=== PATIENT | male | born 1945 | race Caucasian/White ===

== ENCOUNTER 2017-07-03 10:19 | Emergency (ER) | payer BC ==
[2017-07-03 10:28] VITALS: BP 130/57; PULSE 50; TEMP 97.9; BMI 23.8
--- NOTE | 2017-07-03 11:50 | PDOC ---
History of Present Illness - General Chief Complaint: Pain Stated Complaint: LT ARM PAIN Time Seen by Provider: 07/03/17 11:22 History Source: Patient Exam Limitations: No Limitations - History of Present Illness Initial Comments: 07/03/17 13:34 MY CHIEF COMPLAINT: LEFT FOREARM BRUISING/TENDERNESS HISTORY OF PRESENT ILLNESS: PT. IS 71 Y/O MALE WITH H.O CAD, ANGINA, HTN, STENT CARDIAC PLACEMENT 2005, AND DEPRESSIN/ANXIETY HERE TODAY WITH BRUISING LEFT DORSAL FOREARM WITH SLIGHT TENDERNESS TO TOUCH X 3 WEEKS. 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 SPOKE TO HIS CHIEF OF HOSPITAL MEDICINE WHO RECOMMENDED THAT HE STOP ELIQUIS FOR 4 DAYS. PT. RESTARTED ELIQUIS TODAY. PT. DENIES ANY INJURY TO LEFT FOREARM, HAND OR UPPER ARM. PT. IS ANXIOUS ABOUT CAUSE OF BRUISING. Occurred: reports: other (3 weeks ago started ) Severity: reports: mild Upper Extremity Pain Location: left: forearm (dorsal forearm) Method of Injury: reports: unknown Modifying Factors: improves with: None Extremity Pain Location - Extremity Pain Location Extremity Pain Locations: left: forearm (dorsal tenderness/bruising ) Past History - Past Medical History Allergies/Adverse Reactions: Allergies Allergy/AdvReac Type Severity Reaction Status Date / Time No Known Drug Allergies Allergy Verified 07/03/17 10:23 Home Medications: Ambulatory Orders Alendronate Na [Fosamax (Weekly)] 70 mg PO WEEKLY 11/17/11 Alprazolam [Xanax] 0.5 mg PO QID 11/17/11 Aspirin [Aspir 81] 81 mg PO DAILY 11/17/11 Bupropion HCl [Wellbutrin Sr] 150 mg PO BID 11/17/11 Carvedilol 25 mg PO BID 11/17/11 Isosorbide Mononitrate [Imdur] 30 mg PO BID 11/17/11 Montelukast Na [Singulair -] 10 mg PO HS 11/17/11 Valacyclovir HCl [Valacyclovir] 500 mg PO DAILY 11/17/11 Atorvastatin Ca [Lipitor] 10 mg PO DAILY 12/02/13 Terazosin HCl [Hytrin] 10 mg PO HS 12/02/13 Amlodipine Besylate [Norvasc -] 5 mg PO DAILY 11/23/14 Potassium Chloride [Klor-Con 10] 20 meq PO BID 11/23/14 Quinapril HCl [Accupril -] 5 mg PO DAILY 07/07/15 Albuterol Sulfate [Proair Respiclick] 90 mcg IH PRN PRN 06/07/16 Eplerenone [Inspra] 25 mg PO DAILY 06/07/16 Ranolazine [Ranexa -] 500 mg PO DAILY 06/07/16 Anemia: Yes (STATES "SLIGHT") Asthma: Yes Cancer: No Cardiac Disorders: Yes (HX CAD-HX ANGINA-NO [place]) CVA: No COPD: No CHF: Yes Dementia: No Diabetes: No GI Disorders: No Disorders: No HTN: Yes Hypercholesterolemia: Yes Liver Disease: No Seizures: No Thyroid Disease: No - Surgical History Abdominal Surgery: No Appendectomy: No Cardiac Surgery: Yes (PACEMAKER/DEFIB 2008, STENT 2005) Cholecystectomy: No Lung Surgery: No Neurologic Surgery: No Orthopedic Surgery: Yes (SHOULDER ARTHROSCOPY) - Immunization History Immunization Up to Date: Yes - Suicide/Smoking/Psychosocial Hx Smoking Status: Yes Smoking History: Former smoker Have you smoked in the past 12 months: No Number of Cigarettes Smoked Daily: 0 If you are a former smoker, when did you quit?: 1973 Information on smoking cessation initiated: No 'Breaking Loose' booklet given: 11/23/14 Hx Alcohol Use: Yes (occasional) Drug/Substance Use Hx: No Substance Use Type: None Hx Substance Use Treatment: No Review of Systems - Review of Systems Able to Perform ROS?: Yes Constitutional: No: Symptoms Reported HEENTM: No: Symptoms Reported Respiratory: No: Symptoms reported Cardiac (ROS): No: Symptoms Reported ABD/GI: No: Symptoms Reported : No: Symptoms Reported Musculoskeletal: No: Symptoms Reported Integumentary: Yes: Bruising (left dorsal forearm ) Neurological: No: Symptoms reported *Physical Exam - Vital Signs Last Vital Signs Temp Pulse Resp BP Pulse Ox 97.9 F 50 L 18 130/57 100 07/03/17 10:25 07/03/17 10:25 07/03/17 10:25 07/03/17 10:25 07/03/17 10:25 - Physical Exam General Appearance: Yes: Appropriately Dressed Respiratory/Chest: positive: Lungs Clear, Normal Breath Sounds. negative: Chest Tender, Respiratory Distress Cardiovascular: positive: Regular Rhythm, Regular Rate, S1, S2 Comments:: 07/03/17 12:35 left radial pulse 4 + Extremity: positive: Normal Capillary Refill, Normal Range of Motion (left hand/ digits, elbow/shoulder ), Tender (left forearm tenderness mid to touch ) Integumentary: positive: Bruising (left mid dorsal forearm appt. 4 cm x 3 cm ) Neurologic: positive: Normal Response, Respond to painful stimul (left forearm ) , Responsive. negative: Numbness, Sensory Deficit (left forearm ) Medical Decision Making - Medical Decision Making 07/03/17 13:40 PT. IS 71 Y/O MALE WITH H.O CAD, ANGINA, HTN, STENT CARDIAC PLACEMENT 2005, AND DEPRESSIN/ANXIETY HERE TODAY WITH BRUISING LEFT DORSAL FOREARM WITH SLIGHT TENDERNESS TO TOUCH X 3 WEEKS. 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 SPOKE TO HIS CHIEF OF HOSPITAL MEDICINE WHO RECOMMENDED THAT HE STOP ELIQUIS FOR 4 DAYS. PT. RESTARTED ELIQUIS TODAY. PT. DENIES ANY INJURY TO LEFT FOREARM, HAND OR UPPER ARM. PT. IS ANXIOUS ABOUT CAUSE OF BRUISING. R/O DVT LEFT FOREARM PLAN: VENOUS DOPPLER LEFT ARM NEGATIVE FOR DVT SPOKE WITH DR. MOY HE WAS NOT CONCERNED HAD SEEN PT. LAST WEEK, HE RECOMMENDED THAT HE FOLLOW UP WITH DR. ELLIOTT AND CONTINUE ON ELIQUIS *DC/Admit/Observation/Transfer Diagnosis at time of Disposition: Ecchymosis of forearm - Discharge Dispostion Disposition: HOME Condition at time of disposition: Stable - Referrals Referrals: Carlitos Moy MD [Primary Care Provider] - Tony Morel MD [Staff Physician] - Jarod Rosales MD [Staff Physician] - - Patient Instructions Additional Instructions: FOLLOW UP WITH CHIEF OF HOSPITAL MEDICINE SOON POSSIBLE FOLLOW UP WITH ORTHOPEDIST AVOID ANY STRENUOUS ACTIVITIES USING LEFT HAND/ARM PATIENT VOICED UNDERSTANDING OF DISCHARGE INSTRUCTIONS AND ALL QUESTIONS WERE ANSWERED - Post Discharge Activity
== END 2017-07-03 13:36 | disposition home or self-care (01) ==
LOC: JERFT 10:19
DX: S50.12XA Contusion of left forearm, initial encounter (principal); I25.10 Atherosclerotic heart disease of native coronary artery without angina pectoris; I10 Essential (primary) hypertension; Z95.5 Presence of coronary angioplasty implant and graft; F41.8 Other specified anxiety disorders; Z95.0 Presence of cardiac pacemaker
CPT/HCPCS: 93971; 99281-25

== ENCOUNTER 2018-04-11 12:55 | Emergency (ER) | payer BC ==
[2018-04-11 13:09] VITALS: BP 104/69; PULSE 69; TEMP 98.1; BMI 23.0
--- NOTE | 2018-04-11 15:44 | PDOC ---
History of Present Illness - General Chief Complaint: Injury Stated Complaint: FALL, BACK PAIN Time Seen by Provider: 04/11/18 13:26 History Source: Patient Exam Limitations: Clinical Condition - History of Present Illness Initial Comments: 04/11/18 15:38 Patient with history of hypertension, hyperlipidemia and cardiomyopathy on Eliquis present with complain of severe right-sided rib pain status post tripping fall this afternoon. Patient reported increased pain with deep breathing. Patient denies hitting head or loss of consciousness doing fall. Patient denies dizziness, lightheadedness, nausea or vomiting. Denies any other symptoms Timing/Duration: 1-3 hours Past History - Past Medical History Allergies/Adverse Reactions: Allergies Allergy/AdvReac Type Severity Reaction Status Date / Time No Known Drug Allergies Allergy Verified 04/13/18 08:07 Home Medications: Ambulatory Orders Alendronate Na [Fosamax (Weekly)] 70 mg PO WEEKLY 11/17/11 Alprazolam [Xanax] 0.5 mg PO QID 11/17/11 Aspirin [Aspir 81] 81 mg PO DAILY 11/17/11 Bupropion HCl [Wellbutrin Sr] 150 mg PO BID 11/17/11 Carvedilol 12.5 mg PO BID 11/17/11 Isosorbide Mononitrate [Imdur] 30 mg PO BID 11/17/11 Montelukast Na [Singulair -] 10 mg PO HS 11/17/11 Valacyclovir HCl [Valacyclovir] 500 mg PO DAILY 11/17/11 Atorvastatin Ca [Lipitor] 10 mg PO DAILY 12/02/13 Terazosin HCl [Hytrin] 10 mg PO HS 12/02/13 Amlodipine Besylate [Norvasc -] 5 mg PO DAILY 11/23/14 Potassium Chloride [Klor-Con 10] 10 meq PO BID 11/23/14 Quinapril HCl [Accupril -] 5 mg PO DAILY 07/07/15 Albuterol Sulfate [Proair Respiclick] 90 mcg IH PRN PRN 06/07/16 Ranolazine [Ranexa -] 500 mg PO DAILY 06/07/16 Lidocaine 5% Patch [Lidoderm -] 1 patch TP DAILY #7 patch 04/11/18 Oxycodone HCl/Acetaminophen [Percocet 5-325 mg Tablet] 1 - 2 tab PO Q6H PRN #10 tab MDD 4 04/11/18 Anemia: (STATES "SLIGHT") Asthma: Yes Cancer: No Cardiac Disorders: Yes (HX CAD-HX ANGINA-NO [place]) CVA: No COPD: No CHF: Yes Dementia: No Diabetes: No GI Disorders: No Disorders: No HTN: Yes Hypercholesterolemia: Yes Liver Disease: No Seizures: No Thyroid Disease: No - Surgical History Abdominal Surgery: No Appendectomy: No Cardiac Surgery: Yes (PACEMAKER/DEFIB 2008, STENT 2005) Cholecystectomy: No Lung Surgery: No Neurologic Surgery: No Orthopedic Surgery: Yes (SHOULDER ARTHROSCOPY) - Immunization History Immunization Up to Date: Yes - Suicide/Smoking/Psychosocial Hx Smoking Status: Yes Smoking History: Never smoked Have you smoked in the past 12 months: No Number of Cigarettes Smoked Daily: 0 If you are a former smoker, when did you quit?: 1973 'Breaking Loose' booklet given: 11/23/14 Hx Alcohol Use: Yes (occasional) Drug/Substance Use Hx: No Substance Use Type: None Hx Substance Use Treatment: No Review of Systems - Review of Systems Able to Perform ROS?: Yes Is the patient limited Macedonian proficient: No Constitutional: Yes: Other (moderate distress) HEENTM: No: Symptoms Reported Respiratory: Yes: Shortness of Breath. No: Cough, Hemoptysis Cardiac (ROS): No: Chest Pain, Irregular Heart Rate, Lightheadedness, Palpitations, Chest Tightness ABD/GI: No: Nausea, Vomiting Musculoskeletal: Yes: Back Pain (right side mid-back), Muscle Pain (right side ribs ). No: Muscle Weakness All Other Systems: Reviewed and Negative *Physical Exam - Vital Signs Last Vital Signs Temp Pulse Resp BP Pulse Ox 98.1 F 69 18 104/69 98 04/11/18 13:07 04/11/18 13:07 04/11/18 13:07 04/11/18 13:07 04/11/18 13:07 - Physical Exam Comments: 04/11/18 15:40 GENERAL: Well developed, well nourished. Awake and alert. Moderate acute distress. HEENT: Normocephalic, atraumatic. PERRLA, EOMI. No conjunctival pallor. Sclera are non- icteric. Moist mucous membranes. Oropharynx is clear. NECK: Supple. Full ROM. CARDIOVASCULAR: Regular rate and rhythm. No murmurs, rubs, or gallops. Distal pulses are 2+ and symmetric. PULMONARY: No evidence of respiratory distress. Lungs clear to auscultation bilaterally. No wheezing, rales or rhonchi. ABDOMINAL: Soft. Non-tender. Non-distended. No rebound or guarding. No organomegaly. Normoactive bowel sounds. MUSCULOSKELETAL : Moderate tenderness to palpation over right posterior with areas of lateral T2-T8. Mild tenderness to right mid back.Normal range of motion at all joints. No bony deformities . No CVA tenderness. EXTREMITIES: No cyanosis. No clubbing. No edema. No calf tenderness. SKIN: Warm and dry. Normal capillary refill. No rashes. No jaundice. NEUROLOGICAL: Alert, awake, appropriate. Gait is normal without ataxia. PSYCHIATRIC: Cooperative. Good eye contact. Appropriate mood and affect. General Appearance: Yes: Nourished, Appropriately Dressed, Moderate Distress ED Treatment Course - Medications Given in the ED: ED Medications Discontinued Medications Generic Name Dose Route Start Last Admin Trade Name Freq PRN Reason Stop Dose Admin Oxycodone/Acetaminophen 1 combo 04/11/18 13:45 04/11/18 13:56 Percocet 5/325 - PO 04/11/18 13:46 1 combo ONCE ONE Administration Medical Decision Making - Medical Decision Making 04/11/18 15:42 Patient with multiple comorbidities presenting with severe right-sided ribs and mid back pain status post fall hitting the right side of chest with complain of shortness of breath with pain to right side of chest. Exam significant for severe tenderness over right ribs with mild tenderness to right mid back. X-ray ordered with no acute pneumothorax or fracture. Percocet by mouth given for pain. CAT scan of abdominal and chest ordered to rule out acute pathology. Treat based on imaging results 16:58 x-rays shows fracture of 5th and 6th rib fracture with no evidence of pneumothorax or acute lung pathology. patient pain controlled after Percocet and Toradol. incentive spiropmetry and topical lidocaine patch ordered for patient . discharge will be based on patient able to do incentive spirometry. Patient signed out to night team for follow-up care *DC/Admit/Observation/Transfer Diagnosis at time of Disposition: Rib fractures Qualifiers: Encounter type: initial encounter Rib fracture type: multiple ribs Fracture type: closed Laterality: right Qualified Code(s): S22.41XA - Multiple fractures of ribs, right side, initial encounter for closed fracture - Discharge Dispostion Disposition: HOME Condition at time of disposition: Improved - Prescriptions Prescriptions: Lidocaine 5% Patch [Lidoderm -] 1 patch TP DAILY #7 patch Oxycodone HCl/Acetaminophen [Percocet 5-325 mg Tablet] 1 - 2 tab PO Q6H PRN #10 tab MDD 4 PRN Reason: Moderate Pain - Referrals Referrals: Carlitos Moy MD [Primary Care Provider] - - Patient Instructions Printed Discharge Instructions: Rib Fracture Additional Instructions: use incentive spirometer up to 30 deep breaths (with 30 to 60 second rests between sets of 10) may be done hourly during waking hours. you may take percocet every 6 hours for pains needed. do not drive after taking this medication follow up with your doctor as soon as possible. return to the ER for worsening symptoms/ - Post Discharge Activity Forms/Work/School Notes: Back to Work
[2018-04-11] MEDS ORDERED: KETOROLAC TROMETHAMINE 60 MG/2 ML VIAL IM ONE (15:53)
[2018-04-11] MEDS ORDERED: KETOROLAC TROMETHAMINE 60 MG/2 ML VIAL ONE (15:53)
--- NOTE | 2018-04-11 17:37 | PDOC ---
*Physical Exam - Vital Signs Last Vital Signs Temp Pulse Resp BP Pulse Ox 98.1 F 69 18 104/69 98 04/11/18 13:07 04/11/18 13:07 04/11/18 13:07 04/11/18 13:07 04/11/18 13:07 - Physical Exam Comments: 04/11/18 19:03 NAD, well appearing, MMM, nl conjunctiva, anicteric; neck supple. lungs clear, + diastolic heart murmur, +right lateral chest wall tenderness, no crepitus. no respiratory distress. abdomen soft nontender. MORE x4, no focal neuro deficits. No peripheral edema. normal color for ethnicity, WWP. ED Treatment Course - Medications Given in the ED: ED Medications Discontinued Medications Generic Name Dose Route Start Last Admin Trade Name Freq PRN Reason Stop Dose Admin Ketorolac Tromethamine 60 mg 04/11/18 15:53 04/11/18 16:06 Toradol Injection - IM 04/11/18 15:54 60 mg ONCE ONE Administration Oxycodone/Acetaminophen 1 combo 04/11/18 13:45 04/11/18 13:56 Percocet 5/325 - PO 04/11/18 13:46 1 combo ONCE ONE Administration Medical Decision Making - Medical Decision Making 04/11/18 19:02 The patient was seen and evaluated in conjunction with midlevel provider under my direct supervision, ancillary studies were reviewed. I agree with the plan as outlined by CARLO Holley 72 YOM with h/o hypertension, hyperlipidemia and cardiomyopathy on Eliquis presenting with chest pain s/p slip and fall, worse with taking deep breath and movement. no cough or respiratory sx. no head injury or LOC. vitals wnl, SpO2 98% on RA. off O2. CXR normal, but CT chest obtained with chest pain so eval for PTX/occult rib fx confirmed right 5-6th rib fractures, some old fractures present as well and those areas not tender. no ptx or hemothorax. trace pericardial effusion, but not significant. pain control with topical lidoderm patch, toradol and oxycodone with relief. pt has improved symptoms, w/o desats or respiratory sx. incentive spirometer, instructions on use pain controlled, elects for discharge which is appropriate and pt is reliable with the plan. return precautions discussed, including increased respiratory sx , infection or syncope. dehydration. pain control with PO tyl as needed, oxycodone for more severe sx. sedation and side effects discussed. 04/11/18 20:02 *DC/Admit/Observation/Transfer Diagnosis at time of Disposition: Rib fractures Qualifiers: Encounter type: initial encounter Rib fracture type: multiple ribs Fracture type: closed Laterality: right Qualified Code(s): S22.41XA - Multiple fractures of ribs, right side, initial encounter for closed fracture - Discharge Dispostion Disposition: HOME Condition at time of disposition: Improved Decision to Admit order: No - Prescriptions Prescriptions: Lidocaine 5% Patch [Lidoderm -] 1 patch TP DAILY #7 patch Oxycodone HCl/Acetaminophen [Percocet 5-325 mg Tablet] 1 - 2 tab PO Q6H PRN #10 tab MDD 4 PRN Reason: Moderate Pain - Referrals Referrals: Carlitos Moy MD [Primary Care Provider] - - Patient Instructions Printed Discharge Instructions: Rib Fracture Additional Instructions: use incentive spirometer up to 30 deep breaths (with 30 to 60 second rests between sets of 10) may be done hourly during waking hours. you may take percocet every 6 hours for pains needed. do not drive after taking this medication follow up with your doctor as soon as possible. return to the ER for worsening symptoms/ - Post Discharge Activity
[2018-04-11] MEDS ORDERED: LIDOCAINE 5% TOPICAL PATCH TP ONE (18:40)
--- NOTE | 2018-04-11 19:59 | PDOC ---
*Physical Exam - Vital Signs Last Vital Signs Temp Pulse Resp BP Pulse Ox 98.1 F 69 18 104/69 98 04/11/18 13:07 04/11/18 13:07 04/11/18 13:07 04/11/18 13:07 04/11/18 13:07 - Physical Exam General Appearance: Yes: Appropriately Dressed Respiratory/Chest: positive: Lungs Clear, Normal Breath Sounds Gastrointestinal/Abdominal: positive: Normal Bowel Sounds, Soft ED Treatment Course - Medications Given in the ED: ED Medications Discontinued Medications Generic Name Dose Route Start Last Admin Trade Name Freq PRN Reason Stop Dose Admin Ketorolac Tromethamine 60 mg 04/11/18 15:53 04/11/18 16:06 Toradol Injection - IM 04/11/18 15:54 60 mg ONCE ONE Administration Lidocaine 1 patch 04/11/18 18:40 04/11/18 19:37 Lidoderm Patch - TP 04/11/18 18:41 1 patch ONCE ONE Administration Oxycodone/Acetaminophen 1 combo 04/11/18 13:45 04/11/18 13:56 Percocet 5/325 - PO 04/11/18 13:46 1 combo ONCE ONE Administration Medical Decision Making - Medical Decision Making 04/11/18 19:52 pending incentive spirometer. 04/11/18 20:00 patient alert speaking. reports that pain is under control at this time. plan to d/c home 04/11/18 20:53 able to use incentive spirameter with no difficulty. will give dose of percocet now. v/s stable will d/c home *DC/Admit/Observation/Transfer Diagnosis at time of Disposition: Rib fractures Qualifiers: Encounter type: initial encounter Rib fracture type: multiple ribs Fracture type: closed Laterality: right Qualified Code(s): S22.41XA - Multiple fractures of ribs, right side, initial encounter for closed fracture - Discharge Dispostion Disposition: HOME Condition at time of disposition: Improved - Prescriptions Prescriptions: Lidocaine 5% Patch [Lidoderm -] 1 patch TP DAILY #7 patch Oxycodone HCl/Acetaminophen [Percocet 5-325 mg Tablet] 1 - 2 tab PO Q6H PRN #10 tab MDD 4 PRN Reason: Moderate Pain - Referrals Referrals: Carlitos Moy MD [Primary Care Provider] - - Patient Instructions Printed Discharge Instructions: Rib Fracture Additional Instructions: use incentive spirometer up to 30 deep breaths (with 30 to 60 second rests between sets of 10) may be done hourly during waking hours. you may take percocet every 6 hours for pains needed. do not drive after taking this medication follow up with your doctor as soon as possible. return to the ER for worsening symptoms/ - Post Discharge Activity Forms/Work/School Notes: Back to Work
[2018-04-11] MEDS ORDERED: LIDOCAINE PATCH REMOVAL MC SCH (22:00)
== END 2018-04-11 21:20 | disposition home or self-care (01) ==
LOC: JERFT 12:55 → JER 12:55
PROC: 3E0233Z Introduction of Anti-inflammatory into Muscle, Percutaneous Approach (ICD-10-PCS; principal; 2018-04-11)
DX: S22.41XA Multiple fractures of ribs, right side, initial encounter for closed fracture (principal); W18.39XA Other fall on same level, initial encounter; Y93.89 Activity, other specified; Y92.89 Other specified places as the place of occurrence of the external cause; I10 Essential (primary) hypertension; E78.5 Hyperlipidemia, unspecified; I42.9 Cardiomyopathy, unspecified; Z79.01 Long term (current) use of anticoagulants
CPT/HCPCS: 71045-TC-FY; 71250-TC; 99282-25

== ENCOUNTER 2018-04-13 07:54 | Emergency (ER) | payer BC ==
[2018-04-13 08:13] VITALS: BMI 23.8
--- NOTE | 2018-04-13 08:22 | PDOC ---
Attending Attestation - Resident Resident Name: Donta Orosco - ED Attending Attestation I have performed the following: I have examined & evaluated the patient, The case was reviewed & discussed with the resident, I agree w/resident's findings & plan, Exceptions are as noted - HPI HPI: 04/13/18 09:54 72y M hx asthma, htn, cad, hl, ckd, s/p PM (hypertrophic cardiomyoapthy) s/p fall dx with 5th and 6th rib fx and dc wth spirametry. Pt notes that the pain was worse this morning/ when he woke up he felt significant pain in the R back where he had the rib fracture. pt denies any sob, bae, fever/cough, n/v, diaphorsis, abd pain, hematuria. GENERAL: The patient is awake, alert, and fully oriented, Nontoxic - in no acute distress. HEAD: Normocephalic, atraumatic. EYES: extraocular movements intact, sclera anicteric, conjunctiva clear. ENT: Normal voice, Moist mucous membranes. NECK: Normal range of motion, supple LUNGS: Breath sounds equal, clear to auscultation bilaterally. No wheezes, no rhonchi, no rales. HEART: Regular rate and rhythm, normal S1 and S2 without murmur, rub or gallop. ABDOMEN: Soft, nontender No guarding, no rebound. No CVA tenderness, small localized ecchymosis in R above the iliac crest EXTREMITIES: Normal range of motion of all extermities, No clubbing or cyanosis. No cords, erythema, or tenderness. Small amount of ecchymosis on L antecubitual fossa NEUROLOGICAL: No facial assymetry, Normal speech, PSYCH: Normal mood, normal affect. SKIN: Warm, Dry, normal turgor, lungs clear - no signs of clinical or objective findings of pna, cxr clear ecchymsis - localized in R flank and L ac fossa, no signs of eccmyhosis elsewhere, do not think retroperitoneal hemorrhage, hgb stable lbas noted for ckd (at [facility]) will give further meds for pain control
--- NOTE | 2018-04-13 08:23 | PDOC ---
History of Present Illness - General Chief Complaint: Shortness of Breath Stated Complaint: FX RIBS,SOB Time Seen by Provider: 04/13/18 08:06 - History of Present Illness Initial Comments: 04/13/18 08:34 72 yo M w a hx of recent rib fracture, asthma, HTN, hyperlipidemia, CAD, pacemaker, cardiomyopathy on Eliquis is here with SOB and difficulty breathing. He was discharged from the hospital [address] confirmed right 5-6th rib fractures. He was sent home with instructions on how to use the spirometer. The patient reports good spirometer readings greater than 1750 up until last night. When he awoke this morning he was in a significant amount of pain despite taking a percocet and his spirometer reading was significantly lower than usual. He said he couldn't even reach 1250. He has been taking percocet for pain control 3-325 but it has not been helping much. He reports that he has been good about checking his temperature and states he has not had any fevers in the past few days. He denies recent fevers, chills, or infections. Denies chest pain. Denies abdominal pain. Denies dysuria, frequency or urgency. Re endorses constipation over the past few days since he began taking percocet for pain control. 04/13/18 08:36 04/13/18 08:37 04/13/18 08:45 04/13/18 08:47 Past History - Past Medical History Allergies/Adverse Reactions: Allergies Allergy/AdvReac Type Severity Reaction Status Date / Time No Known Drug Allergies Allergy Verified 04/13/18 08:07 Home Medications: Ambulatory Orders Alendronate Na [Fosamax (Weekly)] 70 mg PO WEEKLY 11/17/11 Alprazolam [Xanax] 0.5 mg PO QID 11/17/11 Aspirin [Aspir 81] 81 mg PO DAILY 11/17/11 Bupropion HCl [Wellbutrin Sr] 150 mg PO BID 11/17/11 Carvedilol 12.5 mg PO BID 11/17/11 Isosorbide Mononitrate [Imdur] 30 mg PO BID 11/17/11 Montelukast Na [Singulair -] 10 mg PO HS 11/17/11 Valacyclovir HCl [Valacyclovir] 500 mg PO DAILY 11/17/11 Atorvastatin Ca [Lipitor] 10 mg PO DAILY 12/02/13 Terazosin HCl [Hytrin] 10 mg PO HS 12/02/13 Amlodipine Besylate [Norvasc -] 5 mg PO DAILY 11/23/14 Potassium Chloride [Klor-Con 10] 10 meq PO BID 11/23/14 Quinapril HCl [Accupril -] 5 mg PO DAILY 07/07/15 Albuterol Sulfate [Proair Respiclick] 90 mcg IH PRN PRN 06/07/16 Ranolazine [Ranexa -] 500 mg PO DAILY 06/07/16 Lidocaine 5% Patch [Lidoderm -] 1 patch TP DAILY #7 patch 04/11/18 Oxycodone HCl/Acetaminophen [Percocet 5-325 mg Tablet] 1 - 2 tab PO Q6H PRN #10 tab MDD 4 04/11/18 Anemia: (STATES "SLIGHT") Asthma: Yes Cancer: No Cardiac Disorders: Yes (HX CAD-HX ANGINA-NO [place]) CVA: No COPD: No CHF: Yes Dementia: No Diabetes: No GI Disorders: No Disorders: No HTN: Yes Hypercholesterolemia: Yes Liver Disease: No Seizures: No Thyroid Disease: No - Surgical History Abdominal Surgery: No Appendectomy: No Cardiac Surgery: Yes (PACEMAKER/DEFIB 2008, STENT 2005) Cholecystectomy: No Lung Surgery: No Neurologic Surgery: No Orthopedic Surgery: Yes (SHOULDER ARTHROSCOPY) - Immunization History Immunization Up to Date: Yes - Suicide/Smoking/Psychosocial Hx Smoking Status: Yes Smoking History: Never smoked Have you smoked in the past 12 months: No Number of Cigarettes Smoked Daily: 0 If you are a former smoker, when did you quit?: 1974 'Breaking Loose' booklet given: 11/23/14 Hx Alcohol Use: Yes (occasional) Drug/Substance Use Hx: No Substance Use Type: None Hx Substance Use Treatment: No Review of Systems - Review of Systems Comments:: 04/13/18 08:49 CONSTITUTIONAL: Absent: fever, chills, diaphoresis, generalized weakness, malaise, loss of appetite HEENT: Absent: rhinorrhea, nasal congestion, throat pain, throat swelling, difficulty swallowing, mouth swelling, ear pain, eye pain, visual Changes CARDIOVASCULAR: Absent: chest pain, syncope, palpitations, irregular heart rate, lightheadedness , peripheral edema RESPIRATORY: Positive: Shortness of breath. Absent: cough, dyspnea with exertion, orthopnea, wheezing, stridor, hemoptysis GASTROINTESTINAL: Positive: Constipation Absent: abdominal pain, abdominal distension, nausea, vomiting, diarrhea, melena , hematochezia GENITOURINARY: Absent: dysuria, frequency, urgency, hesitancy, hematuria, flank pain, genital pain MUSCULOSKELETAL: Postive: Rib Pain Absent: myalgia, arthralgia, joint swelling SKIN: Positive: Rash Absent: itching, pallor HEMATOLOGIC/IMMUNOLOGIC: Positive: Easy bleeding, easy bruising Absent: lymphadenopathy, frequent infections ENDOCRINE: Absent: unexplained weight gain, unexplained weight loss, heat intolerance, cold intolerance NEUROLOGIC: Absent: headache, focal weakness or paresthesias, dizziness, unsteady gait, seizure, mental status changes, bladder or bowel incontinence PSYCHIATRIC: Absent: anxiety, depression, suicidal or homicidal ideation, hallucinations. 04/13/18 09:00 *Physical Exam - Vital Signs Last Vital Signs Temp Pulse Resp BP Pulse Ox 98.8 F 80 24 138/62 96 04/13/18 07:55 04/13/18 07:55 04/13/18 07:55 04/13/18 07:55 04/13/18 07:55 - Physical Exam Comments: 04/13/18 09:01 Ribs: Patient has exquisite pain upon palpation of the right 5th and 6th ribs posteriorly. GENERAL: Well developed, well nourished. Awake and alert. No acute distress. HEENT: Normocephalic, atraumatic. PERRLA, EOMI. No conjunctival pallor. Sclera are non- icteric. Moist mucous membranes. Oropharynx is clear. NECK: Supple. Full ROM. No JVD. No thyromegaly. No lymphadenopathy. CARDIOVASCULAR: Regular rate and rhythm. There is a diastolic murmur. No rubs or gallops. Distal pulses are 2+ and symmetric. PULMONARY: There is evidence of respiratory distress. The patient has a hard time taking deep breaths due to pain on R side. Lungs clear to auscultation bilaterally. No wheezing, rales or rhonchi. ABDOMINAL: Soft. Non-tender. Non-distended. No rebound or guarding. No organomegaly. Normoactive bowel sounds. MUSCULOSKELETAL There is significant tenderness along the Right 5th and 6th ribs posteriorly. Normal range of motion at all joints. No bony deformities. No CVA tenderness. EXTREMITIES: No cyanosis. No clubbing. No edema. No calf tenderness. SKIN: There is an echymosis in the RLQ of the abdomen as well as in the L antecubital fossa. Warm and dry. Normal capillary refill. No jaundice. NEUROLOGICAL: Alert, awake, appropriate. Cranial nerves 2-12 grossly intact. Normal speech. PSYCHIATRIC: Cooperative. Good eye contact. Appropriate mood and affect. ED Treatment Course - LABORATORY CBC & Chemistry Diagram: 04/13/18 08:19 04/13/18 08:19 Medical Decision Making - Medical Decision Making 04/13/18 09:05 72 yo M w a hx of recent R sided 5th and 6th rib fractures, asthma, HTN, hyperlipidemia, CAD, pacemaker, cardiomyopathy on Eliquis is here with SOB, difficulty breathing, decreased spirometer readings, and significant pleuritic pain associated with inhalation. Differential includes but not limited to: PNA, inappropriately managed pain, Pneumothorax, atelectasis, pleural effusion. Plan: Chest X ray, Cbc, Cmp, Vbg, Trop, Ekg, IVF - NS, toradol, lidoderm patch, re-assess. Percocet does not seem to be adequate for the patients rib pain. Will attempt to relive pain with toradol and lidoderm patch. After lidoderm patch, 650 mg of acetaminophen, and 15 toradol IV - it still hurts the patient significantly to move around. He is satting at 99% on RA lying still in the bed. He reports no discomfort while lying still but movement is painful. Will attempt to give 5 of oxycodone to relieve pain and see if patient can ambulate. Patient was able to get out of bed and walk after oxycodone. He would like to leave the hospital. He knows to come back to the ER if he can't breathe or if he has intractable pain. He understands the importance of spirometry to prevent a pneumonia. Strict return precautions were discussed with patient. 04/13/18 11:46 04/13/18 13:27 *DC/Admit/Observation/Transfer Diagnosis at time of Disposition: Rib fractures, Pain - Discharge Dispostion Disposition: HOME Condition at time of disposition: Stable Decision to Admit order: No - Referrals Referrals: Carlitos Moy MD [Primary Care Provider] - - Patient Instructions Printed Discharge Instructions: Rib Fracture, Presenting 'Lung Age' Spirometry Results Increases Smoking Cessation at 12 Additional Instructions: You came to the emergency room because of extreme rib pain and difficulty breathing. Your pain responded well to oxycodone. We will send a script for oxycodone to your pharmacy, please make sure to go pick it up and take as needed for pain control. Please make sure to be good about measuring your spirometry. Please schedule a follow up appointment with your primary care doc to make sure your pain is under control and you are getting better. Come back to the emergency room if your pain becomes too severe, if you can't breathe, if you develop a fever, have severe chest pain, start vomiting, or have any other new or worsening symptoms. Print Language: KAZAKH - Post Discharge Activity
[2018-04-13] MEDS ORDERED: KETOROLAC TROMETHAMINE 15 MG/ML VIAL IVPUSH ONE (08:24)
[2018-04-13] MEDS ORDERED: LIDOCAINE 5% TOPICAL PATCH TP ONE (08:25)
[2018-04-13] MEDS ORDERED: KETOROLAC TROMETHAMINE 15 MG/ML VIAL ONE (08:36)
[2018-04-13] MEDS ORDERED: LIDOCAINE 5% TOPICAL PATCH ONE (08:36)
[2018-04-13 08:49] LABS: VENOUS PC02 42.4 mmHg (38-52); VENOUS PH 7.39 (7.32-7.42); VENOUS PO2 23.3 mmHg (28-48)
[2018-04-13 09:05] LABS: BASO % 0.2 % (0-2.0); EOS % 0.9 % (0-4.5); HEMATOCRIT 34.4 % (35.4-49); HEMOGLOBIN 11.7 GM/dL (11.7-16.9); LYMPH % 7.9 % (8-40); MCH 32.5 pg (25.7-33.7); MEAN CELL VOLUME 95.6 fl (80-96); MEAN PLT VOLUME 9.8 fl (7.5-11.1); MONO % 10.2 % (3.8-10.2); NEUT % 80.8 % (42.8-82.8); PLATELET COUNT 129 K/MM3 (134-434); RDW 23.1 % (11.9-15.9); WHITE BLOOD COUNT 7.4 K/mm3 (4.0-10.0)
[2018-04-13 09:22] LABS: ALBUMIN 3.8 g/dl (3.4-5.0); ALK PHOS 52 U/L (45-117); ANION GAP 10 MMOL/L (8-16); BILIRUBIN,TOTAL 1.6 mg/dL (0.2-1); BLOOD UREA NITROGEN 62 mg/dL (7-18); CHLORIDE 110 mmol/L (98-107); CO2 23 mmol/L (21-32); CREATININE 2.7 mg/dL (0.55-1.3); GLUCOSE,RANDOM 102 mg/dL (74-106); POTASSIUM 4.6 mmol/L (3.5-5.1); SGOT/AST 14 U/L (15-37); SGPT/ALT 19 U/L (13-61); SODIUM 143 mmol/L (136-145); TOT PROT 6.6 g/dl (6.4-8.2)
[2018-04-13] MEDS ORDERED: SODIUM CHLORIDE 0.9% 500 ML INFUS.BAG IV ONE (09:23)
[2018-04-13] MEDS ORDERED: ACETAMINOPHEN 325 MG TABLET (FP) PO ONE (10:08)
[2018-04-13] MEDS ORDERED: ACETAMINOPHEN 325 MG TABLET (FP) ONE (10:18)
[2018-04-13] MEDS ORDERED: buPROPion HCL 100 MG TABLET PO ONE (11:24)
[2018-04-13] MEDS ORDERED: CARVEDILOL 25 MG TABLET (FP) PO ONE (11:27)
[2018-04-13] MEDS ORDERED: EPLERENONE 25 MG TABLET PO ONE (11:28)
[2018-04-13] MEDS ORDERED: FUROSEMIDE 40 MG TABLET (FP) PO ONE (11:29)
[2018-04-13] MEDS ORDERED: ISOSORBIDE MONONITRATE 30 MG TAB.SR.24H (FP) PO SCH (11:30)
[2018-04-13] MEDS ORDERED: APIXABAN 2.5 MG TABLET PO SCH (11:30)
[2018-04-13] MEDS ORDERED: RANOLAZINE E.R. 500 MG TABLET (FP) PO SCH (11:30)
[2018-04-13] MEDS ORDERED: buPROPion HCL 100 MG TABLET ONE (11:35)
[2018-04-13] MEDS ORDERED: CARVEDILOL 12.5 MG TABLET (FP) ONE (11:35)
[2018-04-13] MEDS ORDERED: ISOSORBIDE MONONITRATE 60 MG TAB.SR.24H (FP) PO ONE (11:35)
[2018-04-13] MEDS ORDERED: oxyCODONE HCL 5 MG TABLET PO ONE (11:40)
[2018-04-13] MEDS ORDERED: oxyCODONE HCL 5 MG TABLET ONE (11:44)
[2018-04-13 12:14] VITALS: BP 131/53
[2018-04-13 12:33] LABS: INR 1.5 (0.83-1.09)
[2018-04-13 12:36] LABS: ACTIVATED PTT 32.1 SECONDS (25.2-36.5)
[2018-04-13] MEDS ORDERED: BISMUTH SUBSALICYLATE 524 MG/30 ML UD PO ONE (13:42)
[2018-04-13 14:04] VITALS: PULSE 78; TEMP 98.1
[2018-04-13] MEDS ORDERED: MAG HYDROX/AL HYDROX/SIMETH -MYLANTA- ORAL SUSPENSION PO ONE (14:06)
[2018-04-13] MEDS ORDERED: MAG HYDROX/AL HYDROX/SIMETH 30 ML UNIT-DOSE CUP ONE (14:07)
[2018-04-13] MEDS ORDERED: LIDOCAINE PATCH REMOVAL MC SCH (22:00)
== END 2018-04-13 14:12 | disposition home or self-care (01) ==
LOC: JER 07:54
PROC: 3E0333Z Introduction of Anti-inflammatory into Peripheral Vein, Percutaneous Approach (ICD-10-PCS; principal; 2018-04-13)
PROC: 3E0337Z Introduction of Electrolytic and Water Balance Substance into Peripheral Vein, Percutaneous Approach (ICD-10-PCS; 2018-04-13)
DX: S22.39XA Fracture of one rib, unspecified side, initial encounter for closed fracture (principal); S27.9XXA Injury of unspecified intrathoracic organ, initial encounter; X58.XXXA Exposure to other specified factors, initial encounter; Y93.89 Activity, other specified; Y92.89 Other specified places as the place of occurrence of the external cause; I10 Essential (primary) hypertension; E78.5 Hyperlipidemia, unspecified; Z95.5 Presence of coronary angioplasty implant and graft; Z79.01 Long term (current) use of anticoagulants; I25.10 Atherosclerotic heart disease of native coronary artery without angina pectoris
CPT/HCPCS: 36415; 71045-TC-FY; 80053; 82550; 82803; 84484; 85025; 85610; 85730; 99285-25

== ENCOUNTER 2019-02-17 20:49 | Emergency (ER) | payer BC | END 2019-02-17 23:02 | disposition home or self-care (01) | LOC: JERFT 20:49 ==

== ENCOUNTER 2019-08-08 04:27 | Inpatient (IN) | payer BC, OTHER ==
[2019-08-08] MEDS ORDERED: THROMBIN (BOVINE) 5,000 UNIT VIAL TP ONE ×4 (07:16→10:27)
[2019-08-08] MEDS ORDERED: BACITRACIN 15 GM TUBE TOPICAL OINTMENT ONE (07:19)
[2019-08-08] MEDS ORDERED: ROCURONIUM BROMIDE 50 MG/5 ML SYRINGE ONE (07:55)
[2019-08-08] MEDS ORDERED: fentaNYL CITRATE 250 MCG/5 ML VIAL ONE (07:55)
[2019-08-08] MEDS ORDERED: MIDAZOLAM HCL 2 MG/2 ML SINGLE DOSE VIAL ONE ×2 (07:55)
[2019-08-08] MEDS ORDERED: PROPOFOL 20 ML ONE ×7 (08:08→10:59)
[2019-08-08] MEDS ORDERED: ceFAZolin SODIUM 1 GM VIAL IVPB ONE (08:30)
[2019-08-08] MEDS ORDERED: BACITRACIN 50,000 UNITS VIAL TP ONE (09:42)
[2019-08-08] MEDS ORDERED: BACITRACIN 15 GM TUBE TOPICAL OINTMENT TP ONE ×2 (09:43→11:30)
[2019-08-08] MEDS ORDERED: NEOSTIGMINE METHYLSULFATE 0.5 MG/1 ML - 10 ML MDV ONE (09:58)
[2019-08-08] MEDS ORDERED: BUPIVACAINE HCL/PF 0.5% (5 MG/ML) 30 ML VIAL IJ ONE (11:15)
[2019-08-08] MEDS ORDERED: ACETAMINOPHEN 325 MG TABLET (FP) PO PRN (11:50)
[2019-08-08] MEDS ORDERED: BISACODYL 10 MG SUPP.RECT RC PRN (11:50)
[2019-08-08] MEDS ORDERED: ONDANSETRON 4 MG/2 ML VIAL IVPUSH PRN ×3 (11:50→12:43)
--- NOTE | 2019-08-08 11:50 | OP ---
Operative Note - Note: Operative Date: 08/08/19 Pre-Operative Diagnosis: L4-5 and L3-4 epidural lesion with thecal sac and L sided root compression Operation: Lumbar laminectomies for epidural mass resection, microsurgical dissection, posterolateral fusion L3-4 and L4-5; posterior lumbar segmental pedicle screw system placement L3-4-5; fluoroscopy for localization and screw placement; harvest of autologous bone graft/bone dust Findings: fibrotic epidural lesion with internal hemorrhage and dense adhesion; thecal sac and L L4 and L5 root compression; instability L4-5 > L3-4 Implants: [employer] titanium system (6.5 x 45 mm screws x6 and 60 mm rods x2) Surgeon: Akil Rosenthal Heavy Mobile Equipment Repairer: Berenice Fine Anesthesiologist/BEATER ENGINEER HELPER: Raya Darden MD Anesthesia: General Specimens Removed: L4-5 epidural lesion; ligamentum flavum Estimated Blood Loss (mls): 250
[2019-08-08] MEDS ORDERED: D5-1/2NS+20 MEQ KCL - 20 MEQ/1,000 ML INFUS.BAG IV SCH (12:00)
[2019-08-08] MEDS ORDERED: PATIENT'S OWN MEDICATION (NON-FORMULARY) (Albuterol Sulfate [Proair Respiclick] 90 MCG) IH PRN ×2 (12:06→20:52)
[2019-08-08] MEDS ORDERED: NITROGLYCERIN SUBLINGUAL 1/150 0.4 MG TAB SL PRN (12:11)
[2019-08-08] MEDS ORDERED: PATIENT'S OWN MEDICATION (NON-FORMULARY) (Alendronate Na [Fosamax (Weekly)] 70 MG) PO SCH (12:15)
[2019-08-08] MEDS ORDERED: PATIENT'S OWN MEDICATION (NON-FORMULARY) (Furosemide [Lasix] 80 MG) PO SCH (12:15)
[2019-08-08] MEDS ORDERED: DEXAMETHASONE SOD PHOSPHATE 4 MG/1 ML VIAL IVPUSH PRN (12:43)
[2019-08-08] MEDS ORDERED: LACTATED RINGERS SOLUTION 1,000 ML IV SCH (12:45)
[2019-08-08] MEDS ORDERED: HYDROmorphone *PCA* 10MG/50ML DISP.SYRIN PCA SCH (12:45)
--- NOTE | 2019-08-08 12:45 | SURG ---
Surgery Field Broomer Note Field Broomer: Berenice Fine PA-C Date of Service: 08/08/19 Diagnosis: L4-5 and L3-4 epidural lesion with thecal sac and L sided root compression Procedure: Lumbar laminectomies for epidural mass resection, microsurgical dissection, posterolateral fusion L3-4 and L4-5; posterior lumbar segmental pedicle screw system placement L3-4-5; fluoroscopy for localization and screw placement; harvest of autologous bone graft/bone dust I was present for the entirety of the operative procedure. For further detail, please refer to operative report. Visit type - Case Type Case Type: Scheduled - Emergency Emergency Visit: No - New patient This patient is new to me today: Yes Date on this admission: 08/08/19
--- NOTE | 2019-08-08 12:56 | PN ---
Progress Note (short form) - Note Progress Note: NEUROSURGERY In PACU Incisional pain, no sciatica L LE PE: AF, VSS, O2 sat 99% CV- RR; Lungs- CTA; Abd- benign; Ext- no sign of DVT CN- intact; MOtor- 4+/5 throughout including L DF; Sensation- intact LT Drain working Dressing intact Stable/improved neurologically Labs (CMET and CBC) pending ICU for cardiac monitoring Consulted and texted Dr. Morel; called office and Dr. 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
[2019-08-08 13:09] LABS: HEMATOCRIT 27.3 % (35.4-49); HEMOGLOBIN 9.3 GM/dL (11.7-16.9); MCH 33.2 pg (25.7-33.7); MCHC 33.9 g/dl (32.0-35.9); MEAN CELL VOLUME 97.8 fl (80-96); PLATELET COUNT 110 K/MM3 (134-434); RBC 2.79 M/mm3 (4.00-5.60); RDW 23.2 % (11.9-15.9); WHITE BLOOD COUNT 6.4 K/mm3 (4.0-10.0)
[2019-08-08 13:33] LABS: BLOOD UREA NITROGEN 48.1 mg/dL (7-18); CALCIUM 7.6 mg/dL (8.5-10.1); CREATININE 2.5 mg/dL (0.55-1.3); POTASSIUM 4.5 mmol/L (3.5-5.1)
--- NOTE | 2019-08-08 13:52 | CONSULT ---
Consultation: REQUESTING PROVIDER: Dr. Rosenthal CONSULT REQUEST: We have been asked to medically evaluate this patient for ICU management HISTORY OF PRESENT ILLNESS: 73 M PMH of Afib s/p defrillator with biventricular pacer, asthma, anxiety, HTN , CAD, basal cell carcinoma of the left shoulder, torn right rotator cuff and torn right quadriceps, intracanalicular lesion with thecal sac compression who presents today POD #0 for lumbar laminectomies for epidural mass resection, microsurgical dissection, posterolateral fusion L3-4 and L4-5. He had a a worsening 6 month history of left lower extremity radiculopathy. The pain radiated down his left buttock, latera and posterior thigh, krause, calf, and down to his left ankle. There was associated weakness of the left thigh as per chart review. He endorses feeling pain the morning of his surgery. His operation showed fibrotic epidural lesion with internal hemorrhage and dense adhesion; thecal sac and L L4 and L5 root compression; instability L4-5 > L3-4. Dr. Rosenthal placed a [employer] titanium system (6.5 x 45 mm screws x6 and 60 mm rods x2). He had EBL of 250, and tolerated anesthesia well and was AAOx3 when in the PACU. He complains of pain in his lower back but does not endorse pain in other regions. REVIEW OF SYSTEMS: CONSTITUTIONAL: Absent: fever, chills, diaphoresis, generalized weakness, malaise, loss of appetite, weight change HEENT: Absent: rhinorrhea, nasal congestion, throat pain, throat swelling, difficulty swallowing, mouth swelling, ear pain, eye pain, visual changes CARDIOVASCULAR: Absent: chest pain, syncope, palpitations, irregular heart rate, lightheadedness , peripheral edema RESPIRATORY: Absent: cough, shortness of breath, dyspnea with exertion, orthopnea, wheezing, stridor, hemoptysis GASTROINTESTINAL: Absent: abdominal pain, abdominal distension, nausea, vomiting, diarrhea, constipation, melena, hematochezia GENITOURINARY: Absent: dysuria, frequency, urgency, hesitancy, hematuria, flank pain, genital pain MUSCULOSKELETAL: Present: low back pain Absent: myalgia, arthralgia, joint swelling, neck pain SKIN: Absent: rash, itching, pallor HEMATOLOGIC/IMMUNOLOGIC: Absent: easy bleeding, easy bruising, lymphadenopathy, frequent infections ENDOCRINE: Absent: unexplained weight gain, unexplained weight loss, heat intolerance, cold intolerance NEUROLOGIC: Present: dizziness Absent: headache, focal weakness or paresthesias, unsteady gait, seizure, mental status changes, bladder or bowel incontinence PSYCHIATRIC: Absent: anxiety, depression, suicidal or homicidal ideation, hallucinations. PHYSICAL EXAMINATION Vital Signs - 24 hr 08/08/19 08/08/19 07:08 07:09 Temperature 97.6 F Pulse Rate 70 Respiratory 16 Rate Blood Pressure 117/58 L O2 Sat by Pulse 98 Oximetry (%) GENERAL: Awake, alert, and fully oriented, in no acute distress. HEAD: Normal with no signs of trauma. EYES: EOMI EARS, NOSE, THROAT: Ears normal, nares patent, oropharynx clear without exudates. Moist mucous membranes. LUNGS: Breath sounds equal, clear to auscultation bilaterally. No wheezes, and no crackles. No accessory muscle use. HEART: Regular rate and rhythm, 3/6 diastolic murmur. ABDOMEN: Distended. Soft, nontender, absent bowel sounds, no guarding, no rebound, no masses. No hepatomegaly or splenomegaly. MUSCULOSKELETAL: Normal range of motion of upper extremities. UPPER EXTREMITIES: 2+ pulses, warm, well-perfused. No cyanosis. No clubbing. Cap refill <2 seconds. No peripheral edema. LOWER EXTREMITIES: 2+ pulses, warm, well-perfused. No calf tenderness. No peripheral edema. NEUROLOGICAL: Cranial nerves II-XII intact. Sensation in tact grossly. PSYCHIATRIC: Cooperative. Good eye contact. Appropriate mood and affect. SKIN: Warm, dry, normal turgor, no rashes or lesions noted. Laboratory Results - last 24 hr 08/08/19 08/08/19 08/08/19 06:20 12:50 12:50 WBC 6.4 RBC 2.79 L Hgb 9.3 L Hct 27.3 L D MCV 97.8 H MCH 33.2 MCHC 33.9 RDW 23.2 H Plt Count 110 L MPV 9.0 Sodium 142 Potassium 4.5 Chloride 113 H Carbon Dioxide 25 Anion Gap 4 L BUN 48.1 H Creatinine 2.5 H Est GFR (CKD-EPI)AfAm 28.86 Est GFR (CKD-EPI)NonAf 24.90 Random Glucose 111 H Calcium 7.6 L Blood Type O POSITIVE Antibody Screen Negative Crossmatch See Detail Active Medications Generic Name Dose Route Start Last Admin Trade Name Freq PRN Reason Stop Dose Admin Acetaminophen 650 mg 08/08/19 11:50 Tylenol - PO Q6H PRN FEVER Amlodipine Besylate 5 mg 08/09/19 10:00 Norvasc - PO DAILY [facility] Atorvastatin Calcium 10 mg 08/08/19 12:15 Lipitor - PO ASDIR [facility] Bisacodyl 10 mg 08/08/19 11:50 Dulcolax Suppository - RC DAILY PRN CONSTIPATION Bupropion HCl 150 mg 08/08/19 22:00 Wellbutrin Xl - PO BID [facility] Carvedilol 12.5 mg 08/08/19 22:00 Coreg - PO BID [facility] Dexamethasone Sodium Phosphate 4 mg 08/08/19 12:43 Decadron Injection - IVPUSH ONCE PRN NAUSEA AND/OR VOMITING Diazepam 5 mg 08/08/19 12:00 Valium - PO Q8H [facility] Docusate Sodium 100 mg 08/08/19 14:00 Colace - PO TID [facility] Eplerenone 25 mg 08/09/19 10:00 Eplerenone PO DAILY [facility] Fentanyl 50 mcg 08/08/19 12:43 Sublimaze Injection - IVPUSH [id number] PRN PAIN-PACU ORDER X 4 DOSES ONLY Furosemide 40 mg 08/08/19 12:15 Lasix - PO ASDIR [facility] Hydromorphone HCl 10 mg 08/08/19 12:45 Hydromorphone 10 Mg/50 Ml-Ns INSERTER 08/09/19 12:44 INSERTER [facility] Protocol Cefazolin Sodium 1 gm/ 50 mls @ 100 mls/hr 08/08/19 18:00 Dextrose IVPB 08/09/19 10:29 Q8H-IV JAMES Potassium Chloride/Dextrose/Sod Cl 20 meq in 1,000 mls @ 100 mls/hr 08/08/19 12:00 D5-1/2ns+20 Meq Kcl - IV ASDIR JAMES Potassium Chloride/Dextrose/Sod Cl 20 meq in 1,000 mls @ 42 mls/hr 08/08/19 12 :00 D5-1/2ns+20 Meq Kcl - IV ASDIR [facility] Lactated Ringer's 1,000 mls @ 42 mls/hr 08/08/19 12:45 Lactated Ringers Solution IV ASDIR [facility] Isosorbide Mononitrate 30 mg 08/08/19 22:00 Imdur - PO BID [facility] Montelukast Sodium 10 mg 08/08/19 22:00 Singulair - PO HS [facility] Nitroglycerin 0.4 mg 08/08/19 12:11 Nitrostat - SL PRN PRN PAIN Non-Formulary Medication 90 mcg 08/08/19 12:06 Albuterol Sulfate [Proair Respiclick] IH PRN PRN ASTHMA Non-Formulary Medication 80 mg 08/08/19 12:15 Furosemide [Lasix] PO ASDIR JAMES Non-Formulary Medication 10 mg 08/08/19 22:00 Terazosin Hcl [Hytrin] PO HS [facility] Ondansetron HCl 4 mg 08/08/19 11:50 Zofran Injection IVPUSH Q6H PRN NAUSEA AND/OR VOMITING Ondansetron HCl 4 mg 08/08/19 12:43 Zofran Injection IVPUSH Q6H PRN NAUSEA AND/OR VOMITING Ondansetron HCl 4 mg 08/08/19 12:43 Zofran Injection IVPUSH Q4H PRN NAUSEA AND/OR VOMITING Potassium Chloride 20 meq 08/08/19 22:00 K-Dur - PO BID [facility] Quinapril HCl 5 mg 08/09/19 10:00 Accupril - PO DAILY [facility] Ranolazine 500 mg 08/09/19 10:00 Ranexa - PO DAILY [facility] Valacyclovir HCl 500 mg 08/08/19 22:00 Valtrex - PO HS [facility] ASSESSMENT/PLAN: 73 M PMH of Afib s/p defrillator with biventricular pacer, asthma, anxiety, HTN , HLD, CAD, basal cell carcinoma of the left shoulder, torn right rotator cuff and torn right quadriceps, intracanalicular lesion with thecal sac compression who presents today POD #0 for lumbar laminectomies for epidural mass resection , microsurgical dissection, posterolateral fusion L3-4 and L4-5. Neuro/Psych -Hx of intracanalicular lesion with thecal sac compression, POD #0 for lumbar laminectomies for epidural mass resection, posterolateral fusion L3-L4, L4-L5. -AAOx3 -Pain management as per Anesthesia/Neurosurgical team -Hx of anxiety, patient on valium now. -Continue buproprion BID -F/U lumbar spine x-ray in AM 08/09. -Neurosurgery on board. Cardiovascular -Hx of CHF, CAD, Afib, defibrillator with biventricular pacer, asthma, HTN, HLD -Continue amlodipine 5 mg Daily PO -Continue atorvastatin 10 mg PO HS -Continue carvedilol 12.5 mg PO BID -Continue eplerone 25 daily -Continue Lasix 40 PO Daily -Continue Imdur 30 BID -Continue quinapril 5 mg PO daily -Continue terazosin 10 mg PO HS -Continue nitroglycerin 0.4 mg SL PRN -Continue ranolazine 500 mg PO Daily Pulmonary -Hx of asthma -Continue albuterol as needed -Continue singulair 10 mg PO HS GI -Stable, continue to monitor Renal -Jack in place. D/C overnight -Monitor electrolytes -Continue K-Dur 20 mg PO BID MSK - Hx of lower back pain, with pain radiating down left lower extremity -Continue monitoring s/p surgery -Valium 5mg Q8H ID -Ancep given post surgery -F/U Cultures F: D5 1/2 NS + 20 mEq KCl @ 100 until PO. switch to 42 when PO E: Monitor Potassium N: NPO for 6 hours post-op then clears. DVT: SCDs Lines: Peripheral IV Dispo: We will continue to follow the patient. Thank you for this consultative opportunity. Visit type - Emergency Visit Emergency Visit: No - New Patient This patient is new to me today: Yes Date on this admission: 08/08/19 - Critical Care Critical Care patient: Yes Total Critical Care Time (in minutes): 45 Critical Care Statement: The care of this patient involved high complexity decision making to prevent further life threatening deterioration of the patient 's condition and/or to evaluate & treat vital organ system(s) failure or risk of failure. ATTENDING PHYSICIAN STATEMENT I saw and evaluated the patient. I reviewed the resident's note and discussed the case with the resident. I agree with the resident's findings and plan as documented. SUBJECTIVE: OBJECTIVE: ASSESSMENT AND PLAN:
[2019-08-08] MEDS ORDERED: ALBUTEROL SO4 0.083% IH SOL 2.5 MG/3 ML VIAL.NEB. NEB ONE (15:50)
--- NOTE | 2019-08-08 16:40 | CON.CARD ---
Consult Consult Specialty:: Cardiology Referred by:: ICU Reason for Consultation:: post op monitoring - History of Present Illness Chief Complaint: post op History of Present Illness: 73M h/o afib, chronic systolic HF s/p ICD/BiV ppm, HTN, CAD now POD 0 from lumbar laminectomies for epidural mass resection, microsurgical dissection, posterolateral fusion L3-4 and L4-5 admitted for post op monitoring. Sees Dr Morel for cardio, currently no chest pain, palps, dizziness, dyspnea. no surgical complications. - Past Medical History Cardio/Vascular: Yes: Aortic Insufficiency, HTN, Murmur Pulmonary: Yes: Asthma Gastrointestinal: Yes: GI Bleed Renal/: Yes: Renal Inusuff Infectious Disease: Yes: Other (HSV) Psych: Yes: Anxiety, Depression Musculoskeletal: Yes: Chronic low back pain ENT: Yes: Allergic Rhinitis Endocrine: Yes: Osteopenia - Past Surgical History Past Surgical History: Yes: AICD - Alcohol/Substance Use Hx Alcohol Use: No - Smoking History Smoking history: Former smoker Have you smoked in the past 12 months: No Aproximately how many cigarettes per day: 0 If you are a former smoker, when did you quit?: 1973 - Social History History of Recent Travel: No Home Medications - Allergies Allergies/Adverse Reactions: Allergies Allergy/AdvReac Type Severity Reaction Status Date / Time No Known Drug Allergies Allergy Verified 08/05/19 10:02 - Home Medications Home Medications: Ambulatory Orders Alendronate Na [Fosamax (Weekly)] 70 mg PO WEEKLY 11/17/11 Alprazolam [Xanax] 0.5 mg PO PRN PRN 11/17/11 Aspirin [Aspir 81] 81 mg PO DAILY 11/17/11 Bupropion HCl [Wellbutrin Sr] 150 mg PO BID 11/17/11 Carvedilol 12.5 mg PO BID 11/17/11 Isosorbide Mononitrate [Imdur] 30 mg PO BID 11/17/11 Montelukast Na [Singulair -] 10 mg PO HS 11/17/11 Valacyclovir HCl [Valacyclovir] 500 mg PO HS 11/17/11 Atorvastatin Ca [Lipitor] 10 mg PO ASDIR 12/02/13 Terazosin HCl [Hytrin] 10 mg PO HS 12/02/13 Amlodipine Besylate [Norvasc -] 5 mg PO DAILY 11/23/14 Potassium Chloride [Klor-Con 10] 20 meq PO BID 11/23/14 Quinapril HCl [Accupril -] 5 mg PO DAILY 07/07/15 Albuterol Sulfate [Proair Respiclick] 90 mcg IH PRN PRN 06/07/16 Ranolazine [Ranexa -] 500 mg PO DAILY 06/07/16 Apixaban [Eliquis] 2.5 mg PO BID 02/17/19 Eplerenone [Inspra] 25 mg PO DAILY 08/05/19 Furosemide [Lasix] 40 mg PO ASDIR 08/05/19 Furosemide [Lasix] 80 mg PO ASDIR 08/05/19 Nitroglycerin [Nitrostat] 0.4 mg SL PRN PRN 08/05/19 Family Medical History Family History: Unremarkable Review of Systems - Review of Systems Constitutional: reports: No Symptoms Eyes: reports: No Symptoms HENT: reports: No Symptoms Neck: reports: No Symptoms Cardiovascular: reports: No Symptoms Respiratory: reports: No Symptoms Gastrointestinal: reports: No Symptoms Genitourinary: reports: No Symptoms Musculoskeletal: reports: No Symptoms Integumentary: reports: No Symptoms Neurological: reports: No Symptoms Endocrine: reports: No Symptoms Hematology/Lymphatic: reports: No Symptoms Psychiatric: reports: No Symptoms Vital Signs: Vital Signs Temperature 98.2 F 08/08/19 12:26 Pulse Rate 70 08/08/19 15:30 Respiratory Rate 11 08/08/19 15:30 Blood Pressure 104/64 08/08/19 15:30 O2 Sat by Pulse Oximetry (%) 100 08/08/19 15:30 Constitutional: Yes: Well Nourished, No Distress, Calm Eyes: Yes: Conjunctiva Clear, EOM Intact HENT: Yes: Atraumatic, Normocephalic Neck: Yes: Supple, Trachea Midline Respiratory: Yes: Regular, CTA Bilaterally Gastrointestinal: Yes: Normal Bowel Sounds, Soft Cardiovascular: Yes: Regular Rate and Rhythm Heart Sounds: Yes: S1, S2 Extremities: No: Cold Edema: No Integumentary: No: Jaundice Neurological: Yes: Alert, Oriented Psychiatric: No: Agitated - Other Data Labs, Other Data: CBC, BMP 08/08/19 12:50 08/08/19 12:50 Assessment/Plan MPI 12/06 (gamaliel): v-paced; medium IW defect worse on stress (? artifact); small apical defect fixed; mild, global HK (49%). severe LV dilation, NO TID Stress Echo 03/06: 6:06min-->modified to 8:57; +CP at peak (81% MPHR); v-paced; sap consultant and apicolat HK at rest, without clear augmentation post-exercise. EF 50 % to 55% post-exercise; mod MR post (no RVSP) MIBI 04/05 (gamaliel): paced; no isch seen; dilated LV (no TID); mild/global hk (EF 51%) Echo 04/2019: 1. Suboptimal image quality - poor subcostal views. 2. The left ventricle is moderately dilated. 3. Overall left ventricular systolic function is globally mildly impaired, with an estimated EF between 45 - 50 %. Casas's (apical 4 chamber) = 53%. 4. LA pressure is uncertain. 5. The right ventricle is normal in size and function. 6. Left atrium is severely dilated by volume. 7. Electronic pacemaker lead seen in the RA and RV. 8. There is very eccentric AI jet, which appears moderate however severity may be underestimated. No holodiastolic flow reversal is suspected in descending thoracic aorta doppler signal. 9. The mitral valve leaflets are mildly thickened, tethered in motion. 10. Rzig-ek-zbmsjhzy mitral regurgitation is present. 11. Aomn-lb-cblebjfd tricuspid regurgitation present. 12. Unable to estimate RVSP due to inadequate TR jet spectral doppler profile. 13. The aortic root is severely dilated (5.1 cm at sinuses of Valsalva, unchanged vs prior study of 10/2018). 14. There is a small pericardial effusion located near the right ventricle. No echocardiographic signs of tamponade physiology present. tele: sinus s/p lumbar laminectomies for epidural mass resection, posterolateral fusion L3- L4, L4-L5. - manage per surgery - post op monitoring in ICU, on tele afib - resume eliquis when able per surgery - cont carvedilol CAD s/p LOWELL to LAD and OM - resume aspirin when able per surgery - cont statin, ACEI, coreg, amlodipine, imdur, ranexa Chronic combined systolic and diastolic congestive heart failure - appears euvolemic - cont home lasix, ACEI, BB s/p ICD/BiV ppm - outpatient follow up HLD - cont statin
[2019-08-08] MEDS ORDERED: FUROSEMIDE 40 MG/4 ML INJECTABLE VIAL IVPUSH ONE (17:15)
[2019-08-08] MEDS ORDERED: ceFAZolin SODIUM 1 GM VIAL ONE (17:51)
[2019-08-08] MEDS ORDERED: DEXTROSE 5%-WATER - 50 ML IVPB ONE (17:51)
[2019-08-08] MEDS: CEFAZOLIN 1 GM in DEXTROSE 5%-WATER - 50 ML IVPB SCH (17:52)
[2019-08-08] MEDS: diazePAM 5 MG TABLET PO SCH ×2 (20:56→20:57)
[2019-08-08] MEDS: DOCUSATE SODIUM 100 MG CAPSULE (FP) PO SCH ×2 (20:58→22:13)
[2019-08-08] MEDS ORDERED: ALBUTEROL SO4 HFA INHALER IH PRN (21:48)
[2019-08-08] MEDS: FUROSEMIDE 40 MG TABLET (FP) PO SCH (22:00)
[2019-08-08] MEDS: CARVEDILOL 25 MG TABLET (FP) PO SCH (22:13)
[2019-08-08] MEDS: TERAZOSIN HCL 5 MG CAPSULE PO SCH (22:14)
[2019-08-08] MEDS: ISOSORBIDE MONONITRATE 30 MG TAB.SR.24H (FP) PO SCH (22:15)
[2019-08-08] MEDS: POTASSIUM CHLORIDE TABS 20 MEQ TABLET.ER (FP) PO SCH (22:15)
[2019-08-08] MEDS: MONTELUKAST NA 10 MG TABLET PO SCH (22:15)
[2019-08-08] MEDS: valACYclovir HCL 500 MG TABLET (FP) PO SCH (22:15)
[2019-08-09] MEDS: CEFAZOLIN 1 GM in DEXTROSE 5%-WATER - 50 ML IVPB SCH ×2 (02:00→09:29)
[2019-08-09] MEDS: diazePAM 5 MG TABLET PO SCH ×3 (04:00→19:58)
[2019-08-09] MEDS: DOCUSATE SODIUM 100 MG CAPSULE (FP) PO SCH ×3 (06:42→21:19)
[2019-08-09 06:57] LABS: BASO % 0.2 % (0-2.0); EOS % 1.2 % (0-4.5); HEMATOCRIT 29.7 % (35.4-49); HEMOGLOBIN 10.1 GM/dL (11.7-16.9); LYMPH % 7.2 % (8-40); MCH 33.3 pg (25.7-33.7); MCHC 34.1 g/dl (32.0-35.9); MEAN CELL VOLUME 97.7 fl (80-96); MEAN PLT VOLUME 9.3 fl (7.5-11.1); MONO % 12.7 % (3.8-10.2); NEUT % 78.7 % (42.8-82.8); PLATELET COUNT 101 K/MM3 (134-434); RBC 3.04 M/mm3 (4.00-5.60); RDW 23.6 % (11.9-15.9); WHITE BLOOD COUNT 8.6 K/mm3 (4.0-10.0)
[2019-08-09 07:31] LABS: ALBUMIN 3.3 g/dl (3.4-5.0); BILIRUBIN,TOTAL 0.9 mg/dL (0.2-1); BLOOD UREA NITROGEN 47.1 mg/dL (7-18); CALCIUM 7.8 mg/dL (8.5-10.1); CREATININE 2.6 mg/dL (0.55-1.3); MAGNESIUM 2.3 mg/dL (1.8-2.4); PHOSPHOROUS 3.7 mg/dL (2.5-4.9); POTASSIUM 5.1 mmol/L (3.5-5.1); TOT PROT 5.5 g/dl (6.4-8.2)
--- NOTE | 2019-08-09 07:48 | PN ---
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
[2019-08-09] MEDS ORDERED: ALBUTEROL SO4 0.083% IH SOL 2.5 MG/3 ML VIAL.NEB. NEB PRN (07:59)
[2019-08-09] MEDS ORDERED: ALBUTEROL SO4 2.5/IPRATROPIUM 0.5 INH SOL 3 ML VIAL.NEB. NEB SCH (08:00)
--- NOTE | 2019-08-09 08:06 | PN ---
Progress Note (short form) - Note Progress Note: Anesthesia/pain Pt seen and examined S:Alert and awake, comfortable O; CBC, BMP 08/09/19 06:04 08/09/19 06:04 Vital Signs Temperature 98.2 F 08/09/19 06:00 Pulse Rate 72 08/09/19 06:00 Respiratory Rate 14 08/09/19 06:00 Blood Pressure 110/48 L 08/09/19 06:00 O2 Sat by Pulse Oximetry (%) 100 08/08/19 22:00 A/P s/p PLIF L3-L5 Doing well post op Continue CHILD CARE Continue current care Christopher Shah MD
--- NOTE | 2019-08-09 08:33 | OP ---
DATE OF OPERATION: 08/08/2019 PREOPERATIVE DIAGNOSES: 1. Left sided central L4-L5 greater than L3-L4 epidural mass lesion with thecal sac and lumbar nerve root impingement. 2. Coronary artery disease/cardiac arrhythmia. 3. Asthma. POSTOPERATIVE DIAGNOSES: 1. Left sided central L4-L5 greater than L3-L4 epidural mass lesion with thecal sac and lumbar nerve root impingement. 2. Coronary artery disease/cardiac arrhythmia. 3. Asthma. ATTENDING SURGEON: Akil Rosenthal MD LATHE HAND: CARLO Frank ANESTHESIA: General endotracheal. ANESTHESIOLOGIST: Raya Darden MD ESTIMATED BLOOD LOSS: 250 mL. PROCEDURES: 1. Bilateral L3, L4, and partial bilateral L5 laminectomy for excision of epidural mass lesion (14082). 2. Lysis of epidural adhesions. 3. Microsurgical dissection with operative microscope and microsurgical technique (82979). 4. [place] autologous spinous process lamina and facet bone for posterolateral fusion (47183). 5. Posterior lumbar fusion, L3-L4 and L4-L5 (82555, 61006). 6. Posterior lumbar pedicle screw fixation system placement from L3 to L5 ( 71092). 7. M Squared Laserstronic Solera titanium system with 6.5 x 45 mm screws at L3, L4, and L5 connected with 16-mm rods. 8. Intraoperative fluoroscopy for localization and pedicle screw placement (82215-06). FINDINGS: 1. Epidural fibrosis. 2. Large epidural hemorrhagic cystic lesion with thecal sac and left-sided nerve root impingement. 3. Involvement of left L4-L5 facet. 4. Segmental instability, L4-L5 greater than L3-L4. INDICATION: The patient is a 73-year-old male with history of intractable lower back pain and left lower extremity radiculopathy. CT scan demonstrated epidural hyperdense lesion. MRI was somewhat delayed because of a special protocol required because the patient has implantable AICD. MRI eventually demonstrated epidural enhancing lesion with thecal sac compression, taking up almost half the spinal canal. There is also nerve root impingement causing intractable nature of his symptoms as well as for decompression of thecal sac as the pathology analysis. The patient consented for lumbar laminectomy for mass excision, fusion and instrumentation. Risks of procedure include but are not limited to bleeding, infection, dural tear with CSF leak, neurologic injury, increased thromboembolic risk and other risks of general anesthesia. The patient understands the indication for procedure, procedure in detail, risks and benefits, and alternatives for the treatment of his lumbar condition and wished to proceed. No guarantee was given for a favorable outcome. Intraoperative SSEP and EMG signals were monitored. PROCEDURE IN DETAIL: The patient was taken to the operating room. He was placed in supine position. After general anesthesia was induced and appropriate lines were placed, Jack catheter was inserted. Patient was then turned over into a prone position on a Wally frame. All pressure points were checked and padded. Lumbar region was cleaned with alcohol and prepped with Betadine. Localizing x-ray was obtained with spinal needle in place. After position was verified, approximately 4-inch incision was opened from L2 to L5. Subperiosteal dissection was carried out with periosteal elevator and monopolar electrocautery. The facet joints were all preserved bilaterally. At this point, another localizing image was obtained, and then caudal extension of the incision was made with an additional 1-inch incision. This exposed the lamina at L5 bilaterally. After position was verified, supraspinal, intraspinal ligament at L2-L3, L3-L4, and L4-L5 were resected with a Leksell rongeur, and the spinous process at L3, L4, and partially L5 were resected for bone graft purposes. The bone was rather soft. Laminectomy was carried out with Leksell rongeur, high-speed pneumatic drill as well as the angled curet and Kerrison rongeur. Medial facetectomy at L3-L4 and L4-L5 was also carried out for decompression purposes as well as to adequately perform the fusion. Hemostasis was obtained as well with Surgifoam as well as bipolar and monopolar electrocautery. The wound was then irrigated with antibiotic-containing irrigation. At this point, a purplish color epidural hemorrhagic lesion was encountered. There was advanced epidural fibrosis and careful lysis of adhesions was carried out. The lateral recess was thoroughly decompressed with a combination of high-speed pneumatic drill, angled curet, and Kerrison rongeur. It appears that the lesion may be emanating from the left L4-L5 facet joint as there was similar material inside the facet synovium. The fluid was sent for Gram stain and culture, both aerobic and anaerobic. It was a dark brownish color. At this point, the cystic mass was dissected free with the angled curet with the use of the operative microscope for both illumination and magnification. Microsurgical technique was utilized. The mass was removed and sent for frozen section. Definitive diagnosis could not be made. However, there was no obvious malignancy. There is some material in the cyst capsule that was adherent to the dura, and care was taken to dissect it off, but decision was made not to overly aggressively dissect this benign lesion which could cause a dural tear and CSF leak. After this was done, the wound was once again irrigated, fluoroscope was brought to the AP position and lateral position. High-speed pneumatic drill was used to eliana out the entry point of the pedicle screw. The patient does have scoliosis with apex on the right. The L4-L5 disk space was rather collapsed on the left side. The planned screw holes were first awled and then tapped. They were then palpated. This was done with real-time lateral fluoroscopic guidance. EMG was also monitored. There was no pedicle breech at any level. Screws 6.5 x 45 mm were used bilaterally at L3, L4, and L5 with a medial angle of approximately 8 to 10 degrees. EMG thresholds were tested, and they were greater than 20 mA bilaterally L3, bilaterally L4, and left L5, and it was 15 mA on the right L5. The right L5 pedicle screw was carefully inspected, and there was no breech to the pedicle noted. At this point, 16-mm rods were loaded on top of the screws and locked down with the locking screws. The screws were compressed prior to final tightening. The torque wrench and counter-torque wrench were used for final tightening. This was done with the hermila grimaldo holding the rods. At this point, epidural hemostasis was obtained with bipolar electrocautery and Surgifoam. The wound was once again irrigated, thec 10 cc 0.25% Marcaine were injected inthe paraspinal muscles. The posterolateral surface of the spine had previously been decorticated with the high-speed pneumatic drill, and it was now packed with autologous morcellized bone graft and bone dust. These were harvested earlier and then were morcellized by the bone mill. At this point, a number 10 VIRAJ drain was laid in the epidural space after a thin layer of DuraSeal was laid in the epidural space for bony hemostasis as well as an adhesion barrier. A Valsalva maneuver was performed, and there was no CSF leak. Dorsal lumbar musculature hemostasis was obtained using bipolar electrocautery. The muscle was reapproximated with 0 Vicryl suture and then the dorsal lumbar fascia was closed with 0 Vicryl sutures. Subcutaneous fascia was closed with 3-0 Vicryl suture, and skin was closed with 4-0 Vicryl running subcuticular suture. Steri-Strips and sterile occlusive dressing was applied. The patient tolerated procedure well, was turned back into the supine position and extubated. He was moving his bilateral upper and lower extremities while in the recovery room. His left lower extremity strength improved immediately postoperatively. The patient received 1 dose of 1 g Ancef prior to incision. All needle and lap counts were correct. OR timeout procedures were followed. Beata [id number] MTDD
[2019-08-09] MEDS ORDERED: PT OWN MED DRAWER 7, Y5N ONE ×2 (09:26→21:14)
[2019-08-09] MEDS ORDERED: ceFAZolin SODIUM 1 GM VIAL ONE (09:27)
[2019-08-09] MEDS ORDERED: DEXTROSE 5%-WATER - 50 ML IVPB ONE (09:27)
[2019-08-09] MEDS: POTASSIUM CHLORIDE TABS 20 MEQ TABLET.ER (FP) PO SCH ×2 (09:34→21:19)
[2019-08-09] MEDS: RANOLAZINE E.R. 500 MG TABLET (FP) PO SCH (09:35)
[2019-08-09] MEDS: CARVEDILOL 25 MG TABLET (FP) PO SCH ×2 (09:36→13:40)
[2019-08-09 09:40] LABS: ANISOCYTOSIS 2+; MACROCYTOSIS 0; OVALOCYTE 1+; PLATELET ESTIMATE DECREASED; TEAR DROP CELLS 1+
[2019-08-09] MEDS: EPLERENONE 25 MG TABLET PO SCH (09:43)
[2019-08-09] MEDS: QUINAPRIL HCL 5 MG TABLET (FP) PO SCH (09:45)
[2019-08-09] MEDS: ISOSORBIDE MONONITRATE 30 MG TAB.SR.24H (FP) PO SCH ×2 (09:55→21:19)
--- NOTE | 2019-08-09 10:42 | PN ---
Teaching Attending Note Name of Resident: Anne Sebastian ATTENDING PHYSICIAN STATEMENT I saw and evaluated the patient. I reviewed the resident's note and discussed the case with the resident. I agree with the resident's findings and plan as documented. SUBJECTIVE: Patient seen and examined in the ICU. Awake and alert. Pain 8/10. On RECORD PRESS TENDER. No CP or SOB. Intake & Output 08/06/19 08/07/19 08/08/19 08/09/19 23:59 23:59 23:59 23:59 Intake Total 2450 1250 Output Total 1065 1160 Balance 1385 90 Weight 129 lb Last Vital Signs Temp Pulse Resp BP Pulse Ox 98.6 F 78 25 H 127/56 L 100 08/09/19 10:00 08/09/19 10:00 08/09/19 10:00 08/09/19 10:00 08/09/19 10:03 Active Medications Acetaminophen (Tylenol -) 650 mg PO Q6H PRN PRN Reason: FEVER Albuterol Sulfate (Ventolin Hfa Inhaler -) 2 puff IH Q6H PRN PRN Reason: SHORTNESS OF BREATH Albuterol Sulfate (Ventolin 0.083% Nebulizer Soln -) 1 amp NEB Q4H PRN PRN Reason: SHORT OF BREATH/WHEEZING Albuterol/Ipratropium (Duoneb -) 1 amp NEB RTID [facility] Amlodipine Besylate (Norvasc -) 5 mg PO DAILY [facility] Atorvastatin Calcium (Lipitor -) 10 mg PO Q2D@2200 [facility] Bisacodyl (Dulcolax Suppository -) 10 mg RC DAILY PRN PRN Reason: CONSTIPATION Bupropion HCl (Wellbutrin Xl -) 150 mg PO BID [facility] Last Admin: 08/09/19 09:34 Dose: 150 mg Carvedilol (Coreg -) 12.5 mg PO BID [facility] Last Admin: 08/09/19 09:36 Dose: 12.5 mg Dexamethasone Sodium Phosphate (Decadron Injection -) 4 mg IVPUSH ONCE PRN PRN Reason: NAUSEA AND/OR VOMITING Diazepam (Valium -) 5 mg PO Q8H [facility] Last Admin: 08/09/19 04:00 Dose: 5 mg Docusate Sodium (Colace -) 100 mg PO TID [facility] Last Admin: 08/09/19 06:42 Dose: 100 mg Eplerenone (Eplerenone) 25 mg PO DAILY [facility] Last Admin: 08/09/19 09:43 Dose: 25 mg Furosemide (Lasix -) 40 mg PO Q2D@1000 [facility] Last Admin: 08/08/19 22:00 Dose: 40 mg Furosemide (Lasix -) 80 mg PO Q2D@1000 [facility] Hydromorphone HCl (Hydromorphone 10 Mg/50 Ml-Ns) 10 mg RECORD PRESS TENDER RECORD PRESS TENDER [facility]; Protocol Stop: 08/09/19 12:44 Last Admin: 08/08/19 14:00 Dose: 10 mg Potassium Chloride/Dextrose/Sod Cl (D5-1/2ns+20 Meq Kcl -) 20 meq in 1,000 mls @ 42 mls/hr IV ASDIR [facility] Isosorbide Mononitrate (Imdur -) 30 mg PO BID [facility] Last Admin: 08/09/19 09:55 Dose: 30 mg Montelukast Sodium (Singulair -) 10 mg PO [facility] Last Admin: 08/08/19 22:15 Dose: 10 mg Nitroglycerin (Nitrostat -) 0.4 mg SL PRN PRN PRN Reason: PAIN Ondansetron HCl (Zofran Injection) 4 mg IVPUSH Q6H PRN PRN Reason: NAUSEA AND/OR VOMITING Ondansetron HCl (Zofran Injection) 4 mg IVPUSH Q4H PRN PRN Reason: NAUSEA AND/OR VOMITING Potassium Chloride (K-Dur -) 20 meq PO BID [facility] Last Admin: 08/09/19 09:34 Dose: 20 meq Quinapril HCl (Accupril -) 5 mg PO DAILY [facility] Last Admin: 08/09/19 09:45 Dose: 5 mg Ranolazine (Ranexa -) 500 mg PO DAILY [facility] Last Admin: 08/09/19 09:35 Dose: 500 mg Terazosin HCl (Hytrin -) 10 mg PO [facility] Last Admin: 08/08/19 22:14 Dose: 10 mg Valacyclovir HCl (Valtrex -) 500 mg PO [facility] Last Admin: 08/08/19 22:15 Dose: 500 mg GENERAL: Awake, alert, and fully oriented, in no acute distress. HEAD: Normal with no signs of trauma. EYES: EOMI EARS, NOSE, THROAT: Ears normal, nares patent, oropharynx clear without exudates. Moist mucous membranes. LUNGS: Breath sounds equal, clear to auscultation bilaterally. No wheezes, and no crackles. No accessory muscle use. HEART: Regular rate and rhythm, 3/6 diastolic murmur. ABDOMEN: Distended. Soft, nontender, absent bowel sounds, no guarding, no rebound, no masses. No hepatomegaly or splenomegaly. MUSCULOSKELETAL: Normal range of motion of upper extremities. UPPER EXTREMITIES: 2+ pulses, warm, well-perfused. No cyanosis. No clubbing. Cap refill <2 seconds. No peripheral edema. LOWER EXTREMITIES: 2+ pulses, warm, well-perfused. No calf tenderness. No peripheral edema. NEUROLOGICAL: Motor 4/5, sensory intact PSYCHIATRIC: Cooperative. Good eye contact. Appropriate mood and affect. SKIN: Warm, dry, normal turgor, no rashes or lesions noted. Laboratory Results - last 24 hr 08/08/19 08/08/19 08/08/19 06:20 12:50 12:50 WBC 6.4 RBC 2.79 L Hgb 9.3 L Hct 27.3 L D MCV 97.8 H MCH 33.2 MCHC 33.9 RDW 23.2 H Plt Count 110 L MPV 9.0 Absolute Neuts (auto) Neutrophils % Lymphocytes % Monocytes % Eosinophils % Basophils % Nucleated RBC % Hypochromia Platelet Estimate Platelet Comment Polychromasia Poikilocytosis Basophilic Stippling Anisocytosis Microcytosis Macrocytosis Tear Drop Cells Ovalocytes [place] Cells Acanthocytes (Spur) Sodium 142 Potassium 4.5 Chloride 113 H Carbon Dioxide 25 Anion Gap 4 L BUN 48.1 H Creatinine 2.5 H Est GFR (CKD-EPI)AfAm 28.86 Est GFR (CKD-EPI)NonAf 24.90 Random Glucose 111 H Calcium 7.6 L Phosphorus Magnesium Total Bilirubin AST ALT Alkaline Phosphatase Total Protein Albumin Blood Type O POSITIVE Antibody Screen Negative Crossmatch See Detail 08/09/19 08/09/19 06:04 06:04 WBC 8.6 RBC 3.04 L Hgb 10.1 L Hct 29.7 L MCV 97.7 H MCH 33.3 MCHC 34.1 RDW 23.6 H Plt Count 101 L MPV 9.3 Absolute Neuts (auto) 6.8 Neutrophils % 78.7 Lymphocytes % 7.2 L D Monocytes % 12.7 H Eosinophils % 1.2 Basophils % 0.2 Nucleated RBC % 0 Hypochromia 0 Platelet Estimate Decreased Platelet Comment Present Polychromasia 1+ Poikilocytosis 1+ Basophilic Stippling 1+ Anisocytosis 2+ Microcytosis 2+ Macrocytosis 0 Tear Drop Cells 1+ Ovalocytes 1+ [place] Cells 1+ Acanthocytes (Spur) 1+ Sodium 141 Potassium 5.1 Chloride 110 H Carbon Dioxide 26 Anion Gap 5 L BUN 47.1 H Creatinine 2.6 H Est GFR (CKD-EPI)AfAm 27.52 Est GFR (CKD-EPI)NonAf 23.75 Random Glucose 129 H Calcium 7.8 L Phosphorus 3.7 Magnesium 2.3 Total Bilirubin 0.9 AST 11 L ALT 18 Alkaline Phosphatase 41 L Total Protein 5.5 L Albumin 3.3 L Blood Type Antibody Screen Crossmatch ASSESSMENT/PLAN: POD #1:Lumbar laminectomies for epidural mass resection, microsurgical dissection, posterolateral fusion L3-4 and L4-5; posterior lumbar segmental pedicle screw system placement L3-4-5; fluoroscopy for localization and screw placement; harvest of autologous bone graft/bone dust AFib S/P defrillator with biventricular pacer Asthma Anxiety HTN HLD CAD Basal cell carcinoma of the left shoulder Intracanalicular lesion with thecal sac compression Pain control O2 as needed Incentive Spirometry VTE prophylaxis Drain output Home meds BD TX Dafne Mccormick
--- NOTE | 2019-08-09 10:45 | PN ---
Progress Note, Physician Chief Complaint: denies cp, sob TELE: paced, rare VPCs - Current Medication List Current Medications: Active Medications Acetaminophen (Tylenol -) 650 mg PO Q6H PRN PRN Reason: FEVER Albuterol Sulfate (Ventolin Hfa Inhaler -) 2 puff IH Q6H PRN PRN Reason: SHORTNESS OF BREATH Albuterol Sulfate (Ventolin 0.083% Nebulizer Soln -) 1 amp NEB Q4H PRN PRN Reason: SHORT OF BREATH/WHEEZING Albuterol/Ipratropium (Duoneb -) 1 amp NEB RTID [facility] Amlodipine Besylate (Norvasc -) 5 mg PO DAILY [facility] Atorvastatin Calcium (Lipitor -) 10 mg PO Q2D@2200 [facility] Bisacodyl (Dulcolax Suppository -) 10 mg RC DAILY PRN PRN Reason: CONSTIPATION Bupropion HCl (Wellbutrin Xl -) 150 mg PO BID [facility] Last Admin: 08/09/19 09:34 Dose: 150 mg Carvedilol (Coreg -) 12.5 mg PO BID [facility] Last Admin: 08/09/19 09:36 Dose: 12.5 mg Dexamethasone Sodium Phosphate (Decadron Injection -) 4 mg IVPUSH ONCE PRN PRN Reason: NAUSEA AND/OR VOMITING Diazepam (Valium -) 5 mg PO Q8H [facility] Last Admin: 08/09/19 04:00 Dose: 5 mg Docusate Sodium (Colace -) 100 mg PO TID [facility] Last Admin: 08/09/19 06:42 Dose: 100 mg Eplerenone (Eplerenone) 25 mg PO DAILY [facility] Last Admin: 08/09/19 09:43 Dose: 25 mg Furosemide (Lasix -) 40 mg PO Q2D@1000 [facility] Last Admin: 08/08/19 22:00 Dose: 40 mg Furosemide (Lasix -) 80 mg PO Q2D@1000 [facility] Hydromorphone HCl (Hydromorphone 10 Mg/50 Ml-Ns) 10 mg 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 Last Admin: 08/08/19 22:15 Dose: 10 mg Nitroglycerin (Nitrostat -) 0.4 mg SL PRN PRN PRN Reason: PAIN Ondansetron HCl (Zofran Injection) 4 mg IVPUSH Q6H PRN PRN Reason: NAUSEA AND/OR VOMITING Ondansetron HCl (Zofran Injection) 4 mg IVPUSH Q4H PRN PRN Reason: NAUSEA AND/OR VOMITING Potassium Chloride (K-Dur -) 20 meq PO BID [facility] Last Admin: 08/09/19 09:34 Dose: 20 meq Quinapril HCl (Accupril -) 5 mg PO DAILY [facility] Last Admin: 08/09/19 09:45 Dose: 5 mg Ranolazine (Ranexa -) 500 mg PO DAILY [facility] Last Admin: 08/09/19 09:35 Dose: 500 mg Terazosin HCl (Hytrin -) 10 mg PO [facility] Last Admin: 08/08/19 22:14 Dose: 10 mg Valacyclovir HCl (Valtrex -) 500 mg PO [facility] Last Admin: 08/08/19 22:15 Dose: 500 mg - Objective Vital Signs: Vital Signs Temperature 98.6 F 08/09/19 10:00 Pulse Rate 78 08/09/19 10:00 Respiratory Rate 25 H 08/09/19 10:00 Blood Pressure 127/56 L 08/09/19 10:00 O2 Sat by Pulse Oximetry (%) 100 08/09/19 10:03 Constitutional: Yes: Calm Cardiovascular: Yes: Regular Rate and Rhythm Respiratory: Yes: CTA Bilaterally Gastrointestinal: Yes: Soft Edema: No Neurological: Yes: Alert, Oriented Labs: CBC, BMP 08/09/19 06:04 08/09/19 06:04 - ....Imaging EKG: Image Reviewed Assessment/Plan Assessment/Plan MPI 12/06 (gamaliel): v-paced; medium IW defect worse on stress (? artifact); small apical defect fixed; mild, global HK (49%). 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 EF 50 % to 55% post-exercise; mod MR post (no RVSP) MIBI 04/05 (gamaliel): paced; no isch seen; dilated LV (no TID); mild/global hk (EF 51%) Echo 04/2019: 1. Suboptimal image quality - poor subcostal views. 2. The left ventricle is moderately dilated. 3. Overall left ventricular systolic function is globally mildly impaired, with an estimated EF between 45 - 50 %. Casas's (apical 4 chamber) = 53%. 4. LA pressure is uncertain. 5. The right ventricle is normal in size and function. 6. Left atrium is severely dilated by volume. 7. Electronic pacemaker lead seen in the RA and RV. 8. There is very eccentric AI jet, which appears moderate however severity may be underestimated. No holodiastolic flow reversal is suspected in descending thoracic aorta doppler signal. 9. The mitral valve leaflets are mildly thickened, tethered in motion. 10. Ypox-kh-kbmvcpof mitral regurgitation is present. 11. Xekz-hz-ucqekaps tricuspid regurgitation present. 12. Unable to estimate RVSP due to inadequate TR jet spectral doppler profile. 13. The aortic root is severely dilated (5.1 cm at sinuses of Valsalva, unchanged vs prior study of 10/2018). 14. There is a small pericardial effusion located near the right ventricle. No echocardiographic signs of tamponade physiology present. tele: sinus s/p lumbar laminectomies for epidural mass resection, posterolateral fusion L3- L4, L4-L5: - manage per surgery - post op monitoring in ICU, on tele afib: - resume eliquis when able per surgery - cont carvedilol CAD s/p LOWELL to LAD and OM: - resume aspirin when able per surgery - cont statin, ACEI, coreg, amlodipine, imdur, ranexa Chronic combined systolic and diastolic congestive heart failure : - appears euvolemic - cont home lasix, ACEI, BB s/p ICD/BiV ppm: - outpatient follow up HLD: - cont statin
--- NOTE | 2019-08-09 10:56 | PN ---
Physical Exam: SUBJECTIVE: Patient seen and examined in the morning. POD #1. No events overnight, no events on cardiac monitoring. Patient complains of lower back pain , with no pain in the lower extremities. No complaints of chest pain, shortness of breath, abdominal pain, nausea, vomiting, diarrhea, subjective fevers. OBJECTIVE: Vital Signs Period Temp Pulse Resp BP Sys/Craft Pulse Ox Last 24 Hr 97.4 F-98.6 F 70-78 8-25 100-130/47-98 95-100 GENERAL: Awake, alert, and fully oriented, in no acute distress. HEAD: Normal with no signs of trauma. EYES: EOMI EARS, NOSE, THROAT: Ears normal, nares patent, oropharynx clear without exudates. Moist mucous membranes. LUNGS: Breath sounds equal, clear to auscultation bilaterally. No wheezes, and no crackles. No accessory muscle use. HEART: Regular rate and rhythm, 3/6 diastolic murmur. ABDOMEN: Distended. Soft, nontender, absent bowel sounds, no guarding, no rebound, no masses. BACK: Drain in place. Serosanginous fluid draining. MUSCULOSKELETAL: Normal range of motion of upper extremities. left lower extremity 4/5 strength. 5/5 strength in the right lower extremity. UPPER EXTREMITIES: 2+ pulses, warm, well-perfused. No cyanosis. No clubbing. Cap refill <2 seconds. No peripheral edema. LOWER EXTREMITIES: 2+ pulses, warm, well-perfused. No calf tenderness. No peripheral edema. NEUROLOGICAL: Cranial nerves II-XII intact. Sensation in tact grossly. PSYCHIATRIC: Cooperative. Good eye contact. Appropriate mood and affect. SKIN: Warm, dry, normal turgor, no rashes or lesions noted. Laboratory Results - last 24 hr 08/08/19 08/08/19 08/08/19 06:20 12:50 12:50 WBC 6.4 RBC 2.79 L Hgb 9.3 L Hct 27.3 L D MCV 97.8 H MCH 33.2 MCHC 33.9 RDW 23.2 H Plt Count 110 L MPV 9.0 Absolute Neuts (auto) Neutrophils % Lymphocytes % Monocytes % Eosinophils % Basophils % Nucleated RBC % Hypochromia Platelet Estimate Platelet Comment Polychromasia Poikilocytosis Basophilic Stippling Anisocytosis Microcytosis Macrocytosis Tear Drop Cells Ovalocytes Ripley Cells Acanthocytes (Spur) Sodium 142 Potassium 4.5 Chloride 113 H Carbon Dioxide 25 Anion Gap 4 L BUN 48.1 H Creatinine 2.5 H Est GFR (CKD-EPI)AfAm 28.86 Est GFR (CKD-EPI)NonAf 24.90 Random Glucose 111 H Calcium 7.6 L Phosphorus Magnesium Total Bilirubin AST ALT Alkaline Phosphatase Total Protein Albumin Blood Type O POSITIVE Antibody Screen Negative Crossmatch See Detail 08/09/19 08/09/19 06:04 06:04 WBC 8.6 RBC 3.04 L Hgb 10.1 L Hct 29.7 L MCV 97.7 H MCH 33.3 MCHC 34.1 RDW 23.6 H Plt Count 101 L MPV 9.3 Absolute Neuts (auto) 6.8 Neutrophils % 78.7 Lymphocytes % 7.2 L D Monocytes % 12.7 H Eosinophils % 1.2 Basophils % 0.2 Nucleated RBC % 0 Hypochromia 0 Platelet Estimate Decreased Platelet Comment Present Polychromasia 1+ Poikilocytosis 1+ Basophilic Stippling 1+ Anisocytosis 2+ Microcytosis 2+ Macrocytosis 0 Tear Drop Cells 1+ Ovalocytes 1+ Janell Cells 1+ Acanthocytes (Spur) 1+ Sodium 141 Potassium 5.1 Chloride 110 H Carbon Dioxide 26 Anion Gap 5 L BUN 47.1 H Creatinine 2.6 H Est GFR (CKD-EPI)AfAm 27.52 Est GFR (CKD-EPI)NonAf 23.75 Random Glucose 129 H Calcium 7.8 L Phosphorus 3.7 Magnesium 2.3 Total Bilirubin 0.9 AST 11 L ALT 18 Alkaline Phosphatase 41 L Total Protein 5.5 L Albumin 3.3 L Blood Type Antibody Screen Crossmatch Active Medications Generic Name Dose Route Start Last Admin Trade Name Freq PRN Reason Stop Dose Admin Acetaminophen 650 mg 08/08/19 11:50 Tylenol - PO Q6H PRN FEVER Albuterol Sulfate 2 puff 08/08/19 21:48 Ventolin Hfa Inhaler - IH Q6H PRN SHORTNESS OF BREATH Albuterol Sulfate 1 amp 08/09/19 07:59 Ventolin 0.083% Nebulizer Soln - NEB Q4H PRN SHORT OF BREATH/WHEEZING Albuterol/Ipratropium 1 amp 08/09/19 14:00 Duoneb - NEB RTID [facility] Amlodipine Besylate 5 mg 08/09/19 10:00 Norvasc - PO DAILY [facility] Atorvastatin Calcium 10 mg 08/09/19 22:00 Lipitor - PO Q2D@2200 [facility] Bisacodyl 10 mg 08/08/19 11:50 Dulcolax Suppository - RC DAILY PRN CONSTIPATION Bupropion HCl 150 mg 08/08/19 22:00 08/09/19 09:34 Wellbutrin Xl - PO 150 mg BID [facility] Administration Carvedilol 12.5 mg 08/08/19 22:00 08/09/19 09:36 Coreg - PO 12.5 mg BID [facility] Administration Dexamethasone Sodium Phosphate 4 mg 08/08/19 12:43 Decadron Injection - IVPUSH ONCE PRN NAUSEA AND/OR VOMITING Diazepam 5 mg 08/08/19 12:00 08/09/19 04:00 Valium - PO 5 mg Q8H [facility] Administration Docusate Sodium 100 mg 08/08/19 14:00 08/09/19 06:42 Colace - PO 100 mg TID [facility] Administration Eplerenone 25 mg 08/09/19 10:00 08/09/19 09:43 Eplerenone PO 25 mg DAILY [facility] Administration Furosemide 40 mg 08/10/19 10:00 08/08/19 22:00 Lasix - PO 40 mg Q2D@1000 [facility] Administration Furosemide 80 mg 08/09/19 10:00 Lasix - PO Q2D@1000 [facility] Hydromorphone HCl 10 mg 08/08/19 12:45 08/08/19 14:00 Hydromorphone 10 Mg/50 Ml-Ns [employer]GE [employer]AT ENGINEER 08/09/19 12:44 10 mg [employer]EDGE [employer]AT ENGINEER [facility] Administration Protocol Potassium Chloride/Dextrose/Sod Cl 20 meq in 1,000 mls @ 42 mls/hr 08/09/19 09 :45 D5-1/2ns+20 Meq Kcl - IV ASDIR [facility] Isosorbide Mononitrate 30 mg 08/08/19 22:00 08/09/19 09:55 Imdur - PO 30 mg BID [facility] Administration Montelukast Sodium 10 mg 08/08/19 22:00 08/08/19 22:15 Singulair - PO 10 mg HS [facility] Administration Nitroglycerin 0.4 mg 08/08/19 12:11 Nitrostat - SL PRN PRN PAIN Ondansetron HCl 4 mg 08/08/19 11:50 Zofran Injection IVPUSH Q6H PRN NAUSEA AND/OR VOMITING Ondansetron HCl 4 mg 08/08/19 12:43 Zofran Injection IVPUSH Q4H PRN NAUSEA AND/OR VOMITING Potassium Chloride 20 meq 08/08/19 22:00 08/09/19 09:34 K-Dur - PO 20 meq BID [facility] Administration Quinapril HCl 5 mg 08/09/19 10:00 08/09/19 09:45 Accupril - PO 5 mg DAILY [facility] Administration Ranolazine 500 mg 08/09/19 10:00 08/09/19 09:35 Ranexa - PO 500 mg DAILY [facility] Administration Terazosin HCl 10 mg 08/08/19 22:00 08/08/19 22:14 Hytrin - PO 10 mg HS [facility] Administration Valacyclovir HCl 500 mg 08/08/19 22:00 08/08/19 22:15 Valtrex - PO 500 mg HS [facility] Administration ASSESSMENT/PLAN: 73 M PMH of Afib s/p defrillator with biventricular pacer, asthma, anxiety, HTN , HLD, CAD, basal cell carcinoma of the left shoulder, torn right rotator cuff and torn right quadriceps, intracanalicular lesion with thecal sac compression who presents today POD #1 for lumbar laminectomies for epidural mass resection , microsurgical dissection, posterolateral fusion L3-4 and L4-5. Neuro/Psych -Hx of intracanalicular lesion with thecal sac compression, POD #0 for lumbar laminectomies for epidural mass resection, posterolateral fusion L3-L4, L4-L5. -AAOx3 -Pain management as per Anesthesia/Neurosurgical team -Hx of anxiety, patient on valium now. -Continue buproprion BID -F/U lumbar spine x-ray -Neurosurgery on board. Cardiovascular -Hx of CHF, CAD, Afib, defibrillator with biventricular pacer, asthma, HTN, HLD -Continue amlodipine 5 mg Daily PO -Continue atorvastatin 10 mg PO HS -Continue carvedilol 12.5 mg PO BID -Continue eplerone 25 daily -Continue Lasix 40 PO Daily -Continue Imdur 30 BID -Continue quinapril 5 mg PO daily -Continue terazosin 10 mg PO HS -Continue nitroglycerin 0.4 mg SL PRN -Continue ranolazine 500 mg PO Daily Echo 04/2019: 1. Suboptimal image quality - poor subcostal views. 2. The left ventricle is moderately dilated. 3. Overall left ventricular systolic function is globally mildly impaired, with an estimated EF between 45 - 50 %. Casas's (apical 4 chamber) = 53%. 4. LA pressure is uncertain. 5. The right ventricle is normal in size and function. 6. Left atrium is severely dilated by volume. 7. Electronic pacemaker lead seen in the RA and RV. 8. There is very eccentric AI jet, which appears moderate however severity may be underestimated. No holodiastolic flow reversal is suspected in descending thoracic aorta doppler signal. 9. The mitral valve leaflets are mildly thickened, tethered in motion. 10. Apgw-nb-evydrkth mitral regurgitation is present. 11. Nvfw-mq-bdzsuefy tricuspid regurgitation present. 12. Unable to estimate RVSP due to inadequate TR jet spectral doppler profile. 13. The aortic root is severely dilated (5.1 cm at sinuses of Valsalva, unchanged vs prior study of 10/2018). 14. There is a small pericardial effusion located near the right ventricle. No echocardiographic signs of tamponade physiology present. Pulmonary -Hx of asthma -Continue albuterol as needed -Continue singulair 10 mg PO HS GI -Stable, continue to monitor Renal -Jack in place. D/C today. -Monitor electrolytes -Continue K-Dur 20 mg PO BID [facility] - Hx of lower back pain, with pain radiating down left lower extremity -Continue monitoring s/p surgery -Valium 5mg Q8H ID -Ancef given post surgery -F/U Cultures F: D5 1/2 NS + 20 mEq KCl @ 100 until PO. switch to 42 when PO E: Monitor Potassium N: NPO for 6 hours post-op then clears. DVT: SCDs Lines: Peripheral IV Dispo: We will continue to follow the patient. Thank you for this consultative opportunity. Visit type - Emergency Visit Emergency Visit: No - New Patient This patient is new to me today: No - Critical Care Critical Care patient: Yes Total Critical Care Time (in minutes): 45 Critical Care Statement: The care of this patient involved high complexity decision making to prevent further life threatening deterioration of the patient 's condition and/or to evaluate & treat vital organ system(s) failure or risk of failure. ATTENDING PHYSICIAN STATEMENT I saw and evaluated the patient. I reviewed the resident's note and discussed the case with the resident. I agree with the resident's findings and plan as documented. SUBJECTIVE: OBJECTIVE: ASSESSMENT AND PLAN:
[2019-08-09] MEDS ORDERED: BENZOCAINE/MENTH/CETYLPYRD CL 1 EACH LOZENGE MM PRN (11:18)
[2019-08-09] MEDS: FUROSEMIDE 40 MG TABLET (FP) PO SCH (11:47)
[2019-08-09] MEDS: D5-1/2NS+20 MEQ KCL - 20 MEQ/1,000 ML INFUS.BAG IV SCH (11:48)
[2019-08-09] MEDS: amLODIPine BESYLATE 5 MG TABLET (FP) PO SCH (12:15)
[2019-08-09] MEDS: ALPRAZolam 0.25 MG TABLET PO PRN ×2 (12:58→21:20)
--- NOTE | 2019-08-09 13:14 | EKG ---
Test Reason : Blood Pressure : / mmHG Vent. Rate : 110 BPM Atrial Rate : 110 BPM P-R Int : 000 ms QRS Dur : 166 ms QT Int : 328 ms P-R-T Axes : 000 -54 104 degrees QTc Int : 443 ms ATRIAL FIBRILLATION WITH RAPID VENTRICULAR RESPONSE WITH PREMATURE VENTRICULAR OR ABERRANTLY CONDUCTED COMPLEXES LEFT AXIS DEVIATION LEFT BUNDLE BRANCH BLOCK ABNORMAL ECG WHEN COMPARED WITH ECG OF 07-JUN-2016 22:56, ATRIAL FIBRILLATION HAS REPLACED ELECTRONIC VENTRICULAR PACEMAKER VENT. RATE HAS INCREASED BY 50 BPM Confirmed by SABINA LEE MD ([id number]) on 08/09/2019 1:13:40 PM Referred By: JAQUELINE RAMIREZ Confirmed By:SABINA LEE MD
--- NOTE | 2019-08-09 13:28 | PATH ---
Surgical Pathology Report Patient Name: BRAN PALMA [facility]. Rec. #: [id number] /Age/Gender: 1945 (Age: 73) / M Account: [id number] Location: [facility] SILK SCREEN PRINTER Taken: 08/08/2019 Received: 08/08/2019 Reported: 08/09/2019 Physicians: Akil Rosenthal M.D. Specimen(s) Received A: EPIDURAL LESION LEFT L4-L5 B: LIGAMENT Clinical History L3-L5, ? hemorrhagic synovial cyst Neoplasm of bone/spinal stenosis/lumbar radiculopathy Intraoperative Consult Diagnosis Left L4-L5 epidural lesion, frozen section: Fibrous tissue, bone and hemorrhage. No definitive malignancy identified. Renato Dolan M.D., 08/08/2019 Final Diagnosis A. EPIDURAL LESION, L4-L5, LEFT, EXCISION (FS): HEMORRHAGIC LESION COMPATIBLE WITH HEMORRHAGIC SYNOVIAL CYST. PORTION OF BENIGN BONE. NO MALIGNANCY IDENTIFIED. SEE COMMENT. B. LIGAMENTUM FLAVUM, EXCISION: BENIGN DENSE FIBROUS CONNECTIVE TISSUE. Comment: Part A, the specimen is comprised of abundant old and new hemorrhage and surrounding dense fibrous tissue with mild histiocytic infiltrate; compatible with hemorrhagic synovial cyst. Suggest clinical and radiologic correlation. Electronically Signed Amanda Dominguez M.D. Gross Description A. Received fresh labeled "left L4-L5 epidural lesion," is a 2.5 x 2.3 x 0.6 cm philippe red, hemorrhagic portion of bone and soft tissue. The specimen is bisected and half of the specimen submitted for frozen section. The touch prep performed. The specimen is entirely submitted in 2 cassettes (following decalcification) as follows: 1-frozen section residue; 2-remaining half of specimen. B. Received in formalin labeled "ligamentum flavum," are 2 philippe red portions of fibrous tissue and bone measuring 1.9 x 0.9 x 0.2 cm and 2.0 x 0.8 x 0.3 cm. The specimens are submitted in toto in one cassette, following decalcification. 08/08/2019 [facility]08/08/2019
[2019-08-09] MEDS ORDERED: CARVEDILOL 12.5 MG TABLET (FP) PO ONE (13:32)
[2019-08-09] MEDS: ALBUTEROL SO4 2.5/IPRATROPIUM 0.5 INH SOL 3 ML VIAL.NEB. NEB SCH ×2 (14:15→20:30)
[2019-08-09] MEDS: MONTELUKAST NA 10 MG TABLET PO SCH (21:19)
[2019-08-09] MEDS: ATORVASTATIN CA 10 MG TABLET (FP) PO SCH (21:19)
[2019-08-09] MEDS: TERAZOSIN HCL 5 MG CAPSULE PO SCH (21:20)
[2019-08-09] MEDS: CARVEDILOL 12.5 MG TABLET (FP) PO SCH (21:20)
[2019-08-09] MEDS: valACYclovir HCL 500 MG TABLET (FP) PO SCH (21:20)
[2019-08-10] MEDS: D5-1/2NS+20 MEQ KCL - 20 MEQ/1,000 ML INFUS.BAG IV SCH (03:01)
[2019-08-10] MEDS: diazePAM 5 MG TABLET PO SCH ×3 (03:27→20:50)
[2019-08-10] MEDS: DOCUSATE SODIUM 100 MG CAPSULE (FP) PO SCH ×3 (06:56→21:37)
[2019-08-10 07:19] LABS: BASO % 0.2 % (0-2.0); EOS % 0.5 % (0-4.5); HEMATOCRIT 28.9 % (35.4-49); HEMOGLOBIN 9.8 GM/dL (11.7-16.9); LYMPH % 7.8 % (8-40); MCH 32.9 pg (25.7-33.7); MEAN CELL VOLUME 96.9 fl (80-96); MEAN PLT VOLUME 9.8 fl (7.5-11.1); MONO % 15.2 % (3.8-10.2); NEUT % 76.3 % (42.8-82.8); PLATELET COUNT 107 K/MM3 (134-434); RBC 2.98 M/mm3 (4.00-5.60); RDW 22.6 % (11.9-15.9); WHITE BLOOD COUNT 8.2 K/mm3 (4.0-10.0)
--- NOTE | 2019-08-10 07:40 | PN ---
Physical Exam: SUBJECTIVE: Patient seen and examined this am. VIRAJ Drain remains intact. Episode of Tachycardia yesterday afternoon; Case discussed with Dr. Morel and this is a usual occurence for the patient. No acute events overnight. Patient denies any fevers, chills, chest pain, SOB, nausea, vomiting, diarrhea, constipation. OBJECTIVE: Vital Signs Period Temp Pulse Resp BP Sys/Craft Pulse Ox Last 24 Hr 97.9 F-98.6 F 74-110 14-25 96-159/44-75 100-100 GENERAL: A&Ox3, NAD HEAD: NCAT EYES: PERRL, EOMI ENT: MMM LUNGS: CTAB, No wheezes, no crackles HEART: RRR, 3/6 diastolic murmur ABDOMEN: Distended. Soft, nontender, + bowel sounds, no guarding, no rebound BACK: VIRAJ Drain in place with serosanginous fluid draining EXTREMITIES: No peripheral edema NEUROLOGICAL: Cranial nerves II-XII intact. Sensation in tact grossly. LLE 4/5 strength, RLE, 5/5 strength SKIN: Warm, dry Laboratory Last Values WBC 8.2 K/mm3 (4.0-10.0) 08/10/19 05:45 RBC 2.98 M/mm3 (4.00-5.60) L 08/10/19 05:45 Hgb 9.8 GM/dL (11.7-16.9) L 08/10/19 05:45 Hct 28.9 % (35.4-49) L 08/10/19 05:45 MCV 96.9 fl (80-96) H 08/10/19 05:45 MCH 32.9 pg (25.7-33.7) 08/10/19 05:45 MCHC 34.0 g/dl (32.0-35.9) 08/10/19 05:45 RDW 22.6 % (11.9-15.9) H 08/10/19 05:45 Plt Count 107 K/MM3 (134-434) L 08/10/19 05:45 MPV 9.8 fl (7.5-11.1) 08/10/19 05:45 Absolute Neuts (auto) 6.2 K/mm3 (1.5-8.0) 08/10/19 05:45 Neutrophils % 76.3 % (42.8-82.8) 08/10/19 05:45 Lymphocytes % 7.8 % (8-40) L 08/10/19 05:45 Monocytes % 15.2 % (3.8-10.2) H 08/10/19 05:45 Eosinophils % 0.5 % (0-4.5) 08/10/19 05:45 Basophils % 0.2 % (0-2.0) 08/10/19 05:45 Nucleated RBC % 0 % (0-0) 08/10/19 05:45 Hypochromia 0 08/09/19 06:04 Platelet Estimate Decreased 08/09/19 06:04 Platelet Comment Present 08/09/19 06:04 Polychromasia 1+ 08/09/19 06:04 Poikilocytosis 1+ 08/09/19 06:04 Basophilic Stippling 1+ 08/09/19 06:04 Anisocytosis 2+ 08/09/19 06:04 Microcytosis 2+ 08/09/19 06:04 Macrocytosis 0 08/09/19 06:04 Tear Drop Cells 1+ 08/09/19 06:04 Ovalocytes 1+ 08/09/19 06:04 [place] Cells 1+ 08/09/19 06:04 Acanthocytes (Spur) 1+ 08/09/19 06:04 Sodium 142 mmol/L (136-145) 08/10/19 05:45 Potassium 4.6 mmol/L (3.5-5.1) 08/10/19 05:45 Chloride 110 mmol/L (98-107) H 08/10/19 05:45 Carbon Dioxide 26 mmol/L (21-32) 08/10/19 05:45 Anion Gap 6 MMOL/L (8-16) L 08/10/19 05:45 BUN 40.4 mg/dL (7-18) H 08/10/19 05:45 Creatinine 2.3 mg/dL (0.55-1.3) H 08/10/19 05:45 Est GFR (CKD-EPI)AfAm 31.92 08/10/19 05:45 Est GFR (CKD-EPI)NonAf 27.54 08/10/19 05:45 Random Glucose 118 mg/dL (74-106) H 08/10/19 05:45 Calcium 7.6 mg/dL (8.5-10.1) L 08/10/19 05:45 Phosphorus 3.2 mg/dL (2.5-4.9) 08/10/19 05:45 Magnesium 2.1 mg/dL (1.8-2.4) 08/10/19 05:45 Total Bilirubin 1.3 mg/dL (0.2-1) H 08/10/19 05:45 AST 11 U/L (15-37) L 08/10/19 05:45 ALT 10 U/L (13-61) L 08/10/19 05:45 Alkaline Phosphatase 39 U/L (45-117) L 08/10/19 05:45 Total Protein 5.0 g/dl (6.4-8.2) L 08/10/19 05:45 Albumin 2.9 g/dl (3.4-5.0) L 08/10/19 05:45 Blood Type O POSITIVE 08/08/19 06:20 Antibody Screen Negative 08/08/19 06:20 Crossmatch See Detail 08/08/19 06:20 Microbiology 08/08/19 09:51 Body Fluid - Other Gram Stain - Final 08/08/19 09:51 Body Fluid - Other Body Fluid Culture - Preliminary NO AEROBIC GROWTH, 24 HRS 08/08/19 09:51 Body Fluid - Other Gram Stain - Final 08/08/19 09:51 Body Fluid - Other Body Fluid Culture - Preliminary NO AEROBIC GROWTH, 24 HRS Active Medications Acetaminophen (Tylenol -) 650 mg PO Q6H PRN PRN Reason: FEVER Albuterol Sulfate (Ventolin Hfa Inhaler -) 2 puff IH Q6H PRN PRN Reason: SHORTNESS OF BREATH Albuterol Sulfate (Ventolin 0.083% Nebulizer Soln -) 1 amp NEB Q4H PRN PRN Reason: SHORT OF BREATH/WHEEZING Albuterol/Ipratropium (Duoneb -) 1 amp NEB RTID [facility] [place] Last Admin: 08/09/19 20:30 Dose: 1 amp Alprazolam (Xanax -) 0.5 mg PO Q12H PRN PRN Reason: ANXIETY Last Admin: 08/09/19 21:20 Dose: 0.5 mg Amlodipine Besylate (Norvasc -) 5 mg PO DAILY [facility] Last Admin: 08/09/19 12:15 Dose: 5 mg Atorvastatin Calcium (Lipitor -) 10 mg PO Q2D@2200 [facility] [place] Last Admin: 08/09/19 21:19 Dose: 10 mg Benzocaine/Menthol (Cepacol Lozenge -) 1 each MM PRN PRN PRN Reason: SORE THROAT Bisacodyl (Dulcolax Suppository -) 10 mg RC DAILY PRN PRN Reason: CONSTIPATION Bupropion HCl (Wellbutrin Xl -) 150 mg PO BID [facility] [place] Last Admin: 08/09/19 21:19 Dose: 150 mg Carvedilol (Coreg -) 12.5 mg PO BID [facility] [place] Last Admin: 08/09/19 21:20 Dose: 12.5 mg Dexamethasone Sodium Phosphate (Decadron Injection -) 4 mg IVPUSH ONCE PRN PRN Reason: NAUSEA AND/OR VOMITING Diazepam (Valium -) 5 mg PO Q8H [facility] Last Admin: 08/10/19 03:27 Dose: 5 mg Docusate Sodium (Colace -) 100 mg PO TID [facility] [place] Last Admin: 08/10/19 06:56 Dose: Not Given Eplerenone (Eplerenone) 25 mg PO DAILY [facility] [place] Last Admin: 08/09/19 09:43 Dose: 25 mg Furosemide (Lasix -) 40 mg PO Q2D@1000 [facility] [place] Last Admin: 08/08/19 22:00 Dose: 40 mg Furosemide (Lasix -) 80 mg PO Q2D@1000 [facility] Last Admin: 08/09/19 11:47 Dose: 80 mg Potassium Chloride/Dextrose/Sod Cl (D5-1/2ns+20 Meq Kcl -) 20 meq in 1,000 mls @ 42 mls/hr IV ASDIR [facility] [place] Last Admin: 08/10/19 03:01 Dose: 42 mls/hr Isosorbide Mononitrate (Imdur -) 30 mg PO BID [facility] [place] Last Admin: 08/09/19 21:19 Dose: 30 mg Montelukast Sodium (Singulair -) 10 mg PO HS [facility] [place] Last Admin: 08/09/19 21:19 Dose: 10 mg Nitroglycerin (Nitrostat -) 0.4 mg SL PRN PRN PRN Reason: PAIN Ondansetron HCl (Zofran Injection) 4 mg IVPUSH Q6H PRN PRN Reason: NAUSEA AND/OR VOMITING Ondansetron HCl (Zofran Injection) 4 mg IVPUSH Q4H PRN PRN Reason: NAUSEA AND/OR VOMITING Potassium Chloride (K-Dur -) 20 meq PO BID [facility] [place] Last Admin: 08/09/19 21:19 Dose: 20 meq Quinapril HCl (Accupril -) 5 mg PO DAILY [facility] [place] Last Admin: 08/09/19 09:45 Dose: 5 mg Ranolazine (Ranexa -) 500 mg PO DAILY [facility] [place] Last Admin: 08/09/19 09:35 Dose: 500 mg Terazosin HCl (Hytrin -) 10 mg PO HS [facility] [place] Last Admin: 08/09/19 21:20 Dose: 10 mg Valacyclovir HCl (Valtrex -) 500 mg PO [facility] Last Admin: 08/09/19 21:20 Dose: 500 mg ASSESSMENT/PLAN: 73 y/o M PMHx Afib s/p defrillator with biventricular pacer, asthma, anxiety, HTN, HLD, CAD, basal cell carcinoma (left shoulder), intracanalicular lesion with thecal sac compression who presents to ICU s/p lumbar laminectomies for epidural mass resection, microsurgical dissection, posterolateral fusion L3-4 and L4-5, POD#2. #Neuro/Psych S/P Lumbar laminectomies for epidural mass resection, posterolateral fusion L3- L4, L4-L5 (08/08) Hx of intracanalicular lesion with thecal sac compression HX of Anxiety -AAOx3 with Muscle strength and gross sensation intact. -Pain management as per Anesthesia -Continue home dose valium, buproprion, Alprazolam -F/U lumbar spine x-ray -Neurosurgery Consulted, Appreciate Rec's -VIRAJ Drain removed this AM #Cardio Hx of CHF, CAD, Afib, defibrillator with biventricular pacer, HTN, HLD -Continue home dose antihypertensives--amlodipine, eplerone, Lasix, Imdur, quinapril, ranolazine -Continue nitroglycerin PRN -Rate control via carvedilol -Continue atorvastatin -Resume ASA today; Hold home dose NOAC #Pulm Hx of asthma -Continue Bronchodilation via singulair HS, Duoneb, PRN albuterol -Continue incentive spirometry #GI Constipation -Continue Colace, PRN Dulcolax Suppository -Ondansetron PRN For vomiting #Renal Hypokalemia -Continue K-Dur 20 mEq PO BID, Replete PRN #ID Hx of Genital Herpes -Continue home dose Valacyclovir #FEN -D5-1/2ns+20 Meq Kcl @ 42 -Replete lytes PRN -Clear liquid diet, Advance as per surgery #PPX -DVT: SCDs Dispo: We will continue to follow the patient. Thank you for this consultative opportunity. Visit type - Emergency Visit Emergency Visit: Yes ED Registration Date: 08/08/19 Care time: The patient presented to the Emergency Department on the above date and was hospitalized for further evaluation of their emergent condition. - New Patient This patient is new to me today: No - Critical Care Critical Care patient: Yes Total Critical Care Time (in minutes): 36 Critical Care Statement: The care of this patient involved high complexity decision making to prevent further life threatening deterioration of the patient's condition and/or to evaluate & treat vital organ system(s) failure or risk of failure. ATTENDING PHYSICIAN STATEMENT I saw and evaluated the patient. I reviewed the resident's note and discussed the case with the resident. I agree with the resident's findings and plan as documented. SUBJECTIVE: OBJECTIVE: ASSESSMENT AND PLAN:
[2019-08-10 08:49] LABS: BLOOD UREA NITROGEN 40.4 mg/dL (7-18); CALCIUM 7.6 mg/dL (8.5-10.1); CREATININE 2.3 mg/dL (0.55-1.3); PHOSPHOROUS 3.2 mg/dL (2.5-4.9); POTASSIUM 4.6 mmol/L (3.5-5.1)
[2019-08-10 08:50] LABS: ALBUMIN 2.9 g/dl (3.4-5.0); BILIRUBIN,TOTAL 1.3 mg/dL (0.2-1); MAGNESIUM 2.1 mg/dL (1.8-2.4)
[2019-08-10] MEDS: ALBUTEROL SO4 2.5/IPRATROPIUM 0.5 INH SOL 3 ML VIAL.NEB. NEB SCH ×3 (09:00→20:00)
--- NOTE | 2019-08-10 09:19 | PN ---
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
[2019-08-10] MEDS ORDERED: PT OWN MED DRAWER 7, Y5N ONE ×2 (09:29→21:12)
[2019-08-10] MEDS: amLODIPine BESYLATE 5 MG TABLET (FP) PO SCH (09:37)
[2019-08-10] MEDS: CARVEDILOL 12.5 MG TABLET (FP) PO SCH ×2 (09:37→21:36)
[2019-08-10] MEDS: QUINAPRIL HCL 5 MG TABLET (FP) PO SCH (09:37)
[2019-08-10] MEDS: EPLERENONE 25 MG TABLET PO SCH (09:38)
[2019-08-10] MEDS: POTASSIUM CHLORIDE TABS 20 MEQ TABLET.ER (FP) PO SCH ×2 (09:39→21:36)
[2019-08-10] MEDS: FUROSEMIDE 40 MG TABLET (FP) PO SCH (09:40)
[2019-08-10] MEDS: ISOSORBIDE MONONITRATE 30 MG TAB.SR.24H (FP) PO SCH ×2 (09:40→21:36)
[2019-08-10] MEDS: RANOLAZINE E.R. 500 MG TABLET (FP) PO SCH (09:40)
--- NOTE | 2019-08-10 10:03 | PN ---
Progress Note (short form) - Note Progress Note: Pot op day#2.P94,BP 118/63 and Spo2 98 RA.Patient stable and c/o pain score of 4 /10 on Dilauaid CATTLE DEHORNER.Patient requesting to continue CATTLE DEHORNER today so will f/u tomorrow.
--- NOTE | 2019-08-10 10:33 | PN ---
Teaching Attending Note Name of Resident: Heather Duron ATTENDING PHYSICIAN STATEMENT I saw and evaluated the patient. I reviewed the resident's note and discussed the case with the resident. I agree with the resident's findings and plan as documented. SUBJECTIVE: Pt seen and examined in the ICU. Drain removed this AM. Still some pain. Denies nausea/vomiting, tolerating PO. No fevers or chills. OBJECTIVE: Vital Signs Period Temp Pulse Resp BP Sys/Craft Pulse Ox Last 24 Hr 97.9 F-98.6 F 77-110 14-31 96-159/44-75 Intake & Output 08/07/19 08/08/19 08/09/19 08/10/19 23:59 23:59 23:59 23:59 Intake Total 2450 2128 Output Total 1065 3680 Balance 1385 -1552 Weight 58.513 kg 60.282 kg Gen: NAD at rest Heart: irregular Lung: decreased breath sounds at the bases Abd: soft, nontender Ext: no edema CBC, BMP 08/10/19 05:45 08/10/19 05:45 Active Medications Acetaminophen (Tylenol -) 650 mg PO Q6H PRN PRN Reason: FEVER Albuterol Sulfate (Ventolin Hfa Inhaler -) 2 puff IH Q6H PRN PRN Reason: SHORTNESS OF BREATH Albuterol Sulfate (Ventolin 0.083% Nebulizer Soln -) 1 amp NEB Q4H PRN PRN Reason: SHORT OF BREATH/WHEEZING Albuterol/Ipratropium (Duoneb -) 1 amp NEB RTID [facility] Last Admin: 08/09/19 20:30 Dose: 1 amp Alprazolam (Xanax -) 0.5 mg PO Q12H PRN PRN Reason: ANXIETY Last Admin: 08/09/19 21:20 Dose: 0.5 mg Amlodipine Besylate (Norvasc -) 5 mg PO DAILY [facility] Last Admin: 08/10/19 09:37 Dose: 5 mg Atorvastatin Calcium (Lipitor -) 10 mg PO Q2D@2200 [facility] Last Admin: 08/09/19 21:19 Dose: 10 mg Benzocaine/Menthol (Cepacol Lozenge -) 1 each MM PRN PRN PRN Reason: SORE THROAT Bisacodyl (Dulcolax Suppository -) 10 mg RC DAILY PRN PRN Reason: CONSTIPATION Bupropion HCl (Wellbutrin Xl -) 150 mg PO BID [facility] Last Admin: 08/10/19 09:40 Dose: 150 mg Carvedilol (Coreg -) 12.5 mg PO BID [facility] Last Admin: 08/10/19 09:37 Dose: 12.5 mg Dexamethasone Sodium Phosphate (Decadron Injection -) 4 mg IVPUSH ONCE PRN PRN Reason: NAUSEA AND/OR VOMITING Diazepam (Valium -) 5 mg PO Q8H [facility] Last Admin: 08/10/19 03:27 Dose: 5 mg Docusate Sodium (Colace -) 100 mg PO TID [facility] Last Admin: 08/10/19 06:56 Dose: Not Given Eplerenone (Eplerenone) 25 mg PO DAILY [facility] Last Admin: 08/10/19 09:38 Dose: 25 mg Furosemide (Lasix -) 40 mg PO Q2D@1000 [facility] Last Admin: 08/10/19 09:40 Dose: 40 mg Furosemide (Lasix -) 80 mg PO Q2D@1000 [facility] Last Admin: 08/09/19 11:47 Dose: 80 mg Potassium Chloride/Dextrose/Sod Cl (D5-1/2ns+20 Meq Kcl -) 20 meq in 1,000 mls @ 42 mls/hr IV ASDIR [facility] Last Admin: 08/10/19 03:01 Dose: 42 mls/hr Isosorbide Mononitrate (Imdur -) 30 mg PO BID [facility] Last Admin: 08/10/19 09:40 Dose: 30 mg Montelukast Sodium (Singulair -) 10 mg PO HS [facility] Last Admin: 08/09/19 21:19 Dose: 10 mg Nitroglycerin (Nitrostat -) 0.4 mg SL PRN PRN PRN Reason: PAIN Ondansetron HCl (Zofran Injection) 4 mg IVPUSH Q6H PRN PRN Reason: NAUSEA AND/OR VOMITING Ondansetron HCl (Zofran Injection) 4 mg IVPUSH Q4H PRN PRN Reason: NAUSEA AND/OR VOMITING Potassium Chloride (K-Dur -) 20 meq PO BID [facility] Last Admin: 08/10/19 09:39 Dose: 20 meq Quinapril HCl (Accupril -) 5 mg PO DAILY [facility] Last Admin: 08/10/19 09:37 Dose: 5 mg Ranolazine (Ranexa -) 500 mg PO DAILY [facility] Last Admin: 08/10/19 09:40 Dose: 500 mg Terazosin HCl (Hytrin -) 10 mg PO HS [facility] Last Admin: 08/09/19 21:20 Dose: 10 mg Valacyclovir HCl (Valtrex -) 500 mg PO HS [facility] Last Admin: 08/09/19 21:20 Dose: 500 mg ASSESSMENT AND PLAN: Epidural Mass s/p Lumbar Laminectomies/Epidural Mass resection/fusion L3-L4, L4-L5 Atrial Fibrillation CAD LV Systolic/Diastolic Dysfunction Hyperlipidemia CKD - pain control - incentive spirometry - rate control - resume anticoagulation when ok with surgery - continue lasix - PO as tolerated - DVT prophylaxis - disposition per surgery
[2019-08-10] MEDS: ASPIRIN COATED 81 MG TABLET.EC PO SCH (11:20)
--- NOTE | 2019-08-10 12:14 | PN ---
Progress Note (short form) - Note Progress Note: s: no cp sob palps dizzy TELE: afib, rate overall controlled, vpaced, occ brief rvr Current Medications Generic Name Dose Route Start Last Admin Trade Name Freq PRN Reason Stop Dose Admin Acetaminophen 650 mg 08/08/19 11:50 Tylenol - PO Q6H PRN FEVER Albuterol Sulfate 2 puff 08/08/19 21:48 Ventolin Hfa Inhaler - IH Q6H PRN SHORTNESS OF BREATH Albuterol Sulfate 1 amp 08/09/19 07:59 Ventolin 0.083% Nebulizer Soln - NEB Q4H PRN SHORT OF BREATH/WHEEZING Albuterol/Ipratropium 1 amp 08/09/19 14:00 08/09/19 20:30 Duoneb - NEB 1 amp RTID JAMES Administration Alprazolam 0.5 mg 08/09/19 12:41 08/09/19 21:20 Xanax - PO 0.5 mg Q12H PRN Administration ANXIETY Amlodipine Besylate 5 mg 08/09/19 10:00 08/10/19 09:37 Norvasc - PO 5 mg DAILY JAMES Administration Aspirin 81 mg 08/10/19 11:00 08/10/19 11:20 Ecotrin - PO 81 mg DAILY JAMES Administration Atorvastatin Calcium 10 mg 08/09/19 22:00 08/09/19 21:19 Lipitor - PO 10 mg Q2D@2200 JAMES Administration Benzocaine/Menthol 1 each 08/09/19 11:18 Cepacol Lozenge - MM PRN PRN SORE THROAT Bisacodyl 10 mg 08/08/19 11:50 Dulcolax Suppository - RC DAILY PRN CONSTIPATION Bupropion HCl 150 mg 08/08/19 22:00 08/10/19 09:40 Wellbutrin Xl - PO 150 mg BID JAMES Administration Carvedilol 12.5 mg 08/09/19 13:37 08/10/19 09:37 Coreg - PO 12.5 mg BID JAMES Administration Dexamethasone Sodium Phosphate 4 mg 08/08/19 12:43 Decadron Injection - IVPUSH ONCE PRN NAUSEA AND/OR VOMITING Diazepam 5 mg 08/08/19 12:00 08/10/19 11:19 Valium - PO 5 mg Q8H [facility]AMES Administration Docusate Sodium 100 mg 08/08/19 14:00 08/10/19 06:56 Colace - PO Not Given TID JAMES Eplerenone 25 mg 08/09/19 10:00 08/10/19 09:38 Eplerenone PO 25 mg DAILY [facility] Administration Furosemide 40 mg 08/10/19 10:00 08/10/19 09:40 Lasix - PO 40 mg Q2D@1000 [facility] Administration Furosemide 80 mg 08/09/19 10:00 08/09/19 11:47 Lasix - PO 80 mg Q2D@1000 [facility] Administration Potassium Chloride/Dextrose/Sod Cl 20 meq in 1,000 mls @ 42 mls/hr 08/09/19 09 :45 08/10/19 03:01 D5-1/2ns+20 Meq Kcl - IV 42 mls/hr ASDIR JAMES Administration Isosorbide Mononitrate 30 mg 08/08/19 22:00 08/10/19 09:40 Imdur - PO 30 mg BID [facility] Administration Montelukast Sodium 10 mg 08/08/19 22:00 08/09/19 21:19 Singulair - PO 10 mg HS [facility]AMES Administration Nitroglycerin 0.4 mg 08/08/19 12:11 Nitrostat - SL PRN PRN PAIN Ondansetron HCl 4 mg 08/08/19 11:50 Zofran Injection IVPUSH Q6H PRN NAUSEA AND/OR VOMITING Ondansetron HCl 4 mg 08/08/19 12:43 Zofran Injection IVPUSH Q4H PRN NAUSEA AND/OR VOMITING Potassium Chloride 20 meq 08/08/19 22:00 08/10/19 09:39 K-Dur - PO 20 meq BID [facility] Administration Quinapril HCl 5 mg 08/09/19 10:00 08/10/19 09:37 Accupril - PO 5 mg DAILY [facility] Administration Ranolazine 500 mg 08/09/19 10:00 08/10/19 09:40 Ranexa - PO 500 mg DAILY [facility] Administration Terazosin HCl 10 mg 08/08/19 22:00 08/09/19 21:20 Hytrin - PO 10 mg HS [facility]AMES Administration Valacyclovir HCl 500 mg 08/08/19 22:00 08/09/19 21:20 Valtrex - PO 500 mg HS [facility] Administration Vital Signs Period Temp Pulse Resp BP Sys/Craft Pulse Ox Last 24 Hr 97.9 F-98.6 F 77-105 14-31 96-129/44-75 Constitutional: Yes: Calm Cardiovascular: Yes: Regular Rate and Rhythm Respiratory: Yes: CTA Bilaterally Gastrointestinal: Yes: Soft Edema: No Neurological: Yes: Alert, Oriented no jaundice diaphoresis Labs: CBC, BMP 08/10/19 05:45 08/10/19 05:45 Assessment/Plan MPI 12/06 (gamaliel): v-paced; medium IW defect worse on stress (? artifact); small apical defect fixed; mild, global HK (49%). 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 EF 50 % to 55% post-exercise; mod MR post (no RVSP) MIBI 04/05 (gamaliel): paced; no isch seen; dilated LV (no TID); mild/global hk (EF 51%) Echo 04/2019: 1. Suboptimal image quality - poor subcostal views. 2. The left ventricle is moderately dilated. 3. Overall left ventricular systolic function is globally mildly impaired, with an estimated EF between 45 - 50 %. Casas's (apical 4 chamber) = 53%. 4. LA pressure is uncertain. 5. The right ventricle is normal in size and function. 6. Left atrium is severely dilated by volume. 7. Electronic pacemaker lead seen in the RA and RV. 8. There is very eccentric AI jet, which appears moderate however severity may be underestimated. No holodiastolic flow reversal is suspected in descending thoracic aorta doppler signal. 9. The mitral valve leaflets are mildly thickened, tethered in motion. 10. [id number]-[id number] mitral regurgitation is present. 11. Nnfp-ek-yagpxoxi tricuspid regurgitation present. 12. Unable to estimate RVSP due to inadequate TR jet spectral doppler profile. 13. The aortic root is severely dilated (5.1 cm at sinuses of Valsalva, unchanged vs prior study of 10/2018). 14. There is a small pericardial effusion located near the right ventricle. No echocardiographic signs of tamponade physiology present. s/p lumbar laminectomies for epidural mass resection, posterolateral fusion L3- L4, L4-L5: - manage per surgery - post op monitoring in ICU, on tele afib: - resume eliquis when able per surgery - cont carvedilol, rate has been acceptable post op CAD s/p LOWELL to LAD and OM: - resume aspirin when able per surgery - cont statin, ACEI, coreg, amlodipine, imdur, ranexa Chronic combined systolic and diastolic congestive heart failure : - appears euvolemic - cont home lasix, ACEI, BB s/p ICD/BiV ppm: - outpatient follow up HLD: - cont statin
[2019-08-10] MEDS: MONTELUKAST NA 10 MG TABLET PO SCH (21:36)
[2019-08-10] MEDS: ALPRAZolam 0.25 MG TABLET PO PRN (21:36)
[2019-08-10] MEDS: valACYclovir HCL 500 MG TABLET (FP) PO SCH (21:37)
[2019-08-10] MEDS: TERAZOSIN HCL 5 MG CAPSULE PO SCH (21:37)
[2019-08-11] MEDS: D5-1/2NS+20 MEQ KCL - 20 MEQ/1,000 ML INFUS.BAG IV SCH (04:17)
[2019-08-11] MEDS: diazePAM 5 MG TABLET PO SCH ×3 (04:17→21:55)
[2019-08-11] MEDS: DOCUSATE SODIUM 100 MG CAPSULE (FP) PO SCH ×3 (06:40→22:00)
[2019-08-11 07:38] LABS: BASO % 0.2 % (0-2.0); EOS % 0.8 % (0-4.5); HEMATOCRIT 27.8 % (35.4-49); HEMOGLOBIN 9.5 GM/dL (11.7-16.9); LYMPH % 6.8 % (8-40); MCH 33.1 pg (25.7-33.7); MEAN CELL VOLUME 97.4 fl (80-96); MEAN PLT VOLUME 9.3 fl (7.5-11.1); MONO % 13.5 % (3.8-10.2); NEUT % 78.7 % (42.8-82.8); PLATELET COUNT 111 K/MM3 (134-434); RBC 2.86 M/mm3 (4.00-5.60); WHITE BLOOD COUNT 9.1 K/mm3 (4.0-10.0)
[2019-08-11] MEDS ORDERED: oxyCODONE HCL 5 MG TABLET PO PRN ×2 (07:58)
[2019-08-11 08:02] LABS: ALBUMIN 2.8 g/dl (3.4-5.0); BILIRUBIN,TOTAL 1.1 mg/dL (0.2-1); BLOOD UREA NITROGEN 37.3 mg/dL (7-18); CALCIUM 7.8 mg/dL (8.5-10.1); CREATININE 2.3 mg/dL (0.55-1.3); MAGNESIUM 2.2 mg/dL (1.8-2.4); PHOSPHOROUS 2.9 mg/dL (2.5-4.9); POTASSIUM 4.8 mmol/L (3.5-5.1); TOT PROT 5.4 g/dl (6.4-8.2)
[2019-08-11] MEDS: ALBUTEROL SO4 2.5/IPRATROPIUM 0.5 INH SOL 3 ML VIAL.NEB. NEB SCH ×3 (08:05→21:30)
[2019-08-11] MEDS ORDERED: PT OWN MED DRAWER 7, Y5N ONE (09:18)
[2019-08-11] MEDS: RANOLAZINE E.R. 500 MG TABLET (FP) PO SCH (09:22)
[2019-08-11] MEDS: QUINAPRIL HCL 5 MG TABLET (FP) PO SCH (09:26)
[2019-08-11] MEDS: CARVEDILOL 12.5 MG TABLET (FP) PO SCH ×2 (09:27→21:59)
[2019-08-11] MEDS: ASPIRIN COATED 81 MG TABLET.EC PO SCH (09:28)
[2019-08-11] MEDS: EPLERENONE 25 MG TABLET PO SCH (09:28)
[2019-08-11] MEDS: POTASSIUM CHLORIDE TABS 20 MEQ TABLET.ER (FP) PO SCH ×2 (09:29→21:55)
[2019-08-11] MEDS: ISOSORBIDE MONONITRATE 30 MG TAB.SR.24H (FP) PO SCH ×2 (09:29→21:58)
[2019-08-11] MEDS: FUROSEMIDE 40 MG TABLET (FP) PO SCH (09:30)
[2019-08-11] MEDS: amLODIPine BESYLATE 5 MG TABLET (FP) PO SCH (09:30)
--- NOTE | 2019-08-11 10:28 | PN ---
Progress Note (short form) - Note Progress Note: NEUROSURGERY POD #3 Incisional pain, no sciatica L LE (improved) PE: Tmax 99.2, AF, VSS CV- RR; Lungs- CTA; Abd- benign; Ext- no sign of DVT CN- intact; Motor- 4+/5 throughout, L DF 4/5; Sensation- intact LT WCB 9.1, Hgb 9,5, Cr 2.3 Dressing with small spot of old drainage on L drain site- changed Stable/improved neurologically cyst fluid- gram stain negative, culture negative to date ICU for cardiac monitoring Incentive spirometry oxycodone for pain Valium for muscle relaxation On baby ASA and hold Eliquis for now to ascertain that there is no wound drainage this afternoon before restarting Eliquis Completed iv abx course D/w ICU team and RN
--- NOTE | 2019-08-11 10:37 | PN ---
Teaching Attending Note Name of Resident: Mary Faulkner ATTENDING PHYSICIAN STATEMENT I saw and evaluated the patient. I reviewed the resident's note and discussed the case with the resident. I agree with the resident's findings and plan as documented. SUBJECTIVE: Pt seen and examined in the ICU. Still some pain. No shortness of breath or chest pain. No fevers or chills. Tolerating PO. OBJECTIVE: Vital Signs Period Temp Pulse Resp BP Sys/Craft Pulse Ox Last 24 Hr 97.9 F-99.2 F 80-96 14-23 93-130/44-59 98 Intake & Output 08/08/19 08/09/19 08/10/19 08/11/19 23:59 23:59 23:59 23:59 Intake Total 2450 2128 1802 Output Total 1065 3680 1800 Balance 1385 -1552 2 Weight 58.513 kg 59.874 kg 60.419 kg Gen: NAD at rest Heart: irregular Lung: decreased breath sounds at the bases Abd: soft, nontender Ext: no edema CBC, BMP 08/11/19 06:30 08/11/19 06:30 Active Medications Acetaminophen (Tylenol -) 650 mg PO Q6H PRN PRN Reason: FEVER Albuterol Sulfate (Ventolin Hfa Inhaler -) 2 puff IH Q6H PRN PRN Reason: SHORTNESS OF BREATH Albuterol Sulfate (Ventolin 0.083% Nebulizer Soln -) 1 amp NEB Q4H PRN PRN Reason: SHORT OF BREATH/WHEEZING Albuterol/Ipratropium (Duoneb -) 1 amp NEB RTID [facility] Last Admin: 08/11/19 08:05 Dose: 1 amp Alprazolam (Xanax -) 0.5 mg PO Q12H PRN PRN Reason: ANXIETY Last Admin: 08/10/19 21:36 Dose: 0.5 mg Amlodipine Besylate (Norvasc -) 5 mg PO DAILY [facility] Last Admin: 08/11/19 09:30 Dose: 5 mg Aspirin (Ecotrin -) 81 mg PO DAILY [facility] Last Admin: 08/11/19 09:28 Dose: 81 mg Atorvastatin Calcium (Lipitor -) 10 mg PO Q2D@2200 [facility] Last Admin: 08/09/19 21:19 Dose: 10 mg Benzocaine/Menthol (Cepacol Lozenge -) 1 each MM PRN PRN PRN Reason: SORE THROAT Bisacodyl (Dulcolax Suppository -) 10 mg RC DAILY PRN PRN Reason: CONSTIPATION Bupropion HCl (Wellbutrin Xl -) 150 mg PO BID [facility] Last Admin: 08/11/19 09:29 Dose: 150 mg Carvedilol (Coreg -) 12.5 mg PO BID [facility] Last Admin: 08/11/19 09:27 Dose: 12.5 mg Dexamethasone Sodium Phosphate (Decadron Injection -) 4 mg IVPUSH ONCE PRN PRN Reason: NAUSEA AND/OR VOMITING Diazepam (Valium -) 5 mg PO Q8H [facility] Last Admin: 08/11/19 04:17 Dose: 5 mg Docusate Sodium (Colace -) 100 mg PO TID [facility] Last Admin: 08/11/19 06:40 Dose: 100 mg Eplerenone (Eplerenone) 25 mg PO DAILY [facility] Last Admin: 08/11/19 09:28 Dose: 25 mg Furosemide (Lasix -) 40 mg PO Q2D@1000 [facility] Last Admin: 08/10/19 09:40 Dose: 40 mg Furosemide (Lasix -) 80 mg PO Q2D@1000 [facility] Last Admin: 08/11/19 09:30 Dose: 80 mg Isosorbide Mononitrate (Imdur -) 30 mg PO BID [facility] Last Admin: 08/11/19 09:29 Dose: 30 mg Montelukast Sodium (Singulair -) 10 mg PO HS [facility] Last Admin: 08/10/19 21:36 Dose: 10 mg Nitroglycerin (Nitrostat -) 0.4 mg SL PRN PRN PRN Reason: PAIN Ondansetron HCl (Zofran Injection) 4 mg IVPUSH Q6H PRN PRN Reason: NAUSEA AND/OR VOMITING Ondansetron HCl (Zofran Injection) 4 mg IVPUSH Q4H PRN PRN Reason: NAUSEA AND/OR VOMITING Oxycodone HCl (Roxicodone -) 5 mg PO Q4H PRN PRN Reason: PAIN LEVEL 1-5 Last Admin: 08/11/19 09:36 Dose: 5 mg Oxycodone HCl (Roxicodone -) 10 mg PO Q6H PRN PRN Reason: PAIN LEVEL 6-10 Potassium Chloride (K-Dur -) 20 meq PO BID [facility] Last Admin: 08/11/19 09:29 Dose: 20 meq Quinapril HCl (Accupril -) 5 mg PO DAILY [facility] Last Admin: 08/11/19 09:26 Dose: 5 mg Ranolazine (Ranexa -) 500 mg PO DAILY [facility] Last Admin: 08/11/19 09:22 Dose: 500 mg Terazosin HCl (Hytrin -) 10 mg PO [facility] Last Admin: 08/10/19 21:37 Dose: 10 mg Valacyclovir HCl (Valtrex -) 500 mg PO [facility] Last Admin: 08/10/19 21:37 Dose: 500 mg ASSESSMENT AND PLAN: Epidural Mass s/p Lumbar Laminectomies/Epidural Mass resection/fusion L3-L4, L4-L5 Atrial Fibrillation CAD LV Systolic/Diastolic Dysfunction Hyperlipidemia CKD - pain control - incentive spirometry - rate control - resume anticoagulation when ok with surgery - continue lasix - PO as tolerated - DVT prophylaxis - disposition per surgery
--- NOTE | 2019-08-11 10:43 | PN ---
Progress Note (short form) - Note Progress Note: s: no cp sob palps dizzy TELE: afib, rate overall controlled, vpaced at times Current Medications Generic Name Dose Route Start Last Admin Trade Name Freq PRN Reason Stop Dose Admin Acetaminophen 650 mg 08/08/19 11:50 Tylenol - PO Q6H PRN FEVER Albuterol Sulfate 2 puff 08/08/19 21:48 Ventolin Hfa Inhaler - IH Q6H PRN SHORTNESS OF BREATH Albuterol Sulfate 1 amp 08/09/19 07:59 Ventolin 0.083% Nebulizer Soln - NEB Q4H PRN SHORT OF BREATH/WHEEZING Albuterol/Ipratropium 1 amp 08/09/19 14:00 08/11/19 08:05 Duoneb - NEB 1 amp RTID JAMES Administration Alprazolam 0.5 mg 08/09/19 12:41 08/10/19 21:36 Xanax - PO 0.5 mg Q12H PRN Administration ANXIETY Amlodipine Besylate 5 mg 08/09/19 10:00 08/11/19 09:30 Norvasc - PO 5 mg DAILY JAMES Administration Aspirin 81 mg 08/10/19 11:00 08/11/19 09:28 Ecotrin - PO 81 mg DAILY JAMES Administration Atorvastatin Calcium 10 mg 08/09/19 22:00 08/09/19 21:19 Lipitor - PO 10 mg Q2D@2200 JAMES Administration Benzocaine/Menthol 1 each 08/09/19 11:18 Cepacol Lozenge - MM PRN PRN SORE THROAT Bisacodyl 10 mg 08/08/19 11:50 Dulcolax Suppository - RC DAILY PRN CONSTIPATION Bupropion HCl 150 mg 08/08/19 22:00 08/11/19 09:29 Wellbutrin Xl - PO 150 mg BID J[facility] Administration Carvedilol 12.5 mg 08/09/19 13:37 08/11/19 09:27 Coreg - PO 12.5 mg BID JAMES Administration Dexamethasone Sodium Phosphate 4 mg 08/08/19 12:43 Decadron Injection - IVPUSH ONCE PRN NAUSEA AND/OR VOMITING Diazepam 5 mg 08/08/19 12:00 08/11/19 04:17 Valium - PO 5 mg Q8H JAMES Administration Docusate Sodium 100 mg 08/08/19 14:00 08/11/19 06:40 Colace - PO 100 mg TID JAMES Administration Eplerenone 25 mg 08/09/19 10:00 08/11/19 09:28 Eplerenone PO 25 mg DAILY [facility] Administration Furosemide 40 mg 08/10/19 10:00 08/10/19 09:40 Lasix - PO 40 mg Q2D@1000 JAMES Administration Furosemide 80 mg 08/09/19 10:00 08/11/19 09:30 Lasix - PO 80 mg Q2D@1000 JAMES Administration Isosorbide Mononitrate 30 mg 08/08/19 22:00 08/11/19 09:29 Imdur - PO 30 mg BID JAMES Administration Montelukast Sodium 10 mg 08/08/19 22:00 08/10/19 21:36 Singulair - PO 10 mg HS JAMES Administration Nitroglycerin 0.4 mg 08/08/19 12:11 Nitrostat - SL PRN PRN PAIN Ondansetron HCl 4 mg 08/08/19 11:50 Zofran Injection IVPUSH Q6H PRN NAUSEA AND/OR VOMITING Ondansetron HCl 4 mg 08/08/19 12:43 Zofran Injection IVPUSH Q4H PRN NAUSEA AND/OR VOMITING Oxycodone HCl 5 mg 08/11/19 07:58 08/11/19 09:36 Roxicodone - PO 5 mg Q4H PRN Administration PAIN LEVEL 1-5 Oxycodone HCl 10 mg 08/11/19 07:58 Roxicodone - PO Q6H PRN PAIN LEVEL 6-10 Potassium Chloride 20 meq 08/08/19 22:00 08/11/19 09:29 K-Dur - PO 20 meq BID JAMES Administration Quinapril HCl 5 mg 08/09/19 10:00 08/11/19 09:26 Accupril - PO 5 mg DAILY JAMES Administration Ranolazine 500 mg 08/09/19 10:00 08/11/19 09:22 Ranexa - PO 500 mg DAILY J[facility] Administration Terazosin HCl 10 mg 08/08/19 22:00 08/10/19 21:37 Hytrin - PO 10 mg HS JAMES Administration Valacyclovir HCl 500 mg 08/08/19 22:00 08/10/19 21:37 Valtrex - PO 500 mg HS JAMES Administration Vital Signs Period Temp Pulse Resp BP Sys/Craft Pulse Ox Last 24 Hr 97.9 F-99.2 F 80-96 14-23 93-130/44-59 98 Constitutional: Yes: Calm Cardiovascular: Yes: Regular Rate and Rhythm Respiratory: Yes: CTA Bilaterally Gastrointestinal: Yes: Soft Edema: No Neurological: Yes: Alert, Oriented no jaundice diaphoresis Labs: CBC, BMP 08/11/19 06:30 08/11/19 06:30 Assessment/Plan MPI 12/06 (gamaliel): v-paced; medium IW defect worse on stress (? artifact); small apical defect fixed; mild, global HK (49%). 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 EF 50 % to 55% post-exercise; mod MR post (no RVSP) MIBI 04/05 (gamaliel): paced; no isch seen; dilated LV (no TID); mild/global hk (EF 51%) Echo 04/2019: 1. Suboptimal image quality - poor subcostal views. 2. The left ventricle is moderately dilated. 3. Overall left ventricular systolic function is globally mildly impaired, with an estimated EF between 45 - 50 %. Casas's (apical 4 chamber) = 53%. 4. LA pressure is uncertain. 5. The right ventricle is normal in size and function. 6. Left atrium is severely dilated by volume. 7. Electronic pacemaker lead seen in the RA and RV. 8. There is very eccentric AI jet, which appears moderate however severity may be underestimated. No holodiastolic flow reversal is suspected in descending thoracic aorta doppler signal. 9. The mitral valve leaflets are mildly thickened, tethered in motion. 10. Dfno-mo-xlfezcvn mitral regurgitation is present. 11. Bhmx-[id number] tricuspid regurgitation present. 12. Unable to estimate RVSP due to inadequate TR jet spectral doppler profile. 13. The aortic root is severely dilated (5.1 cm at sinuses of Valsalva, unchanged vs prior study of 10/2018). 14. There is a small pericardial effusion located near the right ventricle. No echocardiographic signs of tamponade physiology present. s/p lumbar laminectomies for epidural mass resection, posterolateral fusion L3- L4, L4-L5: - manage per surgery - post op monitoring in ICU, on tele afib: - resume eliquis when able post op per surgery - cont carvedilol, rate has been acceptable post op CAD s/p LOWELL to LAD and OM: - resume aspirin when able per surgery - cont statin, ACEI, coreg, amlodipine, imdur, ranexa Chronic combined systolic and diastolic congestive heart failure : - appears euvolemic - cont home lasix, ACEI, BB s/p ICD/BiV ppm: - outpatient follow up HLD: - cont statin
--- NOTE | 2019-08-11 11:08 | PN ---
Physical Exam: SUBJECTIVE: Patient seen and examined. No acute event overnight. no fever, tachycardia, continues to have pain intermittently. OBJECTIVE: Vital Signs Period Temp Pulse Resp BP Sys/Craft Pulse Ox Last 24 Hr 97.9 F-99.2 F 80-96 14-23 93-130/44-59 98 GENERAL: A&Ox3, NAD HEAD: NCAT EYES: PERRL, EOMI ENT: MMM LUNGS: CTAB but decreased at the bases, No wheezes, no crackles HEART: irregulat but RR, 3/6 diastolic murmur ABDOMEN: Distended. Soft, nontender, + bowel sounds, no guarding, no rebound BACK: VIRAJ Drain in place with serosanginous fluid draining EXTREMITIES: No peripheral edema NEUROLOGICAL: Cranial nerves II-XII intact. Sensation in tact grossly. LLE 4/5 strength, RLE, 5/5 strength SKIN: Warm, dry Laboratory Results - last 24 hr 08/11/19 08/11/19 06:30 06:30 WBC 9.1 RBC 2.86 L Hgb 9.5 L Hct 27.8 L MCV 97.4 H MCH 33.1 MCHC 34.0 RDW 23.0 H Plt Count 111 L MPV 9.3 Absolute Neuts (auto) 7.2 Neutrophils % 78.7 Lymphocytes % 6.8 L Monocytes % 13.5 H Eosinophils % 0.8 Basophils % 0.2 Nucleated RBC % 0 Sodium 141 Potassium 4.8 Chloride 111 H Carbon Dioxide 24 Anion Gap 6 L BUN 37.3 H Creatinine 2.3 H Est GFR (CKD-EPI)AfAm 31.92 Est GFR (CKD-EPI)NonAf 27.54 Random Glucose 119 H Calcium 7.8 L Phosphorus 2.9 Magnesium 2.2 Total Bilirubin 1.1 H AST 9 L ALT 10 L Alkaline Phosphatase 43 L Total Protein 5.4 L Albumin 2.8 L Active Medications Generic Name Dose Route Start Last Admin Trade Name Freq PRN Reason Stop Dose Admin Acetaminophen 650 mg 08/08/19 11:50 Tylenol - PO Q6H PRN FEVER Albuterol Sulfate 2 puff 08/08/19 21:48 Ventolin Hfa Inhaler - IH Q6H PRN SHORTNESS OF BREATH Albuterol Sulfate 1 amp 08/09/19 07:59 Ventolin 0.083% Nebulizer Soln - NEB Q4H PRN SHORT OF BREATH/WHEEZING Albuterol/Ipratropium 1 amp 08/09/19 14:00 08/11/19 08:05 Duoneb - NEB 1 amp RTID JAMES Administration Alprazolam 0.5 mg 08/09/19 12:41 08/10/19 21:36 Xanax - PO 0.5 mg Q12H PRN Administration ANXIETY Amlodipine Besylate 5 mg 08/09/19 10:00 08/11/19 09:30 Norvasc - PO 5 mg DAILY JAMES Administration Aspirin 81 mg 08/10/19 11:00 08/11/19 09:28 Ecotrin - PO 81 mg DAILY JAMES Administration Atorvastatin Calcium 10 mg 08/09/19 22:00 08/09/19 21:19 Lipitor - PO 10 mg Q2D@2200 JAMES Administration Benzocaine/Menthol 1 each 08/09/19 11:18 Cepacol Lozenge - MM PRN PRN SORE THROAT Bisacodyl 10 mg 08/08/19 11:50 Dulcolax Suppository - RC DAILY PRN CONSTIPATION Bupropion HCl 150 mg 08/08/19 22:00 08/11/19 09:29 Wellbutrin Xl - PO 150 mg BID JAMES Administration Carvedilol 12.5 mg 08/09/19 13:37 08/11/19 09:27 Coreg - PO 12.5 mg BID JAMES Administration Dexamethasone Sodium Phosphate 4 mg 08/08/19 12:43 Decadron Injection - IVPUSH ONCE PRN NAUSEA AND/OR VOMITING Diazepam 5 mg 08/08/19 12:00 08/11/19 04:17 Valium - PO 5 mg Q8H JAMES Administration Docusate Sodium 100 mg 08/08/19 14:00 08/11/19 06:40 Colace - PO 100 mg TID JAMES Administration Eplerenone 25 mg 08/09/19 10:00 08/11/19 09:28 Eplerenone PO 25 mg DAILY JAMES Administration Furosemide 40 mg 08/10/19 10:00 08/10/19 09:40 Lasix - PO 40 mg Q2D@1000 JAMES Administration Furosemide 80 mg 08/09/19 10:00 08/11/19 09:30 Lasix - PO 80 mg Q2D@1000 JAMES Administration Isosorbide Mononitrate 30 mg 08/08/19 22:00 08/11/19 09:29 Imdur - PO 30 mg BID JAMES Administration Montelukast Sodium 10 mg 08/08/19 22:00 08/10/19 21:36 Singulair - PO 10 mg HS JAMES Administration Nitroglycerin 0.4 mg 08/08/19 12:11 Nitrostat - SL PRN PRN PAIN Ondansetron HCl 4 mg 08/08/19 11:50 Zofran Injection IVPUSH Q6H PRN NAUSEA AND/OR VOMITING Ondansetron HCl 4 mg 08/08/19 12:43 Zofran Injection IVPUSH Q4H PRN NAUSEA AND/OR VOMITING Oxycodone HCl 5 mg 08/11/19 07:58 08/11/19 09:36 Roxicodone - PO 5 mg Q4H PRN Administration PAIN LEVEL 1-5 Oxycodone HCl 10 mg 08/11/19 07:58 Roxicodone - PO Q6H PRN PAIN LEVEL 6-10 Potassium Chloride 20 meq 08/08/19 22:00 08/11/19 09:29 K-Dur - PO 20 meq BID JAMES Administration Quinapril HCl 5 mg 08/09/19 10:00 08/11/19 09:26 Accupril - PO 5 mg DAILY JAMES Administration Ranolazine 500 mg 08/09/19 10:00 08/11/19 09:22 Ranexa - PO 500 mg DAILY JAMES Administration Terazosin HCl 10 mg 08/08/19 22:00 08/10/19 21:37 Hytrin - PO 10 mg HS JAMES Administration Valacyclovir HCl 500 mg 08/08/19 22:00 08/10/19 21:37 Valtrex - PO 500 mg HS JAMES Administration ASSESSMENT/PLAN: 73 y/o M PMHx Afib s/p defrillator with biventricular pacer, asthma, anxiety, HTN, HLD, CAD, basal cell carcinoma (left shoulder), intracanalicular lesion with thecal sac compression who presents to ICU s/p lumbar laminectomies for epidural mass resection, microsurgical dissection, posterolateral fusion L3-4 and L4-5, POD#3. #Neuro/Psych S/P Lumbar laminectomies for epidural mass resection, posterolateral fusion L3- L4, L4-L5 (08/08) Hx of intracanalicular lesion with thecal sac compression HX of Anxiety -AAOx3 with Muscle strength 4/5 and gross sensation intact. -Pain management with oxycodone 5mg for 1-5 and 10mg 6-10 -Continue home dose valium, buproprion, Alprazolam - lumbar spine x-ray w/o acute finding -Neurosurgery Dr Rosenthal : OOB and PT. resume eliquis once zero drainage on dressing change -VIRAJ Drain removed yesterday #Cardio Hx of CHF, CAD, Afib, defibrillator with biventricular pacer, HTN, HLD -Continue home dose antihypertensives--amlodipine, eplerone, Lasix, Imdur, quinapril, ranolazine -Continue nitroglycerin PRN -Rate control via carvedilol -Continue atorvastatin -Resume ASA today; Hold home dose NOAC until zero drainage; will check dressing this afternoon -eliquis resumed as dressing was clean #Pulm Hx of asthma -Continue Bronchodilation via singulair HS, Duoneb, PRN albuterol -Continue incentive spirometry #GI Constipation -Continue Colace, PRN Dulcolax Suppository -Ondansetron PRN For vomiting #Renal -potassium stable at 4.8 -Continue K-Dur 20 mEq PO BID, Replete PRN #ID Hx of Genital Herpes -Continue home dose Valacyclovir #FEN -no standing fluids. diet has been advanced -Replete lytes PRN -low sodium diet #PPX -DVT:on eliquis Dispo: pending tele transfer Visit type - Emergency Visit Emergency Visit: Yes ED Registration Date: 08/08/19 Care time: The patient presented to the Emergency Department on the above date and was hospitalized for further evaluation of their emergent condition. - New Patient This patient is new to me today: No - Critical Care Critical Care patient: Yes Total Critical Care Time (in minutes): 35 Critical Care Statement: The care of this patient involved high complexity decision making to prevent further life threatening deterioration of the patient's condition and/or to evaluate & treat vital organ system(s) failure or risk of failure. ATTENDING PHYSICIAN STATEMENT I saw and evaluated the patient. I reviewed the resident's note and discussed the case with the resident. I agree with the resident's findings and plan as documented. SUBJECTIVE: OBJECTIVE: ASSESSMENT AND PLAN:
[2019-08-11] MEDS: MONTELUKAST NA 10 MG TABLET PO SCH (21:55)
[2019-08-11] MEDS: ATORVASTATIN CA 10 MG TABLET (FP) PO SCH (21:55)
[2019-08-11] MEDS: APIXABAN 2.5 MG TABLET PO SCH (21:55)
[2019-08-11] MEDS: TERAZOSIN HCL 5 MG CAPSULE PO SCH (21:59)
[2019-08-11] MEDS: valACYclovir HCL 500 MG TABLET (FP) PO SCH (22:00)
[2019-08-12] MEDS: diazePAM 5 MG TABLET PO SCH ×3 (04:00→20:09)
[2019-08-12] MEDS: DOCUSATE SODIUM 100 MG CAPSULE (FP) PO SCH ×3 (05:22→22:43)
[2019-08-12 06:53] LABS: BASO % 0.2 % (0-2.0); EOS % 0.8 % (0-4.5); HEMATOCRIT 25.8 % (35.4-49); HEMOGLOBIN 8.8 GM/dL (11.7-16.9); LYMPH % 8.1 % (8-40); MCH 33.1 pg (25.7-33.7); MEAN CELL VOLUME 97.4 fl (80-96); MEAN PLT VOLUME 10.3 fl (7.5-11.1); MONO % 13.7 % (3.8-10.2); NEUT % 77.2 % (42.8-82.8); PLATELET COUNT 139 K/MM3 (134-434); RBC 2.65 M/mm3 (4.00-5.60); RDW 22.7 % (11.9-15.9); WHITE BLOOD COUNT 8.6 K/mm3 (4.0-10.0)
[2019-08-12 07:25] LABS: ALBUMIN 2.7 g/dl (3.4-5.0); CALCIUM 7.9 mg/dL (8.5-10.1); CREATININE 2.7 mg/dL (0.55-1.3); MAGNESIUM 2.5 mg/dL (1.8-2.4); PHOSPHOROUS 3.8 mg/dL (2.5-4.9); POTASSIUM 4.9 mmol/L (3.5-5.1); TOT PROT 5.4 g/dl (6.4-8.2)
[2019-08-12] MEDS: ALBUTEROL SO4 2.5/IPRATROPIUM 0.5 INH SOL 3 ML VIAL.NEB. NEB SCH ×3 (07:40→20:08)
--- NOTE | 2019-08-12 08:37 | PN ---
Physical Exam: SUBJECTIVE: Patient seen and examined at bedside. No acute events overnight. Pt still complaining of back pain at surgical site. Denies chest pain, sob, n/v, f/c. Admits to passing gas but has not yet passed BM. OBJECTIVE: Vital Signs Period Temp Pulse Resp BP Sys/Craft Pulse Ox Last 24 Hr 98.1 F-98.7 F 80-102 16-84 86-122/44-95 97-98 GENERAL: A&Ox3, NAD HEAD: NCAT EYES: PERRL, EOMI ENT: MMM LUNGS: CTAB but decreased at the bases, No wheezes, no crackles HEART: irregularly irregular, 3/6 diastolic murmur ABDOMEN: Soft, nontender, + bowel sounds, no guarding, no rebound BACK: Dressing c/d/i EXTREMITIES: No peripheral edema NEUROLOGICAL: Cranial nerves II-XII intact. Sensation in tact grossly. LLE 4/5 strength, RLE, 5/5 strength SKIN: Warm, dry Laboratory Results - last 24 hr 08/08/19 08/12/19 08/12/19 06:20 05:05 05:05 WBC 8.6 RBC 2.65 L Hgb 8.8 L Hct 25.8 L MCV 97.4 H MCH 33.1 MCHC 34.0 RDW 22.7 H Plt Count 139 D MPV 10.3 D Absolute Neuts (auto) 6.6 Neutrophils % 77.2 Lymphocytes % 8.1 Monocytes % 13.7 H Eosinophils % 0.8 Basophils % 0.2 Nucleated RBC % 0 Sodium 142 Potassium 4.9 Chloride 111 H Carbon Dioxide 23 Anion Gap 7 L BUN 49.0 H Creatinine 2.7 H Est GFR (CKD-EPI)AfAm 26.29 Est GFR (CKD-EPI)NonAf 22.69 Random Glucose 106 Calcium 7.9 L Phosphorus 3.8 Magnesium 2.5 H Total Bilirubin 1.0 AST 9 L ALT 9 L Alkaline Phosphatase 47 Total Protein 5.4 L Albumin 2.7 L Blood Type O POSITIVE Antibody Screen Negative Crossmatch See Detail Active Medications Acetaminophen (Tylenol -) 650 mg PO Q6H PRN PRN Reason: FEVER Albuterol Sulfate (Ventolin Hfa Inhaler -) 2 puff IH Q6H PRN PRN Reason: SHORTNESS OF BREATH Albuterol Sulfate (Ventolin 0.083% Nebulizer Soln -) 1 amp NEB Q4H PRN PRN Reason: SHORT OF BREATH/WHEEZING Albuterol/Ipratropium (Duoneb -) 1 amp NEB RTID [facility] Last Admin: 08/12/19 07:40 Dose: 1 amp Alprazolam (Xanax -) 0.5 mg PO Q12H PRN PRN Reason: ANXIETY Last Admin: 08/10/19 21:36 Dose: 0.5 mg Amlodipine Besylate (Norvasc -) 5 mg PO DAILY [facility] Last Admin: 08/12/19 09:37 Dose: 5 mg Apixaban (Eliquis -) 2.5 mg PO BID [facility] Last Admin: 08/12/19 09:35 Dose: 2.5 mg Aspirin (Ecotrin -) 81 mg PO DAILY [facility] Last Admin: 08/12/19 09:35 Dose: 81 mg Atorvastatin Calcium (Lipitor -) 10 mg PO Q2D@2200 [facility] Last Admin: 08/11/19 21:55 Dose: 10 mg Benzocaine/Menthol (Cepacol Lozenge -) 1 each MM PRN PRN PRN Reason: SORE THROAT Bisacodyl (Dulcolax Suppository -) 10 mg RC DAILY PRN PRN Reason: CONSTIPATION Budesonide/Formoterol Fumarate (Symbicort 160/4.5mcg -) 2 puff IH BID [facility] Bupropion HCl (Wellbutrin Xl -) 150 mg PO BID [facility] Last Admin: 08/12/19 09:37 Dose: 150 mg Carvedilol (Coreg -) 12.5 mg PO BID [facility] Last Admin: 08/12/19 09:35 Dose: 12.5 mg Dexamethasone Sodium Phosphate (Decadron Injection -) 4 mg IVPUSH ONCE PRN PRN Reason: NAUSEA AND/OR VOMITING Diazepam (Valium -) 5 mg PO Q8H [facility] Last Admin: 08/12/19 04:00 Dose: 5 mg Docusate Sodium (Colace -) 100 mg PO TID [facility] Last Admin: 08/12/19 05:22 Dose: 100 mg Eplerenone (Eplerenone) 25 mg PO DAILY [facility] Last Admin: 08/12/19 09:36 Dose: 25 mg Furosemide (Lasix -) 40 mg PO Q2D@1000 [facility] Last Admin: 08/12/19 09:37 Dose: 40 mg Furosemide (Lasix -) 80 mg PO Q2D@1000 [facility] Last Admin: 08/11/19 09:30 Dose: 80 mg Isosorbide Mononitrate (Imdur -) 30 mg PO BID [facility] Last Admin: 08/12/19 09:36 Dose: 30 mg Montelukast Sodium (Singulair -) 10 mg PO [facility] Last Admin: 08/11/19 21:55 Dose: 10 mg Nitroglycerin (Nitrostat -) 0.4 mg SL PRN PRN PRN Reason: PAIN Ondansetron HCl (Zofran Injection) 4 mg IVPUSH Q6H PRN PRN Reason: NAUSEA AND/OR VOMITING Oxycodone HCl (Roxicodone -) 5 mg PO Q4H PRN PRN Reason: PAIN LEVEL 1-5 Last Admin: 08/11/19 09:36 Dose: 5 mg Oxycodone HCl (Roxicodone -) 10 mg PO Q6H PRN PRN Reason: PAIN LEVEL 6-10 Potassium Chloride (K-Dur -) 20 meq PO BID [facility] Last Admin: 08/12/19 09:37 Dose: 20 meq Quinapril HCl (Accupril -) 5 mg PO DAILY [facility] Last Admin: 08/11/19 09:26 Dose: 5 mg Ranolazine (Ranexa -) 500 mg PO DAILY [facility] Last Admin: 08/12/19 09:37 Dose: 500 mg Terazosin HCl (Hytrin -) 10 mg PO [facility] Last Admin: 08/11/19 21:59 Dose: 10 mg Valacyclovir HCl (Valtrex -) 500 mg PO [facility] Last Admin: 08/11/19 22:00 Dose: 500 mg ASSESSMENT/PLAN: 73 y/o M PMHx Afib s/p defrillator with biventricular pacer, asthma, anxiety, HTN, HLD, CAD, basal cell carcinoma (left shoulder), intracanalicular lesion with thecal sac compression who presents to ICU s/p lumbar laminectomies for epidural mass resection, microsurgical dissection, posterolateral fusion L3-4 and L4-5, POD#3. Neuro/Psych S/P Lumbar laminectomies for epidural mass resection, posterolateral fusion L3- L4, L4-L5 (08/08) Hx of intracanalicular lesion with thecal sac compression HX of Anxiety -AAOx3 with Muscle strength 4/5 and gross sensation intact. -Pain management with oxycodone 5mg for 1-5 and 10mg 6-10 -Continue home meds: Valium 5 Q8H, Buproprion 150 BID, Alprazolam 0.5 Q12H PRN -lumbar spine x-ray neg -Neurosurgery Dr Rosenthal : OOB and PT. Eliquis resumed. Dressing changed today. -Strongly advised PT Cardio Hx of CHF, CAD, Afib, defibrillator with biventricular pacer, HTN, HLD -Rate-controlled. Per cardio can cont w/ Coreg 12.5 BID -Continue home meds: Amlodipine 5, Eplerenone 25, Lasix 40/80 IVP, Imdur 30 BID, Quinapril 5, Ranolazine 500, Nitro 0.4 SL PRN, Atorvastatin 10 Q2D -ASA and Eliquis 2.5 BID resumed -Will need outpatient follow up with for PPM Pulm Hx of Asthma -Continue bronchodilation via Singulair HS, Duoneb, PRN albuterol -IS -Will add Symbicort GI Constipation -Continue Colace, PRN Dulcolax Suppository -Zofran PRN Renal -K stable today; 4.9 -Continue K-Dur 20 mEq PO BID, Replete PRN ID Hx of Genital Herpes -Continue home dose Valacyclovir FEN -PO hydration -Replete lytes PRN -Sodium-controlled diet Prophylaxis DVT: Eliquis 2.5 BID Dispo: downgrade to m/s transfer given patient is currently rate-controlled Visit type - Emergency Visit Emergency Visit: Yes ED Registration Date: 08/08/19 Care time: The patient presented to the Emergency Department on the above date and was hospitalized for further evaluation of their emergent condition. - New Patient This patient is new to me today: No - Critical Care Critical Care patient: Yes Total Critical Care Time (in minutes): 36 Critical Care Statement: The care of this patient involved high complexity decision making to prevent further life threatening deterioration of the patient's condition and/or to evaluate & treat vital organ system(s) failure or risk of failure. ATTENDING PHYSICIAN STATEMENT I saw and evaluated the patient. I reviewed the resident's note and discussed the case with the resident. I agree with the resident's findings and plan as documented. SUBJECTIVE: OBJECTIVE: ASSESSMENT AND PLAN:
[2019-08-12] MEDS ORDERED: PT OWN MED DRAWER 7, Y5N ONE ×6 (09:30→21:20)
[2019-08-12] MEDS: ASPIRIN COATED 81 MG TABLET.EC PO SCH (09:35)
[2019-08-12] MEDS: APIXABAN 2.5 MG TABLET PO SCH ×2 (09:35→21:26)
[2019-08-12] MEDS: CARVEDILOL 12.5 MG TABLET (FP) PO SCH ×2 (09:35→21:26)
[2019-08-12] MEDS: ISOSORBIDE MONONITRATE 30 MG TAB.SR.24H (FP) PO SCH ×2 (09:36→21:26)
[2019-08-12] MEDS: EPLERENONE 25 MG TABLET PO SCH (09:36)
[2019-08-12] MEDS: POTASSIUM CHLORIDE TABS 20 MEQ TABLET.ER (FP) PO SCH ×2 (09:37→21:26)
[2019-08-12] MEDS: FUROSEMIDE 40 MG TABLET (FP) PO SCH (09:37)
[2019-08-12] MEDS: RANOLAZINE E.R. 500 MG TABLET (FP) PO SCH (09:37)
[2019-08-12] MEDS: amLODIPine BESYLATE 5 MG TABLET (FP) PO SCH (09:37)
--- NOTE | 2019-08-12 10:52 | PN ---
Progress Note (short form) - Note Progress Note: NEUROSURGERY POD #4 Incisional pain, no sciatica L LE (improved) at bedside PE: Tmax 98.7, AF, VSS CV- RR; Lungs- CTA; Abd- benign; Ext- no sign of DVT CN- intact; Motor- 4+/5 throughout, L DF 4/5; Sensation- intact LT WBC 8.6, Hgb 8.8 Skin raw below incision; no wound drainage Bacitracin ointment applied; dressing changed Stable/improved neurologically cyst fluid- gram stain negative, culture negative Cardiac monitoring Incentive spirometry oxycodone for pain OOB with LSO brace Valium for muscle relaxation OK to resume baby ASA and Vanessa D/w ICU attending (hold for transfusion for now) and RN Pt desires to go home with VNS
--- NOTE | 2019-08-12 11:04 | PN ---
Progress Note (short form) - Note Progress Note: s: no cp sob palps dizzy TELE: afib, rate overall controlled, vpaced at times Current Medications Generic Name Dose Route Start Last Admin Trade Name Freq PRN Reason Stop Dose Admin Acetaminophen 650 mg 08/08/19 11:50 Tylenol - PO Q6H PRN FEVER Albuterol Sulfate 2 puff 08/08/19 21:48 Ventolin Hfa Inhaler - IH Q6H PRN SHORTNESS OF BREATH Albuterol Sulfate 1 amp 08/09/19 07:59 Ventolin 0.083% Nebulizer Soln - NEB Q4H PRN SHORT OF BREATH/WHEEZING Albuterol/Ipratropium 1 amp 08/09/19 14:00 08/12/19 07:40 Duoneb - NEB 1 amp RTID JAMES Administration Alprazolam 0.5 mg 08/09/19 12:41 08/10/19 21:36 Xanax - PO 0.5 mg Q12H PRN Administration ANXIETY Amlodipine Besylate 5 mg 08/09/19 10:00 08/12/19 09:37 Norvasc - PO 5 mg DAILY JAMES Administration Apixaban 2.5 mg 08/11/19 22:00 08/12/19 09:35 Eliquis - PO 2.5 mg BID JAMES Administration Aspirin 81 mg 08/10/19 11:00 08/12/19 09:35 Ecotrin - PO 81 mg DAILY JAMES Administration Atorvastatin Calcium 10 mg 08/09/19 22:00 08/11/19 21:55 Lipitor - PO 10 mg Q2D@2200 JAMES Administration Benzocaine/Menthol 1 each 08/09/19 11:18 Cepacol Lozenge - MM PRN PRN SORE THROAT Bisacodyl 10 mg 08/08/19 11:50 Dulcolax Suppository - RC DAILY PRN CONSTIPATION Bupropion HCl 150 mg 08/08/19 22:00 08/12/19 09:37 Wellbutrin Xl - PO 150 mg BID JAMES Administration Carvedilol 12.5 mg 08/09/19 13:37 08/12/19 09:35 Coreg - PO 12.5 mg BID JAMES Administration Dexamethasone Sodium Phosphate 4 mg 08/08/19 12:43 Decadron Injection - IVPUSH ONCE PRN NAUSEA AND/OR VOMITING Diazepam 5 mg 08/08/19 12:00 08/12/19 04:00 Valium - PO 5 mg Q8H JAMES Administration Docusate Sodium 100 mg 08/08/19 14:00 08/12/19 05:22 Colace - PO 100 mg TID JAMES Administration Eplerenone 25 mg 08/09/19 10:00 08/12/19 09:36 Eplerenone PO 25 mg DAILY [facility] Administration Furosemide 40 mg 08/10/19 10:00 08/12/19 09:37 Lasix - PO 40 mg Q2D@1000 JAMES Administration Furosemide 80 mg 08/09/19 10:00 08/11/19 09:30 Lasix - PO 80 mg Q2D@1000 JAMES Administration Isosorbide Mononitrate 30 mg 08/08/19 22:00 08/12/19 09:36 Imdur - PO 30 mg BID JAMES Administration Montelukast Sodium 10 mg 08/08/19 22:00 08/11/19 21:55 Singulair - PO 10 mg HS JAMES Administration Nitroglycerin 0.4 mg 08/08/19 12:11 Nitrostat - SL PRN PRN PAIN Ondansetron HCl 4 mg 08/08/19 11:50 Zofran Injection IVPUSH Q6H PRN NAUSEA AND/OR VOMITING Oxycodone HCl 5 mg 08/11/19 07:58 08/11/19 09:36 Roxicodone - PO 5 mg Q4H PRN Administration PAIN LEVEL 1-5 Oxycodone HCl 10 mg 08/11/19 07:58 Roxicodone - PO Q6H PRN PAIN LEVEL 6-10 Potassium Chloride 20 meq 08/08/19 22:00 08/12/19 09:37 K-Dur - PO 20 meq BID JAMES Administration Quinapril HCl 5 mg 08/09/19 10:00 08/11/19 09:26 Accupril - PO 5 mg DAILY JAMES Administration Ranolazine 500 mg 08/09/19 10:00 08/12/19 09:37 Ranexa - PO 500 mg DAILY [facility] Administration Terazosin HCl 10 mg 08/08/19 22:00 08/11/19 21:59 Hytrin - PO 10 mg HS JAMES Administration Valacyclovir HCl 500 mg 08/08/19 22:00 08/11/19 22:00 Valtrex - PO 500 mg HS JAMES Administration Vital Signs Period Temp Pulse Resp BP Sys/Craft Pulse Ox Last 24 Hr 98.2 F-98.7 F 80-102 16-84 86-122/44-95 97-98 Constitutional: Yes: Calm Cardiovascular: Yes: Regular Rate and Rhythm Respiratory: Yes: CTA Bilaterally Gastrointestinal: Yes: Soft Edema: No Neurological: Yes: Alert, Oriented no jaundice diaphoresis Labs: CBC, BMP 08/12/19 05:05 08/12/19 05:05 Assessment/Plan MPI 12/06 (gamaliel): v-paced; medium IW defect worse on stress (? artifact); small apical defect fixed; mild, global HK (49%). 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 EF 50 % to 55% post-exercise; mod MR post (no RVSP) MIBI 04/05 (gamaliel): paced; no isch seen; dilated LV (no TID); mild/global hk (EF 51%) Echo 04/2019: 1. Suboptimal image quality - poor subcostal views. 2. The left ventricle is moderately dilated. 3. Overall left ventricular systolic function is globally mildly impaired, with an estimated EF between 45 - 50 %. Casas's (apical 4 chamber) = 53%. 4. LA pressure is uncertain. 5. The right ventricle is normal in size and function. 6. Left atrium is severely dilated by volume. 7. Electronic pacemaker lead seen in the RA and RV. 8. There is very eccentric AI jet, which appears moderate however severity may be underestimated. No holodiastolic flow reversal is suspected in descending thoracic aorta doppler signal. 9. The mitral valve leaflets are mildly thickened, tethered in motion. 10. Salo-zq-spyxyyas mitral regurgitation is present. 11. Cthi-si-ntowfipr tricuspid regurgitation present. 12. Unable to estimate RVSP due to inadequate TR jet spectral doppler profile. 13. The aortic root is severely dilated (5.1 cm at sinuses of Valsalva, unchanged vs prior study of 10/2018). 14. There is a small pericardial effusion located near the right ventricle. No echocardiographic signs of tamponade physiology present. s/p lumbar laminectomies for epidural mass resection, posterolateral fusion L3- L4, L4-L5: - manage per surgery - post op monitoring in ICU, on tele afib: - on eliquis - cont carvedilol, rate has been acceptable post op CAD s/p LOWELL to LAD and OM: - on aspirin - cont statin, ACEI, coreg, amlodipine, imdur, ranexa Chronic combined systolic and diastolic congestive heart failure : - appears euvolemic - cont home lasix, ACEI, BB s/p ICD/BiV ppm: - outpatient follow up HLD: - cont statin
--- NOTE | 2019-08-12 11:30 | PN ---
Teaching Attending Note Name of Resident: Gregoria Peters ATTENDING PHYSICIAN STATEMENT I saw and evaluated the patient. I reviewed the resident's note and discussed the case with the resident. I agree with the resident's findings and plan as documented. SUBJECTIVE: Pt seen and examined in the ICU. Reports some chest congestion. No chest pain. No fevers or chills. OBJECTIVE: Vital Signs Period Temp Pulse Resp BP Sys/Craft Pulse Ox Last 24 Hr 98.2 F-98.7 F 80-102 16-84 86-122/44-95 97-98 Gen: NAD at rest Heart: irregular Lung: decreased breath sounds at the bases Abd: soft, nontender Ext: no edema CBC, BMP 08/12/19 05:05 08/12/19 05:05 Active Medications Acetaminophen (Tylenol -) 650 mg PO Q6H PRN PRN Reason: FEVER Albuterol Sulfate (Ventolin Hfa Inhaler -) 2 puff IH Q6H PRN PRN Reason: SHORTNESS OF BREATH Albuterol Sulfate (Ventolin 0.083% Nebulizer Soln -) 1 amp NEB Q4H PRN PRN Reason: SHORT OF BREATH/WHEEZING Albuterol/Ipratropium (Duoneb -) 1 amp NEB RTID [facility] Last Admin: 08/12/19 07:40 Dose: 1 amp Alprazolam (Xanax -) 0.5 mg PO Q12H PRN PRN Reason: ANXIETY Last Admin: 08/10/19 21:36 Dose: 0.5 mg Amlodipine Besylate (Norvasc -) 5 mg PO DAILY [facility] Last Admin: 08/12/19 09:37 Dose: 5 mg Apixaban (Eliquis -) 2.5 mg PO BID [facility] Last Admin: 08/12/19 09:35 Dose: 2.5 mg Aspirin (Ecotrin -) 81 mg PO DAILY [facility] Last Admin: 08/12/19 09:35 Dose: 81 mg Atorvastatin Calcium (Lipitor -) 10 mg PO Q2D@2200 [facility] Last Admin: 08/11/19 21:55 Dose: 10 mg Benzocaine/Menthol (Cepacol Lozenge -) 1 each MM PRN PRN PRN Reason: SORE THROAT Bisacodyl (Dulcolax Suppository -) 10 mg RC DAILY PRN PRN Reason: CONSTIPATION Budesonide/Formoterol Fumarate (Symbicort 160/4.5mcg -) 2 puff IH BID [facility] Bupropion HCl (Wellbutrin Xl -) 150 mg PO BID [facility] Last Admin: 08/12/19 09:37 Dose: 150 mg Carvedilol (Coreg -) 12.5 mg PO BID [facility] Last Admin: 08/12/19 09:35 Dose: 12.5 mg Dexamethasone Sodium Phosphate (Decadron Injection -) 4 mg IVPUSH ONCE PRN PRN Reason: NAUSEA AND/OR VOMITING Diazepam (Valium -) 5 mg PO Q8H [facility] Last Admin: 08/12/19 04:00 Dose: 5 mg Docusate Sodium (Colace -) 100 mg PO TID [facility] Last Admin: 08/12/19 05:22 Dose: 100 mg Eplerenone (Eplerenone) 25 mg PO DAILY [facility] Last Admin: 08/12/19 09:36 Dose: 25 mg Furosemide (Lasix -) 40 mg PO Q2D@1000 [facility] Last Admin: 08/12/19 09:37 Dose: 40 mg Furosemide (Lasix -) 80 mg PO Q2D@1000 [facility] Last Admin: 08/11/19 09:30 Dose: 80 mg Isosorbide Mononitrate (Imdur -) 30 mg PO BID [facility] Last Admin: 08/12/19 09:36 Dose: 30 mg Montelukast Sodium (Singulair -) 10 mg PO HS [facility] Last Admin: 08/11/19 21:55 Dose: 10 mg Nitroglycerin (Nitrostat -) 0.4 mg SL PRN PRN PRN Reason: PAIN Ondansetron HCl (Zofran Injection) 4 mg IVPUSH Q6H PRN PRN Reason: NAUSEA AND/OR VOMITING Oxycodone HCl (Roxicodone -) 5 mg PO Q4H PRN PRN Reason: PAIN LEVEL 1-5 Last Admin: 08/11/19 09:36 Dose: 5 mg Oxycodone HCl (Roxicodone -) 10 mg PO Q6H PRN PRN Reason: PAIN LEVEL 6-10 Potassium Chloride (K-Dur -) 20 meq PO BID [facility] Last Admin: 08/12/19 09:37 Dose: 20 meq Quinapril HCl (Accupril -) 5 mg PO DAILY [facility] Last Admin: 08/11/19 09:26 Dose: 5 mg Ranolazine (Ranexa -) 500 mg PO DAILY [facility] Last Admin: 08/12/19 09:37 Dose: 500 mg Terazosin HCl (Hytrin -) 10 mg PO HS [facility] Last Admin: 08/11/19 21:59 Dose: 10 mg Valacyclovir HCl (Valtrex -) 500 mg PO HS [facility] Last Admin: 08/11/19 22:00 Dose: 500 mg ASSESSMENT AND PLAN: Epidural Mass s/p Lumbar Laminectomies/Epidural Mass resection/fusion L3-L4, L4-L5 Atrial Fibrillation CAD LV Systolic/Diastolic Dysfunction Hyperlipidemia CKD - pain control - incentive spirometry - rate control - continue anticoagulation - continue lasix - inhaled bronchodilators - PO as tolerated - DVT prophylaxis - can monitor on floor
[2019-08-12] MEDS: BUDESONIDE/FORMETEROL FUMARATE 160/4.5 mcg INHALER IH SCH ×2 (12:35→22:43)
[2019-08-12] MEDS: QUINAPRIL HCL 5 MG TABLET (FP) PO SCH (16:42)
[2019-08-12] MEDS: MONTELUKAST NA 10 MG TABLET PO SCH (21:27)
[2019-08-12] MEDS: ALPRAZolam 0.25 MG TABLET PO PRN (21:27)
[2019-08-12] MEDS: valACYclovir HCL 500 MG TABLET (FP) PO SCH (21:27)
[2019-08-12] MEDS: TERAZOSIN HCL 5 MG CAPSULE PO SCH (22:42)
[2019-08-13] MEDS: diazePAM 5 MG TABLET PO SCH ×3 (04:34→20:52)
--- NOTE | 2019-08-13 06:08 | PN ---
Progress Note (short form) - Note Progress Note: NEUROSURGERY POD #5 Incisional pain, no sciatica L LE (improved) No BM, but refused colace PE: AF, VSS CV- RR; Lungs- CTA; Abd- benign; Ext- no sign of DVT CN- intact; Motor- 4+/5 throughout, L DF 4/5; Sensation- intact LT WBC 8.6, Hgb 8.8, trending lower, new labs pending No wound drainage Stable/improved neurologically cyst fluid- gram stain negative, culture negative Incentive spirometry oxycodone for pain OOB with LSO brace Valium for muscle relaxation Resumed baby ASA and Eliquis Mag citrate for bowel regimen D/w ICU attending Wound care
[2019-08-13 06:12] LABS: BASO % 0.3 % (0-2.0); EOS % 1.6 % (0-4.5); HEMATOCRIT 25.1 % (35.4-49); HEMOGLOBIN 8.6 GM/dL (11.7-16.9); LYMPH % 9.4 % (8-40); MCH 33.4 pg (25.7-33.7); MCHC 34.2 g/dl (32.0-35.9); MEAN CELL VOLUME 97.6 fl (80-96); MEAN PLT VOLUME 8.6 fl (7.5-11.1); MONO % 15.7 % (3.8-10.2); PLATELET COUNT 140 K/MM3 (134-434); RBC 2.57 M/mm3 (4.00-5.60); RDW 22.2 % (11.9-15.9); WHITE BLOOD COUNT 7.8 K/mm3 (4.0-10.0)
[2019-08-13] MEDS: DOCUSATE SODIUM 100 MG CAPSULE (FP) PO SCH ×3 (06:46→22:36)
[2019-08-13 06:59] LABS: ALBUMIN 2.5 g/dl (3.4-5.0); BILIRUBIN,TOTAL 0.9 mg/dL (0.2-1); BLOOD UREA NITROGEN 49.8 mg/dL (7-18); CALCIUM 7.8 mg/dL (8.5-10.1); CREATININE 2.7 mg/dL (0.55-1.3); MAGNESIUM 2.8 mg/dL (1.8-2.4); PHOSPHOROUS 3.7 mg/dL (2.5-4.9); POTASSIUM 4.7 mmol/L (3.5-5.1); TOT PROT 5.2 g/dl (6.4-8.2)
[2019-08-13] MEDS ORDERED: PT OWN MED DRAWER 7, Y5N ONE ×2 (08:56→20:44)
[2019-08-13] MEDS: QUINAPRIL HCL 5 MG TABLET (FP) PO SCH (09:03)
[2019-08-13] MEDS: CARVEDILOL 12.5 MG TABLET (FP) PO SCH ×2 (09:03→22:36)
[2019-08-13] MEDS: ASPIRIN COATED 81 MG TABLET.EC PO SCH (09:03)
[2019-08-13] MEDS: ISOSORBIDE MONONITRATE 30 MG TAB.SR.24H (FP) PO SCH ×2 (09:04→21:31)
[2019-08-13] MEDS: EPLERENONE 25 MG TABLET PO SCH (09:04)
[2019-08-13] MEDS: APIXABAN 2.5 MG TABLET PO SCH ×2 (09:04→21:31)
[2019-08-13] MEDS: FUROSEMIDE 40 MG TABLET (FP) PO SCH (09:05)
[2019-08-13] MEDS: amLODIPine BESYLATE 5 MG TABLET (FP) PO SCH (09:05)
[2019-08-13] MEDS: RANOLAZINE E.R. 500 MG TABLET (FP) PO SCH (09:05)
[2019-08-13] MEDS: BUDESONIDE/FORMETEROL FUMARATE 160/4.5 mcg INHALER IH SCH ×2 (09:06→21:35)
[2019-08-13] MEDS: POTASSIUM CHLORIDE TABS 20 MEQ TABLET.ER (FP) PO SCH ×2 (09:08→21:31)
[2019-08-13] MEDS: MAGNESIUM CITRATE 300 ML BOTTLE PO PRN ×2 (09:12→13:16)
[2019-08-13] MEDS ORDERED: POLYETHYLENE GLYCOL 3350 119 GM BTL PO ONE (09:24)
[2019-08-13] MEDS: ALBUTEROL SO4 2.5/IPRATROPIUM 0.5 INH SOL 3 ML VIAL.NEB. NEB SCH ×3 (09:25→20:45)
[2019-08-13 09:51] LABS: ANISOCYTOSIS 1+; MACROCYTOSIS 1+; OVALOCYTE 1+; PLATELET ESTIMATE DECREASED
--- NOTE | 2019-08-13 11:13 | PN ---
Teaching Attending Note Name of Resident: Mary Faulkner ATTENDING PHYSICIAN STATEMENT I saw and evaluated the patient. I reviewed the resident's note and discussed the case with the resident. I agree with the resident's findings and plan as documented. SUBJECTIVE: Pt seen and examined in the ICU. Pain controlled. No BM yet. No fevers or chills. OBJECTIVE: Vital Signs Period Temp Pulse Resp BP Sys/Craft Pulse Ox Last 24 Hr 97.2 F-98.7 F 73-97 16-25 94-108/42-73 96-96 Intake & Output 08/10/19 08/11/19 08/12/19 08/13/19 23:59 23:59 23:59 23:59 Intake Total 1802 100 890 200 Output Total 1849 250 9572 600 Balance 2 -60 -385 -400 Weight 59.874 kg 60.419 kg 60.691 kg 59.058 kg Gen: NAD at rest Heart: irregular Lung: decreased breath sounds at the bases Abd: soft, nontender Ext: no edema CBC, BMP 08/13/19 05:48 08/13/19 05:48 Active Medications Acetaminophen (Tylenol -) 650 mg PO Q6H PRN PRN Reason: FEVER Albuterol Sulfate (Ventolin Hfa Inhaler -) 2 puff IH Q6H PRN PRN Reason: SHORTNESS OF BREATH Albuterol Sulfate (Ventolin 0.083% Nebulizer Soln -) 1 amp NEB Q4H PRN PRN Reason: SHORT OF BREATH/WHEEZING Albuterol/Ipratropium (Duoneb -) 1 amp NEB RTID [facility] Last Admin: 08/12/19 20:08 Dose: 1 amp Alprazolam (Xanax -) 0.5 mg PO Q12H PRN PRN Reason: ANXIETY Last Admin: 08/12/19 21:27 Dose: 0.5 mg Amlodipine Besylate (Norvasc -) 5 mg PO DAILY [facility] Last Admin: 08/13/19 09:05 Dose: 5 mg Apixaban (Eliquis -) 2.5 mg PO BID [facility] Last Admin: 08/13/19 09:04 Dose: 2.5 mg Aspirin (Ecotrin -) 81 mg PO DAILY [facility] Last Admin: 08/13/19 09:03 Dose: 81 mg Atorvastatin Calcium (Lipitor -) 10 mg PO Q2D@2200 [facility] Last Admin: 08/11/19 21:55 Dose: 10 mg Benzocaine/Menthol (Cepacol Lozenge -) 1 each MM PRN PRN PRN Reason: SORE THROAT Bisacodyl (Dulcolax Suppository -) 10 mg RC DAILY PRN PRN Reason: CONSTIPATION Budesonide/Formoterol Fumarate (Symbicort 160/4.5mcg -) 2 puff IH BID [facility] Last Admin: 08/13/19 09:06 Dose: 2 puff Bupropion HCl (Wellbutrin Xl -) 150 mg PO BID [facility] Last Admin: 08/13/19 09:06 Dose: 150 mg Carvedilol (Coreg -) 12.5 mg PO BID [facility] Last Admin: 08/13/19 09:03 Dose: 12.5 mg Dexamethasone Sodium Phosphate (Decadron Injection -) 4 mg IVPUSH ONCE PRN PRN Reason: NAUSEA AND/OR VOMITING Diazepam (Valium -) 5 mg PO Q8H [facility] Last Admin: 08/13/19 04:34 Dose: 5 mg Docusate Sodium (Colace -) 200 mg PO TID [facility] Eplerenone (Eplerenone) 25 mg PO DAILY [facility] Last Admin: 08/13/19 09:04 Dose: 25 mg Furosemide (Lasix -) 40 mg PO Q2D@1000 [facility] Last Admin: 08/12/19 09:37 Dose: 40 mg Furosemide (Lasix -) 80 mg PO Q2D@1000 [facility] Last Admin: 08/13/19 09:05 Dose: 80 mg Isosorbide Mononitrate (Imdur -) 30 mg PO BID [facility] Last Admin: 08/13/19 09:04 Dose: 30 mg Magnesium Citrate (Citroma -) 150 ml PO Q4H PRN PRN Reason: CONSTIPATION Last Admin: 08/13/19 09:12 Dose: 150 ml Montelukast Sodium (Singulair -) 10 mg [address] [facility] Last Admin: 08/12/19 21:27 Dose: 10 mg Nitroglycerin (Nitrostat -) 0.4 mg SL PRN PRN PRN Reason: PAIN Ondansetron HCl (Zofran Injection) 4 mg IVPUSH Q6H PRN PRN Reason: NAUSEA AND/OR VOMITING Oxycodone HCl (Roxicodone -) 5 mg PO Q4H PRN PRN Reason: PAIN LEVEL 1-5 Last Admin: 08/11/19 09:36 Dose: 5 mg Oxycodone HCl (Roxicodone -) 10 mg PO Q6H PRN PRN Reason: PAIN LEVEL 6-10 Potassium Chloride (K-Dur -) 20 meq PO BID [facility] Last Admin: 08/13/19 09:08 Dose: 20 meq Quinapril HCl (Accupril -) 5 mg PO DAILY [facility] Last Admin: 08/13/19 09:03 Dose: 5 mg Ranolazine (Ranexa -) 500 mg PO DAILY [facility] Last Admin: 08/13/19 09:05 Dose: 500 mg Terazosin HCl (Hytrin -) 10 mg PO [facility] Last Admin: 08/12/19 22:42 Dose: 10 mg Valacyclovir HCl (Valtrex -) 500 mg PO HS [facility] Last Admin: 08/12/19 21:27 Dose: 500 mg ASSESSMENT AND PLAN: Epidural Mass s/p Lumbar Laminectomies/Epidural Mass resection/fusion L3-L4, L4-L5 Atrial Fibrillation CAD LV Systolic/Diastolic Dysfunction Hyperlipidemia CKD - pain control - incentive spirometry - rate control - continue anticoagulation - continue lasix - inhaled bronchodilators - PO as tolerated - rehab/PT - DVT prophylaxis - can monitor on floor
--- NOTE | 2019-08-13 11:38 | PN ---
Progress Note (short form) - Note Progress Note: s: no cp sob palps dizzy TELE: afib, rate overall controlled, vpaced at times Current Medications Acetaminophen (Tylenol -) 650 mg PO Q6H PRN PRN Reason: FEVER Albuterol Sulfate (Ventolin Hfa Inhaler -) 2 puff IH Q6H PRN PRN Reason: SHORTNESS OF BREATH Albuterol Sulfate (Ventolin 0.083% Nebulizer Soln -) 1 amp NEB Q4H PRN PRN Reason: SHORT OF BREATH/WHEEZING Albuterol/Ipratropium (Duoneb -) 1 amp NEB RTID [facility] Last Admin: 08/12/19 20:08 Dose: 1 amp Alprazolam (Xanax -) 0.5 mg PO Q12H PRN PRN Reason: ANXIETY Last Admin: 08/12/19 21:27 Dose: 0.5 mg Amlodipine Besylate (Norvasc -) 5 mg PO DAILY [facility] Last Admin: 08/13/19 09:05 Dose: 5 mg Apixaban (Eliquis -) 2.5 mg PO BID [facility] Last Admin: 08/13/19 09:04 Dose: 2.5 mg Aspirin (Ecotrin -) 81 mg PO DAILY [facility] Last Admin: 08/13/19 09:03 Dose: 81 mg Atorvastatin Calcium (Lipitor -) 10 mg PO Q2D@2200 [facility] Last Admin: 08/11/19 21:55 Dose: 10 mg Benzocaine/Menthol (Cepacol Lozenge -) 1 each MM PRN PRN PRN Reason: SORE THROAT Bisacodyl (Dulcolax Suppository -) 10 mg RC DAILY PRN PRN Reason: CONSTIPATION Budesonide/Formoterol Fumarate (Symbicort 160/4.5mcg -) 2 puff IH BID [facility] Last Admin: 08/13/19 09:06 Dose: 2 puff Bupropion HCl (Wellbutrin Xl -) 150 mg PO BID [facility] Last Admin: 08/13/19 09:06 Dose: 150 mg Carvedilol (Coreg -) 12.5 mg PO BID [facility] Last Admin: 08/13/19 09:03 Dose: 12.5 mg Dexamethasone Sodium Phosphate (Decadron Injection -) 4 mg IVPUSH ONCE PRN PRN Reason: NAUSEA AND/OR VOMITING Diazepam (Valium -) 5 mg PO Q8H [facility] Last Admin: 08/13/19 04:34 Dose: 5 mg Docusate Sodium (Colace -) 200 mg PO TID [facility] Eplerenone (Eplerenone) 25 mg PO DAILY [facility] Last Admin: 08/13/19 09:04 Dose: 25 mg Furosemide (Lasix -) 40 mg PO Q2D@1000 [facility] Last Admin: 08/12/19 09:37 Dose: 40 mg Furosemide (Lasix -) 80 mg PO Q2D@1000 [facility] Last Admin: 08/13/19 09:05 Dose: 80 mg Isosorbide Mononitrate (Imdur -) 30 mg PO BID [facility] Last Admin: 08/13/19 09:04 Dose: 30 mg Magnesium Citrate (Citroma -) 150 ml PO Q4H PRN PRN Reason: CONSTIPATION Last Admin: 08/13/19 09:12 Dose: 150 ml Montelukast Sodium (Singulair -) 10 mg PO [facility] Last Admin: 08/12/19 21:27 Dose: 10 mg Nitroglycerin (Nitrostat -) 0.4 mg SL PRN PRN PRN Reason: PAIN Ondansetron HCl (Zofran Injection) 4 mg IVPUSH Q6H PRN PRN Reason: NAUSEA AND/OR VOMITING Oxycodone HCl (Roxicodone -) 5 mg PO Q4H PRN PRN Reason: PAIN LEVEL 1-5 Last Admin: 08/11/19 09:36 Dose: 5 mg Oxycodone HCl (Roxicodone -) 10 mg PO Q6H PRN PRN Reason: PAIN LEVEL 6-10 Potassium Chloride (K-Dur -) 20 meq PO BID [facility] Last Admin: 08/13/19 09:08 Dose: 20 meq Quinapril HCl (Accupril -) 5 mg PO DAILY [facility] Last Admin: 08/13/19 09:03 Dose: 5 mg Ranolazine (Ranexa -) 500 mg PO DAILY [facility] Last Admin: 08/13/19 09:05 Dose: 500 mg Terazosin HCl (Hytrin -) 10 mg PO [facility] Last Admin: 08/12/19 22:42 Dose: 10 mg Valacyclovir HCl (Valtrex -) 500 mg PO [facility] Last Admin: 08/12/19 21:27 Dose: 500 mg Vital Signs Period Temp Pulse Resp BP Sys/Craft Pulse Ox Last 24 Hr 97.2 F-98.7 F 73-97 16-25 94-108/42-73 96-96 Constitutional: Yes: Calm Cardiovascular: Yes: Regular Rate and Rhythm Respiratory: Yes: CTA Bilaterally Gastrointestinal: Yes: Soft Edema: No Neurological: Yes: Alert, Oriented no jaundice diaphoresis Assessment/Plan MPI 12/06 (gamaliel): v-paced; medium IW defect worse on stress (? artifact); small apical defect fixed; mild, global HK (49%). 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 EF 50 % to 55% post-exercise; mod MR post (no RVSP) MIBI 04/05 (gamaliel): paced; no isch seen; dilated LV (no TID); mild/global hk (EF 51%) Echo 04/2019: 1. Suboptimal image quality - poor subcostal views. 2. The left ventricle is moderately dilated. 3. Overall left ventricular systolic function is globally mildly impaired, with an estimated EF between 45 - 50 %. Casas's (apical 4 chamber) = 53%. 4. LA pressure is uncertain. 5. The right ventricle is normal in size and function. 6. Left atrium is severely dilated by volume. 7. Electronic pacemaker lead seen in the RA and RV. 8. There is very eccentric AI jet, which appears moderate however severity may be underestimated. No holodiastolic flow reversal is suspected in descending thoracic aorta doppler signal. 9. The mitral valve leaflets are mildly thickened, tethered in motion. 10. Fohh-oz-uqdluxwg mitral regurgitation is present. 11. Lryo-km-vihrbisw tricuspid regurgitation present. 12. Unable to estimate RVSP due to inadequate TR jet spectral doppler profile. 13. The aortic root is severely dilated (5.1 cm at sinuses of Valsalva, unchanged vs prior study of 10/2018). 14. There is a small pericardial effusion located near the right ventricle. No echocardiographic signs of tamponade physiology present. s/p lumbar laminectomies for epidural mass resection, posterolateral fusion L3- L4, L4-L5: - manage per surgery - post op monitoring in ICU, on tele afib: - on eliquis - cont carvedilol, rate has been acceptable post op CAD s/p LOWELL to LAD and OM: - on aspirin - cont statin, ACEI, coreg, amlodipine, imdur, ranexa Chronic combined systolic and diastolic congestive heart failure : - appears euvolemic - cont home lasix, ACEI, BB s/p ICD/BiV ppm: - outpatient follow up HLD: - cont statin
--- NOTE | 2019-08-13 12:41 | PN ---
Physical Exam: SUBJECTIVE: Patient seen and examined. pt offered no complaints of pain overnight. Remained afebrile. However, no BM since surgery which was 5 days ago but passing gas. OBJECTIVE: Vital Signs Period Temp Pulse Resp BP Sys/Craft Pulse Ox Last 24 Hr 97.0 F-98.7 F 73-97 16-25 97-108/42-73 96-96 GENERAL: A&Ox3, NAD HEAD: NCAT EYES: PERRL, EOMI ENT: MMM LUNGS: CTAB but decreased at the bases, No wheezes, no crackles HEART: irregulat but RR, 3/6 diastolic murmur ABDOMEN: Distended. Soft, nontender, + bowel sounds, no guarding, no rebound BACK: VIRAJ Drain in place with serosanginous fluid draining EXTREMITIES: No peripheral edema NEUROLOGICAL: Cranial nerves II-XII intact. Sensation in tact grossly. LLE 4/5 strength, RLE, 5/5 strength SKIN: Warm, dry Laboratory Results - last 24 hr 08/13/19 08/13/19 05:48 05:48 WBC 7.8 RBC 2.57 L Hgb 8.6 L Hct 25.1 L MCV 97.6 H MCH 33.4 MCHC 34.2 RDW 22.2 H Plt Count 140 MPV 8.6 D Absolute Neuts (auto) 5.7 Neutrophils % 73.0 Lymphocytes % 9.4 Monocytes % 15.7 H Eosinophils % 1.6 D Basophils % 0.3 Nucleated RBC % 0 Hypochromia 0 Platelet Estimate Decreased Polychromasia 1+ Poikilocytosis 1+ Basophilic Stippling 1+ Anisocytosis 1+ Macrocytosis 1+ Ovalocytes 1+ Sodium 140 Potassium 4.7 Chloride 110 H Carbon Dioxide 24 Anion Gap 6 L BUN 49.8 H Creatinine 2.7 H Est GFR (CKD-EPI)AfAm 26.29 Est GFR (CKD-EPI)NonAf 22.69 Random Glucose 112 H Calcium 7.8 L Phosphorus 3.7 Magnesium 2.8 H Total Bilirubin 0.9 AST 11 L ALT 10 L Alkaline Phosphatase 47 Total Protein 5.2 L Albumin 2.5 L Active Medications Generic Name Dose Route Start Last Admin Trade Name Freq PRN Reason Stop Dose Admin Acetaminophen 650 mg 08/08/19 11:50 Tylenol - PO Q6H PRN FEVER Albuterol Sulfate 2 puff 08/08/19 21:48 Ventolin Hfa Inhaler - IH Q6H PRN SHORTNESS OF BREATH Albuterol Sulfate 1 amp 08/09/19 07:59 Ventolin 0.083% Nebulizer Soln - NEB Q4H PRN SHORT OF BREATH/WHEEZING Albuterol/Ipratropium 1 amp 08/09/19 14:00 08/13/19 09:25 Duoneb - NEB 1 amp RTID [facility] Administration Alprazolam 0.5 mg 08/09/19 12:41 08/12/19 21:27 Xanax - PO 0.5 mg Q12H PRN Administration ANXIETY Amlodipine Besylate 5 mg 08/09/19 10:00 08/13/19 09:05 Norvasc - PO 5 mg DAILY [facility] Administration Apixaban 2.5 mg 08/11/19 22:00 08/13/19 09:04 Eliquis - PO 2.5 mg BID [facility] Administration Aspirin 81 mg 08/10/19 11:00 08/13/19 09:03 Ecotrin - PO 81 mg DAILY [facility] Administration Atorvastatin Calcium 10 mg 08/09/19 22:00 08/11/19 21:55 Lipitor - PO 10 mg Q2D@2200 [facility] Administration Benzocaine/Menthol 1 each 08/09/19 11:18 Cepacol Lozenge - MM PRN PRN SORE THROAT Bisacodyl 10 mg 08/08/19 11:50 Dulcolax Suppository - RC DAILY PRN CONSTIPATION Budesonide/Formoterol Fumarate 2 puff 08/12/19 11:15 08/13/19 09:06 Symbicort 160/4.5mcg - IH 2 puff BID [facility] Administration Bupropion HCl 150 mg 08/08/19 22:00 08/13/19 09:06 Wellbutrin Xl - PO 150 mg BID [facility] Administration Carvedilol 12.5 mg 08/09/19 13:37 08/13/19 09:03 Coreg - PO 12.5 mg BID [facility] Administration Dexamethasone Sodium Phosphate 4 mg 08/08/19 12:43 Decadron Injection - IVPUSH ONCE PRN NAUSEA AND/OR VOMITING Diazepam 5 mg 08/08/19 12:00 08/13/19 12:13 Valium - PO 5 mg Q8H [facility] Administration Docusate Sodium 200 mg 08/13/19 09:24 Colace - PO TID [facility] Eplerenone 25 mg 08/09/19 10:00 08/13/19 09:04 Eplerenone PO 25 mg DAILY [facility] Administration Furosemide 40 mg 08/10/19 10:00 08/12/19 09:37 Lasix - PO 40 mg Q2D@1000 [facility] Administration Furosemide 80 mg 08/09/19 10:00 08/13/19 09:05 Lasix - PO 80 mg Q2D@1000 [facility] Administration Isosorbide Mononitrate 30 mg 08/08/19 22:00 08/13/19 09:04 Imdur - PO 30 mg BID [facility] Administration Magnesium Citrate 150 ml 08/13/19 08:39 08/13/19 09:12 Citroma - PO 150 ml Q4H PRN Administration CONSTIPATION Montelukast Sodium 10 mg 08/08/19 22:00 08/12/19 21:27 Singulair - PO 10 mg HS [facility] Administration Nitroglycerin 0.4 mg 08/08/19 12:11 Nitrostat - SL PRN PRN PAIN Ondansetron HCl 4 mg 08/08/19 11:50 Zofran Injection IVPUSH Q6H PRN NAUSEA AND/OR VOMITING Oxycodone HCl 5 mg 08/11/19 07:58 08/11/19 09:36 Roxicodone - PO 5 mg Q4H PRN Administration PAIN LEVEL 1-5 Oxycodone HCl 10 mg 08/11/19 07:58 Roxicodone - PO Q6H PRN PAIN LEVEL 6-10 Potassium Chloride 20 meq 08/08/19 22:00 08/13/19 09:08 K-Dur - PO 20 meq BID [facility] Administration Quinapril HCl 5 mg 08/09/19 10:00 08/13/19 09:03 Accupril - PO 5 mg DAILY [facility] Administration Ranolazine 500 mg 08/09/19 10:00 08/13/19 09:05 Ranexa - PO 500 mg DAILY [facility] Administration Terazosin HCl 10 mg 08/08/19 22:00 08/12/19 22:42 Hytrin - PO 10 mg HS [facility] Administration Valacyclovir HCl 500 mg 08/08/19 22:00 08/12/19 21:27 Valtrex - PO 500 mg HS [facility] Administration ASSESSMENT/PLAN: 73 y/o M PMHx Afib s/p defrillator with biventricular pacer, asthma, anxiety, HTN, HLD, CAD, basal cell carcinoma (left shoulder), intracanalicular lesion with thecal sac compression who presents to ICU s/p lumbar laminectomies for epidural mass resection, microsurgical dissection, posterolateral fusion L3-4 and L4-5, POD#5. #Neuro/Psych S/P Lumbar laminectomies for epidural mass resection, posterolateral fusion L3- L4, L4-L5 (08/08) POD5 Hx of intracanalicular lesion with thecal sac compression HX of Anxiety -AAOx3 with Muscle strength 4/5 and gross sensation intact. -Pain management with oxycodone 5mg for 1-5 and 10mg 6-10 -Continue home dose valium, buproprion, Alprazolam - lumbar spine x-ray w/o acute finding -continue OOB with LSO brace and PT per Neurosurgery. resumed eliquis 08/11/19 #Cardio Hx of CHF, CAD, Afib, defibrillator with biventricular pacer, HTN, HLD -Continue home dose antihypertensives--amlodipine, eplerone, Lasix, Imdur, quinapril, ranolazine -Continue nitroglycerin PRN -Rate control via carvedilol -Continue atorvastatin -cont ASA and eliquis -Will need outpatient follow up with for PPM #Pulm Hx of asthma -Continue Bronchodilation via singulair HS, Duoneb, PRN albuterol -symbicort added -Continue incentive spirometry #GI Constipation -Continue Colace but at 200mg BID, PRN Dulcolax Suppository, miralax added -Ondansetron PRN For vomiting #Renal -potassium stable at 4.9 -Continue K-Dur 20 mEq PO BID, Replete PRN #ID Hx of Genital Herpes -Continue home dose Valacyclovir #FEN -no standing fluids. diet has been advanced -Replete lytes PRN -low sodium diet #PPX -DVT:on eliquis Dispo: transfer [facility] Visit type - Emergency Visit Emergency Visit: Yes ED Registration Date: 08/08/19 Care time: The patient presented to the Emergency Department on the above date and was hospitalized for further evaluation of their emergent condition. - New Patient This patient is new to me today: No - Critical Care Critical Care patient: Yes Total Critical Care Time (in minutes): 35 Critical Care Statement: The care of this patient involved high complexity decision making to prevent further life threatening deterioration of the patient's condition and/or to evaluate & treat vital organ system(s) failure or risk of failure. ATTENDING PHYSICIAN STATEMENT I saw and evaluated the patient. I reviewed the resident's note and discussed the case with the resident. I agree with the resident's findings and plan as documented. SUBJECTIVE: OBJECTIVE: ASSESSMENT AND PLAN:
[2019-08-13] MEDS: MONTELUKAST NA 10 MG TABLET PO SCH (21:30)
[2019-08-13] MEDS: ATORVASTATIN CA 10 MG TABLET (FP) PO SCH (21:31)
[2019-08-13] MEDS: valACYclovir HCL 500 MG TABLET (FP) PO SCH (21:32)
[2019-08-13] MEDS: TERAZOSIN HCL 5 MG CAPSULE PO SCH (22:37)
[2019-08-13] MEDS: ALPRAZolam 0.25 MG TABLET PO PRN (23:04)
[2019-08-14] MEDS: DOCUSATE SODIUM 100 MG CAPSULE (FP) PO SCH ×3 (05:21→22:35)
[2019-08-14] MEDS: diazePAM 5 MG TABLET PO SCH ×3 (06:03→22:38)
[2019-08-14 06:37] LABS: BASO % 0.3 % (0-2.0); EOS % 2.4 % (0-4.5); HEMATOCRIT 26.4 % (35.4-49); HEMOGLOBIN 8.8 GM/dL (11.7-16.9); LYMPH % 9.7 % (8-40); MCH 32.5 pg (25.7-33.7); MCHC 33.3 g/dl (32.0-35.9); MEAN CELL VOLUME 97.6 fl (80-96); MEAN PLT VOLUME 9.4 fl (7.5-11.1); NEUT % 73.6 % (42.8-82.8); PLATELET COUNT 173 K/MM3 (134-434); RDW 22.5 % (11.9-15.9); WHITE BLOOD COUNT 7.1 K/mm3 (4.0-10.0)
[2019-08-14 07:04] LABS: ALBUMIN 2.6 g/dl (3.4-5.0); BILIRUBIN,TOTAL 0.9 mg/dL (0.2-1); BLOOD UREA NITROGEN 54.6 mg/dL (7-18); CREATININE 2.7 mg/dL (0.55-1.3); MAGNESIUM 3.4 mg/dL (1.8-2.4); PHOSPHOROUS 3.7 mg/dL (2.5-4.9); POTASSIUM 4.9 mmol/L (3.5-5.1); TOT PROT 5.5 g/dl (6.4-8.2)
[2019-08-14] MEDS: ALBUTEROL SO4 2.5/IPRATROPIUM 0.5 INH SOL 3 ML VIAL.NEB. NEB SCH ×3 (08:00→20:09)
[2019-08-14] MEDS ORDERED: PT OWN MED DRAWER 7, Y5N ONE ×3 (09:24→21:35)
[2019-08-14] MEDS: CARVEDILOL 12.5 MG TABLET (FP) PO SCH ×2 (09:26→22:39)
[2019-08-14] MEDS: POTASSIUM CHLORIDE TABS 20 MEQ TABLET.ER (FP) PO SCH ×2 (09:27→22:37)
[2019-08-14] MEDS: APIXABAN 2.5 MG TABLET PO SCH ×2 (09:27→22:38)
[2019-08-14] MEDS: ISOSORBIDE MONONITRATE 30 MG TAB.SR.24H (FP) PO SCH ×2 (09:27→22:38)
[2019-08-14] MEDS: ASPIRIN COATED 81 MG TABLET.EC PO SCH (09:27)
[2019-08-14] MEDS: RANOLAZINE E.R. 500 MG TABLET (FP) PO SCH (09:27)
[2019-08-14] MEDS: FUROSEMIDE 40 MG TABLET (FP) PO SCH (09:27)
[2019-08-14] MEDS: EPLERENONE 25 MG TABLET PO SCH (09:28)
[2019-08-14] MEDS: BUDESONIDE/FORMETEROL FUMARATE 160/4.5 mcg INHALER IH SCH ×2 (09:28→22:40)
[2019-08-14] MEDS: amLODIPine BESYLATE 5 MG TABLET (FP) PO SCH (10:03)
[2019-08-14] MEDS: QUINAPRIL HCL 5 MG TABLET (FP) PO SCH (10:03)
[2019-08-14] MEDS ORDERED: amLODIPine BESYLATE 5 MG TABLET (FP) PO SCH (11:23)
--- NOTE | 2019-08-14 11:25 | PN ---
Progress Note (short form) - Note Progress Note: s: no cp sob palps dizzy TELE: afib, rate overall controlled, vpaced at times Current Medications Acetaminophen (Tylenol -) 650 mg PO Q6H PRN PRN Reason: FEVER Last Admin: 08/13/19 18:00 Dose: 650 mg Albuterol Sulfate (Ventolin Hfa Inhaler -) 2 puff IH Q6H PRN PRN Reason: SHORTNESS OF BREATH Albuterol Sulfate (Ventolin 0.083% Nebulizer Soln -) 1 amp NEB Q4H PRN PRN Reason: SHORT OF BREATH/WHEEZING Albuterol/Ipratropium (Duoneb -) 1 amp NEB RTID [facility] Last Admin: 08/14/19 08:00 Dose: 1 amp Alprazolam (Xanax -) 0.5 mg PO Q12H PRN PRN Reason: ANXIETY Last Admin: 08/13/19 23:04 Dose: 0.5 mg Amlodipine Besylate (Norvasc -) 5 mg PO DAILY [facility] Last Admin: 08/14/19 10:03 Dose: Not Given Apixaban (Eliquis -) 2.5 mg PO BID [facility] Last Admin: 08/14/19 09:27 Dose: 2.5 mg Aspirin (Ecotrin -) 81 mg PO DAILY [facility] Last Admin: 08/14/19 09:27 Dose: 81 mg Atorvastatin Calcium (Lipitor -) 10 mg PO Q2D@2200 [facility] Last Admin: 08/13/19 21:31 Dose: 10 mg Benzocaine/Menthol (Cepacol Lozenge -) 1 each MM PRN PRN PRN Reason: SORE THROAT Bisacodyl (Dulcolax Suppository -) 10 mg RC DAILY PRN PRN Reason: CONSTIPATION Budesonide/Formoterol Fumarate (Symbicort 160/4.5mcg -) 2 puff IH BID [facility] Last Admin: 08/14/19 09:28 Dose: 2 puff Bupropion HCl (Wellbutrin Xl -) 150 mg PO BID [facility] Last Admin: 08/14/19 09:27 Dose: 150 mg Carvedilol (Coreg -) 12.5 mg PO BID [facility] Last Admin: 08/14/19 09:26 Dose: 12.5 mg Dexamethasone Sodium Phosphate (Decadron Injection -) 4 mg IVPUSH ONCE PRN PRN Reason: NAUSEA AND/OR VOMITING Diazepam (Valium -) 5 mg PO Q8H [facility] Last Admin: 08/14/19 06:03 Dose: 5 mg Docusate Sodium (Colace -) 200 mg PO TID [facility] Last Admin: 08/14/19 05:21 Dose: Not Given Eplerenone (Eplerenone) 25 mg PO DAILY [facility] Last Admin: 08/14/19 09:28 Dose: 25 mg Furosemide (Lasix -) 40 mg PO Q2D@1000 [facility] Last Admin: 08/14/19 09:27 Dose: 40 mg Furosemide (Lasix -) 80 mg PO Q2D@1000 [facility] Last Admin: 08/13/19 09:05 Dose: 80 mg Isosorbide Mononitrate (Imdur -) 30 mg PO BID [facility] Last Admin: 08/14/19 09:27 Dose: 30 mg Montelukast Sodium (Singulair -) 10 mg PO [facility] Last Admin: 08/13/19 21:30 Dose: 10 mg Nitroglycerin (Nitrostat -) 0.4 mg SL PRN PRN PRN Reason: PAIN Ondansetron HCl (Zofran Injection) 4 mg IVPUSH Q6H PRN PRN Reason: NAUSEA AND/OR VOMITING Oxycodone HCl (Roxicodone -) 5 mg PO Q4H PRN PRN Reason: PAIN LEVEL 1-5 Last Admin: 08/11/19 09:36 Dose: 5 mg Oxycodone HCl (Roxicodone -) 10 mg PO Q6H PRN PRN Reason: PAIN LEVEL 6-10 Potassium Chloride (K-Dur -) 20 meq PO BID [facility] Last Admin: 08/14/19 09:27 Dose: 20 meq Quinapril HCl (Accupril -) 5 mg PO DAILY [facility] Last Admin: 08/14/19 10:03 Dose: Not Given Ranolazine (Ranexa -) 500 mg PO DAILY [facility] Last Admin: 08/14/19 09:27 Dose: 500 mg Terazosin HCl (Hytrin -) 10 mg PO [facility] Last Admin: 08/13/19 22:37 Dose: Not Given Valacyclovir HCl (Valtrex -) 500 mg PO [facility] Last Admin: 08/13/19 21:32 Dose: 500 mg Vital Signs Period Temp Pulse Resp BP Sys/Craft Pulse Ox Last 24 Hr 97.0 F-98.1 F 75-85 13-26 96-123/40-62 96-97 Constitutional: Yes: Calm Cardiovascular: Yes: Regular Rate and Rhythm Respiratory: Yes: CTA Bilaterally Gastrointestinal: Yes: Soft Edema: No Neurological: Yes: Alert, Oriented no jaundice diaphoresis Assessment/Plan MPI 12/06 (gamaliel): v-paced; medium IW defect worse on stress (? artifact); small apical defect fixed; mild, global HK (49%). 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 EF 50 % to 55% post-exercise; mod MR post (no RVSP) MIBI 04/05 (gamaliel): paced; no isch seen; dilated LV (no TID); mild/global hk (EF 51%) Echo 04/2019: 1. Suboptimal image quality - poor subcostal views. 2. The left ventricle is moderately dilated. 3. Overall left ventricular systolic function is globally mildly impaired, with an estimated EF between 45 - 50 %. Casas's (apical 4 chamber) = 53%. 4. LA pressure is uncertain. 5. The right ventricle is normal in size and function. 6. Left atrium is severely dilated by volume. 7. Electronic pacemaker lead seen in the RA and RV. 8. There is very eccentric AI jet, which appears moderate however severity may be underestimated. No holodiastolic flow reversal is suspected in descending thoracic aorta doppler signal. 9. The mitral valve leaflets are mildly thickened, tethered in motion. 10. Akdt-tl-jbfogefn mitral regurgitation is present. 11. Hano-px-bvtipeis tricuspid regurgitation present. 12. Unable to estimate RVSP due to inadequate TR jet spectral doppler profile. 13. The aortic root is severely dilated (5.1 cm at sinuses of Valsalva, unchanged vs prior study of 10/2018). 14. There is a small pericardial effusion located near the right ventricle. No echocardiographic signs of tamponade physiology present. s/p lumbar laminectomies for epidural mass resection, posterolateral fusion L3- L4, L4-L5: - manage per surgery afib: - on eliquis - cont carvedilol, rate has been acceptable post op CAD s/p LOWELL to LAD and OM: - on aspirin - cont statin, ACEI, coreg, amlodipine, imdur, ranexa hypotension - has had low BPs with meds held - reduce amlodipine to 2.5 mg daily, may need to reduce dose of other meds, monitor BP Chronic combined systolic and diastolic congestive heart failure : - appears euvolemic - cont home lasix, ACEI, BB s/p ICD/BiV ppm: - outpatient follow up HLD: - cont statin
--- NOTE | 2019-08-14 12:13 | PN ---
Teaching Attending Note Name of Resident: Mary Faulkner ATTENDING PHYSICIAN STATEMENT I saw and evaluated the patient. I reviewed the resident's note and discussed the case with the resident. I agree with the resident's findings and plan as documented. SUBJECTIVE: Pt seen and examined in the ICU. Ambulated with PT. No fevers or chills. Some shortness of breath improved with nebs. OBJECTIVE: Vital Signs Period Temp Pulse Resp BP Sys/Craft Pulse Ox Last 24 Hr 97.0 F-98.1 F 75-85 13-26 96-123/40-62 96-97 Intake & Output 08/11/19 08/12/19 08/13/19 08/14/19 23:59 23:59 23:59 23:59 Intake Total 100 890 550 Output Total 160 1275 1000 400 Balance -60 -385 -450 -400 Weight 60.419 kg 60.691 kg 59.058 kg 60.328 kg Gen: NAD at rest Heart: irregular Lung: decreased breath sounds at the bases Abd: soft, nontender Ext: no edema CBC, BMP 08/14/19 06:20 08/14/19 06:20 Active Medications Acetaminophen (Tylenol -) 650 mg PO Q6H PRN PRN Reason: FEVER Last Admin: 08/13/19 18:00 Dose: 650 mg Albuterol Sulfate (Ventolin Hfa Inhaler -) 2 puff IH Q6H PRN PRN Reason: SHORTNESS OF BREATH Albuterol Sulfate (Ventolin 0.083% Nebulizer Soln -) 1 amp NEB Q4H PRN PRN Reason: SHORT OF BREATH/WHEEZING Albuterol/Ipratropium (Duoneb -) 1 amp NEB RTID [facility] Last Admin: 08/14/19 08:00 Dose: 1 amp Alprazolam (Xanax -) 0.5 mg PO Q12H PRN PRN Reason: ANXIETY Last Admin: 08/13/19 23:04 Dose: 0.5 mg Amlodipine Besylate (Norvasc -) 2.5 mg PO DAILY [facility] Apixaban (Eliquis -) 2.5 mg PO BID [facility] Last Admin: 08/14/19 09:27 Dose: 2.5 mg Aspirin (Ecotrin -) 81 mg PO DAILY [facility] Last Admin: 08/14/19 09:27 Dose: 81 mg Atorvastatin Calcium (Lipitor -) 10 mg PO Q2D@2200 [facility] Last Admin: 08/13/19 21:31 Dose: 10 mg Benzocaine/Menthol (Cepacol Lozenge -) 1 each MM PRN PRN PRN Reason: SORE THROAT Bisacodyl (Dulcolax Suppository -) 10 mg RC DAILY PRN PRN Reason: CONSTIPATION Budesonide/Formoterol Fumarate (Symbicort 160/4.5mcg -) 2 puff IH BID [facility] Last Admin: 08/14/19 09:28 Dose: 2 puff Bupropion HCl (Wellbutrin Xl -) 150 mg PO BID [facility] Last Admin: 08/14/19 09:27 Dose: 150 mg Carvedilol (Coreg -) 12.5 mg PO BID [facility] Last Admin: 08/14/19 09:26 Dose: 12.5 mg Dexamethasone Sodium Phosphate (Decadron Injection -) 4 mg IVPUSH ONCE PRN PRN Reason: NAUSEA AND/OR VOMITING Diazepam (Valium -) 5 mg PO Q8H [facility] Last Admin: 08/14/19 06:03 Dose: 5 mg Docusate Sodium (Colace -) 200 mg PO TID [facility] Last Admin: 08/14/19 05:21 Dose: Not Given Eplerenone (Eplerenone) 25 mg PO DAILY [facility] Last Admin: 08/14/19 09:28 Dose: 25 mg Furosemide (Lasix -) 40 mg PO Q2D@1000 [facility] Last Admin: 08/14/19 09:27 Dose: 40 mg Furosemide (Lasix -) 80 mg PO Q2D@1000 [facility] Last Admin: 08/13/19 09:05 Dose: 80 mg Isosorbide Mononitrate (Imdur -) 30 mg PO BID [facility] Last Admin: 08/14/19 09:27 Dose: 30 mg Montelukast Sodium (Singulair -) 10 mg PO HS [facility] Last Admin: 08/13/19 21:30 Dose: 10 mg Nitroglycerin (Nitrostat -) 0.4 mg SL PRN PRN PRN Reason: PAIN Ondansetron HCl (Zofran Injection) 4 mg IVPUSH Q6H PRN PRN Reason: NAUSEA AND/OR VOMITING Oxycodone HCl (Roxicodone -) 5 mg PO Q4H PRN PRN Reason: PAIN LEVEL 1-5 Last Admin: 08/11/19 09:36 Dose: 5 mg Oxycodone HCl (Roxicodone -) 10 mg PO Q6H PRN PRN Reason: PAIN LEVEL 6-10 Potassium Chloride (K-Dur -) 20 meq PO BID [facility] Last Admin: 08/14/19 09:27 Dose: 20 meq Quinapril HCl (Accupril -) 5 mg PO DAILY [facility] Last Admin: 08/14/19 10:03 Dose: Not Given Ranolazine (Ranexa -) 500 mg PO DAILY [facility] Last Admin: 08/14/19 09:27 Dose: 500 mg Terazosin HCl (Hytrin -) 10 mg PO HS [facility] Last Admin: 08/13/19 22:37 Dose: Not Given Valacyclovir HCl (Valtrex -) 500 mg PO [facility] Last Admin: 08/13/19 21:32 Dose: 500 mg ASSESSMENT AND PLAN: Epidural Mass s/p Lumbar Laminectomies/Epidural Mass resection/fusion L3-L4, L4-L5 Atrial Fibrillation CAD LV Systolic/Diastolic Dysfunction Hyperlipidemia CKD - pain control - incentive spirometry - rate control - continue anticoagulation - continue lasix - inhaled bronchodilators - PO as tolerated - rehab/PT - DVT prophylaxis - can monitor on floor
[2019-08-14 12:19] VITALS: BMI 24.3
[2019-08-14] MEDS: ALPRAZolam 0.25 MG TABLET PO PRN (12:56)
--- NOTE | 2019-08-14 13:35 | PN ---
Physical Exam: SUBJECTIVE: Patient seen and examined. Pt offered no complaints overnight. Remained afebrile. Denies any pain. OBJECTIVE: Vital Signs Period Temp Pulse Resp BP Sys/Craft Pulse Ox Last 24 Hr 97.0 F-98.1 F 75-85 13-26 96-123/40-62 96-97 GENERAL: A&Ox3, NAD HEAD: NCAT EYES: PERRL, EOMI ENT: MMM LUNGS: CTAB but decreased at the bases, No wheezes, no crackles HEART: irregulat but RR, 3/6 diastolic murmur ABDOMEN: Distended. Soft, nontender, + bowel sounds, no guarding, no rebound BACK: VIRAJ Drain in place with serosanginous fluid draining EXTREMITIES: No peripheral edema NEUROLOGICAL: Cranial nerves II-XII intact. Sensation in tact grossly. LLE 4/5 strength, RLE, 5/5 strength SKIN: Warm, dry Laboratory Results - last 24 hr 08/14/19 08/14/19 06:20 06:20 WBC 7.1 RBC 2.70 L Hgb 8.8 L Hct 26.4 L MCV 97.6 H MCH 32.5 MCHC 33.3 RDW 22.5 H Plt Count 173 D MPV 9.4 Absolute Neuts (auto) 5.3 Neutrophils % 73.6 Lymphocytes % 9.7 Monocytes % 14.0 H Eosinophils % 2.4 Basophils % 0.3 Nucleated RBC % 0 Sodium 138 Potassium 4.9 Chloride 108 H Carbon Dioxide 26 Anion Gap 5 L BUN 54.6 H Creatinine 2.7 H Est GFR (CKD-EPI)AfAm 26.29 Est GFR (CKD-EPI)NonAf 22.69 Random Glucose 111 H Calcium 8.0 L Phosphorus 3.7 Magnesium 3.4 H Total Bilirubin 0.9 AST 14 L ALT 17 Alkaline Phosphatase 59 Total Protein 5.5 L Albumin 2.6 L Active Medications Generic Name Dose Route Start Last Admin Trade Name Freq PRN Reason Stop Dose Admin Acetaminophen 650 mg 08/08/19 11:50 08/13/19 18:00 Tylenol - PO 650 mg Q6H PRN Administration FEVER Albuterol Sulfate 2 puff 08/08/19 21:48 Ventolin Hfa Inhaler - IH Q6H PRN SHORTNESS OF BREATH Albuterol Sulfate 1 amp 08/09/19 07:59 Ventolin 0.083% Nebulizer Soln - NEB Q4H PRN SHORT OF BREATH/WHEEZING Albuterol/Ipratropium 1 amp 08/09/19 14:00 08/14/19 08:00 Duoneb - NEB 1 amp RTID JAMES Administration Alprazolam 0.5 mg 08/09/19 12:41 08/14/19 12:56 Xanax - PO 0.5 mg Q12H PRN Administration ANXIETY Amlodipine Besylate 2.5 mg 08/14/19 11:23 Norvasc - PO DAILY JAMES Apixaban 2.5 mg 08/11/19 22:00 08/14/19 09:27 Eliquis - PO 2.5 mg BID JAMES Administration Aspirin 81 mg 08/10/19 11:00 08/14/19 09:27 Ecotrin - PO 81 mg DAILY JAMES Administration Atorvastatin Calcium 10 mg 08/09/19 22:00 08/13/19 21:31 Lipitor - PO 10 mg Q2D@2200 JAMES Administration Benzocaine/Menthol 1 each 08/09/19 11:18 Cepacol Lozenge - MM PRN PRN SORE THROAT Bisacodyl 10 mg 08/08/19 11:50 Dulcolax Suppository - RC DAILY PRN CONSTIPATION Budesonide/Formoterol Fumarate 2 puff 08/12/19 11:15 08/14/19 09:28 Symbicort 160/4.5mcg - IH 2 puff BID JAMES Administration Bupropion HCl 150 mg 08/08/19 22:00 08/14/19 09:27 Wellbutrin Xl - PO 150 mg BID JAMES Administration Carvedilol 12.5 mg 08/09/19 13:37 08/14/19 09:26 Coreg - PO 12.5 mg BID JAMES Administration Dexamethasone Sodium Phosphate 4 mg 08/08/19 12:43 Decadron Injection - IVPUSH ONCE PRN NAUSEA AND/OR VOMITING Diazepam 5 mg 08/08/19 12:00 08/14/19 12:56 Valium - PO 5 mg Q8H JAMES Administration Docusate Sodium 200 mg 08/13/19 09:24 08/14/19 05:21 Colace - PO Not Given TID JAMES Eplerenone 25 mg 08/09/19 10:00 08/14/19 09:28 Eplerenone PO 25 mg DAILY JAMES Administration Furosemide 40 mg 08/10/19 10:00 08/14/19 09:27 Lasix - PO 40 mg Q2D@1000 JAMES Administration Furosemide 80 mg 08/09/19 10:00 08/13/19 09:05 Lasix - PO 80 mg Q2D@1000 JAMES Administration Isosorbide Mononitrate 30 mg 08/08/19 22:00 08/14/19 09:27 Imdur - PO 30 mg BID JAMES Administration Montelukast Sodium 10 mg 08/08/19 22:00 08/13/19 21:30 Singulair - PO 10 mg HS JAMES Administration Nitroglycerin 0.4 mg 08/08/19 12:11 Nitrostat - SL PRN PRN PAIN Ondansetron HCl 4 mg 08/08/19 11:50 Zofran Injection IVPUSH Q6H PRN NAUSEA AND/OR VOMITING Oxycodone HCl 5 mg 08/11/19 07:58 08/11/19 09:36 Roxicodone - PO 5 mg Q4H PRN Administration PAIN LEVEL 1-5 Oxycodone HCl 10 mg 08/11/19 07:58 Roxicodone - PO Q6H PRN PAIN LEVEL 6-10 Potassium Chloride 20 meq 08/08/19 22:00 08/14/19 09:27 K-Dur - PO 20 meq BID JAMES Administration Quinapril HCl 5 mg 08/09/19 10:00 08/14/19 10:03 Accupril - PO Not Given DAILY JAMES Ranolazine 500 mg 08/09/19 10:00 08/14/19 09:27 Ranexa - PO 500 mg DAILY JAMES Administration Terazosin HCl 10 mg 08/08/19 22:00 08/13/19 22:37 Hytrin - PO Not Given HS JAMES Valacyclovir HCl 500 mg 08/08/19 22:00 08/13/19 21:32 Valtrex - PO 500 mg HS JAMES Administration ASSESSMENT/PLAN: 73 y/o M PMHx Afib s/p defrillator with biventricular pacer, asthma, anxiety, HTN, HLD, CAD, basal cell carcinoma (left shoulder), intracanalicular lesion with thecal sac compression who presents to ICU s/p lumbar laminectomies for epidural mass resection, microsurgical dissection, posterolateral fusion L3-4 and L4-5, POD#6. #Neuro/Psych S/P Lumbar laminectomies for epidural mass resection, posterolateral fusion L3- L4, L4-L5 (08/08) POD6 Hx of intracanalicular lesion with thecal sac compression HX of Anxiety -AAOx3 with Muscle strength 4/5 and gross sensation intact. -Pain controlled. pt denies any pain. -Continue home dose valium, buproprion, Alprazolam - lumbar spine x-ray w/o acute finding -continue OOB with LSO brace and PT per Neurosurgery. resumed eliquis 08/11/19 #Cardio Hx of CHF, CAD, Afib, defibrillator with biventricular pacer, HTN, HLD - home dose antihypertensives--amlodipine, eplerone, Lasix, Imdur, quinapril, ranolazine - per cardio, we reduced amlodipine to 2.5 may need to reduce dose of other meds, monitor BP -Continue nitroglycerin PRN -Rate control via carvedilol -Continue atorvastatin -cont ASA and eliquis -Will need outpatient follow up with for PPM #Pulm Hx of asthma -Continue Bronchodilation via singulair HS, Duoneb, PRN albuterol -symbicort added -Continue incentive spirometry #GI Constipation -Continue Colace but at 200mg BID, PRN Dulcolax Suppository, miralax added -Ondansetron PRN For vomiting #Renal -potassium stable at 4.9 -Cr 2.7 but stable -Continue K-Dur 20 mEq PO BID, Replete PRN #ID Hx of Genital Herpes -Continue home dose Valacyclovir #FEN -no standing fluids. diet has been advanced -Replete lytes PRN -low sodium diet #PPX -DVT:on eliquis Dispo: transfer to [facility]-surge Visit type - Emergency Visit Emergency Visit: Yes ED Registration Date: 08/08/19 Care time: The patient presented to the Emergency Department on the above date and was hospitalized for further evaluation of their emergent condition. - New Patient This patient is new to me today: No - Critical Care Critical Care patient: Yes Total Critical Care Time (in minutes): 35 Critical Care Statement: The care of this patient involved high complexity decision making to prevent further life threatening deterioration of the patient's condition and/or to evaluate & treat vital organ system(s) failure or risk of failure. ATTENDING PHYSICIAN STATEMENT I saw and evaluated the patient. I reviewed the resident's note and discussed the case with the resident. I agree with the resident's findings and plan as documented. SUBJECTIVE: OBJECTIVE: ASSESSMENT AND PLAN:
[2019-08-14] MEDS ORDERED: ONDANSETRON 4 MG/2 ML VIAL IVPUSH PRN (15:54)
[2019-08-14] MEDS ORDERED: FUROSEMIDE 40 MG/4 ML INJECTABLE VIAL IVPUSH ONE (15:54)
[2019-08-14] MEDS ORDERED: BENZOCAINE/MENTH/CETYLPYRD CL 1 EACH LOZENGE MM PRN (15:54)
[2019-08-14] MEDS ORDERED: ACETAMINOPHEN 325 MG TABLET (FP) PO PRN (15:54)
[2019-08-14] MEDS ORDERED: DEXAMETHASONE SOD PHOSPHATE 4 MG/1 ML VIAL IVPUSH PRN (15:54)
[2019-08-14] MEDS ORDERED: BISACODYL 10 MG SUPP.RECT RC PRN (15:54)
[2019-08-14] MEDS ORDERED: oxyCODONE HCL 5 MG TABLET PO PRN ×2 (15:54)
[2019-08-14] MEDS ORDERED: NITROGLYCERIN SUBLINGUAL 1/150 0.4 MG TAB SL PRN (15:54)
[2019-08-14] MEDS ORDERED: ALBUTEROL SO4 HFA INHALER IH PRN (15:54)
[2019-08-14] MEDS ORDERED: ALBUTEROL SO4 0.083% IH SOL 2.5 MG/3 ML VIAL.NEB. NEB PRN (15:54)
[2019-08-14] MEDS ORDERED: ALPRAZolam 0.25 MG TABLET PO PRN (15:54)
[2019-08-14] MEDS: ATORVASTATIN CA 10 MG TABLET (FP) PO SCH ×2 (19:16→22:38)
[2019-08-14] MEDS ORDERED: valACYclovir HCL 500 MG TABLET (FP) PO SCH (22:00)
[2019-08-14] MEDS ORDERED: TERAZOSIN HCL 5 MG CAPSULE PO SCH (22:00)
[2019-08-14] MEDS ORDERED: MONTELUKAST NA 10 MG TABLET PO SCH (22:00)
--- NOTE | 2019-08-14 22:20 | PN ---
Progress Note (short form) - Note Progress Note: NEUROSURGERY POD #6 On 8W Incisional pain, no sciatica L LE + BM C/o back incision itchiness PE: Tmax 98.8, AF, VSS CV- RR; Lungs- CTA; Abd- benign; Ext- no sign of DVT CN- intact; Motor- 4+/5 throughout, L DF 4/5; Sensation- intact LT Hgb 8.8, stabilizing No wound drainage, less redness and skin irritation Stable/improved neurologically Incentive spirometry oxycodone for pain OOB with LSO brace Benadryl 25 mg x1 Resumed baby ASA and Eliquis Wound care D/C home planning
[2019-08-14] MEDS ORDERED: diphenhydrAMINE HCL 25 MG CAPSULE (FP) PO ONE (22:29)
[2019-08-15] MEDS: diazePAM 5 MG TABLET PO SCH ×2 (03:31→14:06)
[2019-08-15] MEDS: DOCUSATE SODIUM 100 MG CAPSULE (FP) PO SCH ×2 (06:31→14:07)
[2019-08-15] MEDS: POTASSIUM CHLORIDE TABS 20 MEQ TABLET.ER (FP) PO SCH (09:29)
[2019-08-15] MEDS: APIXABAN 2.5 MG TABLET PO SCH (09:29)
[2019-08-15] MEDS: CARVEDILOL 12.5 MG TABLET (FP) PO SCH (09:30)
[2019-08-15] MEDS: ISOSORBIDE MONONITRATE 30 MG TAB.SR.24H (FP) PO SCH (09:31)
[2019-08-15] MEDS: ALBUTEROL SO4 2.5/IPRATROPIUM 0.5 INH SOL 3 ML VIAL.NEB. NEB SCH ×2 (09:50→14:57)
[2019-08-15] MEDS: BUDESONIDE/FORMETEROL FUMARATE 160/4.5 mcg INHALER IH SCH (09:55)
[2019-08-15 09:56] LABS: BASO % 0.7 % (0-2.0); EOS % 1.8 % (0-4.5); HEMATOCRIT 27.6 % (35.4-49); HEMOGLOBIN 9.2 GM/dL (11.7-16.9); LYMPH % 13.1 % (8-40); MCH 32.7 pg (25.7-33.7); MCHC 33.4 g/dl (32.0-35.9); MEAN CELL VOLUME 97.8 fl (80-96); MEAN PLT VOLUME 9.5 fl (7.5-11.1); MONO % 15.7 % (3.8-10.2); NEUT % 68.7 % (42.8-82.8); PLATELET COUNT 202 K/MM3 (134-434); RBC 2.82 M/mm3 (4.00-5.60); RDW 22.7 % (11.9-15.9); WHITE BLOOD COUNT 7.1 K/mm3 (4.0-10.0)
[2019-08-15] MEDS ORDERED: ASPIRIN COATED 81 MG TABLET.EC PO SCH (10:00)
[2019-08-15] MEDS ORDERED: EPLERENONE 25 MG TABLET PO SCH (10:00)
[2019-08-15] MEDS ORDERED: FUROSEMIDE 40 MG TABLET (FP) PO SCH (10:00)
[2019-08-15] MEDS ORDERED: RANOLAZINE E.R. 500 MG TABLET (FP) PO SCH (10:00)
[2019-08-15] MEDS ORDERED: QUINAPRIL HCL 5 MG TABLET (FP) PO SCH (10:00)
--- NOTE | 2019-08-15 10:21 | PN ---
Progress Note (short form) - Note Progress Note: NEUROSURGERY POD #6 On 8W + BM Some back incision itchiness PE: Tmax 98.4, AF, VSS CV- RR; Lungs- CTA; Abd- benign; Ext- no sign of DVT CN- intact; Motor- 4+/5 throughout, L DF 4/5; Sensation- intact LT Hgb 9.2 No wound drainage, less redness and skin irritation Stable/improved neurologically Incentive spirometry oxycodone for pain OOB with LSO brace Benadryl 25 mg prn Resumed baby ASA and Eliquis D/C planning
[2019-08-15 10:23] LABS: ALBUMIN 2.7 g/dl (3.4-5.0); BILIRUBIN,TOTAL 0.9 mg/dL (0.2-1); BLOOD UREA NITROGEN 54.9 mg/dL (7-18); CALCIUM 8.4 mg/dL (8.5-10.1); CREATININE 2.7 mg/dL (0.55-1.3); MAGNESIUM 3.5 mg/dL (1.8-2.4); PHOSPHOROUS 4.4 mg/dL (2.5-4.9); POTASSIUM 4.8 mmol/L (3.5-5.1); TOT PROT 5.7 g/dl (6.4-8.2)
[2019-08-15] MEDS ORDERED: diphenhydrAMINE HCL 25 MG CAPSULE (FP) PO PRN (10:26)
[2019-08-15 14:37] VITALS: BP 116/50; PULSE 80; TEMP 99
[2019-08-16] MEDS ORDERED: FUROSEMIDE 40 MG TABLET (FP) PO SCH (10:00)
--- NOTE | 2019-08-22 16:22 | SURG ---
Surgery Solid State Tester Note Solid State Tester: Berenice Fine PA-C Date of Service: 08/08/19 Diagnosis: left sided central L4-L5 greater than L3-L4 epidural mass lesion with thecal sac and lumbar nerve root impingement. Procedure: 1) Bilateral L3, L4 and Partial bilateral L5 laminectomy or excision of epidural mass lesion 2) Lysis of epidural adhesions 3) microsurgical dissection with operative microscope and mircosurgical technique 4)[place] of autologous spinous process lamina and facet bone for posterolateral fusion 5) Posterior lumbar fusion L30L4 and L4-L5 6) Posterior lumbar pedicle screw fixation system placement from L3-L5 7) [employer] sol[employer] titanium system with 6.4x45mm screws at L3,L4 and L5 connected with 16m rods 8) Intraoperative fluroscopy for localization and pedicle screw placement I was present for the entirety of the operative procedure. For further detail, please refer to operative report. Visit type - Case Type Case Type: Scheduled - Emergency Emergency Visit: No - New patient This patient is new to me today: Yes Date on this admission: 08/08/19
== END 2019-08-15 15:12 | disposition home health service (06) | DRG 29 ==
LOC: JSAMEDAYSX 04:27 → JICU 16:28 → J8W 08-14 16:30
PROVIDERS: ADMIT Neurological Surgery; ATTEND Neurological Surgery
PROC: 0SG1071 Fusion of 2 or more Lumbar Vertebral Joints with Autologous Tissue Substitute, Posterior Approach, Posterior Column, Open Approach (ICD-10-PCS; 2019-08-08)
PROC: 0SB00ZZ Excision of Lumbar Vertebral Joint, Open Approach (ICD-10-PCS; 2019-08-08)
PROC: 00NY0ZZ Release Lumbar Spinal Cord, Open Approach (ICD-10-PCS; 2019-08-08)
PROC: B01BZZZ Fluoroscopy of Spinal Cord (ICD-10-PCS; 2019-08-08)
PROC: 4A11X4G Monitoring of Peripheral Nervous Electrical Activity, Intraoperative, External Approach (ICD-10-PCS; 2019-08-08)
PROC: 0SG10AJ Fusion of 2 or more Lumbar Vertebral Joints with Interbody Fusion Device, Posterior Approach, Anterior Column, Open Approach (ICD-10-PCS; principal; 2019-08-08 08:00)
DX: G95.9 Disease of spinal cord, unspecified (principal); I31.3 Pericardial effusion (noninflammatory); I50.42 Chronic combined systolic (congestive) and diastolic (congestive) heart failure; I48.92 Unspecified atrial flutter; G96.19 Other disorders of meninges, not elsewhere classified; I25.10 Atherosclerotic heart disease of native coronary artery without angina pectoris; J45.909 Unspecified asthma, uncomplicated; M54.5 Low back pain; I48.91 Unspecified atrial fibrillation; E78.5 Hyperlipidemia, unspecified; F41.8 Other specified anxiety disorders; M85.80 Other specified disorders of bone density and structure, unspecified site; J30.9 Allergic rhinitis, unspecified; F41.9 Anxiety disorder, unspecified; K59.09 Other constipation; I35.1 Nonrheumatic aortic (valve) insufficiency; I11.0 Hypertensive heart disease with heart failure; Z85.828 Personal history of other malignant neoplasm of skin; M41.86 Other forms of scoliosis, lumbar region
CPT/HCPCS: 36415; 36430; 36511; 72100-TC-FY; 76000-TC-FY; 80048; 80053; 83735; 84100; 85025; 85027; 86850; 86900; 86901; 86922; 87070; 87075; 87205; 88304-TC; 88305-TC; 88311-TC; 88331-TC; 93005; 93010; 94010; 94640; 94760; 97116-GP; 97162-GP; P9038; P9058

== ENCOUNTER 2020-06-26 19:10 | Inpatient (IN) | payer BC, OTHER ==
[2020-06-26] MEDS ORDERED: LIDOCAINE 5% TOPICAL PATCH TP ONE (19:55)
[2020-06-26] MEDS ORDERED: LIDOCAINE 5% TOPICAL PATCH ONE (20:10)
[2020-06-26] MEDS ORDERED: morphine CARPU-JECT 4 MG/1 ML DISP.SYRIN IVPUSH ONE (22:21)
[2020-06-26] MEDS ORDERED: morphine SULFATE 4 MG/ML VIAL ONE (22:28)
[2020-06-26 22:50] LABS: HEMATOCRIT 38.2 % (35.4-49); HEMOGLOBIN 12.5 GM/dL (11.7-16.9); MCH 32.9 pg (25.7-33.7); MCHC 32.8 g/dl (32.0-35.9); MEAN CELL VOLUME 100.3 fl (80-96); MEAN PLT VOLUME 8.7 fl (7.5-11.1); PLATELET COUNT 145 K/MM3 (134-434); RBC 3.81 M/mm3 (4.00-5.60); RDW 22.8 % (11.9-15.9); WHITE BLOOD COUNT 8.5 K/mm3 (4.0-10.0)
[2020-06-26] MEDS ORDERED: QUINAPRIL HCL 5 MG TABLET PO ONE (22:50)
[2020-06-26 22:51] LABS: INR 1.96 (0.83-1.09); PROTHROMBIN TIME (PATIENT) 23.3 SEC (9.7-13.0)
[2020-06-26] MEDS ORDERED: CARVEDILOL 12.5 MG TABLET (FP) PO ONE (22:51)
[2020-06-26] MEDS ORDERED: amLODIPine BESYLATE 5 MG TABLET (FP) PO ONE (22:51)
[2020-06-26] MEDS ORDERED: MONTELUKAST NA 10 MG TABLET PO ONE (22:51)
[2020-06-26] MEDS ORDERED: ASPIRIN 81 MG CHEWABLE TABLETS PO ONE (22:52)
[2020-06-26 22:53] LABS: ACTIVATED PTT 34.3 SECONDS (25.2-36.5)
[2020-06-26] MEDS ORDERED: ALPRAZolam 0.25 MG TABLET PO ONE (23:00)
[2020-06-26] MEDS ORDERED: buPROPion HCL 75 MG TABLET PO ONE (23:00)
[2020-06-26 23:07] LABS: CALCIUM 8.8 mg/dL (8.5-10.1)
[2020-06-26 23:08] LABS: ALBUMIN 3.9 g/dl (3.4-5.0); BLOOD UREA NITROGEN 45.7 mg/dL (7-18)
[2020-06-26 23:11] LABS: CREATININE 2.4 mg/dL (0.55-1.3)
[2020-06-26 23:13] LABS: BILIRUBIN,TOTAL 0.8 mg/dL (0.2-1); TOT PROT 6.6 g/dl (6.4-8.2)
[2020-06-26] MEDS ORDERED: ALPRAZolam 0.25 MG TABLET ONE (23:13)
[2020-06-26] MEDS ORDERED: ASPIRIN 81 MG CHEWABLE TABLETS ONE (23:14)
[2020-06-26] MEDS ORDERED: MONTELUKAST NA 10 MG TABLET ONE (23:14)
[2020-06-26] MEDS ORDERED: amLODIPine BESYLATE 5 MG TABLET (FP) ONE (23:14)
[2020-06-26] MEDS ORDERED: CARVEDILOL 12.5 MG TABLET (FP) ONE (23:14)
[2020-06-26] MEDS ORDERED: buPROPion HCL 100 MG TABLET ONE (23:15)
[2020-06-27] MEDS ORDERED: MORPHINE SULFATE 2 MG/ML VIAL IVPUSH PRN (01:47)
[2020-06-27] MEDS ORDERED: chlordiazePOXIDE HCL 25 MG CAPSULE PO PRN (01:53)
[2020-06-27] MEDS ORDERED: NITROGLYCERIN SUBLINGUAL 1/150 0.4 MG TAB SL PRN (02:09)
[2020-06-27] MEDS ORDERED: PATIENT'S OWN MEDICATION (NON-FORMULARY) (Albuterol Sulfate [Proair Respiclick] 90 MCG Aer IH PRN (02:09)
[2020-06-27] MEDS ORDERED: FUROSEMIDE 40 MG TABLET (FP) PO SCH (02:15)
[2020-06-27] MEDS ORDERED: ALBUTEROL SO4 HFA INHALER IH PRN (02:18)
[2020-06-27] MEDS ORDERED: FOLIC ACID INJECTION - 1 MG, THIAMINE HCL 100 MG, MULTIVIT INJECTION ADULT 10 ML in SOD... IVPB ONE (02:45)
[2020-06-27] MEDS ORDERED: ALBUTEROL SO4 HFA INHALER IH ONE (03:42)
[2020-06-27 03:59] LABS: URINE APPEARANCE CLEAR; URINE BILIRUBIN NEGATIVE (NEGATIVE); URINE COLOR YELLOW; URINE GLUCOSE (UA) NEGATIVE (NEGATIVE); URINE KETONE NEGATIVE (NEGATIVE); URINE LEUK ESTERASE NEGATIVE (NEGATIVE); URINE NITRITE NEGATIVE (NEGATIVE); URINE PROTEIN NEGATIVE (NEGATIVE); URINE UROBILINOGEN 0.2 mg/dL (0.2-1.0)
[2020-06-27 04:05] LABS: METHADONE, UR NEGATIVE ng/ml (CUTOFF=300)
[2020-06-27 04:06] LABS: COCAINE, UR NEGATIVE ng/ml (CUTOFF=300); PHENCYCLIDINE,URINE NEGATIVE ng/ml (CUTOFF=25); URINE AMPHETAMINES NEGATIVE ng/ml (CUTOFF=500); URINE BARBITURATES NEGATIVE ng/ml (CUTOFF=200)
[2020-06-27 05:14] LABS: URINE BENZODIAZEPINES POSITIVE ng/ml (CUTOFF=200)
[2020-06-27 05:16] LABS: OPIATES, URI POSITIVE ng/ml (CUTOFF=300)
[2020-06-27] MEDS: INSULIN SLIDING SCALE (NOVOLOG) 1 VIAL SQ SCH ×4 (07:48→23:21)
[2020-06-27] MEDS ORDERED: LIDOCAINE PATCH REMOVAL MC SCH (08:00)
[2020-06-27] MEDS: EPLERENONE 25 MG TABLET PO SCH (09:06)
[2020-06-27] MEDS: RANOLAZINE E.R. 500 MG TABLET (FP) PO SCH (09:06)
[2020-06-27] MEDS ORDERED: QUINAPRIL HCL 5 MG TABLET PO SCH (10:00)
[2020-06-27] MEDS ORDERED: POTASSIUM CHLORIDE 10 MEQ PO SCH (10:00)
[2020-06-27] MEDS ORDERED: APIXABAN 2.5 MG TABLET PO SCH (10:00)
[2020-06-27] MEDS ORDERED: buPROPion HCL 75 MG TABLET PO SCH (10:00)
[2020-06-27] MEDS ORDERED: BUPROPION HCL 150 MG PO SCH (10:00)
[2020-06-27] MEDS ORDERED: CARVEDILOL 12.5 MG TABLET (FP) PO SCH (10:00)
[2020-06-27] MEDS ORDERED: ISOSORBIDE DINITRATE 20 MG TABLET PO SCH (10:00)
[2020-06-27] MEDS ORDERED: CARVEDILOL 12.5 MG TABLET (FP) ONE ×2 (10:06→21:47)
[2020-06-27] MEDS ORDERED: ASPIRIN COATED 81 MG TABLET.EC ONE (10:06)
[2020-06-27] MEDS ORDERED: FUROSEMIDE 40 MG TABLET (FP) ONE (10:06)
[2020-06-27] MEDS ORDERED: POTASSIUM CHLORIDE TABS 10 MEQ TABLET.ER (FP) ONE (10:07)
[2020-06-27] MEDS: POTASSIUM CHLORIDE TABS 10 MEQ TABLET.ER (FP) PO SCH (10:26)
[2020-06-27] MEDS: FUROSEMIDE 40 MG TABLET (FP) PO SCH (10:26)
[2020-06-27] MEDS: ASPIRIN COATED 81 MG TABLET.EC PO SCH (10:26)
[2020-06-27] MEDS ORDERED: MORPHINE SULFATE 2 MG/ML VIAL ONE (10:37)
[2020-06-27] MEDS ORDERED: TAPENTADOL HYDROCHLORIDE 50 MG TABLET PO PRN (12:49)
[2020-06-27] MEDS ORDERED: TIZANIDINE HCL 4 MG TABLET PO PRN (12:50)
[2020-06-27] MEDS ORDERED: TAPENTADOL HYDROCHLORIDE 50 MG TABLET PO SCH (14:00)
[2020-06-27] MEDS ORDERED: ALPRAZolam 1 MG TABLET PO PRN (15:36)
[2020-06-27] MEDS ORDERED: ALPRAZolam 0.25 MG TABLET ONE (15:41)
[2020-06-27] MEDS ORDERED: ACETAMINOPHEN 325 MG TABLET (FP) ONE (15:41)
[2020-06-27] MEDS: ACETAMINOPHEN 325 MG TABLET (FP) PO PRN ×2 (15:53→23:41)
[2020-06-27] MEDS ORDERED: ISOSORBIDE MONONITRATE 60 MG TAB.SR.24H (FP) PO ONE (21:47)
[2020-06-27] MEDS ORDERED: ATORVASTATIN CA 10 MG TABLET (FP) ONE (21:47)
[2020-06-27] MEDS ORDERED: buPROPion HCL 100 MG TABLET ONE (21:48)
[2020-06-27] MEDS ORDERED: MONTELUKAST NA 10 MG TABLET ONE (21:48)
[2020-06-27] MEDS ORDERED: TERAZOSIN HCL 10 MG PO SCH (22:00)
[2020-06-27] MEDS: ATORVASTATIN CA 20 MG TABLET (FP) PO SCH (23:42)
[2020-06-27] MEDS: CARVEDILOL 12.5 MG TABLET (FP) PO SCH (23:42)
[2020-06-27] MEDS: ALPRAZolam 0.25 MG TABLET PO PRN (23:42)
[2020-06-27] MEDS: MONTELUKAST NA 10 MG TABLET PO SCH (23:43)
[2020-06-27] MEDS: TERAZOSIN HCL 5 MG CAPSULE PO SCH (23:48)
[2020-06-27] MEDS: buPROPion HCL 75 MG TABLET PO SCH (23:48)
[2020-06-27] MEDS: QUINAPRIL HCL 5 MG TABLET PO SCH (23:51)
[2020-06-28 01:55] VITALS: BMI 24.3
[2020-06-28] MEDS: INSULIN SLIDING SCALE (NOVOLOG) 1 VIAL SQ SCH ×2 (07:55→13:23)
[2020-06-28] MEDS ORDERED: PT OWN MED DRAWER 7, Y5N ONE ×2 (08:47→16:43)
[2020-06-28 08:54] LABS: HEMATOCRIT 35.5 % (35.4-49); HEMOGLOBIN 11.7 GM/dL (11.7-16.9); MCH 32.9 pg (25.7-33.7); MCHC 32.9 g/dl (32.0-35.9); MEAN CELL VOLUME 100.1 fl (80-96); MEAN PLT VOLUME 9.4 fl (7.5-11.1); PLATELET COUNT 116 K/MM3 (134-434); RBC 3.55 M/mm3 (4.00-5.60); RDW 23.8 % (11.9-15.9); WHITE BLOOD COUNT 7.4 K/mm3 (4.0-10.0)
[2020-06-28 09:01] LABS: INR 1.75 (0.83-1.09); PROTHROMBIN TIME (PATIENT) 20.8 SEC (9.7-13.0)
[2020-06-28 09:15] LABS: POTASSIUM 4.3 mmol/L (3.5-5.1)
[2020-06-28 09:20] LABS: BLOOD UREA NITROGEN 39.6 mg/dL (7-18)
[2020-06-28 09:22] LABS: ALBUMIN 3.1 g/dl (3.4-5.0); MAGNESIUM 2.3 mg/dL (1.8-2.4)
[2020-06-28 09:24] LABS: CREATININE 2.3 mg/dL (0.55-1.3); PHOSPHOROUS 3.2 mg/dL (2.5-4.9)
[2020-06-28 09:25] LABS: BILIRUBIN,TOTAL 1.9 mg/dL (0.2-1); TOT PROT 5.5 g/dl (6.4-8.2)
[2020-06-28] MEDS: CARVEDILOL 12.5 MG TABLET (FP) PO SCH ×2 (09:41→22:06)
[2020-06-28] MEDS: buPROPion HCL 75 MG TABLET PO SCH ×2 (09:42→22:05)
[2020-06-28] MEDS: POTASSIUM CHLORIDE TABS 10 MEQ TABLET.ER (FP) PO SCH (09:43)
[2020-06-28] MEDS: ASPIRIN COATED 81 MG TABLET.EC PO SCH ×2 (09:43→22:06)
[2020-06-28] MEDS: ISOSORBIDE DINITRATE 20 MG TABLET PO SCH ×2 (09:43→17:38)
[2020-06-28] MEDS: EPLERENONE 25 MG TABLET PO SCH (09:43)
[2020-06-28] MEDS: RANOLAZINE E.R. 500 MG TABLET (FP) PO SCH (09:44)
[2020-06-28] MEDS: FUROSEMIDE 40 MG TABLET (FP) PO SCH (09:44)
[2020-06-28] MEDS: ALPRAZolam 0.25 MG TABLET PO PRN (09:47)
[2020-06-28] MEDS: GABAPENTIN 100 MG CAPSULE PO SCH ×2 (14:13→22:06)
[2020-06-28] MEDS: traMADol HCL 50 MG TABLET PO PRN (18:32)
[2020-06-28] MEDS: ATORVASTATIN CA 20 MG TABLET (FP) PO SCH (22:06)
[2020-06-28] MEDS: MONTELUKAST NA 10 MG TABLET PO SCH (22:06)
[2020-06-28] MEDS: TERAZOSIN HCL 5 MG CAPSULE PO SCH (22:06)
[2020-06-28] MEDS: QUINAPRIL HCL 5 MG TABLET PO SCH (22:08)
[2020-06-29] MEDS: GABAPENTIN 100 MG CAPSULE PO SCH ×3 (05:58→21:53)
[2020-06-29 08:35] LABS: BASO % 0.4 % (0-2.0); EOS % 0.9 % (0-4.5); HEMATOCRIT 37.1 % (35.4-49); HEMOGLOBIN 12.5 GM/dL (11.7-16.9); LYMPH % 11.3 % (8-40); MCH 33.9 pg (25.7-33.7); MCHC 33.6 g/dl (32.0-35.9); MEAN CELL VOLUME 100.9 fl (80-96); MEAN PLT VOLUME 9.6 fl (7.5-11.1); MONO % 17.8 % (3.8-10.2); NEUT % 69.6 % (42.8-82.8); PLATELET COUNT 107 K/MM3 (134-434); RBC 3.68 M/mm3 (4.00-5.60); RDW 23.5 % (11.9-15.9); WHITE BLOOD COUNT 7.4 K/mm3 (4.0-10.0)
[2020-06-29 08:50] LABS: POTASSIUM 4.3 mmol/L (3.5-5.1)
[2020-06-29 08:52] LABS: CALCIUM 8.3 mg/dL (8.5-10.1)
[2020-06-29 08:53] LABS: ALBUMIN 3.2 g/dl (3.4-5.0); BLOOD UREA NITROGEN 43.2 mg/dL (7-18)
[2020-06-29 08:57] LABS: BILIRUBIN,TOTAL 1.6 mg/dL (0.2-1); MAGNESIUM 2.6 mg/dL (1.8-2.4)
[2020-06-29 08:59] LABS: TOT PROT 5.8 g/dl (6.4-8.2)
[2020-06-29 09:00] LABS: CREATININE 2.3 mg/dL (0.55-1.3)
[2020-06-29] MEDS ORDERED: ALBUTEROL SO4 2.5/IPRATROPIUM 0.5 INH SOL 3 ML VIAL.NEB. NEB PRN (09:04)
[2020-06-29] MEDS ORDERED: PT OWN MED DRAWER 7, Y5N ONE ×4 (09:08→21:30)
[2020-06-29] MEDS: FUROSEMIDE 40 MG TABLET (FP) PO SCH (09:14)
[2020-06-29] MEDS: RANOLAZINE E.R. 500 MG TABLET (FP) PO SCH (09:14)
[2020-06-29] MEDS: POTASSIUM CHLORIDE TABS 10 MEQ TABLET.ER (FP) PO SCH (09:14)
[2020-06-29] MEDS: CARVEDILOL 12.5 MG TABLET (FP) PO SCH ×2 (09:14→21:53)
[2020-06-29] MEDS: buPROPion HCL 75 MG TABLET PO SCH ×2 (09:15→22:00)
[2020-06-29] MEDS: ISOSORBIDE DINITRATE 20 MG TABLET PO SCH ×2 (09:15→17:28)
[2020-06-29] MEDS: EPLERENONE 25 MG TABLET PO SCH (09:19)
[2020-06-29 09:27] LABS: ANISOCYTOSIS 1+; MACROCYTOSIS 1+; PLATELET ESTIMATE DECREASED
[2020-06-29] MEDS: ALPRAZolam 0.25 MG TABLET PO PRN ×2 (09:44→22:02)
[2020-06-29] MEDS ORDERED: TIZANIDINE HCL 4 MG TABLET PO PRN (11:02)
[2020-06-29] MEDS: LIDOCAINE 5% TOPICAL PATCH TP SCH (12:30)
[2020-06-29] MEDS: ACETAMINOPHEN 325 MG TABLET (FP) PO PRN (19:40)
[2020-06-29] MEDS: ATORVASTATIN CA 20 MG TABLET (FP) PO SCH (21:52)
[2020-06-29] MEDS: MONTELUKAST NA 10 MG TABLET PO SCH (21:53)
[2020-06-29] MEDS: ASPIRIN COATED 81 MG TABLET.EC PO SCH (21:54)
[2020-06-29] MEDS: QUINAPRIL HCL 5 MG TABLET PO SCH (21:57)
[2020-06-29] MEDS: TERAZOSIN HCL 5 MG CAPSULE PO SCH (21:58)
[2020-06-29] MEDS ORDERED: LIDOCAINE PATCH REMOVAL MC SCH (22:00)
[2020-06-30] MEDS: GABAPENTIN 100 MG CAPSULE PO SCH ×2 (06:12→13:21)
[2020-06-30 08:04] LABS: BASO % 0.4 % (0-2.0); EOS % 1.6 % (0-4.5); HEMATOCRIT 36.5 % (35.4-49); LYMPH % 12.5 % (8-40); MCH 33.3 pg (25.7-33.7); MCHC 32.9 g/dl (32.0-35.9); MEAN PLT VOLUME 9.7 fl (7.5-11.1); MONO % 18.2 % (3.8-10.2); NEUT % 67.3 % (42.8-82.8); PLATELET COUNT 112 K/MM3 (134-434); RBC 3.62 M/mm3 (4.00-5.60); RDW 22.9 % (11.9-15.9); WHITE BLOOD COUNT 6.7 K/mm3 (4.0-10.0)
[2020-06-30 08:08] LABS: CALCIUM 8.4 mg/dL (8.5-10.1); POTASSIUM 4.3 mmol/L (3.5-5.1)
[2020-06-30 08:10] LABS: ALBUMIN 3.2 g/dl (3.4-5.0); BLOOD UREA NITROGEN 51.9 mg/dL (7-18)
[2020-06-30 08:12] LABS: CREATININE 2.7 mg/dL (0.55-1.3); MAGNESIUM 2.5 mg/dL (1.8-2.4)
[2020-06-30 08:14] LABS: BILIRUBIN,TOTAL 1.1 mg/dL (0.2-1); TOT PROT 5.8 g/dl (6.4-8.2)
[2020-06-30] MEDS ORDERED: PT OWN MED DRAWER 7, Y5N ONE ×2 (09:00→17:49)
[2020-06-30] MEDS: LIDOCAINE 5% TOPICAL PATCH TP SCH (09:03)
[2020-06-30] MEDS: CARVEDILOL 12.5 MG TABLET (FP) PO SCH (09:04)
[2020-06-30] MEDS: POTASSIUM CHLORIDE TABS 10 MEQ TABLET.ER (FP) PO SCH (09:04)
[2020-06-30] MEDS: traMADol HCL 50 MG TABLET PO PRN (09:04)
[2020-06-30] MEDS: FUROSEMIDE 40 MG TABLET (FP) PO SCH (09:05)
[2020-06-30] MEDS: buPROPion HCL 75 MG TABLET PO SCH (09:05)
[2020-06-30] MEDS: ISOSORBIDE DINITRATE 20 MG TABLET PO SCH ×2 (09:07→17:50)
[2020-06-30] MEDS: EPLERENONE 25 MG TABLET PO SCH (09:07)
[2020-06-30] MEDS: RANOLAZINE E.R. 500 MG TABLET (FP) PO SCH (09:07)
[2020-06-30] MEDS: ALPRAZolam 0.25 MG TABLET PO PRN (09:08)
[2020-06-30] MEDS ORDERED: BISACODYL 10 MG SUPP.RECT PR ONE (13:58)
[2020-06-30] MEDS ORDERED: DOCUSATE SODIUM 100 MG CAPSULE (FP) PO SCH (14:00)
[2020-06-30 14:29] VITALS: BP 106/51; PULSE 70; TEMP 98.2
== END 2020-06-30 18:28 | disposition home health service (06) | DRG 552 ==
LOC: JER 19:10 → JERBED 22:12 → J6S 06-27 22:29
PROVIDERS: ADMIT Internal Medicine; ATTEND Nurse Practitioner Family
DX: S32.019A Unspecified fracture of first lumbar vertebra, initial encounter for closed fracture (principal); N17.9 Acute kidney failure, unspecified; I50.42 Chronic combined systolic (congestive) and diastolic (congestive) heart failure; I13.0 Hypertensive heart and chronic kidney disease with heart failure and stage 1 through stage 4 chronic kidney disease, or unspecified chronic kidney disease; E78.5 Hyperlipidemia, unspecified; I48.91 Unspecified atrial fibrillation; Z79.01 Long term (current) use of anticoagulants; I25.10 Atherosclerotic heart disease of native coronary artery without angina pectoris; I35.1 Nonrheumatic aortic (valve) insufficiency; I34.0 Nonrheumatic mitral (valve) insufficiency; D64.9 Anemia, unspecified; N18.1 Chronic kidney disease, stage 1; J45.909 Unspecified asthma, uncomplicated; F10.120 Alcohol abuse with intoxication, uncomplicated; W01.0XXA Fall on same level from slipping, tripping and stumbling without subsequent striking against object, initial encounter; Y93.89 Activity, other specified; Y92.89 Other specified places as the place of occurrence of the external cause; Y99.8 Other external cause status; F41.9 Anxiety disorder, unspecified; Z95.810 Presence of automatic (implantable) cardiac defibrillator; Z20.828 Contact with and (suspected) exposure to other viral communicable diseases
CPT/HCPCS: 36415; 70450-TC; 71045-TC-FY; 72125-TC; 72128-TC; 72131-TC; 76775-TC; 80053; 80307; 81003; 82550; 82962; 83735; 84100; 84484; 85025; 85027; 85610; 85730; 93005; 93010; 97116-GP; 97162-GP; 99285-25; C9803; U0003

== ENCOUNTER 2020-09-01 08:48 | Emergency (ER) | payer OTHER, BC ==
[2020-09-01 09:17] VITALS: BP 114/50; PULSE 83; TEMP 97.7; BMI 21.4
[2020-09-01] MEDS ORDERED: DEXAMETHASONE SOD PHOSPHATE 10 MG/1 ML VIAL ONE (09:50)
[2020-09-01] MEDS ORDERED: DEXAMETHASONE LIQUID 0.5 MG/5 ML PO ONE (09:50)
== END 2020-09-01 11:27 | disposition home or self-care (01) ==
LOC: JER 08:48
DX: U07.1 COVID-19 (principal)
CPT/HCPCS: 71046-TC-FY; 99284-25; C9803; U0003

== ENCOUNTER 2020-09-01 15:04 | Emergency (ER) | payer BC, OTHER ==
[2020-09-01 15:15] VITALS: TEMP 97.3; BMI 21.4
[2020-09-01] MEDS ORDERED: BAMLANIVIMAB 700 MG in SODIUM CHLORIDE 250 ML IVPB ONE (15:16)
[2020-09-01 16:00] LABS: HEMATOCRIT 34.5 % (35.4-49); HEMOGLOBIN 11.6 GM/dL (11.7-16.9); MCH 34.4 pg (25.7-33.7); MCHC 33.6 g/dl (32.0-35.9); MEAN CELL VOLUME 102.4 fl (80-96); MEAN PLT VOLUME 10.1 fl (7.5-11.1); PLATELET COUNT 105 K/MM3 (134-434); RBC 3.37 M/mm3 (4.00-5.60); RDW 23.5 % (11.9-15.9); WHITE BLOOD COUNT 3.4 K/mm3 (4.0-10.0)
[2020-09-01 16:27] LABS: POTASSIUM 4.9 mmol/L (3.5-5.1)
[2020-09-01 16:29] LABS: CALCIUM 8.3 mg/dL (8.5-10.1)
[2020-09-01 16:30] LABS: ALBUMIN 3.7 g/dl (3.4-5.0); BLOOD UREA NITROGEN 47.3 mg/dL (7-18)
[2020-09-01 16:33] LABS: CREATININE 3.1 mg/dL (0.55-1.3)
[2020-09-01 16:34] LABS: BILIRUBIN,TOTAL 0.9 mg/dL (0.2-1)
[2020-09-01 16:35] LABS: TOT PROT 6.3 g/dl (6.4-8.2)
[2020-09-01 19:46] VITALS: BP 124/65; PULSE 83
== END 2020-09-01 19:46 | disposition home or self-care (01) ==
LOC: JCOVINFU 15:04
DX: U07.1 COVID-19 (principal)
CPT/HCPCS: 36415; 71046-TC-FY; 80053; 85027; 85379; 99284-25; C9803; M0239; Q0239; U0003

== ENCOUNTER 2020-09-15 13:51 | Inpatient (IN) | payer BC, OTHER ==
[2020-09-15] MEDS ORDERED: DEXAMETHASONE SOD PHOSPHATE 10 MG/1 ML VIAL IVPUSH ONE (14:44)
[2020-09-15] MEDS ORDERED: SODIUM CHLORIDE 500 ML IV STA (14:49)
[2020-09-15] MEDS ORDERED: DEXAMETHASONE SOD PHOSPHATE 10 MG/1 ML VIAL ONE (16:42)
[2020-09-15 17:04] LABS: VENOUS BASE EXCESS -6.3 mmol/L (-2-2); VENOUS O2 SATURATION 56.7 % (70-80); VENOUS PCO2 33.5 mmHg (38-52); VENOUS PH 7.356 (7.310-7.410)
[2020-09-15 17:09] LABS: BASO % 0.2 % (0-2.0); HEMATOCRIT 32.8 % (35.4-49); HEMOGLOBIN 11.2 GM/dL (11.7-16.9); LYMPH % 9.9 % (8-40); MCH 33.7 pg (25.7-33.7); MCHC 34.2 g/dl (32.0-35.9); MEAN CELL VOLUME 98.4 fl (80-96); MEAN PLT VOLUME 9.8 fl (7.5-11.1); MONO % 9.2 % (3.8-10.2); NEUT % 80.7 % (42.8-82.8); PLATELET COUNT 129 K/MM3 (134-434); RBC 3.33 M/mm3 (4.00-5.60); RDW 22.6 % (11.9-15.9); WHITE BLOOD COUNT 2.3 K/mm3 (4.0-10.0)
[2020-09-15 17:16] LABS: INR 2.12 (0.83-1.09); PROTHROMBIN TIME (PATIENT) 25.1 SEC (9.7-13.0)
[2020-09-15 17:19] LABS: ACTIVATED PTT 33.2 SECONDS (25.2-36.5)
[2020-09-15 17:28] LABS: CHLORIDE 107 mmol/L (98-107); POTASSIUM 5.5 mmol/L (3.5-5.1); SODIUM 135 mmol/L (136-145)
[2020-09-15 17:31] LABS: ANION GAP 8 MMOL/L (8-16); CALCIUM 8.3 mg/dL (8.5-10.1); CO2 20 mmol/L (21-32); GLUCOSE,RANDOM 175 mg/dL (74-106)
[2020-09-15 17:33] LABS: BILIRUBIN,DIRECT 0.6 mg/dL (0.0-0.2)
[2020-09-15 17:34] LABS: CREATININE 3.6 mg/dL (0.55-1.3); SGOT/AST 13 U/L (15-37); SGPT/ALT 15 U/L (13-61)
[2020-09-15 17:35] LABS: BILIRUBIN,TOTAL 0.9 mg/dL (0.2-1)
[2020-09-15 17:36] LABS: ALK PHOS 65 U/L (45-117)
[2020-09-15 17:37] LABS: LDH 254 U/L (87-246)
[2020-09-15 17:42] LABS: BLOOD UREA NITROGEN 81.1 mg/dL (7-18)
[2020-09-15 18:33] LABS: OVALOCYTE 1+
[2020-09-15] MEDS ORDERED: ENOXAPARIN NA (PORCINE) 40 MG/0.4 ML DISP.SYRIN SQ SCH (19:45)
[2020-09-15] MEDS ORDERED: traMADol HCL 50 MG TABLET PO PRN (20:03)
[2020-09-15] MEDS ORDERED: guaiFENesin 600 MG TABLET.ER (FP) PO PRN (20:03)
[2020-09-15] MEDS ORDERED: PATIENT'S OWN MEDICATION (NON-FORMULARY) (Ipratropium Bromide [Atrovent Hfa] 12.9 GM Hfa.A IH PRN (20:03)
[2020-09-15] MEDS ORDERED: ENOXAPARIN NA (PORCINE) 40 MG/0.4 ML DISP.SYRIN SQ ONE (20:08)
[2020-09-15] MEDS ORDERED: oxyCODONE HCL 5 MG TABLET PO PRN (20:15)
[2020-09-15] MEDS ORDERED: ALBUTEROL SO4 HFA INHALER IH ONE (20:39)
[2020-09-15] MEDS: ALBUTEROL SO4 HFA INHALER IH PRN (20:50)
[2020-09-15] MEDS ORDERED: TERAZOSIN HCL 5 MG CAPSULE PO SCH (22:00)
[2020-09-15] MEDS ORDERED: ATORVASTATIN CA 10 MG TABLET (FP) PO SCH (22:00)
[2020-09-15] MEDS ORDERED: ZINC SULFATE 220 MG CAPSULE (FP) ONE (22:28)
[2020-09-15] MEDS ORDERED: APIXABAN 2.5 MG TABLET ONE (22:28)
[2020-09-15] MEDS ORDERED: CARVEDILOL 12.5 MG TABLET (FP) ONE (22:28)
[2020-09-15] MEDS ORDERED: ATORVASTATIN CA 10 MG TABLET (FP) ONE (22:28)
[2020-09-15] MEDS ORDERED: MONTELUKAST NA 10 MG TABLET ONE (22:29)
[2020-09-15] MEDS: APIXABAN 2.5 MG TABLET PO SCH (23:00)
[2020-09-15] MEDS: ZINC SULFATE 220 MG CAPSULE (FP) PO SCH (23:00)
[2020-09-15] MEDS: MONTELUKAST NA 10 MG TABLET PO SCH (23:00)
[2020-09-15] MEDS: CARVEDILOL 12.5 MG TABLET (FP) PO SCH (23:00)
[2020-09-15] MEDS: SODIUM CHLORIDE 1,000 ML IV SCH (23:42)
[2020-09-16] MEDS ORDERED: ALPRAZolam 0.25 MG TABLET ONE (00:06)
[2020-09-16] MEDS: ALPRAZolam 0.25 MG TABLET PO PRN ×2 (00:18→22:24)
[2020-09-16 02:22] VITALS: BMI 21.4
[2020-09-16 03:39] LABS: POTASSIUM 5.5 mmol/L (3.5-5.1)
[2020-09-16 03:40] LABS: CALCIUM 8.1 mg/dL (8.5-10.1)
[2020-09-16 03:41] LABS: BLOOD UREA NITROGEN 80.7 mg/dL (7-18)
[2020-09-16 03:44] LABS: CREATININE 3.4 mg/dL (0.55-1.3)
[2020-09-16] MEDS ORDERED: SODIUM POLYSTYRENE SULFONATE 15 GM/60 ML BOTTLE PO STA (03:51)
[2020-09-16] MEDS: ALBUTEROL SO4 HFA INHALER IH PRN (06:00)
[2020-09-16 07:53] LABS: HEMATOCRIT 32.8 % (35.4-49); HEMOGLOBIN 11.4 GM/dL (11.7-16.9); MCH 34.2 pg (25.7-33.7); MCHC 34.8 g/dl (32.0-35.9); MEAN CELL VOLUME 98.1 fl (80-96); MEAN PLT VOLUME 9.7 fl (7.5-11.1); PLATELET COUNT 136 K/MM3 (134-434); RBC 3.34 M/mm3 (4.00-5.60); RDW 22.2 % (11.9-15.9); WHITE BLOOD COUNT 3.3 K/mm3 (4.0-10.0)
[2020-09-16 08:11] LABS: POTASSIUM 5.1 mmol/L (3.5-5.1)
[2020-09-16 08:15] LABS: BLOOD UREA NITROGEN 73.2 mg/dL (7-18); MAGNESIUM 2.6 mg/dL (1.8-2.4)
[2020-09-16 08:19] LABS: CREATININE 3.2 mg/dL (0.55-1.3)
[2020-09-16 08:21] LABS: CALCIUM 8.1 mg/dL (8.5-10.1)
[2020-09-16] MEDS: ASPIRIN COATED 81 MG TABLET.EC PO SCH (09:14)
[2020-09-16] MEDS: RANOLAZINE E.R. 500 MG TABLET (FP) PO SCH (09:14)
[2020-09-16] MEDS: DEXAMETHASONE SOD PHOSPHATE 4 MG/1 ML VIAL IVPB SCH (09:14)
[2020-09-16] MEDS: APIXABAN 2.5 MG TABLET PO SCH ×2 (09:14→21:01)
[2020-09-16] MEDS: CARVEDILOL 12.5 MG TABLET (FP) PO SCH ×2 (09:15→21:01)
[2020-09-16] MEDS: ZINC SULFATE 220 MG CAPSULE (FP) PO SCH ×2 (09:15→21:01)
[2020-09-16] MEDS: ASCORBIC ACID 500 MG TABLET (FP) PO SCH (09:15)
[2020-09-16] MEDS: EPLERENONE 25 MG TABLET PO SCH (09:16)
[2020-09-16] MEDS: ISOSORBIDE MONONITRATE 20 MG TABLET PO SCH ×2 (09:42→17:12)
[2020-09-16] MEDS: SODIUM CHLORIDE 1,000 ML IV SCH (09:43)
[2020-09-16] MEDS ORDERED: LACTATED RINGERS SOLUTION 1,000 ML/1,000 ML INFUS.BAG IV SCH (11:00)
[2020-09-16 11:15] LABS: PHOSPHOROUS 4.8 mg/dL (2.5-4.9)
[2020-09-16] MEDS: INSULIN SLIDING SCALE (NOVOLOG) 1 VIAL SQ SCH ×3 (11:42→21:01)
[2020-09-16] MEDS: LACTATED RINGERS SOLUTION 1,000 ML/1,000 ML INFUS.BAG IV SCH (13:17)
[2020-09-16] MEDS: BUDESONIDE/FORMETEROL FUMARATE 160/4.5 mcg INHALER IH SCH ×2 (13:17→22:22)
[2020-09-16] MEDS: ALBUTEROL SO4 HFA INHALER IH SCH ×2 (14:37→22:21)
[2020-09-16] MEDS ORDERED: BENZOCAINE/MENTH/CETYLPYRD CL 1 EACH LOZENGE MM PRN (18:47)
[2020-09-16 19:12] LABS: URINE APPEARANCE CLEAR; URINE BILIRUBIN NEGATIVE (NEGATIVE); URINE COLOR YELLOW; URINE GLUCOSE (UA) NEGATIVE (NEGATIVE); URINE KETONE NEGATIVE (NEGATIVE); URINE LEUK ESTERASE NEGATIVE (NEGATIVE); URINE NITRITE NEGATIVE (NEGATIVE); URINE PROTEIN NEGATIVE (NEGATIVE)
[2020-09-16] MEDS ORDERED: INSULIN (NOVOLOG) ASPART 100 UNITS/ML 10ML VIAL ONE (20:45)
[2020-09-16] MEDS: MONTELUKAST NA 10 MG TABLET PO SCH (21:01)
[2020-09-17] MEDS: INSULIN SLIDING SCALE (NOVOLOG) 1 VIAL SQ SCH ×2 (06:10→11:34)
[2020-09-17] MEDS ORDERED: PT OWN MED DRAWER 7, Y5N ONE (07:10)
[2020-09-17 07:53] LABS: BASO % 0.1 % (0-2.0); LYMPH % 4.4 % (8-40); MCH 33.4 pg (25.7-33.7); MCHC 33.4 g/dl (32.0-35.9); MEAN CELL VOLUME 99.9 fl (80-96); MEAN PLT VOLUME 9.2 fl (7.5-11.1); MONO % 8.2 % (3.8-10.2); NEUT % 87.3 % (42.8-82.8); PLATELET COUNT 138 K/MM3 (134-434); RBC 3.31 M/mm3 (4.00-5.60); RDW 21.7 % (11.9-15.9); WHITE BLOOD COUNT 5.2 K/mm3 (4.0-10.0)
[2020-09-17 08:22] LABS: POTASSIUM 4.6 mmol/L (3.5-5.1)
[2020-09-17 08:24] LABS: BLOOD UREA NITROGEN 75.9 mg/dL (7-18); CALCIUM 7.9 mg/dL (8.5-10.1)
[2020-09-17 08:27] LABS: CREATININE 2.7 mg/dL (0.55-1.3)
[2020-09-17] MEDS: ALBUTEROL SO4 HFA INHALER IH SCH ×2 (09:00→13:32)
[2020-09-17] MEDS: DEXAMETHASONE SOD PHOSPHATE 4 MG/1 ML VIAL IVPB SCH (09:29)
[2020-09-17] MEDS: RANOLAZINE E.R. 500 MG TABLET (FP) PO SCH (09:30)
[2020-09-17] MEDS: ASPIRIN COATED 81 MG TABLET.EC PO SCH (09:31)
[2020-09-17] MEDS: ASCORBIC ACID 500 MG TABLET (FP) PO SCH (09:31)
[2020-09-17] MEDS: EPLERENONE 25 MG TABLET PO SCH (09:31)
[2020-09-17] MEDS: APIXABAN 2.5 MG TABLET PO SCH (09:31)
[2020-09-17] MEDS: ZINC SULFATE 220 MG CAPSULE (FP) PO SCH (09:31)
[2020-09-17] MEDS: CARVEDILOL 12.5 MG TABLET (FP) PO SCH (09:32)
[2020-09-17] MEDS: ISOSORBIDE MONONITRATE 20 MG TABLET PO SCH (09:32)
[2020-09-17] MEDS: BUDESONIDE/FORMETEROL FUMARATE 160/4.5 mcg INHALER IH SCH (09:34)
[2020-09-17] MEDS: LACTATED RINGERS SOLUTION 1,000 ML/1,000 ML INFUS.BAG IV SCH (13:33)
[2020-09-17 14:55] VITALS: BP 119/57; PULSE 70; TEMP 97.5
[2020-09-17] MEDS ORDERED: ACETAMINOPHEN 325 MG TABLET (FP) PO PRN (15:16)
== END 2020-09-17 18:22 | disposition home or self-care (01) | DRG 177 ==
LOC: JER 13:51 → JERBED 19:24 → J7W 09-16 00:41
PROVIDERS: ADMIT Hospitalist; ATTEND Internal Medicine
DX: U07.1 COVID-19 (principal); J12.82 Pneumonia due to coronavirus disease 2019; J96.01 Acute respiratory failure with hypoxia; N17.9 Acute kidney failure, unspecified; I25.10 Atherosclerotic heart disease of native coronary artery without angina pectoris; I48.91 Unspecified atrial fibrillation; I08.0 Rheumatic disorders of both mitral and aortic valves; E78.5 Hyperlipidemia, unspecified; E87.5 Hyperkalemia; I12.9 Hypertensive chronic kidney disease with stage 1 through stage 4 chronic kidney disease, or unspecified chronic kidney disease; N18.9 Chronic kidney disease, unspecified; M54.5 Low back pain; M85.80 Other specified disorders of bone density and structure, unspecified site; J30.9 Allergic rhinitis, unspecified; F41.8 Other specified anxiety disorders; Z95.5 Presence of coronary angioplasty implant and graft; Z95.810 Presence of automatic (implantable) cardiac defibrillator
CPT/HCPCS: 36415; 71045-TC-FY; 80048; 80053; 81003; 82248; 82550; 82728; 82803; 82962; 83036; 83605; 83615; 83735; 84100; 84484; 85025; 85027; 85379; 85610; 85730; 86140; 86769; 87040; 87086; 93005; 93010; 94761; 99285-25; C9803; J1100; U0003

== ENCOUNTER 2020-10-21 13:30 | Emergency (ER) | payer BC, OTHER ==
[2020-10-21 13:39] VITALS: BP 142/62; PULSE 76; TEMP 98.1; BMI 21.4
[2020-10-21] MEDS ORDERED: LIDOCAINE 5% TOPICAL PATCH TP ONE (15:02)
[2020-10-21] MEDS ORDERED: ACETAMINOPHEN 1000 MG/100 ML VIAL (NON FORMULARY) IVPB ONE (15:02)
[2020-10-21] MEDS ORDERED: ACETAMINOPHEN INJECTION 100 ML IVPB ONE (15:26)
[2020-10-21] MEDS ORDERED: LIDOCAINE 5% TOPICAL PATCH ONE (15:27)
[2020-10-21 15:43] LABS: BASO % 0.6 % (0-2.0); EOS % 0.3 % (0-4.5); HEMATOCRIT 33.9 % (35.4-49); HEMOGLOBIN 11.3 GM/dL (11.7-16.9); LYMPH % 8.7 % (8-40); MCH 34.3 pg (25.7-33.7); MCHC 33.4 g/dl (32.0-35.9); MEAN CELL VOLUME 102.8 fl (80-96); MEAN PLT VOLUME 7.7 fl (7.5-11.1); MONO % 10.1 % (3.8-10.2); NEUT % 80.3 % (42.8-82.8); PLATELET COUNT 146 K/MM3 (134-434); RDW 24.1 % (11.9-15.9); WHITE BLOOD COUNT 5.9 K/mm3 (4.0-10.0)
[2020-10-21 15:54] LABS: INR 1.5 (0.83-1.09); PROTHROMBIN TIME (PATIENT) 18.2 SEC (9.7-13.0)
[2020-10-21 15:57] LABS: ACTIVATED PTT 34.3 SECONDS (25.2-36.5)
[2020-10-21 16:01] LABS: ANISOCYTOSIS 1+; MACROCYTOSIS 1+
[2020-10-21 16:07] LABS: POTASSIUM 4.3 mmol/L (3.5-5.1)
[2020-10-21 16:09] LABS: CALCIUM 8.7 mg/dL (8.5-10.1)
[2020-10-21 16:10] LABS: ALBUMIN 3.3 g/dl (3.4-5.0)
[2020-10-21 16:13] LABS: CREATININE 2.3 mg/dL (0.55-1.3)
[2020-10-21 16:14] LABS: BILIRUBIN,TOTAL 0.8 mg/dL (0.2-1)
[2020-10-21] MEDS ORDERED: LACTATED RINGERS SOLUTION 1000 ML INFUS.BAG IV ONE (16:14)
[2020-10-21 17:04] LABS: EPI CELLS 4 /uL (0-25.1); HYALINE CASTS 1 /uL (0-3.1); URINE APPEARANCE CLEAR; URINE BACTERIA 72 /uL (0-1359); URINE BILIRUBIN NEGATIVE (NEGATIVE); URINE COLOR YELLOW; URINE GLUCOSE (UA) NEGATIVE (NEGATIVE); URINE KETONE NEGATIVE (NEGATIVE); URINE LEUK ESTERASE TRACE (NEGATIVE); URINE NITRITE NEGATIVE (NEGATIVE); URINE PROTEIN NEGATIVE (NEGATIVE); URINE RBC 4 /uL (0-23.9); URINE WBC 10 /uL (0-25.8)
[2020-10-21] MEDS ORDERED: CEFTRIAXONE 1 GM in DEXTROSE 5%-WATER - 100 ML IVPB ONE (17:08)
[2020-10-21] MEDS ORDERED: CEPHALEXIN MONOHYDRATE 500 MG CAPSULE (UD) PO ONE (17:21)
[2020-10-21] MEDS ORDERED: CEFTRIAXONE 1 GM/50 ML BAG ONE (17:28)
[2020-10-21] MEDS ORDERED: CEPHALEXIN MONOHYDRATE 500 MG CAPSULE (UD) ONE (17:28)
[2020-10-21] MEDS ORDERED: LIDOCAINE PATCH REMOVAL MC SCH (22:00)
== END 2020-10-21 18:50 | disposition home or self-care (01) ==
LOC: JER 13:30
PROC: 3E0333Z Introduction of Anti-inflammatory into Peripheral Vein, Percutaneous Approach (ICD-10-PCS; principal; 2020-10-21)
PROC: 3E03329 Introduction of Other Anti-infective into Peripheral Vein, Percutaneous Approach (ICD-10-PCS; 2020-10-21)
DX: N30.00 Acute cystitis without hematuria (principal); M54.9 Dorsalgia, unspecified; S32.019A Unspecified fracture of first lumbar vertebra, initial encounter for closed fracture
CPT/HCPCS: 36415; 71046-TC-FY; 74176-TC; 80053; 81003; 85025; 85610; 85730; 86850; 86900; 86901; 87086; 99285-25; J0131

== ENCOUNTER 2020-11-02 04:39 | Day surgery (SDC) | payer BC ==
[2020-10-29 11:24] VITALS: BMI 21.4
[~2020-11-02 04:39] MED LIST: BUPIVACAINE HCL/PF 0.25% (2.5MG/ML) 10 ML VIAL IJ ONE; LIDOCAINE HCL 1% PRESERVATIVE FREE - 30ML VIAL IJ ONE; methylPREDNISolone ACET (DEPO) 80 MG/1 ML VIAL IJ ONE
[2020-11-02 07:07] LABS: INR 1.24 (0.83-1.09); PROTHROMBIN TIME (PATIENT) 14.9 SEC (9.7-13.0)
[2020-11-02 07:09] LABS: ACTIVATED PTT 25.6 SECONDS (25.2-36.5)
[2020-11-02] MEDS ORDERED: PROPOFOL 20 ML ONE (07:23)
[2020-11-02] MEDS ORDERED: LIDOCAINE HCL/PF 2% SDV 5ML VIAL ONE (07:23)
[2020-11-02] MEDS ORDERED: LIDOCAINE HCL 1% PRESERVATIVE FREE - 30ML VIAL IJ ONE (08:01)
[2020-11-02] MEDS ORDERED: methylPREDNISolone ACET (DEPO) 80 MG/1 ML VIAL IJ ONE (08:02)
[2020-11-02] MEDS ORDERED: BUPIVACAINE HCL/PF 0.25% (2.5MG/ML) 10 ML VIAL IJ ONE (08:02)
[2020-11-02 09:39] VITALS: PULSE 70
[2020-11-02 11:01] VITALS: BP 130/60; TEMP 97.5
== END 2020-11-02 09:50 | disposition home or self-care (01) ==
LOC: JASU-SURG 04:39
PROVIDERS: ATTEND Neurological Surgery
PROC: 3E0R33Z Introduction of Anti-inflammatory into Spinal Canal, Percutaneous Approach (ICD-10-PCS; 2020-11-02)
PROC: 3E0R3BZ Introduction of Anesthetic Agent into Spinal Canal, Percutaneous Approach (ICD-10-PCS; principal; 2020-11-02 07:30)
DX: M48.56XA Collapsed vertebra, not elsewhere classified, lumbar region, initial encounter for fracture (principal); M96.1 Postlaminectomy syndrome, not elsewhere classified
CPT/HCPCS: 36415; 76000-TC-FY; 85610; 85730

== ENCOUNTER 2020-12-05 15:17 | Inpatient (IN) | payer BC, OTHER ==
[2020-12-05] MEDS ORDERED: SODIUM CHLORIDE 1,000 ML IV STA (16:04)
[2020-12-05] MEDS ORDERED: SODIUM CHLORIDE 250 ML IV STA ×3 (16:04→18:43)
[2020-12-05] MEDS ORDERED: ACETAMINOPHEN 1000 MG/100 ML VIAL (NON FORMULARY) IVPB ONE (16:21)
[2020-12-05 16:22] LABS: BASO % 0.3 % (0-2.0); EOS % 0.2 % (0-4.5); HEMATOCRIT 33.1 % (35.4-49); HEMOGLOBIN 10.9 GM/dL (11.7-16.9); LYMPH % 3.6 % (8-40); MEAN CELL VOLUME 103.1 fl (80-96); MEAN PLT VOLUME 8.6 fl (7.5-11.1); MONO % 8.7 % (3.8-10.2); NEUT % 87.2 % (42.8-82.8); PLATELET COUNT 149 K/MM3 (134-434); RBC 3.21 M/mm3 (4.00-5.60); RDW 22.7 % (11.9-15.9); WHITE BLOOD COUNT 6.7 K/mm3 (4.0-10.0)
[2020-12-05 16:24] LABS: VENOUS BASE EXCESS -6.2 mmol/L (-2-2); VENOUS PH 7.371 (7.310-7.410)
[2020-12-05 16:25] LABS: URINE APPEARANCE CLEAR; URINE BILIRUBIN NEGATIVE (NEGATIVE); URINE COLOR YELLOW; URINE GLUCOSE (UA) NEGATIVE (NEGATIVE); URINE KETONE NEGATIVE (NEGATIVE); URINE LEUK ESTERASE NEGATIVE (NEGATIVE); URINE NITRITE NEGATIVE (NEGATIVE); URINE PROTEIN NEGATIVE (NEGATIVE)
[2020-12-05] MEDS ORDERED: ACETAMINOPHEN INJECTION 100 ML IVPB ONE (16:28)
[2020-12-05 16:31] LABS: INR 2.02 (0.83-1.09); PROTHROMBIN TIME (PATIENT) 23.9 SEC (9.7-13.0)
[2020-12-05 16:33] LABS: ACTIVATED PTT 33.7 SECONDS (25.2-36.5)
[2020-12-05] MEDS ORDERED: CEFTRIAXONE 1 GM in DEXTROSE 5%-WATER - 100 ML IVPB ONE (16:49)
[2020-12-05] MEDS ORDERED: AZITHROMYCIN IVPB 500 MG in DEXTROSE 5%-WATER - 250 ML IVPB ONE (16:49)
[2020-12-05] MEDS ORDERED: SODIUM ZIRCONIUM CYCLOSILICATE (LOKELMA) 5 GM PACKET PO STA (16:51)
[2020-12-05 16:52] LABS: CALCIUM 8.4 mg/dL (8.5-10.1)
[2020-12-05 16:53] LABS: ALBUMIN 2.8 g/dl (3.4-5.0)
[2020-12-05 16:56] LABS: CREATININE 3.9 mg/dL (0.55-1.3)
[2020-12-05 16:57] LABS: BILIRUBIN,TOTAL 1.2 mg/dL (0.2-1); TOT PROT 5.9 g/dl (6.4-8.2)
[2020-12-05 16:59] LABS: ANISOCYTOSIS 2+; MACROCYTOSIS 0; OVALOCYTE 1+; PLATELET ESTIMATE DECREASED; TEAR DROP CELLS 1+
[2020-12-05 17:01] LABS: N-TERMINAL BNP 13565.9 pg/ml (5-125)
[2020-12-05] MEDS ORDERED: AZITHROMYCIN IVPB 500 MG/250 ML BAG IVPB ONE (17:05)
[2020-12-05] MEDS ORDERED: CEFTRIAXONE 1 GM/50 ML BAG ONE (17:05)
[2020-12-05] MEDS ORDERED: SODIUM ZIRCONIUM CYCLOSILICATE (LOKELMA) 5 GM PACKET ONE (17:05)
[2020-12-05] MEDS ORDERED: CALCIUM GLUCONATE 10% - 1,000 MG/10 ML VIAL IVPUSH ONE (17:52)
[2020-12-05] MEDS ORDERED: CALCIUM GLUCONATE 10% - 1,000 MG/10 ML VIAL ONE (18:16)
[2020-12-05] MEDS ORDERED: DEXTROSE 50%-WATER - 25 GM/50 ML VIAL IVPUSH ONE (18:28)
[2020-12-05] MEDS ORDERED: INSULIN REGULAR HUMAN 100 UNITS/ML *VIAL IVPUSH ONE (18:28)
[2020-12-05] MEDS ORDERED: ALBUTEROL SO4 0.083% IH SOL 2.5 MG/3 ML VIAL.NEB. NEB ONE ×2 (18:31→19:09)
[2020-12-05] MEDS ORDERED: DEXTROSE 50%-WATER 25 GM/50 ML DISP.SYRIN ONE (18:58)
[2020-12-05] MEDS ORDERED: MIDAZOLAM HCL 2 MG/2 ML SINGLE DOSE VIAL IVPUSH ONE (20:58)
[2020-12-05] MEDS ORDERED: MIDAZOLAM HCL 2 MG/2 ML SINGLE DOSE VIAL ONE (21:03)
[2020-12-05] MEDS ORDERED: SODIUM CHLORIDE 500 ML IV STA (21:05)
[2020-12-05] MEDS: NOREPINEPHRINE BITARTRATE 8,000 MCG/500 ML BAG IVPB SCH ×2 (21:45→22:01)
[2020-12-05] MEDS ORDERED: HEPARIN NA (PORCINE) 5,000 UNITS/ML 1ML VIAL SQ SCH (22:00)
[2020-12-05 22:24] LABS: CALCIUM 7.3 mg/dL (8.5-10.1)
[2020-12-05 22:26] LABS: BLOOD UREA NITROGEN 75.8 mg/dL (7-18)
[2020-12-05 22:29] LABS: CREATININE 3.5 mg/dL (0.55-1.3)
[2020-12-05 22:30] LABS: BILIRUBIN,TOTAL 0.8 mg/dL (0.2-1); TOT PROT 4.8 g/dl (6.4-8.2)
[2020-12-05 22:34] LABS: N-TERMINAL BNP 17085.9 pg/ml (5-125)
[2020-12-05 22:41] LABS: ALBUMIN 2.2 g/dl (3.4-5.0)
[2020-12-06 06:19] LABS: BASO % 0.5 % (0-2.0); EOS % 0.7 % (0-4.5); HEMATOCRIT 26.9 % (35.4-49); LYMPH % 4.3 % (8-40); MCH 34.3 pg (25.7-33.7); MCHC 33.6 g/dl (32.0-35.9); MEAN CELL VOLUME 102.3 fl (80-96); MEAN PLT VOLUME 8.1 fl (7.5-11.1); NEUT % 86.5 % (42.8-82.8); PLATELET COUNT 130 K/MM3 (134-434); RBC 2.63 M/mm3 (4.00-5.60); RDW 22.6 % (11.9-15.9); WHITE BLOOD COUNT 4.9 K/mm3 (4.0-10.0)
[2020-12-06 06:25] LABS: MAGNESIUM 2.1 mg/dL (1.8-2.4)
[2020-12-06 06:29] LABS: PHOSPHOROUS 4.2 mg/dL (2.5-4.9)
[2020-12-06] MEDS: ASPIRIN COATED 81 MG TABLET.EC PO SCH (10:00)
[2020-12-06] MEDS: APIXABAN 2.5 MG TABLET PO SCH ×2 (10:01→21:26)
[2020-12-06] MEDS ORDERED: PT OWN MED DRAWER 7, Y5N ONE (10:24)
[2020-12-06] MEDS: BUDESONIDE/FORMETEROL FUMARATE 160/4.5 mcg INHALER IH SCH ×2 (10:39→21:27)
[2020-12-06] MEDS: AZITHROMYCIN IVPB 500 MG/250 ML BAG IVPB SCH (16:20)
[2020-12-06] MEDS: ALBUTEROL SO4 HFA INHALER IH PRN (16:30)
[2020-12-06] MEDS ORDERED: CEFTRIAXONE 1 GM in DEXTROSE 5%-WATER - 50 ML IVPB ONE (17:00)
[2020-12-06] MEDS ORDERED: cefTRIAXone SODIUM 1 GM VIAL ONE (17:12)
[2020-12-06] MEDS ORDERED: DEXTROSE 5%-WATER - 50 ML IVPB ONE (17:13)
[2020-12-06] MEDS: POLYETHYLENE GLYCOL 3350 119 GM BTL PO SCH ×2 (17:32→21:27)
[2020-12-06] MEDS: ALPRAZolam 0.25 MG TABLET PO PRN (21:26)
[2020-12-06] MEDS: ATORVASTATIN CA 10 MG TABLET (FP) PO SCH (21:26)
[2020-12-06] MEDS: MONTELUKAST NA 10 MG TABLET PO SCH (21:26)
[2020-12-07] MEDS: AZITHROMYCIN IVPB 500 MG/250 ML BAG IVPB SCH ×2 (09:39→18:17)
[2020-12-07] MEDS: BUDESONIDE/FORMETEROL FUMARATE 160/4.5 mcg INHALER IH SCH ×2 (09:39→22:08)
[2020-12-07] MEDS: POLYETHYLENE GLYCOL 3350 119 GM BTL PO SCH ×2 (09:39→22:07)
[2020-12-07] MEDS: ASPIRIN COATED 81 MG TABLET.EC PO SCH (09:39)
[2020-12-07] MEDS: ALBUTEROL SO4 HFA INHALER IH PRN (09:39)
[2020-12-07] MEDS: APIXABAN 2.5 MG TABLET PO SCH ×2 (09:39→21:47)
[2020-12-07] MEDS: guaiFENesin/D-METHORPHAN HB 10 ML UNIT-DOSE CUPS PO SCH ×4 (10:20→23:30)
[2020-12-07 10:40] LABS: HEMATOCRIT 28.6 % (35.4-49); HEMOGLOBIN 9.6 GM/dL (11.7-16.9); MCH 34.2 pg (25.7-33.7); MCHC 33.5 g/dl (32.0-35.9); MEAN PLT VOLUME 8.5 fl (7.5-11.1); PLATELET COUNT 155 K/MM3 (134-434); RDW 22.4 % (11.9-15.9); WHITE BLOOD COUNT 6.7 K/mm3 (4.0-10.0)
[2020-12-07] MEDS: DOCUSATE SODIUM 100 MG CAPSULE (FP) PO SCH ×2 (10:50→21:47)
[2020-12-07 11:09] LABS: CALCIUM 7.4 mg/dL (8.5-10.1)
[2020-12-07 11:10] LABS: ALBUMIN 2.2 g/dl (3.4-5.0); MAGNESIUM 2.1 mg/dL (1.8-2.4)
[2020-12-07 11:13] LABS: CREATININE 2.4 mg/dL (0.55-1.3); PHOSPHOROUS 3.2 mg/dL (2.5-4.9)
[2020-12-07 11:14] LABS: BILIRUBIN,TOTAL 0.7 mg/dL (0.2-1); TOT PROT 4.9 g/dl (6.4-8.2)
[2020-12-07 11:20] LABS: BLOOD UREA NITROGEN 50.7 mg/dL (7-18)
[2020-12-07] MEDS ORDERED: DEXTROSE 5%-WATER 100 ML IVPB ONE (14:03)
[2020-12-07] MEDS: CEFTRIAXONE 2 GM in DEXTROSE 5%-WATER 2 GM/100 ML BAG IVPB SCH (14:11)
[2020-12-07] MEDS: LACTATED RINGERS SOLUTION 1,000 ML/1,000 ML INFUS.BAG IV SCH (14:11)
[2020-12-07] MEDS ORDERED: ALBUTEROL SO4 2.5/IPRATROPIUM 0.5 INH SOL 3 ML VIAL.NEB. NEB ONE (16:12)
[2020-12-07] MEDS ORDERED: AZITHROMYCIN IVPB 500 MG in DEXTROSE 5%-WATER - 250 ML IVPB SCH (18:00)
[2020-12-07] MEDS ORDERED: LORazepam 2 MG/ML SDV VIAL ONE (18:53)
[2020-12-07] MEDS: MONTELUKAST NA 10 MG TABLET PO SCH (21:47)
[2020-12-07] MEDS: ALPRAZolam 0.25 MG TABLET PO PRN (21:47)
[2020-12-07] MEDS: NOREPINEPHRINE BITARTRATE 8,000 MCG/500 ML BAG IVPB SCH (22:06)
[2020-12-07] MEDS ORDERED: ACETAMINOPHEN 1000 MG/100 ML VIAL (NON FORMULARY) IVPB ONE (22:43)
[2020-12-08] MEDS: LACTATED RINGERS SOLUTION 1,000 ML/1,000 ML INFUS.BAG IV SCH (03:04)
[2020-12-08] MEDS: guaiFENesin/D-METHORPHAN HB 10 ML UNIT-DOSE CUPS PO SCH ×4 (05:19→17:21)
[2020-12-08 06:50] LABS: BASO % 0.6 % (0-2.0); EOS % 3.2 % (0-4.5); HEMATOCRIT 27.5 % (35.4-49); HEMOGLOBIN 9.2 GM/dL (11.7-16.9); LYMPH % 13.2 % (8-40); MCHC 33.5 g/dl (32.0-35.9); MEAN CELL VOLUME 101.5 fl (80-96); MEAN PLT VOLUME 9.4 fl (7.5-11.1); MONO % 13.4 % (3.8-10.2); NEUT % 69.6 % (42.8-82.8); PLATELET COUNT 168 K/MM3 (134-434); RBC 2.71 M/mm3 (4.00-5.60); RDW 22.5 % (11.9-15.9); WHITE BLOOD COUNT 5.8 K/mm3 (4.0-10.0)
[2020-12-08 07:16] LABS: CALCIUM 7.4 mg/dL (8.5-10.1)
[2020-12-08 07:17] LABS: BLOOD UREA NITROGEN 45.8 mg/dL (7-18); MAGNESIUM 2.5 mg/dL (1.8-2.4)
[2020-12-08 07:20] LABS: BILIRUBIN,TOTAL 0.5 mg/dL (0.2-1); CREATININE 2.1 mg/dL (0.55-1.3); PHOSPHOROUS 3.2 mg/dL (2.5-4.9)
[2020-12-08 07:21] LABS: TOT PROT 4.6 g/dl (6.4-8.2)
[2020-12-08] MEDS: AMINO ACIDS/PROTEIN HYDROLYS 30 ML LIQUID.PKT PO SCH ×2 (10:23→16:56)
[2020-12-08] MEDS: APIXABAN 2.5 MG TABLET PO SCH ×2 (10:23→21:31)
[2020-12-08] MEDS: DOCUSATE SODIUM 100 MG CAPSULE (FP) PO SCH ×2 (10:23→21:29)
[2020-12-08] MEDS: POLYETHYLENE GLYCOL 3350 119 GM BTL PO SCH ×2 (10:23→21:30)
[2020-12-08] MEDS: ASPIRIN COATED 81 MG TABLET.EC PO SCH (10:23)
[2020-12-08] MEDS: BUDESONIDE/FORMETEROL FUMARATE 160/4.5 mcg INHALER IH SCH ×2 (10:24→21:31)
[2020-12-08] MEDS ORDERED: DEXTROSE 5%-WATER 100 ML IVPB ONE (10:36)
[2020-12-08] MEDS: CEFTRIAXONE 2 GM in DEXTROSE 5%-WATER 2 GM/100 ML BAG IVPB SCH (10:40)
[2020-12-08] MEDS: AZITHROMYCIN IVPB 500 MG/250 ML BAG IVPB SCH (11:17)
[2020-12-08] MEDS: PANTOPRAZOLE SODIUM 40 MG VIAL IVPUSH SCH (16:56)
[2020-12-08] MEDS ORDERED: ALBUTEROL SO4 2.5/IPRATROPIUM 0.5 INH SOL 3 ML VIAL.NEB. NEB PRN (17:20)
[2020-12-08] MEDS ORDERED: BENZOCAINE/MENTH/CETYLPYRD CL 1 EACH LOZENGE MM PRN (17:55)
[2020-12-08] MEDS ORDERED: guaiFENesin/CODEINE 10 ML UNIT-DOSE CUPS PO SCH (18:00)
[2020-12-08] MEDS: ATORVASTATIN CA 10 MG TABLET (FP) PO SCH (21:31)
[2020-12-08] MEDS: MONTELUKAST NA 10 MG TABLET PO SCH (21:31)
[2020-12-08] MEDS: guaiFENesin/CODEINE 10 ML UNIT-DOSE CUPS PO SCH (21:31)
[2020-12-08] MEDS: ALPRAZolam 0.25 MG TABLET PO PRN (23:17)
[2020-12-09 06:49] LABS: BASO % 0.5 % (0-2.0); EOS % 2.2 % (0-4.5); HEMATOCRIT 26.9 % (35.4-49); HEMOGLOBIN 9.1 GM/dL (11.7-16.9); LYMPH % 12.1 % (8-40); MCH 34.1 pg (25.7-33.7); MCHC 33.8 g/dl (32.0-35.9); MEAN CELL VOLUME 100.9 fl (80-96); MEAN PLT VOLUME 9.1 fl (7.5-11.1); MONO % 13.2 % (3.8-10.2); PLATELET COUNT 193 K/MM3 (134-434); RBC 2.67 M/mm3 (4.00-5.60); RDW 22.1 % (11.9-15.9); WHITE BLOOD COUNT 6.1 K/mm3 (4.0-10.0)
[2020-12-09 06:54] LABS: CALCIUM 7.4 mg/dL (8.5-10.1)
[2020-12-09 06:55] LABS: ALBUMIN 2.1 g/dl (3.4-5.0); BLOOD UREA NITROGEN 34.8 mg/dL (7-18); MAGNESIUM 2.1 mg/dL (1.8-2.4)
[2020-12-09 06:58] LABS: PHOSPHOROUS 3.1 mg/dL (2.5-4.9)
[2020-12-09 06:59] LABS: BILIRUBIN,TOTAL 0.4 mg/dL (0.2-1); TOT PROT 4.6 g/dl (6.4-8.2)
[2020-12-09] MEDS: guaiFENesin/CODEINE 10 ML UNIT-DOSE CUPS PO SCH ×3 (07:04→21:04)
[2020-12-09 07:14] LABS: CREATININE 1.9 mg/dL (0.55-1.3)
[2020-12-09] MEDS ORDERED: DEXTROSE 5%-WATER 100 ML IVPB ONE (08:58)
[2020-12-09 09:01] LABS: ANISOCYTOSIS 1+; MACROCYTOSIS 1+; PLATELET ESTIMATE NORMAL; TEAR DROP CELLS 1+
[2020-12-09] MEDS: CEFTRIAXONE 2 GM in DEXTROSE 5%-WATER 2 GM/100 ML BAG IVPB SCH (09:29)
[2020-12-09] MEDS: BUDESONIDE/FORMETEROL FUMARATE 160/4.5 mcg INHALER IH SCH ×2 (09:30→21:04)
[2020-12-09] MEDS: ASPIRIN COATED 81 MG TABLET.EC PO SCH (09:30)
[2020-12-09] MEDS: APIXABAN 2.5 MG TABLET PO SCH ×2 (09:30→21:04)
[2020-12-09] MEDS: DOCUSATE SODIUM 100 MG CAPSULE (FP) PO SCH ×2 (09:30→21:04)
[2020-12-09] MEDS: POLYETHYLENE GLYCOL 3350 119 GM BTL PO SCH ×2 (09:30→21:04)
[2020-12-09] MEDS: AMINO ACIDS/PROTEIN HYDROLYS 30 ML LIQUID.PKT PO SCH ×2 (09:30→18:20)
[2020-12-09] MEDS: PANTOPRAZOLE SODIUM 40 MG VIAL IVPUSH SCH (09:30)
[2020-12-09] MEDS ORDERED: ALBUTEROL SO4 0.083% IH SOL 2.5 MG/3 ML VIAL.NEB. NEB ONE (10:10)
[2020-12-09] MEDS ORDERED: DEXTROSE 50%-WATER - 25 GM/50 ML VIAL IVPUSH ONE (10:11)
[2020-12-09] MEDS: AZITHROMYCIN IVPB 500 MG/250 ML BAG IVPB SCH (10:15)
[2020-12-09] MEDS: methylPREDNISolone NA SUCC 40 MG/1 ML VIAL IVPUSH SCH (11:45)
[2020-12-09] MEDS: ALBUTEROL SO4 2.5/IPRATROPIUM 0.5 INH SOL 3 ML VIAL.NEB. NEB SCH ×3 (12:08→20:54)
[2020-12-09 16:08] LABS: MYCOPLASMA PNEUMONIAE,IG G AB <100 U/mL (0-99); MYCOPLASMA PNEUMONIAE,IGM AB <770 U/mL (0-769)
[2020-12-09] MEDS ORDERED: morphine SULFATE 4 MG/ML VIAL ONE (17:27)
[2020-12-09] MEDS ORDERED: morphine SULFATE 4 MG/ML VIAL IVPUSH ONE (17:28)
[2020-12-09] MEDS ORDERED: METOPROLOL TARTRATE 5 MG/5 ML VIAL IVPUSH ONE (17:48)
[2020-12-09] MEDS ORDERED: CARVEDILOL 6.25 MG TABLET (FP) PO ONE (18:31)
[2020-12-09] MEDS ORDERED: ALPRAZolam 0.25 MG TABLET PO ONE (20:28)
[2020-12-09] MEDS ORDERED: PT OWN MED DRAWER 7, Y5N ONE (20:55)
[2020-12-09] MEDS: MONTELUKAST NA 10 MG TABLET PO SCH (21:04)
[2020-12-09] MEDS ORDERED: METOCLOPRAMIDE HCL INJECTION 10 MG/2 ML VIAL IVPUSH ONE (21:39)
[2020-12-09] MEDS ORDERED: FAMOTIDINE 20 MG/50 ML IVPB 20 MG/50 ML MG IVPB ONE (21:41)
[2020-12-09] MEDS ORDERED: LACTATED RINGERS SOLUTION 1000 ML INFUS.BAG IV ONE (21:41)
[2020-12-09] MEDS ORDERED: MAG HYDROX/AL HYDROX/SIMETH -MYLANTA- ORAL SUSPENSION PO ONE (21:42)
[2020-12-10] MEDS: methylPREDNISolone NA SUCC 40 MG/1 ML VIAL IVPUSH SCH ×4 (00:04→18:15)
[2020-12-10 06:11] LABS: BASO % 0.3 % (0-2.0); HEMATOCRIT 28.1 % (35.4-49); HEMOGLOBIN 9.4 GM/dL (11.7-16.9); LYMPH % 6.9 % (8-40); MCH 33.9 pg (25.7-33.7); MCHC 33.3 g/dl (32.0-35.9); MEAN CELL VOLUME 101.6 fl (80-96); MEAN PLT VOLUME 8.6 fl (7.5-11.1); NEUT % 88.8 % (42.8-82.8); PLATELET COUNT 207 K/MM3 (134-434); RBC 2.77 M/mm3 (4.00-5.60); RDW 21.9 % (11.9-15.9); WHITE BLOOD COUNT 5.2 K/mm3 (4.0-10.0)
[2020-12-10] MEDS: guaiFENesin/CODEINE 10 ML UNIT-DOSE CUPS PO SCH ×3 (06:22→22:29)
[2020-12-10 06:46] LABS: ALBUMIN 2.2 g/dl (3.4-5.0)
[2020-12-10 06:47] LABS: BLOOD UREA NITROGEN 38.6 mg/dL (7-18); CALCIUM 7.2 mg/dL (8.5-10.1)
[2020-12-10 06:49] LABS: BILIRUBIN,TOTAL 0.4 mg/dL (0.2-1); MAGNESIUM 2.3 mg/dL (1.8-2.4); TOT PROT 4.9 g/dl (6.4-8.2)
[2020-12-10 06:50] LABS: CREATININE 2.1 mg/dL (0.55-1.3); PHOSPHOROUS 4.3 mg/dL (2.5-4.9)
[2020-12-10] MEDS: ALBUTEROL SO4 2.5/IPRATROPIUM 0.5 INH SOL 3 ML VIAL.NEB. NEB SCH ×4 (08:08→20:15)
[2020-12-10] MEDS ORDERED: FUROSEMIDE 40 MG/4 ML INJECTABLE VIAL IVPUSH ONE (08:39)
[2020-12-10] MEDS: ALBUTEROL SO4 HFA INHALER IH PRN (09:00)
[2020-12-10] MEDS ORDERED: DEXTROSE 5%-WATER 100 ML IVPB ONE (09:39)
[2020-12-10] MEDS: APIXABAN 2.5 MG TABLET PO SCH ×2 (09:45→22:29)
[2020-12-10] MEDS: ASPIRIN COATED 81 MG TABLET.EC PO SCH (09:45)
[2020-12-10] MEDS: CEFTRIAXONE 2 GM in DEXTROSE 5%-WATER 2 GM/100 ML BAG IVPB SCH (09:45)
[2020-12-10] MEDS: PANTOPRAZOLE SODIUM 40 MG VIAL IVPUSH SCH (09:45)
[2020-12-10] MEDS: CARVEDILOL 6.25 MG TABLET (FP) PO SCH ×2 (09:45→22:32)
[2020-12-10] MEDS ORDERED: CARVEDILOL 25 MG TABLET (FP) PO SCH (10:00)
[2020-12-10] MEDS: AMINO ACIDS/PROTEIN HYDROLYS 30 ML LIQUID.PKT PO SCH ×2 (10:34→17:55)
[2020-12-10] MEDS: DOCUSATE SODIUM 100 MG CAPSULE (FP) PO SCH ×2 (10:35→22:29)
[2020-12-10] MEDS: POLYETHYLENE GLYCOL 3350 119 GM BTL PO SCH ×2 (10:37→22:30)
[2020-12-10] MEDS: BUDESONIDE/FORMETEROL FUMARATE 160/4.5 mcg INHALER IH SCH ×2 (10:38→22:31)
[2020-12-10] MEDS: AZITHROMYCIN IVPB 500 MG/250 ML BAG IVPB SCH (10:42)
[2020-12-10] MEDS ORDERED: ACETAMINOPHEN 1000 MG/100 ML VIAL (NON FORMULARY) IVPB ONE (18:48)
[2020-12-10] MEDS ORDERED: ACETAMINOPHEN INJECTION 100 ML IVPB ONE (18:50)
[2020-12-10] MEDS ORDERED: morphine SULFATE 4 MG/ML VIAL IVPUSH ONE (19:11)
[2020-12-10] MEDS ORDERED: FAMOTIDINE 20 MG TABLET PO ONE (19:27)
[2020-12-10] MEDS ORDERED: LIDOCAINE VISCOUS 2% ORAL/TOP 20 ML UNIT-DOSE CUP MM ONE (19:27)
[2020-12-10] MEDS ORDERED: PT OWN MED DRAWER 7, Y5N ONE (20:13)
[2020-12-10] MEDS: valACYclovir HCL 500 MG TABLET (FP) PO SCH (22:29)
[2020-12-10] MEDS: MONTELUKAST NA 10 MG TABLET PO SCH (22:29)
[2020-12-10] MEDS: ATORVASTATIN CA 10 MG TABLET (FP) PO SCH (22:29)
[2020-12-10] MEDS: RANOLAZINE E.R. 500 MG TABLET (FP) PO SCH (22:32)
[2020-12-11] MEDS ORDERED: ACETAMINOPHEN 1000 MG/100 ML VIAL (NON FORMULARY) IVPB ONE (01:36)
[2020-12-11] MEDS: MAG HYDROX/AL HYDROX/SIMETH -MYLANTA- ORAL SUSPENSION PO PRN ×2 (01:50→11:39)
[2020-12-11] MEDS: methylPREDNISolone NA SUCC 40 MG/1 ML VIAL IVPUSH SCH (02:44)
[2020-12-11] MEDS: guaiFENesin/CODEINE 10 ML UNIT-DOSE CUPS PO SCH ×3 (06:17→21:22)
[2020-12-11 07:10] LABS: HEMATOCRIT 26.5 % (35.4-49); HEMOGLOBIN 8.9 GM/dL (11.7-16.9); MCH 33.9 pg (25.7-33.7); MCHC 33.3 g/dl (32.0-35.9); MEAN CELL VOLUME 101.5 fl (80-96); MEAN PLT VOLUME 9.3 fl (7.5-11.1); PLATELET COUNT 219 K/MM3 (134-434); RBC 2.61 M/mm3 (4.00-5.60); RDW 21.8 % (11.9-15.9); WHITE BLOOD COUNT 4.6 K/mm3 (4.0-10.0)
[2020-12-11 07:13] LABS: CALCIUM 7.2 mg/dL (8.5-10.1)
[2020-12-11 07:14] LABS: ALBUMIN 2.4 g/dl (3.4-5.0); BLOOD UREA NITROGEN 52.6 mg/dL (7-18); MAGNESIUM 2.5 mg/dL (1.8-2.4)
[2020-12-11 07:17] LABS: CREATININE 3.2 mg/dL (0.55-1.3); PHOSPHOROUS 5.1 mg/dL (2.5-4.9)
[2020-12-11 07:18] LABS: BILIRUBIN,TOTAL 0.4 mg/dL (0.2-1); TOT PROT 4.9 g/dl (6.4-8.2)
[2020-12-11] MEDS ORDERED: DEXTROSE 5%-WATER 100 ML IVPB ONE (08:42)
[2020-12-11] MEDS: PANTOPRAZOLE SODIUM 40 MG VIAL IVPUSH SCH (09:07)
[2020-12-11] MEDS: CEFTRIAXONE 2 GM in DEXTROSE 5%-WATER 2 GM/100 ML BAG IVPB SCH (09:08)
[2020-12-11] MEDS: AMINO ACIDS/PROTEIN HYDROLYS 30 ML LIQUID.PKT PO SCH ×2 (09:08→18:00)
[2020-12-11] MEDS: ALPRAZolam 0.25 MG TABLET PO PRN (09:08)
[2020-12-11] MEDS: ASPIRIN COATED 81 MG TABLET.EC PO SCH (09:08)
[2020-12-11] MEDS: APIXABAN 2.5 MG TABLET PO SCH ×2 (09:09→21:21)
[2020-12-11] MEDS: CARVEDILOL 6.25 MG TABLET (FP) PO SCH ×2 (09:09→21:21)
[2020-12-11] MEDS: QUINAPRIL HCL 5 MG TABLET PO SCH (09:09)
[2020-12-11] MEDS: DOCUSATE SODIUM 100 MG CAPSULE (FP) PO SCH ×2 (09:09→21:21)
[2020-12-11] MEDS: BUDESONIDE/FORMETEROL FUMARATE 160/4.5 mcg INHALER IH SCH ×2 (09:10→21:26)
[2020-12-11] MEDS: RANOLAZINE E.R. 500 MG TABLET (FP) PO SCH (09:10)
[2020-12-11] MEDS: POLYETHYLENE GLYCOL 3350 119 GM BTL PO SCH ×2 (09:10→21:26)
[2020-12-11] MEDS: AZITHROMYCIN IVPB 500 MG/250 ML BAG IVPB SCH (09:11)
[2020-12-11] MEDS: ALBUTEROL SO4 2.5/IPRATROPIUM 0.5 INH SOL 3 ML VIAL.NEB. NEB SCH ×2 (09:22→20:30)
[2020-12-11] MEDS ORDERED: RANOLAZINE E.R. 500 MG TABLET (FP) PO SCH (10:00)
[2020-12-11] MEDS ORDERED: morphine SULFATE 4 MG/ML VIAL IVPUSH PRN (11:42)
[2020-12-11] MEDS ORDERED: ACETAMINOPHEN 1000 MG/100 ML VIAL (NON FORMULARY) IVPB PRN (11:42)
[2020-12-11] MEDS ORDERED: morphine SULFATE 4 MG/ML VIAL ONE (11:46)
[2020-12-11] MEDS ORDERED: PT OWN MED DRAWER 7, Y5N ONE (21:08)
[2020-12-11] MEDS: valACYclovir HCL 500 MG TABLET (FP) PO SCH (21:22)
[2020-12-11] MEDS: MONTELUKAST NA 10 MG TABLET PO SCH (21:22)
[2020-12-12] MEDS: ALPRAZolam 0.25 MG TABLET PO PRN ×2 (00:01→21:12)
[2020-12-12] MEDS: guaiFENesin/CODEINE 10 ML UNIT-DOSE CUPS PO SCH ×3 (05:31→21:12)
[2020-12-12 07:44] LABS: HEMATOCRIT 24.2 % (35.4-49); MCH 33.7 pg (25.7-33.7); MCHC 33.3 g/dl (32.0-35.9); MEAN CELL VOLUME 101.3 fl (80-96); MEAN PLT VOLUME 8.7 fl (7.5-11.1); PLATELET COUNT 204 K/MM3 (134-434); RBC 2.39 M/mm3 (4.00-5.60); RDW 21.9 % (11.9-15.9); WHITE BLOOD COUNT 7.6 K/mm3 (4.0-10.0)
[2020-12-12 08:02] LABS: BLOOD UREA NITROGEN 58.9 mg/dL (7-18); CALCIUM 7.2 mg/dL (8.5-10.1)
[2020-12-12 08:03] LABS: ALBUMIN 2.3 g/dl (3.4-5.0); MAGNESIUM 2.7 mg/dL (1.8-2.4)
[2020-12-12 08:06] LABS: CREATININE 3.1 mg/dL (0.55-1.3); PHOSPHOROUS 4.1 mg/dL (2.5-4.9)
[2020-12-12 08:07] LABS: BILIRUBIN,TOTAL 0.4 mg/dL (0.2-1); TOT PROT 4.7 g/dl (6.4-8.2)
[2020-12-12] MEDS: AMINO ACIDS/PROTEIN HYDROLYS 30 ML LIQUID.PKT PO SCH ×2 (08:55→16:41)
[2020-12-12] MEDS: ALBUTEROL SO4 2.5/IPRATROPIUM 0.5 INH SOL 3 ML VIAL.NEB. NEB SCH ×4 (09:05→20:15)
[2020-12-12] MEDS ORDERED: DEXTROSE 5%-WATER 100 ML IVPB ONE (09:12)
[2020-12-12] MEDS: CEFTRIAXONE 2 GM in DEXTROSE 5%-WATER 2 GM/100 ML BAG IVPB SCH (10:35)
[2020-12-12] MEDS: AZITHROMYCIN IVPB 500 MG/250 ML BAG IVPB SCH (10:41)
[2020-12-12] MEDS: QUINAPRIL HCL 5 MG TABLET PO SCH (10:42)
[2020-12-12] MEDS: PANTOPRAZOLE SODIUM 40 MG VIAL IVPUSH SCH (10:42)
[2020-12-12] MEDS: ASPIRIN COATED 81 MG TABLET.EC PO SCH (10:43)
[2020-12-12] MEDS: DOCUSATE SODIUM 100 MG CAPSULE (FP) PO SCH ×2 (10:43→21:12)
[2020-12-12] MEDS: CARVEDILOL 6.25 MG TABLET (FP) PO SCH ×2 (10:43→21:13)
[2020-12-12] MEDS: APIXABAN 2.5 MG TABLET PO SCH ×2 (10:44→21:13)
[2020-12-12] MEDS: POLYETHYLENE GLYCOL 3350 119 GM BTL PO SCH ×2 (10:44→21:22)
[2020-12-12] MEDS: BUDESONIDE/FORMETEROL FUMARATE 160/4.5 mcg INHALER IH SCH ×2 (10:46→21:13)
[2020-12-12] MEDS: RANOLAZINE E.R. 500 MG TABLET (FP) PO SCH (10:55)
[2020-12-12 11:41] LABS: RETICULOCYTES 1.09 % (0.5-1.5)
[2020-12-12] MEDS ORDERED: PT OWN MED DRAWER 7, Y5N ONE (21:07)
[2020-12-12] MEDS: MONTELUKAST NA 10 MG TABLET PO SCH (21:12)
[2020-12-12] MEDS: ATORVASTATIN CA 10 MG TABLET (FP) PO SCH (21:13)
[2020-12-12] MEDS: valACYclovir HCL 500 MG TABLET (FP) PO SCH (21:22)
[2020-12-12] MEDS ORDERED: MAG HYDROX/AL HYDROX/SIMETH 30 ML UNIT-DOSE CUP PO PRN (22:54)
[2020-12-13] MEDS: guaiFENesin/CODEINE 10 ML UNIT-DOSE CUPS PO SCH ×3 (05:18→21:01)
[2020-12-13] MEDS: ALBUTEROL SO4 2.5/IPRATROPIUM 0.5 INH SOL 3 ML VIAL.NEB. NEB SCH ×4 (07:40→19:54)
[2020-12-13 07:50] LABS: BASO % 0.2 % (0-2.0); EOS % 0.8 % (0-4.5); HEMATOCRIT 24.5 % (35.4-49); HEMOGLOBIN 8.2 GM/dL (11.7-16.9); LYMPH % 12.4 % (8-40); MCH 33.6 pg (25.7-33.7); MCHC 33.3 g/dl (32.0-35.9); MEAN CELL VOLUME 100.9 fl (80-96); MEAN PLT VOLUME 8.7 fl (7.5-11.1); MONO % 13.5 % (3.8-10.2); NEUT % 73.1 % (42.8-82.8); PLATELET COUNT 206 K/MM3 (134-434); RBC 2.43 M/mm3 (4.00-5.60); RDW 22.1 % (11.9-15.9)
[2020-12-13 07:56] LABS: ALBUMIN 2.4 g/dl (3.4-5.0); BLOOD UREA NITROGEN 67.1 mg/dL (7-18); CALCIUM 7.7 mg/dL (8.5-10.1)
[2020-12-13 07:59] LABS: CREATININE 2.7 mg/dL (0.55-1.3)
[2020-12-13 08:01] LABS: BILIRUBIN,TOTAL 0.4 mg/dL (0.2-1); TOT PROT 4.6 g/dl (6.4-8.2)
[2020-12-13] MEDS ORDERED: DEXTROSE 5%-WATER 100 ML IVPB ONE (08:58)
[2020-12-13] MEDS: DOCUSATE SODIUM 100 MG CAPSULE (FP) PO SCH ×2 (09:15→21:01)
[2020-12-13] MEDS: QUINAPRIL HCL 5 MG TABLET PO SCH (09:15)
[2020-12-13] MEDS: AMINO ACIDS/PROTEIN HYDROLYS 30 ML LIQUID.PKT PO SCH ×2 (09:15→18:25)
[2020-12-13] MEDS: POLYETHYLENE GLYCOL 3350 119 GM BTL PO SCH ×2 (09:16→21:04)
[2020-12-13] MEDS: BUDESONIDE/FORMETEROL FUMARATE 160/4.5 mcg INHALER IH SCH ×2 (09:16→21:02)
[2020-12-13] MEDS: RANOLAZINE E.R. 500 MG TABLET (FP) PO SCH (09:16)
[2020-12-13] MEDS: ASPIRIN COATED 81 MG TABLET.EC PO SCH (09:16)
[2020-12-13] MEDS: CARVEDILOL 6.25 MG TABLET (FP) PO SCH ×2 (09:16→21:01)
[2020-12-13] MEDS: AZITHROMYCIN IVPB 500 MG/250 ML BAG IVPB SCH (09:16)
[2020-12-13] MEDS: PANTOPRAZOLE SODIUM 40 MG VIAL IVPUSH SCH (09:16)
[2020-12-13] MEDS: APIXABAN 2.5 MG TABLET PO SCH ×2 (09:16→21:01)
[2020-12-13] MEDS: CEFTRIAXONE 2 GM in DEXTROSE 5%-WATER 2 GM/100 ML BAG IVPB SCH (09:16)
[2020-12-13 10:16] LABS: ANISOCYTOSIS 1+; MACROCYTOSIS 0; PLATELET ESTIMATE NORMAL
[2020-12-13] MEDS: MONTELUKAST NA 10 MG TABLET PO SCH (21:01)
[2020-12-13] MEDS: valACYclovir HCL 500 MG TABLET (FP) PO SCH (21:01)
[2020-12-14] MEDS: ALPRAZolam 1 MG TABLET PO PRN ×2 (00:01→13:15)
[2020-12-14] MEDS: guaiFENesin/CODEINE 10 ML UNIT-DOSE CUPS PO SCH ×3 (05:16→21:46)
[2020-12-14 07:48] LABS: BASO % 0.5 % (0-2.0); EOS % 0.7 % (0-4.5); HEMATOCRIT 25.2 % (35.4-49); HEMOGLOBIN 8.5 GM/dL (11.7-16.9); LYMPH % 12.8 % (8-40); MCH 34.1 pg (25.7-33.7); MCHC 33.5 g/dl (32.0-35.9); MEAN CELL VOLUME 101.6 fl (80-96); MEAN PLT VOLUME 8.6 fl (7.5-11.1); PLATELET COUNT 212 K/MM3 (134-434); RBC 2.48 M/mm3 (4.00-5.60); WHITE BLOOD COUNT 7.3 K/mm3 (4.0-10.0)
[2020-12-14 07:58] LABS: BLOOD UREA NITROGEN 59.2 mg/dL (7-18)
[2020-12-14 07:59] LABS: ALBUMIN 2.3 g/dl (3.4-5.0); MAGNESIUM 2.9 mg/dL (1.8-2.4)
[2020-12-14 08:02] LABS: CREATININE 2.3 mg/dL (0.55-1.3); PHOSPHOROUS 3.2 mg/dL (2.5-4.9)
[2020-12-14 08:03] LABS: BILIRUBIN,TOTAL 0.8 mg/dL (0.2-1); TOT PROT 4.9 g/dl (6.4-8.2)
[2020-12-14] MEDS: AMINO ACIDS/PROTEIN HYDROLYS 30 ML LIQUID.PKT PO SCH ×2 (08:18→22:14)
[2020-12-14] MEDS: ALBUTEROL SO4 2.5/IPRATROPIUM 0.5 INH SOL 3 ML VIAL.NEB. NEB SCH ×4 (08:42→19:55)
[2020-12-14] MEDS ORDERED: DEXTROSE 5%-WATER 100 ML IVPB ONE (08:45)
[2020-12-14] MEDS: APIXABAN 2.5 MG TABLET PO SCH ×2 (09:18→21:46)
[2020-12-14] MEDS: CEFTRIAXONE 2 GM in DEXTROSE 5%-WATER 2 GM/100 ML BAG IVPB SCH (09:18)
[2020-12-14] MEDS: POLYETHYLENE GLYCOL 3350 119 GM BTL PO SCH ×2 (09:18→22:14)
[2020-12-14] MEDS: BUDESONIDE/FORMETEROL FUMARATE 160/4.5 mcg INHALER IH SCH ×2 (09:18→22:14)
[2020-12-14] MEDS: CARVEDILOL 6.25 MG TABLET (FP) PO SCH ×2 (09:18→21:46)
[2020-12-14] MEDS: ASPIRIN COATED 81 MG TABLET.EC PO SCH (09:18)
[2020-12-14] MEDS: RANOLAZINE E.R. 500 MG TABLET (FP) PO SCH (09:18)
[2020-12-14] MEDS: PANTOPRAZOLE SODIUM 40 MG VIAL IVPUSH SCH (09:18)
[2020-12-14] MEDS: DOCUSATE SODIUM 100 MG CAPSULE (FP) PO SCH ×2 (09:18→22:05)
[2020-12-14] MEDS: QUINAPRIL HCL 5 MG TABLET PO SCH (09:18)
[2020-12-14] MEDS: AZITHROMYCIN IVPB 500 MG/250 ML BAG IVPB SCH (09:19)
[2020-12-14 10:04] LABS: ANISOCYTOSIS 1+; MACROCYTOSIS 1+; OVALOCYTE 1+; PLATELET ESTIMATE NORMAL; TEAR DROP CELLS 1+
[2020-12-14] MEDS ORDERED: MORPHINE SULFATE 2 MG/ML VIAL IVPUSH ONE (12:57)
[2020-12-14] MEDS ORDERED: morphine CARPU-JECT 2 MG/1 ML DISP.SYRIN IVPUSH ONE (12:57)
[2020-12-14] MEDS ORDERED: MORPHINE SULFATE 2 MG/ML VIAL ONE (12:58)
[2020-12-14] MEDS ORDERED: FUROSEMIDE 40 MG/4 ML INJECTABLE VIAL IVPUSH ONE (13:13)
[2020-12-14] MEDS ORDERED: PT OWN MED DRAWER 7, Y5N ONE (21:39)
[2020-12-14] MEDS: MONTELUKAST NA 10 MG TABLET PO SCH (21:46)
[2020-12-14] MEDS: ATORVASTATIN CA 10 MG TABLET (FP) PO SCH (21:46)
[2020-12-14] MEDS: valACYclovir HCL 500 MG TABLET (FP) PO SCH (22:05)
[2020-12-15] MEDS ORDERED: ACETAMINOPHEN 325 MG TABLET (FP) PO ONE (03:33)
[2020-12-15] MEDS: guaiFENesin/CODEINE 10 ML UNIT-DOSE CUPS PO SCH ×3 (06:16→21:47)
[2020-12-15 07:15] LABS: HEMATOCRIT 26.2 % (35.4-49); HEMOGLOBIN 8.7 GM/dL (11.7-16.9); MCHC 33.3 g/dl (32.0-35.9); MEAN CELL VOLUME 102.2 fl (80-96); MEAN PLT VOLUME 8.8 fl (7.5-11.1); PLATELET COUNT 202 K/MM3 (134-434); RBC 2.56 M/mm3 (4.00-5.60); RDW 22.1 % (11.9-15.9); WHITE BLOOD COUNT 8.1 K/mm3 (4.0-10.0)
[2020-12-15] MEDS ORDERED: BENZOCAINE/MENTH/CETYLPYRD CL 1 EACH LOZENGE MM PRN (07:16)
[2020-12-15] MEDS ORDERED: ALBUTEROL SO4 HFA INHALER IH PRN (07:16)
[2020-12-15 07:50] LABS: ALBUMIN 2.5 g/dl (3.4-5.0); BLOOD UREA NITROGEN 54.9 mg/dL (7-18); CALCIUM 7.8 mg/dL (8.5-10.1)
[2020-12-15 07:51] LABS: MAGNESIUM 2.5 mg/dL (1.8-2.4)
[2020-12-15 07:53] LABS: CREATININE 2.2 mg/dL (0.55-1.3)
[2020-12-15 07:54] LABS: BILIRUBIN,TOTAL 0.5 mg/dL (0.2-1)
[2020-12-15 07:55] LABS: TOT PROT 4.8 g/dl (6.4-8.2)
[2020-12-15] MEDS: ALBUTEROL SO4 2.5/IPRATROPIUM 0.5 INH SOL 3 ML VIAL.NEB. NEB SCH ×4 (08:20→21:00)
[2020-12-15] MEDS ORDERED: PT OWN MED DRAWER 7, Y5N ONE ×2 (08:56→21:14)
[2020-12-15] MEDS ORDERED: DEXTROSE 5%-WATER 100 ML IVPB ONE (08:56)
[2020-12-15] MEDS: AMINO ACIDS/PROTEIN HYDROLYS 30 ML LIQUID.PKT PO SCH ×3 (08:58→17:35)
[2020-12-15] MEDS: RANOLAZINE E.R. 500 MG TABLET (FP) PO SCH (09:10)
[2020-12-15] MEDS: DOCUSATE SODIUM 100 MG CAPSULE (FP) PO SCH ×2 (09:10→21:46)
[2020-12-15] MEDS: CARVEDILOL 6.25 MG TABLET (FP) PO SCH ×2 (09:10→21:46)
[2020-12-15] MEDS: ASPIRIN COATED 81 MG TABLET.EC PO SCH (09:10)
[2020-12-15] MEDS: APIXABAN 2.5 MG TABLET PO SCH ×2 (09:11→21:46)
[2020-12-15] MEDS: QUINAPRIL HCL 5 MG TABLET PO SCH (09:12)
[2020-12-15] MEDS: PANTOPRAZOLE SODIUM 40 MG VIAL IVPUSH SCH (09:13)
[2020-12-15] MEDS: POLYETHYLENE GLYCOL 3350 119 GM BTL PO SCH ×2 (09:13→21:48)
[2020-12-15] MEDS: CEFTRIAXONE 2 GM in DEXTROSE 5%-WATER 2 GM/100 ML BAG IVPB SCH (09:14)
[2020-12-15] MEDS: BUDESONIDE/FORMETEROL FUMARATE 160/4.5 mcg INHALER IH SCH ×2 (09:15→21:47)
[2020-12-15] MEDS: AZITHROMYCIN IVPB 500 MG/250 ML BAG IVPB SCH (10:15)
[2020-12-15] MEDS ORDERED: POTASSIUM CHLORIDE ORAL LIQUID 20 MEQ/15 ML PO ONE ×2 (10:54→18:00)
[2020-12-15] MEDS ORDERED: FUROSEMIDE 40 MG/4 ML INJECTABLE VIAL IVPUSH ONE ×2 (12:53→18:00)
[2020-12-15] MEDS: MONTELUKAST NA 10 MG TABLET PO SCH (21:46)
[2020-12-15] MEDS: ATORVASTATIN CA 10 MG TABLET (FP) PO SCH (21:46)
[2020-12-15] MEDS: valACYclovir HCL 500 MG TABLET (FP) PO SCH (21:46)
[2020-12-15] MEDS: ALPRAZolam 1 MG TABLET PO PRN (23:01)
[2020-12-15] MEDS ORDERED: SODIUM CHLORIDE NASAL SPRAY 44 ML BOTTLE NS ONE (23:09)
[2020-12-16] MEDS: guaiFENesin/CODEINE 10 ML UNIT-DOSE CUPS PO SCH ×3 (06:29→21:59)
[2020-12-16 07:16] LABS: HEMOGLOBIN 9.6 GM/dL (11.7-16.9); MCH 33.6 pg (25.7-33.7); MEAN CELL VOLUME 101.8 fl (80-96); PLATELET COUNT 194 K/MM3 (134-434); RBC 2.85 M/mm3 (4.00-5.60); RDW 22.8 % (11.9-15.9); WHITE BLOOD COUNT 6.9 K/mm3 (4.0-10.0)
[2020-12-16 07:19] LABS: CALCIUM 8.1 mg/dL (8.5-10.1)
[2020-12-16 07:20] LABS: ALBUMIN 2.5 g/dl (3.4-5.0); BLOOD UREA NITROGEN 43.5 mg/dL (7-18); MAGNESIUM 2.3 mg/dL (1.8-2.4)
[2020-12-16 07:24] LABS: BILIRUBIN,TOTAL 0.6 mg/dL (0.2-1); TOT PROT 4.9 g/dl (6.4-8.2)
[2020-12-16] MEDS ORDERED: DEXTROSE 5%-WATER 100 ML IVPB ONE (09:35)
[2020-12-16] MEDS: AMINO ACIDS/PROTEIN HYDROLYS 30 ML LIQUID.PKT PO SCH ×2 (09:39→17:59)
[2020-12-16] MEDS: ASPIRIN COATED 81 MG TABLET.EC PO SCH (09:39)
[2020-12-16] MEDS: CEFTRIAXONE 2 GM in DEXTROSE 5%-WATER 2 GM/100 ML BAG IVPB SCH (09:39)
[2020-12-16] MEDS: RANOLAZINE E.R. 500 MG TABLET (FP) PO SCH (09:58)
[2020-12-16] MEDS: ALBUTEROL SO4 2.5/IPRATROPIUM 0.5 INH SOL 3 ML VIAL.NEB. NEB SCH ×4 (10:00→20:50)
[2020-12-16] MEDS: DOCUSATE SODIUM 100 MG CAPSULE (FP) PO SCH ×2 (10:12→21:59)
[2020-12-16] MEDS: AZITHROMYCIN IVPB 500 MG/250 ML BAG IVPB SCH (10:15)
[2020-12-16] MEDS: CARVEDILOL 6.25 MG TABLET (FP) PO SCH ×2 (10:15→21:59)
[2020-12-16] MEDS: APIXABAN 2.5 MG TABLET PO SCH ×2 (10:15→21:59)
[2020-12-16] MEDS: BUDESONIDE/FORMETEROL FUMARATE 160/4.5 mcg INHALER IH SCH ×2 (10:16→22:00)
[2020-12-16] MEDS: PANTOPRAZOLE SODIUM 40 MG VIAL IVPUSH SCH (10:18)
[2020-12-16] MEDS: POLYETHYLENE GLYCOL 3350 119 GM BTL PO SCH ×2 (10:18→21:59)
[2020-12-16] MEDS ORDERED: FUROSEMIDE 40 MG/4 ML INJECTABLE VIAL IVPUSH ONE ×2 (11:10→17:00)
[2020-12-16] MEDS: QUINAPRIL HCL 5 MG TABLET PO SCH (11:44)
[2020-12-16] MEDS ORDERED: PT OWN MED DRAWER 7, Y5N ONE (21:55)
[2020-12-16] MEDS: MONTELUKAST NA 10 MG TABLET PO SCH (21:59)
[2020-12-16] MEDS: valACYclovir HCL 500 MG TABLET (FP) PO SCH (21:59)
[2020-12-16] MEDS: ALPRAZolam 1 MG TABLET PO PRN (23:13)
[2020-12-17] MEDS ORDERED: ACETAMINOPHEN 325 MG TABLET (FP) PO ONE (03:36)
[2020-12-17] MEDS: guaiFENesin/CODEINE 10 ML UNIT-DOSE CUPS PO SCH ×3 (05:16→21:38)
[2020-12-17 06:59] LABS: HEMATOCRIT 28.7 % (35.4-49); HEMOGLOBIN 9.5 GM/dL (11.7-16.9); MCH 33.8 pg (25.7-33.7); MEAN CELL VOLUME 102.4 fl (80-96); MEAN PLT VOLUME 8.3 fl (7.5-11.1); PLATELET COUNT 149 K/MM3 (134-434); RDW 22.7 % (11.9-15.9); WHITE BLOOD COUNT 5.5 K/mm3 (4.0-10.0)
[2020-12-17 07:23] LABS: BLOOD UREA NITROGEN 44.5 mg/dL (7-18); CALCIUM 7.8 mg/dL (8.5-10.1)
[2020-12-17 07:24] LABS: ALBUMIN 2.4 g/dl (3.4-5.0); MAGNESIUM 2.2 mg/dL (1.8-2.4)
[2020-12-17 07:27] LABS: CREATININE 2.1 mg/dL (0.55-1.3)
[2020-12-17 07:28] LABS: BILIRUBIN,TOTAL 0.6 mg/dL (0.2-1); TOT PROT 4.8 g/dl (6.4-8.2)
[2020-12-17] MEDS ORDERED: POTASSIUM CHLORIDE TABS 20 MEQ TABLET.ER (FP) PO ONE ×2 (07:32→22:00)
[2020-12-17] MEDS: ALBUTEROL SO4 2.5/IPRATROPIUM 0.5 INH SOL 3 ML VIAL.NEB. NEB SCH ×4 (08:00→20:11)
[2020-12-17] MEDS ORDERED: DEXTROSE 5%-WATER 100 ML IVPB ONE (08:16)
[2020-12-17] MEDS: AMINO ACIDS/PROTEIN HYDROLYS 30 ML LIQUID.PKT PO SCH ×2 (08:24→17:26)
[2020-12-17] MEDS: AZITHROMYCIN IVPB 500 MG/250 ML BAG IVPB SCH (09:01)
[2020-12-17] MEDS: CEFTRIAXONE 2 GM in DEXTROSE 5%-WATER 2 GM/100 ML BAG IVPB SCH (09:01)
[2020-12-17] MEDS: PANTOPRAZOLE SODIUM 40 MG VIAL IVPUSH SCH (09:02)
[2020-12-17] MEDS: DOCUSATE SODIUM 100 MG CAPSULE (FP) PO SCH ×2 (09:02→21:38)
[2020-12-17] MEDS: APIXABAN 2.5 MG TABLET PO SCH ×2 (09:02→21:37)
[2020-12-17] MEDS: CARVEDILOL 6.25 MG TABLET (FP) PO SCH ×2 (09:03→21:37)
[2020-12-17] MEDS: RANOLAZINE E.R. 500 MG TABLET (FP) PO SCH (09:04)
[2020-12-17] MEDS: BUDESONIDE/FORMETEROL FUMARATE 160/4.5 mcg INHALER IH SCH ×2 (09:04→21:38)
[2020-12-17] MEDS: POLYETHYLENE GLYCOL 3350 119 GM BTL PO SCH ×2 (09:05→21:38)
[2020-12-17] MEDS: ASPIRIN COATED 81 MG TABLET.EC PO SCH (09:05)
[2020-12-17] MEDS ORDERED: PT OWN MED DRAWER 7, Y5N ONE ×2 (09:13→21:30)
[2020-12-17] MEDS: QUINAPRIL HCL 5 MG TABLET PO SCH (09:16)
[2020-12-17] MEDS: FUROSEMIDE 40 MG/4 ML INJECTABLE VIAL IVPUSH SCH (11:18)
[2020-12-17] MEDS: ALPRAZolam 1 MG TABLET PO PRN (11:37)
[2020-12-17] MEDS: valACYclovir HCL 500 MG TABLET (FP) PO SCH (21:37)
[2020-12-17] MEDS: ATORVASTATIN CA 10 MG TABLET (FP) PO SCH (21:37)
[2020-12-17] MEDS: MONTELUKAST NA 10 MG TABLET PO SCH (21:38)
[2020-12-17] MEDS ORDERED: MELATONIN 5 MG TABLETS PO ONE (23:52)
[2020-12-18] MEDS: ALPRAZolam 1 MG TABLET PO PRN ×2 (00:09→22:03)
[2020-12-18] MEDS: guaiFENesin/CODEINE 10 ML UNIT-DOSE CUPS PO SCH ×3 (07:04→22:02)
[2020-12-18 07:28] LABS: BLOOD UREA NITROGEN 47.1 mg/dL (7-18); CALCIUM 7.6 mg/dL (8.5-10.1)
[2020-12-18 07:29] LABS: MAGNESIUM 2.3 mg/dL (1.8-2.4)
[2020-12-18] MEDS ORDERED: POTASSIUM CHLORIDE TABS 20 MEQ TABLET.ER (FP) PO ONE (07:32)
[2020-12-18 07:35] LABS: CREATININE 2.1 mg/dL (0.55-1.3)
[2020-12-18] MEDS: AMINO ACIDS/PROTEIN HYDROLYS 30 ML LIQUID.PKT PO SCH (08:00)
[2020-12-18] MEDS: ALBUTEROL SO4 2.5/IPRATROPIUM 0.5 INH SOL 3 ML VIAL.NEB. NEB SCH ×4 (08:27→20:47)
[2020-12-18] MEDS: CEFTRIAXONE 2 GM in DEXTROSE 5%-WATER 2 GM/100 ML BAG IVPB SCH (09:00)
[2020-12-18] MEDS ORDERED: DEXTROSE 5%-WATER 100 ML IVPB ONE (09:03)
[2020-12-18] MEDS: QUINAPRIL HCL 5 MG TABLET PO SCH (10:00)
[2020-12-18] MEDS: APIXABAN 2.5 MG TABLET PO SCH ×2 (10:00→22:03)
[2020-12-18] MEDS: PANTOPRAZOLE SODIUM 40 MG VIAL IVPUSH SCH (10:00)
[2020-12-18] MEDS: CARVEDILOL 6.25 MG TABLET (FP) PO SCH ×2 (10:00→22:02)
[2020-12-18] MEDS: FUROSEMIDE 40 MG/4 ML INJECTABLE VIAL IVPUSH SCH (10:00)
[2020-12-18] MEDS: RANOLAZINE E.R. 500 MG TABLET (FP) PO SCH (10:00)
[2020-12-18] MEDS: DOCUSATE SODIUM 100 MG CAPSULE (FP) PO SCH ×2 (10:00→22:03)
[2020-12-18] MEDS: ASPIRIN COATED 81 MG TABLET.EC PO SCH (10:00)
[2020-12-18] MEDS: BUDESONIDE/FORMETEROL FUMARATE 160/4.5 mcg INHALER IH SCH ×2 (10:00→22:00)
[2020-12-18] MEDS: POLYETHYLENE GLYCOL 3350 119 GM BTL PO SCH ×2 (10:51→22:03)
[2020-12-18] MEDS: AZITHROMYCIN IVPB 500 MG/250 ML BAG IVPB SCH (10:52)
[2020-12-18] MEDS ORDERED: MORPHINE SULFATE 2 MG/ML VIAL IVPUSH ONE (14:15)
[2020-12-18] MEDS ORDERED: MELATONIN 5 MG TABLETS PO ONE (20:49)
[2020-12-18] MEDS ORDERED: PT OWN MED DRAWER 7, Y5N ONE (21:56)
[2020-12-18] MEDS: MONTELUKAST NA 10 MG TABLET PO SCH (22:02)
[2020-12-18] MEDS: valACYclovir HCL 500 MG TABLET (FP) PO SCH (22:02)
[2020-12-19] MEDS ORDERED: MELATONIN 5 MG TABLETS PO ONE (00:45)
[2020-12-19 06:24] LABS: HEMATOCRIT 27.6 % (35.4-49); HEMOGLOBIN 9.2 GM/dL (11.7-16.9); MCH 34.3 pg (25.7-33.7); MCHC 33.5 g/dl (32.0-35.9); MEAN CELL VOLUME 102.6 fl (80-96); MEAN PLT VOLUME 8.5 fl (7.5-11.1); PLATELET COUNT 107 K/MM3 (134-434); RBC 2.69 M/mm3 (4.00-5.60); RDW 23.3 % (11.9-15.9); WHITE BLOOD COUNT 4.6 K/mm3 (4.0-10.0)
[2020-12-19 06:43] LABS: ALBUMIN 2.4 g/dl (3.4-5.0); BLOOD UREA NITROGEN 39.8 mg/dL (7-18); CALCIUM 7.6 mg/dL (8.5-10.1); MAGNESIUM 2.1 mg/dL (1.8-2.4)
[2020-12-19 06:48] LABS: BILIRUBIN,TOTAL 0.5 mg/dL (0.2-1); TOT PROT 4.6 g/dl (6.4-8.2)
[2020-12-19] MEDS: guaiFENesin/CODEINE 10 ML UNIT-DOSE CUPS PO SCH ×3 (06:59→23:06)
[2020-12-19] MEDS: ALBUTEROL SO4 2.5/IPRATROPIUM 0.5 INH SOL 3 ML VIAL.NEB. NEB SCH ×4 (08:30→20:38)
[2020-12-19] MEDS: RANOLAZINE E.R. 500 MG TABLET (FP) PO SCH (09:29)
[2020-12-19] MEDS: FUROSEMIDE 40 MG/4 ML INJECTABLE VIAL IVPUSH SCH (09:29)
[2020-12-19] MEDS: APIXABAN 2.5 MG TABLET PO SCH ×2 (09:29→23:06)
[2020-12-19] MEDS: ASPIRIN COATED 81 MG TABLET.EC PO SCH (09:29)
[2020-12-19] MEDS: PANTOPRAZOLE SODIUM 40 MG VIAL IVPUSH SCH (09:29)
[2020-12-19] MEDS: CARVEDILOL 6.25 MG TABLET (FP) PO SCH ×2 (09:30→23:06)
[2020-12-19] MEDS: AMINO ACIDS/PROTEIN HYDROLYS 30 ML LIQUID.PKT PO SCH ×2 (09:30→18:01)
[2020-12-19] MEDS: POLYETHYLENE GLYCOL 3350 119 GM BTL PO SCH ×2 (09:35→23:07)
[2020-12-19] MEDS: BUDESONIDE/FORMETEROL FUMARATE 160/4.5 mcg INHALER IH SCH ×2 (09:41→23:07)
[2020-12-19] MEDS ORDERED: PT OWN MED DRAWER 7, Y5N ONE ×2 (10:07→23:02)
[2020-12-19] MEDS: DOCUSATE SODIUM 100 MG CAPSULE (FP) PO SCH ×2 (10:08→23:06)
[2020-12-19] MEDS: QUINAPRIL HCL 5 MG TABLET PO SCH (10:11)
[2020-12-19] MEDS: MONTELUKAST NA 10 MG TABLET PO SCH (23:06)
[2020-12-19] MEDS: ALPRAZolam 1 MG TABLET PO PRN (23:06)
[2020-12-19] MEDS: ATORVASTATIN CA 10 MG TABLET (FP) PO SCH (23:06)
[2020-12-19] MEDS: valACYclovir HCL 500 MG TABLET (FP) PO SCH (23:06)
[2020-12-20 06:50] LABS: CALCIUM 8.1 mg/dL (8.5-10.1)
[2020-12-20 06:51] LABS: BLOOD UREA NITROGEN 41.3 mg/dL (7-18)
[2020-12-20] MEDS: guaiFENesin/CODEINE 10 ML UNIT-DOSE CUPS PO SCH ×3 (06:58→21:37)
[2020-12-20] MEDS: ALBUTEROL SO4 2.5/IPRATROPIUM 0.5 INH SOL 3 ML VIAL.NEB. NEB PRN ×2 (08:15→20:05)
[2020-12-20] MEDS: AMINO ACIDS/PROTEIN HYDROLYS 30 ML LIQUID.PKT PO SCH ×2 (08:32→16:31)
[2020-12-20] MEDS: RANOLAZINE E.R. 500 MG TABLET (FP) PO SCH (09:02)
[2020-12-20] MEDS: PANTOPRAZOLE SODIUM 40 MG VIAL IVPUSH SCH (09:02)
[2020-12-20] MEDS: FUROSEMIDE 40 MG/4 ML INJECTABLE VIAL IVPUSH SCH (09:02)
[2020-12-20] MEDS: CARVEDILOL 6.25 MG TABLET (FP) PO SCH ×2 (09:03→21:29)
[2020-12-20] MEDS: ASPIRIN COATED 81 MG TABLET.EC PO SCH (09:03)
[2020-12-20] MEDS: APIXABAN 2.5 MG TABLET PO SCH ×2 (09:03→21:30)
[2020-12-20] MEDS: QUINAPRIL HCL 5 MG TABLET PO SCH (09:03)
[2020-12-20] MEDS: ALPRAZolam 1 MG TABLET PO PRN (09:03)
[2020-12-20] MEDS: BUDESONIDE/FORMETEROL FUMARATE 160/4.5 mcg INHALER IH SCH ×2 (09:04→21:53)
[2020-12-20] MEDS: POLYETHYLENE GLYCOL 3350 119 GM BTL PO SCH ×2 (09:06→21:30)
[2020-12-20] MEDS: DOCUSATE SODIUM 100 MG CAPSULE (FP) PO SCH ×2 (09:06→21:29)
[2020-12-20] MEDS ORDERED: PT OWN MED DRAWER 7, Y5N ONE ×2 (09:06→20:49)
[2020-12-20] MEDS ORDERED: POTASSIUM CHLORIDE TABS 10 MEQ TABLET.ER (FP) PO ONE ×2 (13:38→16:45)
[2020-12-20] MEDS: MONTELUKAST NA 10 MG TABLET PO SCH (21:30)
[2020-12-20] MEDS ORDERED: MELATONIN 5 MG TABLETS PO ONE (21:47)
[2020-12-20] MEDS ORDERED: ALPRAZolam 0.25 MG TABLET PO ONE (21:48)
[2020-12-20] MEDS: valACYclovir HCL 500 MG TABLET (FP) PO SCH (21:53)
[2020-12-21] MEDS: guaiFENesin/CODEINE 10 ML UNIT-DOSE CUPS PO SCH ×3 (06:00→21:16)
[2020-12-21 07:19] LABS: BASO % 0.8 % (0-2.0); HEMATOCRIT 27.2 % (35.4-49); LYMPH % 16.7 % (8-40); MCH 34.2 pg (25.7-33.7); MCHC 33.2 g/dl (32.0-35.9); MEAN CELL VOLUME 102.8 fl (80-96); MEAN PLT VOLUME 9.3 fl (7.5-11.1); MONO % 16.7 % (3.8-10.2); NEUT % 64.8 % (42.8-82.8); PLATELET COUNT 93 K/MM3 (134-434); RBC 2.64 M/mm3 (4.00-5.60); RDW 23.4 % (11.9-15.9); WHITE BLOOD COUNT 4.3 K/mm3 (4.0-10.0)
[2020-12-21 07:42] LABS: CALCIUM 8.1 mg/dL (8.5-10.1)
[2020-12-21 07:43] LABS: ALBUMIN 2.4 g/dl (3.4-5.0); BLOOD UREA NITROGEN 37.6 mg/dL (7-18)
[2020-12-21 07:46] LABS: CREATININE 1.9 mg/dL (0.55-1.3)
[2020-12-21 07:48] LABS: BILIRUBIN,TOTAL 0.6 mg/dL (0.2-1); TOT PROT 4.6 g/dl (6.4-8.2)
[2020-12-21] MEDS: ALBUTEROL SO4 2.5/IPRATROPIUM 0.5 INH SOL 3 ML VIAL.NEB. NEB PRN ×2 (08:25→20:01)
[2020-12-21] MEDS ORDERED: PT OWN MED DRAWER 7, Y5N ONE (08:36)
[2020-12-21] MEDS ORDERED: POTASSIUM CHLORIDE TABS 20 MEQ TABLET.ER (FP) PO ONE (08:41)
[2020-12-21] MEDS: AMINO ACIDS/PROTEIN HYDROLYS 30 ML LIQUID.PKT PO SCH ×3 (09:01→17:39)
[2020-12-21] MEDS: FUROSEMIDE 40 MG/4 ML INJECTABLE VIAL IVPUSH SCH (09:02)
[2020-12-21] MEDS: PANTOPRAZOLE SODIUM 40 MG VIAL IVPUSH SCH (09:02)
[2020-12-21] MEDS: RANOLAZINE E.R. 500 MG TABLET (FP) PO SCH (09:03)
[2020-12-21] MEDS: QUINAPRIL HCL 5 MG TABLET PO SCH (09:03)
[2020-12-21] MEDS: APIXABAN 2.5 MG TABLET PO SCH ×2 (09:04→21:16)
[2020-12-21] MEDS: ASPIRIN COATED 81 MG TABLET.EC PO SCH (09:04)
[2020-12-21] MEDS: POLYETHYLENE GLYCOL 3350 119 GM BTL PO SCH ×2 (09:06→21:17)
[2020-12-21] MEDS: DOCUSATE SODIUM 100 MG CAPSULE (FP) PO SCH ×2 (09:06→21:17)
[2020-12-21] MEDS: CARVEDILOL 6.25 MG TABLET (FP) PO SCH ×2 (09:06→21:16)
[2020-12-21] MEDS: BUDESONIDE/FORMETEROL FUMARATE 160/4.5 mcg INHALER IH SCH ×2 (09:36→21:17)
[2020-12-21 11:09] LABS: ANISOCYTOSIS 1+; MACROCYTOSIS 0; PLATELET ESTIMATE DECREASED
[2020-12-21] MEDS: MONTELUKAST NA 10 MG TABLET PO SCH (21:16)
[2020-12-21] MEDS: ATORVASTATIN CA 10 MG TABLET (FP) PO SCH (21:16)
[2020-12-21] MEDS: valACYclovir HCL 500 MG TABLET (FP) PO SCH (21:17)
[2020-12-21] MEDS ORDERED: MELATONIN 5 MG TABLETS PO ONE (21:31)
[2020-12-21] MEDS ORDERED: ALPRAZolam 0.25 MG TABLET PO ONE (21:32)
[2020-12-22] MEDS: guaiFENesin/CODEINE 10 ML UNIT-DOSE CUPS PO SCH (05:37)
[2020-12-22 07:20] LABS: HEMATOCRIT 29.7 % (35.4-49); HEMOGLOBIN 9.9 GM/dL (11.7-16.9); MCH 34.2 pg (25.7-33.7); MCHC 33.3 g/dl (32.0-35.9); MEAN CELL VOLUME 102.7 fl (80-96); PLATELET COUNT 94 K/MM3 (134-434); RDW 23.7 % (11.9-15.9); WHITE BLOOD COUNT 5.1 K/mm3 (4.0-10.0)
[2020-12-22 07:37] LABS: CALCIUM 8.5 mg/dL (8.5-10.1)
[2020-12-22 07:38] LABS: BLOOD UREA NITROGEN 38.1 mg/dL (7-18); MAGNESIUM 2.1 mg/dL (1.8-2.4)
[2020-12-22 07:41] LABS: CREATININE 1.9 mg/dL (0.55-1.3)
[2020-12-22] MEDS ORDERED: PT OWN MED DRAWER 7, Y5N ONE ×2 (09:03→10:21)
[2020-12-22] MEDS: DOCUSATE SODIUM 100 MG CAPSULE (FP) PO SCH ×2 (09:06→22:02)
[2020-12-22] MEDS: AMINO ACIDS/PROTEIN HYDROLYS 30 ML LIQUID.PKT PO SCH ×2 (09:08→17:15)
[2020-12-22] MEDS: ASPIRIN COATED 81 MG TABLET.EC PO SCH (09:09)
[2020-12-22] MEDS: CARVEDILOL 6.25 MG TABLET (FP) PO SCH ×2 (09:09→22:02)
[2020-12-22] MEDS: APIXABAN 2.5 MG TABLET PO SCH ×2 (09:10→22:02)
[2020-12-22] MEDS: FUROSEMIDE 40 MG/4 ML INJECTABLE VIAL IVPUSH SCH (09:10)
[2020-12-22] MEDS: PANTOPRAZOLE SODIUM 40 MG VIAL IVPUSH SCH (09:11)
[2020-12-22] MEDS: RANOLAZINE E.R. 500 MG TABLET (FP) PO SCH (09:11)
[2020-12-22] MEDS: POLYETHYLENE GLYCOL 3350 119 GM BTL PO SCH ×2 (09:12→22:02)
[2020-12-22] MEDS: BUDESONIDE/FORMETEROL FUMARATE 160/4.5 mcg INHALER IH SCH ×2 (09:12→22:02)
[2020-12-22] MEDS: QUINAPRIL HCL 5 MG TABLET PO SCH (10:25)
[2020-12-22] MEDS ORDERED: FUROSEMIDE 40 MG/4 ML INJECTABLE VIAL IVPUSH SCH (14:00)
[2020-12-22] MEDS: ALBUTEROL SO4 2.5/IPRATROPIUM 0.5 INH SOL 3 ML VIAL.NEB. NEB PRN (20:30)
[2020-12-22] MEDS: MONTELUKAST NA 10 MG TABLET PO SCH (22:02)
[2020-12-22] MEDS: valACYclovir HCL 500 MG TABLET (FP) PO SCH (22:03)
[2020-12-22] MEDS ORDERED: ALPRAZolam 0.25 MG TABLET PO ONE (22:09)
[2020-12-23] MEDS: FUROSEMIDE 40 MG/4 ML INJECTABLE VIAL IVPUSH SCH ×2 (06:06→14:28)
[2020-12-23 07:12] LABS: HEMATOCRIT 28.9 % (35.4-49); HEMOGLOBIN 9.4 GM/dL (11.7-16.9); MCHC 32.6 g/dl (32.0-35.9); MEAN CELL VOLUME 104.3 fl (80-96); MEAN PLT VOLUME 9.6 fl (7.5-11.1); PLATELET COUNT 96 K/MM3 (134-434); RBC 2.77 M/mm3 (4.00-5.60); WHITE BLOOD COUNT 5.2 K/mm3 (4.0-10.0)
[2020-12-23 07:18] LABS: CALCIUM 8.5 mg/dL (8.5-10.1)
[2020-12-23 07:19] LABS: BLOOD UREA NITROGEN 38.1 mg/dL (7-18); MAGNESIUM 2.1 mg/dL (1.8-2.4)
[2020-12-23 07:21] LABS: ALBUMIN 2.6 g/dl (3.4-5.0)
[2020-12-23 07:22] LABS: CREATININE 2.1 mg/dL (0.55-1.3)
[2020-12-23 07:23] LABS: BILIRUBIN,TOTAL 0.8 mg/dL (0.2-1); TOT PROT 4.8 g/dl (6.4-8.2)
[2020-12-23] MEDS ORDERED: POTASSIUM CHLORIDE TABS 20 MEQ TABLET.ER (FP) PO ONE (08:15)
[2020-12-23] MEDS: APIXABAN 2.5 MG TABLET PO SCH (09:56)
[2020-12-23] MEDS: AMINO ACIDS/PROTEIN HYDROLYS 30 ML LIQUID.PKT PO SCH ×2 (09:56→17:51)
[2020-12-23] MEDS: PANTOPRAZOLE SODIUM 40 MG VIAL IVPUSH SCH (09:56)
[2020-12-23] MEDS: RANOLAZINE E.R. 500 MG TABLET (FP) PO SCH (09:56)
[2020-12-23] MEDS: CARVEDILOL 6.25 MG TABLET (FP) PO SCH (09:57)
[2020-12-23] MEDS: ASPIRIN COATED 81 MG TABLET.EC PO SCH (09:57)
[2020-12-23] MEDS: DOCUSATE SODIUM 100 MG CAPSULE (FP) PO SCH (09:58)
[2020-12-23] MEDS: POLYETHYLENE GLYCOL 3350 119 GM BTL PO SCH (09:59)
[2020-12-23] MEDS: BUDESONIDE/FORMETEROL FUMARATE 160/4.5 mcg INHALER IH SCH (09:59)
[2020-12-23] MEDS: QUINAPRIL HCL 5 MG TABLET PO SCH (10:00)
[2020-12-23 12:49] VITALS: BMI 18.4
[2020-12-23 18:21] VITALS: BP 108/52; PULSE 78; TEMP 97.9
== END 2020-12-23 20:35 | disposition short-term general hospital (02) | DRG 871 ==
LOC: JER 15:17 → JERBED 16:50 → JICU 23:25 → J2W 12-11 14:26
PROVIDERS: ADMIT Hospitalist; ATTEND Internal Medicine
DX: A41.9 Sepsis, unspecified organism (principal); J18.9 Pneumonia, unspecified organism; R65.21 Severe sepsis with septic shock; I71.00 Dissection of unspecified site of aorta; J96.01 Acute respiratory failure with hypoxia; I13.0 Hypertensive heart and chronic kidney disease with heart failure and stage 1 through stage 4 chronic kidney disease, or unspecified chronic kidney disease; I50.42 Chronic combined systolic (congestive) and diastolic (congestive) heart failure; N17.9 Acute kidney failure, unspecified; J44.1 Chronic obstructive pulmonary disease with (acute) exacerbation; E46 Unspecified protein-calorie malnutrition; Z68.1 Body mass index [BMI] 19.9 or less, adult; I25.10 Atherosclerotic heart disease of native coronary artery without angina pectoris; I48.91 Unspecified atrial fibrillation; Z79.01 Long term (current) use of anticoagulants; E78.5 Hyperlipidemia, unspecified; Z86.16 Personal history of COVID-19; I44.7 Left bundle-branch block, unspecified; E87.5 Hyperkalemia; Z95.0 Presence of cardiac pacemaker; N18.9 Chronic kidney disease, unspecified; D53.9 Nutritional anemia, unspecified; F32.9 Major depressive disorder, single episode, unspecified
CPT/HCPCS: 36415; 71045-TC-FY; 71250-TC; 80048; 80053; 81003; 82436; 82550; 82570; 82607; 82728; 82746; 82803; 83540; 83550; 83605; 83735; 83880; 84100; 84133; 84156; 84300; 84484; 85025; 85027; 85045; 85610; 85730; 86738; 87040; 87086; 93005; 93010; 93306-TC; 94010; 94640; 97116-GP; 97161-GP; 99291; C9803; J0131; U0003; U0005

== ENCOUNTER 2021-01-28 23:35 | Inpatient (IN) | payer BC, OTHER ==
[2021-01-29 01:23] LABS: BASO % 0.3 % (0-2.0); EOS % 0.3 % (0-4.5); HEMATOCRIT 35.4 % (35.4-49); HEMOGLOBIN 11.2 GM/dL (11.7-16.9); LYMPH % 6.4 % (8-40); MCH 31.2 pg (25.7-33.7); MCHC 31.5 g/dl (32.0-35.9); MEAN PLT VOLUME 8.3 fl (7.5-11.1); MONO % 10.7 % (3.8-10.2); NEUT % 82.3 % (42.8-82.8); PLATELET COUNT 121 10^3/uL (134-434); RBC 3.58 M/mm3 (4.00-5.60); RDW 21.5 % (11.9-15.9); WHITE BLOOD COUNT 8.4 K/mm3 (4.0-10.0)
[2021-01-29] MEDS ORDERED: ACETAMINOPHEN 1000 MG/100 ML VIAL (NON FORMULARY) IVPB ONE (01:25)
[2021-01-29 01:31] LABS: INR 2.12 (0.83-1.09); PROTHROMBIN TIME (PATIENT) 25.1 SEC (9.7-13.0)
[2021-01-29 01:33] LABS: ACTIVATED PTT 31.7 SECONDS (25.2-36.5)
[2021-01-29] MEDS ORDERED: ACETAMINOPHEN INJECTION 100 ML IVPB ONE (01:39)
[2021-01-29 01:45] LABS: CALCIUM 8.6 mg/dL (8.5-10.1)
[2021-01-29 01:46] LABS: ALBUMIN 3.4 g/dl (3.4-5.0); BLOOD UREA NITROGEN 75.5 mg/dL (7-18)
[2021-01-29 01:49] LABS: CREATININE 3.5 mg/dL (0.55-1.3)
[2021-01-29 01:50] LABS: BILIRUBIN,TOTAL 1.6 mg/dL (0.2-1); TOT PROT 5.8 g/dl (6.4-8.2)
[2021-01-29 01:53] LABS: LACTIC ACID 2.1 mmol/L (0.4-2.0)
[2021-01-29 02:09] LABS: EPI CELLS 4 /uL (0-25.1); HYALINE CASTS 2 /uL (0-3.1); URINE APPEARANCE CLEAR; URINE BACTERIA 2 /uL (0-1359); URINE BILIRUBIN NEGATIVE (NEGATIVE); URINE COLOR YELLOW; URINE GLUCOSE (UA) NEGATIVE (NEGATIVE); URINE KETONE NEGATIVE (NEGATIVE); URINE LEUK ESTERASE NEGATIVE (NEGATIVE); URINE NITRITE NEGATIVE (NEGATIVE); URINE PROTEIN 1+ (NEGATIVE); URINE RBC 3 /uL (0-23.9); URINE UROBILINOGEN 0.2 mg/dL (0.2-1.0); URINE WBC 6 /uL (0-25.8)
[2021-01-29] MEDS ORDERED: ONDANSETRON 4 MG/2 ML VIAL IVPUSH ONE (02:13)
[2021-01-29] MEDS ORDERED: SODIUM CHLORIDE 1,000 ML IV STA (02:13)
[2021-01-29] MEDS ORDERED: ONDANSETRON 4 MG/2 ML VIAL ONE (02:23)
[2021-01-29] MEDS ORDERED: HYDROmorphone HCL CARPU-JECT 2 MG/1 ML DISP.SYRIN IVPB ONE (03:33)
[2021-01-29] MEDS ORDERED: METOCLOPRAMIDE HCL INJECTION 10 MG/2 ML VIAL IVPUSH ONE (03:35)
[2021-01-29] MEDS ORDERED: HYDROmorphone HCL CARPU-JECT 2 MG/1 ML DISP.SYRIN IVPUSH ONE (03:48)
[2021-01-29] MEDS ORDERED: HYDROmorphone HCl 2 MG/ML VIAL ONE (03:49)
[2021-01-29] MEDS ORDERED: METOCLOPRAMIDE HCL INJECTION 10 MG/2 ML VIAL ONE (03:55)
[2021-01-29 04:58] LABS: LACTIC ACID 2.6 mmol/L (0.4-2.0)
[2021-01-29] MEDS ORDERED: CEFTRIAXONE 1 GM in DEXTROSE 5%-WATER - 50 ML IVPB ONE (05:37)
[2021-01-29] MEDS ORDERED: CEFTRIAXONE 1 GM/50 ML BAG ONE (06:10)
[2021-01-29] MEDS ORDERED: ALBUTEROL SO4 2.5/IPRATROPIUM 0.5 INH SOL 3 ML VIAL.NEB. NEB ONE ×2 (08:49→08:53)
[2021-01-29] MEDS ORDERED: SODIUM CHLORIDE 1,000 ML IV SCH (09:00)
[2021-01-29] MEDS ORDERED: METOCLOPRAMIDE HCL INJECTION 10 MG/2 ML VIAL IVPUSH PRN (09:04)
[2021-01-29] MEDS ORDERED: MAG HYDROX/AL HYDROX/SIMETH 30 ML UNIT-DOSE CUP PO PRN (09:07)
[2021-01-29] MEDS ORDERED: POLYETHYLENE GLYCOL (HEALTHYLAX) 3350 17 GM PACKET PO SCH (10:00)
[2021-01-29] MEDS: PANTOPRAZOLE SODIUM 40 MG VIAL IVPUSH SCH (10:44)
[2021-01-29] MEDS: RANOLAZINE E.R. 500 MG TABLET (FP) PO SCH (10:44)
[2021-01-29] MEDS: CARVEDILOL 12.5 MG TABLET (FP) PO SCH ×2 (10:44→21:45)
[2021-01-29] MEDS: ALPRAZolam 0.25 MG TABLET PO PRN ×2 (10:44→23:14)
[2021-01-29] MEDS: TIOTROPIUM BROMIDE 2.5 MCG (SPIRIVA) RESPIMAT INHALER IH SCH (11:55)
[2021-01-29] MEDS: BUDESONIDE/FORMETEROL FUMARATE 160/4.5 mcg INHALER IH SCH ×2 (11:55→21:51)
[2021-01-29] MEDS: metoPROLOL SUCCINATE 25 MG TAB.SR.24H (FP) PO SCH (11:55)
[2021-01-29 12:18] LABS: LACTIC ACID 3.4 mmol/L (0.4-2.0)
[2021-01-29] MEDS ORDERED: TRIMETHOBENZAMIDE HCL 300 MG CAPSULE PO PRN (12:27)
[2021-01-29 13:59] VITALS: BMI 21.2
[2021-01-29] MEDS ORDERED: PIPERACILLIN/TAZOBACTAM 2.25 GM VIAL IVPB ONE ×2 (15:22→21:37)
[2021-01-29] MEDS ORDERED: DEXTROSE 5%-WATER - 50 ML IVPB ONE ×2 (15:22→21:38)
[2021-01-29] MEDS: PIPERACILLIN/TAZOB 2.25 GM 2.25 GM in DEXTROSE 5%-WATER - 50 ML IVPB SCH ×2 (15:27→21:46)
[2021-01-29 21:06] LABS: HEMATOCRIT 30.1 % (35.4-49); HEMOGLOBIN 9.5 GM/dL (11.7-16.9); MCH 31.1 pg (25.7-33.7); MCHC 31.5 g/dl (32.0-35.9); MEAN CELL VOLUME 98.7 fl (80-96); MEAN PLT VOLUME 8.1 fl (7.5-11.1); PLATELET COUNT 117 10^3/uL (134-434); RBC 3.05 M/mm3 (4.00-5.60); RDW 21.4 % (11.9-15.9); WHITE BLOOD COUNT 7.1 K/mm3 (4.0-10.0)
[2021-01-29 21:22] LABS: ALBUMIN 2.9 g/dl (3.4-5.0); BLOOD UREA NITROGEN 86.2 mg/dL (7-18); CALCIUM 7.8 mg/dL (8.5-10.1)
[2021-01-29 21:26] LABS: CREATININE 3.4 mg/dL (0.55-1.3)
[2021-01-29 21:27] LABS: TOT PROT 4.7 g/dl (6.4-8.2)
[2021-01-29] MEDS: MONTELUKAST NA 10 MG TABLET PO SCH (21:45)
[2021-01-29] MEDS: APIXABAN 2.5 MG TABLET PO SCH (21:45)
[2021-01-29] MEDS: ISOSORBIDE MONONITRATE 30 MG TAB.SR.24H (FP) PO SCH (21:45)
[2021-01-29] MEDS: POLYETHYLENE GLYCOL (HEALTHYLAX) 3350 17 GM PACKET PO SCH (21:47)
[2021-01-29] MEDS ORDERED: valACYclovir HCL 500 MG TABLET (FP) PO SCH (22:00)
[2021-01-30] MEDS ORDERED: PIPERACILLIN/TAZOBACTAM 2.25 GM VIAL IVPB ONE ×2 (02:40→10:37)
[2021-01-30] MEDS ORDERED: DEXTROSE 5%-WATER - 50 ML IVPB ONE ×3 (02:40→10:37)
[2021-01-30] MEDS: PIPERACILLIN/TAZOB 2.25 GM 2.25 GM in DEXTROSE 5%-WATER - 50 ML IVPB SCH ×3 (02:55→10:48)
[2021-01-30] MEDS: POLYETHYLENE GLYCOL (HEALTHYLAX) 3350 17 GM PACKET PO SCH ×3 (05:51→22:12)
[2021-01-30 09:42] LABS: BASO % 0.3 % (0-2.0); EOS % 1.6 % (0-4.5); HEMOGLOBIN 9.7 GM/dL (11.7-16.9); MCH 30.8 pg (25.7-33.7); MCHC 31.2 g/dl (32.0-35.9); MEAN CELL VOLUME 98.8 fl (80-96); MEAN PLT VOLUME 8.9 fl (7.5-11.1); NEUT % 81.1 % (42.8-82.8); PLATELET COUNT 123 10^3/uL (134-434); RBC 3.14 M/mm3 (4.00-5.60); RDW 21.3 % (11.9-15.9); WHITE BLOOD COUNT 6.2 K/mm3 (4.0-10.0)
[2021-01-30 09:51] LABS: INR 2.16 (0.83-1.09); PROTHROMBIN TIME (PATIENT) 25.6 SEC (9.7-13.0)
[2021-01-30 09:53] LABS: ACTIVATED PTT 32.3 SECONDS (25.2-36.5)
[2021-01-30] MEDS ORDERED: metoPROLOL SUCCINATE 25 MG TAB.SR.24H (FP) PO SCH (10:00)
[2021-01-30 10:12] LABS: ALBUMIN 2.8 g/dl (3.4-5.0); BLOOD UREA NITROGEN 81.2 mg/dL (7-18); CALCIUM 7.7 mg/dL (8.5-10.1)
[2021-01-30 10:13] LABS: MAGNESIUM 2.6 mg/dL (1.8-2.4)
[2021-01-30 10:16] LABS: ALBUMIN 2.8 g/dl (3.4-5.0); CREATININE 3.1 mg/dL (0.55-1.3); PHOSPHOROUS 5.3 mg/dL (2.5-4.9)
[2021-01-30 10:17] LABS: BILIRUBIN,TOTAL 1.2 mg/dL (0.2-1); TOT PROT 4.6 g/dl (6.4-8.2)
[2021-01-30 10:19] LABS: BILIRUBIN,DIRECT 0.7 mg/dL (0.0-0.2)
[2021-01-30 10:21] LABS: BILIRUBIN,TOTAL 1.2 mg/dL (0.2-1); TOT PROT 4.6 g/dl (6.4-8.2)
[2021-01-30] MEDS ORDERED: cefTRIAXone SODIUM 1 GM VIAL ONE (10:36)
[2021-01-30] MEDS ORDERED: PT OWN MED DRAWER 7, Y5N ONE ×2 (10:36→22:08)
[2021-01-30] MEDS: APIXABAN 2.5 MG TABLET PO SCH ×2 (10:40→22:12)
[2021-01-30] MEDS: RANOLAZINE E.R. 500 MG TABLET (FP) PO SCH (10:41)
[2021-01-30] MEDS: ISOSORBIDE MONONITRATE 30 MG TAB.SR.24H (FP) PO SCH ×2 (10:41→22:12)
[2021-01-30] MEDS: PANTOPRAZOLE SODIUM 40 MG VIAL IVPUSH SCH (10:41)
[2021-01-30] MEDS: TIOTROPIUM BROMIDE 2.5 MCG (SPIRIVA) RESPIMAT INHALER IH SCH (10:42)
[2021-01-30] MEDS: BUDESONIDE/FORMETEROL FUMARATE 160/4.5 mcg INHALER IH SCH ×2 (10:42→22:14)
[2021-01-30] MEDS: CARVEDILOL 12.5 MG TABLET (FP) PO SCH ×2 (10:45→22:12)
[2021-01-30] MEDS: CEFTRIAXONE 1 GM in DEXTROSE 5%-WATER - 50 ML IVPB SCH ×2 (10:46→10:53)
[2021-01-30] MEDS: metoPROLOL SUCCINATE 25 MG TAB.SR.24H (FP) PO SCH (10:46)
[2021-01-30] MEDS: URSODIOL 300 MG CAPSULE PO SCH ×2 (11:27→22:13)
[2021-01-30] MEDS ORDERED: ALBUTEROL SO4 0.083% IH SOL 2.5 MG/3 ML VIAL.NEB. NEB PRN (13:09)
[2021-01-30] MEDS ORDERED: ALBUTEROL SO4 HFA INHALER IH PRN (13:10)
[2021-01-30] MEDS ORDERED: ATORVASTATIN CA 10 MG TABLET (FP) PO SCH (22:00)
[2021-01-30] MEDS: MONTELUKAST NA 10 MG TABLET PO SCH (22:12)
[2021-01-30] MEDS: TERAZOSIN HCL 5 MG CAPSULE PO SCH (22:13)
[2021-01-30] MEDS: ALPRAZolam 0.25 MG TABLET PO PRN (22:59)
[2021-01-31] MEDS: POLYETHYLENE GLYCOL (HEALTHYLAX) 3350 17 GM PACKET PO SCH ×3 (05:24→21:12)
[2021-01-31 08:19] LABS: BASO % 0.3 % (0-2.0); EOS % 2.2 % (0-4.5); HEMATOCRIT 27.8 % (35.4-49); HEMOGLOBIN 8.9 GM/dL (11.7-16.9); LYMPH % 9.7 % (8-40); MCH 31.2 pg (25.7-33.7); MCHC 31.9 g/dl (32.0-35.9); MEAN CELL VOLUME 97.8 fl (80-96); MEAN PLT VOLUME 8.3 fl (7.5-11.1); MONO % 12.1 % (3.8-10.2); NEUT % 75.7 % (42.8-82.8); PLATELET COUNT 102 10^3/uL (134-434); RBC 2.84 M/mm3 (4.00-5.60); RDW 20.8 % (11.9-15.9)
[2021-01-31 08:36] LABS: ALBUMIN 2.5 g/dl (3.4-5.0); BLOOD UREA NITROGEN 62.8 mg/dL (7-18); CALCIUM 7.5 mg/dL (8.5-10.1)
[2021-01-31 08:39] LABS: CREATININE 2.8 mg/dL (0.55-1.3)
[2021-01-31 08:41] LABS: TOT PROT 4.3 g/dl (6.4-8.2)
[2021-01-31] MEDS ORDERED: PT OWN MED DRAWER 7, Y5N ONE ×2 (09:50→21:07)
[2021-01-31] MEDS ORDERED: cefTRIAXone SODIUM 1 GM VIAL ONE (09:51)
[2021-01-31] MEDS ORDERED: DEXTROSE 5%-WATER - 50 ML IVPB ONE (09:51)
[2021-01-31] MEDS ORDERED: metoPROLOL SUCCINATE 25 MG TAB.SR.24H (FP) PO SCH (09:51)
[2021-01-31] MEDS: APIXABAN 2.5 MG TABLET PO SCH ×2 (09:55→21:12)
[2021-01-31] MEDS: URSODIOL 300 MG CAPSULE PO SCH ×2 (09:55→21:13)
[2021-01-31] MEDS: ISOSORBIDE MONONITRATE 30 MG TAB.SR.24H (FP) PO SCH (09:56)
[2021-01-31] MEDS: PANTOPRAZOLE SODIUM 40 MG VIAL IVPUSH SCH (09:56)
[2021-01-31] MEDS: RANOLAZINE E.R. 500 MG TABLET (FP) PO SCH (09:56)
[2021-01-31] MEDS: TIOTROPIUM BROMIDE 2.5 MCG (SPIRIVA) RESPIMAT INHALER IH SCH (09:56)
[2021-01-31] MEDS: BUDESONIDE/FORMETEROL FUMARATE 160/4.5 mcg INHALER IH SCH ×2 (09:56→21:13)
[2021-01-31] MEDS: CEFTRIAXONE 1 GM in DEXTROSE 5%-WATER - 50 ML IVPB SCH (09:58)
[2021-01-31] MEDS: PIPERACILLIN/TAZOB 2.25 GM 2.25 GM in DEXTROSE 5%-WATER - 50 ML IVPB SCH ×4 (10:12→10:15)
[2021-01-31] MEDS: metroNIDAZOLE 500 MG TABLET PO SCH ×2 (14:08→21:12)
[2021-01-31] MEDS: PATIENT'S OWN MEDICATION (NON-FORMULARY) (Dapagliflozin Propanediol [Farxiga] 5 MG Tablet) PO SCH (16:11)
[2021-01-31] MEDS: MONTELUKAST NA 10 MG TABLET PO SCH (21:12)
[2021-01-31] MEDS: metoPROLOL SUCCINATE 25 MG TAB.SR.24H (FP) PO SCH (21:12)
[2021-01-31] MEDS: TERAZOSIN HCL 5 MG CAPSULE PO SCH (21:13)
[2021-01-31] MEDS: ALPRAZolam 0.25 MG TABLET PO PRN (23:02)
[2021-02-01] MEDS ORDERED: SIMETHICONE 80 MG TAB.CHEW (FP) PO ONE (03:03)
[2021-02-01] MEDS ORDERED: PT OWN MED DRAWER 7, Y5N ONE ×2 (04:12→05:13)
[2021-02-01] MEDS: POLYETHYLENE GLYCOL (HEALTHYLAX) 3350 17 GM PACKET PO SCH ×2 (05:18→14:02)
[2021-02-01] MEDS: metroNIDAZOLE 500 MG TABLET PO SCH ×2 (05:18→14:02)
[2021-02-01 09:11] LABS: HEMATOCRIT 28.9 % (35.4-49); HEMOGLOBIN 9.2 GM/dL (11.7-16.9); MCH 30.9 pg (25.7-33.7); MCHC 31.9 g/dl (32.0-35.9); MEAN PLT VOLUME 8.3 fl (7.5-11.1); PLATELET COUNT 101 10^3/uL (134-434); RBC 2.97 M/mm3 (4.00-5.60); RDW 21.2 % (11.9-15.9); WHITE BLOOD COUNT 6.2 K/mm3 (4.0-10.0)
[2021-02-01 09:41] VITALS: PULSE 85
[2021-02-01 09:48] LABS: ALBUMIN 2.7 g/dl (3.4-5.0); BLOOD UREA NITROGEN 54.2 mg/dL (7-18)
[2021-02-01 09:49] LABS: CALCIUM 8.1 mg/dL (8.5-10.1)
[2021-02-01 09:53] LABS: CREATININE 2.5 mg/dL (0.55-1.3); PHOSPHOROUS 3.2 mg/dL (2.5-4.9)
[2021-02-01 09:54] LABS: BILIRUBIN,TOTAL 0.8 mg/dL (0.2-1); MAGNESIUM 2.8 mg/dL (1.8-2.4); TOT PROT 4.6 g/dl (6.4-8.2)
[2021-02-01] MEDS ORDERED: cefTRIAXone SODIUM 1 GM VIAL ONE (09:56)
[2021-02-01] MEDS ORDERED: DEXTROSE 5%-WATER - 50 ML IVPB ONE (09:57)
[2021-02-01 10:06] LABS: HEP B CORE AB, TOT Negative (Negative)
[2021-02-01] MEDS: URSODIOL 300 MG CAPSULE PO SCH (10:12)
[2021-02-01] MEDS: APIXABAN 2.5 MG TABLET PO SCH (10:12)
[2021-02-01] MEDS: BUDESONIDE/FORMETEROL FUMARATE 160/4.5 mcg INHALER IH SCH (10:13)
[2021-02-01] MEDS: CEFTRIAXONE 1 GM in DEXTROSE 5%-WATER - 50 ML IVPB SCH (10:13)
[2021-02-01] MEDS: RANOLAZINE E.R. 500 MG TABLET (FP) PO SCH (10:13)
[2021-02-01] MEDS: TIOTROPIUM BROMIDE 2.5 MCG (SPIRIVA) RESPIMAT INHALER IH SCH (10:13)
[2021-02-01] MEDS: metoPROLOL SUCCINATE 25 MG TAB.SR.24H (FP) PO SCH (10:19)
[2021-02-01] MEDS: PANTOPRAZOLE SODIUM 40 MG VIAL IVPUSH SCH (11:15)
[2021-02-01 14:29] VITALS: BP 113/70; TEMP 98.4
== END 2021-02-01 14:50 | disposition home or self-care (01) | DRG 445 ==
LOC: JER 23:35 → JERBED 01-29 03:44 → J6S 01-29 09:57
PROVIDERS: ATTEND Internal Medicine
DX: K83.8 Other specified diseases of biliary tract (principal); I13.0 Hypertensive heart and chronic kidney disease with heart failure and stage 1 through stage 4 chronic kidney disease, or unspecified chronic kidney disease; I50.42 Chronic combined systolic (congestive) and diastolic (congestive) heart failure; J98.11 Atelectasis; N17.9 Acute kidney failure, unspecified; E87.2 Acidosis; I25.10 Atherosclerotic heart disease of native coronary artery without angina pectoris; I48.91 Unspecified atrial fibrillation; E78.5 Hyperlipidemia, unspecified; N18.30 Chronic kidney disease, stage 3 unspecified; D63.8 Anemia in other chronic diseases classified elsewhere; F41.9 Anxiety disorder, unspecified; J44.9 Chronic obstructive pulmonary disease, unspecified; F41.8 Other specified anxiety disorders; M54.5 Low back pain; J30.9 Allergic rhinitis, unspecified; K59.09 Other constipation; K57.90 Diverticulosis of intestine, part unspecified, without perforation or abscess without bleeding; R93.5 Abnormal findings on diagnostic imaging of other abdominal regions, including retroperitoneum; M85.80 Other specified disorders of bone density and structure, unspecified site; R94.5 Abnormal results of liver function studies; R10.30 Lower abdominal pain, unspecified; Z95.0 Presence of cardiac pacemaker
CPT/HCPCS: 36415; 71045-TC-FY; 72192-TC; 74176-TC; 76705-TC; 78226-TC; 80048; 80053; 80076; 81003; 82378; 82728; 83540; 83550; 83605; 83690; 83735; 84100; 84484; 85025; 85027; 85610; 85730; 86140; 86704; 86706; 86707; 86708; 86709; 86803; 87086; 87340; 93005; 93010; 99285-25; A9537; C9803; J0131; U0003; U0005

== ENCOUNTER 2021-02-19 01:10 | Inpatient (IN) | payer BC, OTHER ==
[2021-02-19 01:41] LABS: BASO % 0.3 % (0-2.0); EOS % 0.1 % (0-4.5); HEMATOCRIT 29.9 % (35.4-49); HEMOGLOBIN 9.5 GM/dL (11.7-16.9); LYMPH % 7.6 % (8-40); MCHC 31.8 g/dl (32.0-35.9); MEAN CELL VOLUME 94.5 fl (80-96); MEAN PLT VOLUME 7.8 fl (7.5-11.1); MONO % 14.8 % (3.8-10.2); NEUT % 77.2 % (42.8-82.8); PLATELET COUNT 130 10^3/uL (134-434); RBC 3.17 M/mm3 (4.00-5.60); RDW 21.2 % (11.9-15.9); WHITE BLOOD COUNT 4.4 K/mm3 (4.0-10.0)
[2021-02-19 02:03] LABS: ALBUMIN 2.9 g/dl (3.4-5.0); BLOOD UREA NITROGEN 51.7 mg/dL (7-18); CALCIUM 7.3 mg/dL (8.5-10.1)
[2021-02-19 02:07] LABS: CREATININE 2.2 mg/dL (0.55-1.3)
[2021-02-19] MEDS ORDERED: POTASSIUM CHLORIDE ORAL LIQUID 20 MEQ/15 ML PO ONE ×2 (02:07→09:50)
[2021-02-19 02:08] LABS: BILIRUBIN,TOTAL 0.8 mg/dL (0.2-1); TOT PROT 5.6 g/dl (6.4-8.2)
[2021-02-19] MEDS ORDERED: FUROSEMIDE 40 MG/4 ML INJECTABLE VIAL IVPUSH ONE ×2 (02:29→09:10)
[2021-02-19 02:40] LABS: N-TERMINAL BNP 46206.7 pg/ml (5-125)
[2021-02-19 02:41] LABS: VENOUS BASE EXCESS 8.3 mmol/L (-2-2); VENOUS O2 SATURATION 44.4 % (70-80); VENOUS PCO2 55.6 mmHg (38-52); VENOUS PH 7.407 (7.310-7.410)
[2021-02-19] MEDS ORDERED: POTASSIUM CHLORIDE ORAL LIQUID 20 MEQ/15 ML ONE ×2 (02:45→09:47)
[2021-02-19] MEDS ORDERED: FUROSEMIDE 40 MG/4 ML INJECTABLE VIAL ONE ×2 (02:46→09:53)
[2021-02-19] MEDS ORDERED: LORazepam 2 MG/ML SDV VIAL IVPUSH ONE (04:32)
[2021-02-19] MEDS ORDERED: LORazepam 2 MG/ML SDV VIAL ONE (04:41)
[2021-02-19 05:05] LABS: ANISOCYTOSIS 1+; MACROCYTOSIS 0; OVALOCYTE 1+; PLATELET ESTIMATE DECREASED; TARGET CELLS 1+
[2021-02-19 09:07] LABS: ARTERIAL BLD GAS O2 SATURATION 99.3 % (95-98); ARTERIAL BLOOD GAS BASE EXCESS 8.2 mmol/L (-2-2); ARTERIAL BLOOD GAS PO2 169.9 mmHg (80-100); ARTERIAL BLOOD GAS pH 7.486 (7.350-7.450)
[2021-02-19 09:09] LABS: ALLENS TEST POSITIVE
[2021-02-19 09:10] LABS: PT'S TEMP 98.6; VENT RATE 123
[2021-02-19] MEDS ORDERED: POTASSIUM CHLORIDE TABS 20 MEQ TABLET.ER (FP) PO ONE (09:28)
[2021-02-19] MEDS ORDERED: KCL 10 MEQ IVPB 10 MEQ/100 ML INFUS.BAG IVPB ONE ×2 (09:51→11:28)
[2021-02-19] MEDS: KCL 10 MEQ IVPB 10 MEQ/100 ML INFUS.BAG IVPB SCH ×3 (10:13→13:20)
[2021-02-19] MEDS ORDERED: ALBUTEROL SO4 2.5/IPRATROPIUM 0.5 INH SOL 3 ML VIAL.NEB. NEB ONE (10:17)
[2021-02-19] MEDS ORDERED: ASPIRIN 81 MG CHEWABLE TABLETS ONE (10:32)
[2021-02-19] MEDS ORDERED: APIXABAN 2.5 MG TABLET ONE (10:32)
[2021-02-19] MEDS: ASPIRIN 81 MG CHEWABLE TABLETS PO SCH (11:15)
[2021-02-19] MEDS: APIXABAN 2.5 MG TABLET PO SCH ×2 (11:15→21:51)
[2021-02-19] MEDS: ISOSORBIDE MONONITRATE 30 MG TAB.SR.24H (FP) PO SCH (13:20)
[2021-02-19] MEDS: hydrALAZINE HCL 25 MG TABLET (FP) PO SCH (21:51)
[2021-02-19] MEDS: ATORVASTATIN CA 40 MG TABLET (FP) PO SCH (21:51)
[2021-02-20 06:53] LABS: BASO % 0.4 % (0-2.0); EOS % 0.5 % (0-4.5); HEMATOCRIT 28.4 % (35.4-49); HEMOGLOBIN 9.1 GM/dL (11.7-16.9); MCH 30.2 pg (25.7-33.7); MEAN CELL VOLUME 94.3 fl (80-96); MEAN PLT VOLUME 8.6 fl (7.5-11.1); MONO % 12.4 % (3.8-10.2); NEUT % 76.7 % (42.8-82.8); PLATELET COUNT 149 10^3/uL (134-434); RBC 3.01 M/mm3 (4.00-5.60); WHITE BLOOD COUNT 5.2 K/mm3 (4.0-10.0)
[2021-02-20 07:12] LABS: ALBUMIN 2.6 g/dl (3.4-5.0); CALCIUM 7.3 mg/dL (8.5-10.1)
[2021-02-20 07:13] LABS: MAGNESIUM 2.1 mg/dL (1.8-2.4)
[2021-02-20 07:15] LABS: CREATININE 2.3 mg/dL (0.55-1.3); PHOSPHOROUS 3.7 mg/dL (2.5-4.9)
[2021-02-20 07:16] LABS: BILIRUBIN,TOTAL 0.9 mg/dL (0.2-1)
[2021-02-20 07:19] LABS: TOT PROT 4.9 g/dl (6.4-8.2)
[2021-02-20 08:39] LABS: ANISOCYTOSIS 1+; MACROCYTOSIS 0; OVALOCYTE 1+; PLATELET ESTIMATE DECREASED; TARGET CELLS 1+
[2021-02-20] MEDS: APIXABAN 2.5 MG TABLET PO SCH ×2 (09:48→21:23)
[2021-02-20] MEDS: hydrALAZINE HCL 25 MG TABLET (FP) PO SCH ×2 (09:48→21:23)
[2021-02-20] MEDS: ASPIRIN 81 MG CHEWABLE TABLETS PO SCH (09:48)
[2021-02-20] MEDS: ISOSORBIDE MONONITRATE 30 MG TAB.SR.24H (FP) PO SCH (09:48)
[2021-02-20] MEDS ORDERED: FUROSEMIDE 40 MG/4 ML INJECTABLE VIAL IVPUSH ONE (13:15)
[2021-02-20 13:56] LABS: CREATININE 2.3 mg/dL (0.55-1.3)
[2021-02-20 13:57] LABS: ALBUMIN 2.7 g/dl (3.4-5.0); BLOOD UREA NITROGEN 61.7 mg/dL (7-18); CALCIUM 7.4 mg/dL (8.5-10.1)
[2021-02-20] MEDS: ATORVASTATIN CA 40 MG TABLET (FP) PO SCH (21:23)
[2021-02-21] MEDS ORDERED: ALBUTEROL SO4 HFA INHALER IH ONE (04:16)
[2021-02-21 07:48] LABS: BASO % 0.4 % (0-2.0); EOS % 0.6 % (0-4.5); HEMATOCRIT 32.4 % (35.4-49); HEMOGLOBIN 10.3 GM/dL (11.7-16.9); LYMPH % 8.5 % (8-40); MCH 30.4 pg (25.7-33.7); MCHC 31.9 g/dl (32.0-35.9); MEAN CELL VOLUME 95.3 fl (80-96); MEAN PLT VOLUME 9.1 fl (7.5-11.1); MONO % 12.5 % (3.8-10.2); PLATELET COUNT 180 10^3/uL (134-434); RDW 20.9 % (11.9-15.9); WHITE BLOOD COUNT 5.5 K/mm3 (4.0-10.0)
[2021-02-21 07:52] LABS: CHLORIDE 107 mmol/L (98-107); SODIUM 146 mmol/L (136-145)
[2021-02-21 07:54] LABS: ALBUMIN 2.8 g/dl (3.4-5.0); ANION GAP 13 MMOL/L (8-16); CALCIUM 7.3 mg/dL (8.5-10.1); CO2 27 mmol/L (21-32)
[2021-02-21 07:55] LABS: BLOOD UREA NITROGEN 62.6 mg/dL (7-18)
[2021-02-21 07:57] LABS: CREATININE 2.3 mg/dL (0.55-1.3); SGPT/ALT 20 U/L (13-61)
[2021-02-21 07:58] LABS: SGOT/AST 12 U/L (15-37)
[2021-02-21 07:59] LABS: BILIRUBIN,TOTAL 1.1 mg/dL (0.2-1)
[2021-02-21 08:00] LABS: ALK PHOS 63 U/L (45-117)
[2021-02-21 08:23] LABS: GLUCOSE,RANDOM 47 mg/dL (74-106)
[2021-02-21] MEDS: APIXABAN 2.5 MG TABLET PO SCH ×2 (09:18→21:25)
[2021-02-21] MEDS: ASPIRIN 81 MG CHEWABLE TABLETS PO SCH (09:18)
[2021-02-21] MEDS: FUROSEMIDE 40 MG/4 ML INJECTABLE VIAL IVPB SCH (09:18)
[2021-02-21] MEDS: hydrALAZINE HCL 25 MG TABLET (FP) PO SCH ×2 (09:18→21:25)
[2021-02-21] MEDS: ISOSORBIDE MONONITRATE 30 MG TAB.SR.24H (FP) PO SCH (09:18)
[2021-02-21 10:19] LABS: ANISOCYTOSIS 1+; MACROCYTOSIS 0; PLATELET ESTIMATE NORMAL
[2021-02-21] MEDS: POTASSIUM CHLORIDE TABS 20 MEQ TABLET.ER (FP) PO SCH (10:42)
[2021-02-21] MEDS: predniSONE 5 MG TABLET (UD) PO SCH (10:42)
[2021-02-21] MEDS: ALBUTEROL SO4 2.5/IPRATROPIUM 0.5 INH SOL 3 ML VIAL.NEB. NEB PRN ×2 (13:35→22:47)
[2021-02-21] MEDS: ALBUTEROL SO4 HFA INHALER IH PRN (14:34)
[2021-02-21 15:29] VITALS: BMI 21.2
[2021-02-21] MEDS: ATORVASTATIN CA 40 MG TABLET (FP) PO SCH (21:25)
[2021-02-22] MEDS: ALBUTEROL SO4 HFA INHALER IH PRN ×2 (06:43→23:02)
[2021-02-22 07:33] LABS: CALCIUM 7.4 mg/dL (8.5-10.1)
[2021-02-22 07:34] LABS: ALBUMIN 2.6 g/dl (3.4-5.0); BLOOD UREA NITROGEN 61.6 mg/dL (7-18)
[2021-02-22 07:37] LABS: CREATININE 2.2 mg/dL (0.55-1.3)
[2021-02-22 07:38] LABS: BILIRUBIN,TOTAL 0.8 mg/dL (0.2-1)
[2021-02-22 07:39] LABS: TOT PROT 4.8 g/dl (6.4-8.2)
[2021-02-22] MEDS: predniSONE 5 MG TABLET (UD) PO SCH (10:06)
[2021-02-22] MEDS: ISOSORBIDE MONONITRATE 30 MG TAB.SR.24H (FP) PO SCH (10:06)
[2021-02-22] MEDS: APIXABAN 2.5 MG TABLET PO SCH ×2 (10:06→21:11)
[2021-02-22] MEDS: hydrALAZINE HCL 25 MG TABLET (FP) PO SCH ×2 (10:06→21:11)
[2021-02-22] MEDS: POTASSIUM CHLORIDE TABS 20 MEQ TABLET.ER (FP) PO SCH (10:06)
[2021-02-22] MEDS: ASPIRIN 81 MG CHEWABLE TABLETS PO SCH (10:06)
[2021-02-22] MEDS: FUROSEMIDE 40 MG/4 ML INJECTABLE VIAL IVPB SCH (10:07)
[2021-02-22] MEDS ORDERED: ACETAMINOPHEN 325 MG TABLET (FP) ONE (16:38)
[2021-02-22] MEDS: ATORVASTATIN CA 40 MG TABLET (FP) PO SCH (21:11)
[2021-02-22] MEDS: URSODIOL 300 MG CAPSULE PO SCH (21:11)
[2021-02-23 07:59] LABS: BASO % 0.3 % (0-2.0); EOS % 0.3 % (0-4.5); HEMATOCRIT 33.6 % (35.4-49); HEMOGLOBIN 10.9 GM/dL (11.7-16.9); LYMPH % 7.9 % (8-40); MCH 30.2 pg (25.7-33.7); MCHC 32.3 g/dl (32.0-35.9); MEAN CELL VOLUME 93.4 fl (80-96); MEAN PLT VOLUME 8.5 fl (7.5-11.1); MONO % 14.2 % (3.8-10.2); NEUT % 77.3 % (42.8-82.8); PLATELET COUNT 185 10^3/uL (134-434); RBC 3.59 M/mm3 (4.00-5.60); RDW 21.4 % (11.9-15.9); WHITE BLOOD COUNT 6.9 K/mm3 (4.0-10.0)
[2021-02-23 08:20] LABS: CALCIUM 7.5 mg/dL (8.5-10.1)
[2021-02-23 08:21] LABS: ALBUMIN 2.8 g/dl (3.4-5.0); BLOOD UREA NITROGEN 54.8 mg/dL (7-18); MAGNESIUM 2.6 mg/dL (1.8-2.4)
[2021-02-23 08:24] LABS: CREATININE 2.2 mg/dL (0.55-1.3); PHOSPHOROUS 4.3 mg/dL (2.5-4.9)
[2021-02-23 08:25] LABS: BILIRUBIN,TOTAL 0.8 mg/dL (0.2-1)
[2021-02-23] MEDS ORDERED: ACETAMINOPHEN 325 MG TABLET (FP) PO PRN (09:03)
[2021-02-23 09:36] LABS: ANISOCYTOSIS 1+; MACROCYTOSIS 0; OVALOCYTE 2+; PLATELET ESTIMATE NORMAL; TEAR DROP CELLS 1+
[2021-02-23] MEDS: predniSONE 5 MG TABLET (UD) PO SCH (10:59)
[2021-02-23] MEDS: ASPIRIN 81 MG CHEWABLE TABLETS PO SCH (10:59)
[2021-02-23] MEDS: POTASSIUM CHLORIDE TABS 20 MEQ TABLET.ER (FP) PO SCH (10:59)
[2021-02-23] MEDS: ISOSORBIDE MONONITRATE 30 MG TAB.SR.24H (FP) PO SCH (10:59)
[2021-02-23] MEDS: URSODIOL 300 MG CAPSULE PO SCH ×2 (10:59→21:29)
[2021-02-23] MEDS: FUROSEMIDE 40 MG/4 ML INJECTABLE VIAL IVPB SCH (11:00)
[2021-02-23] MEDS: APIXABAN 2.5 MG TABLET PO SCH ×2 (11:00→21:28)
[2021-02-23] MEDS: hydrALAZINE HCL 25 MG TABLET (FP) PO SCH ×2 (11:00→21:29)
[2021-02-23] MEDS ORDERED: PT OWN MED DRAWER 7, Y5N ONE ×2 (11:01→20:32)
[2021-02-23] MEDS: ALBUTEROL SO4 HFA INHALER IH PRN ×2 (11:07→17:30)
[2021-02-23] MEDS: ATORVASTATIN CA 40 MG TABLET (FP) PO SCH (21:28)
[2021-02-23] MEDS: SIMETHICONE 80 MG TAB.CHEW (FP) PO PRN (22:09)
[2021-02-24] MEDS: SIMETHICONE 80 MG TAB.CHEW (FP) PO PRN ×2 (01:46→10:03)
[2021-02-24] MEDS: ALBUTEROL SO4 HFA INHALER IH PRN ×2 (01:49→06:30)
[2021-02-24] MEDS ORDERED: MAG HYDROX/AL HYDROX/SIMETH 30 ML UNIT-DOSE CUP PO PRN (03:29)
[2021-02-24 08:28] LABS: BASO % 0.2 % (0-2.0); EOS % 0.2 % (0-4.5); HEMATOCRIT 34.9 % (35.4-49); HEMOGLOBIN 11.3 GM/dL (11.7-16.9); LYMPH % 8.5 % (8-40); MCH 30.1 pg (25.7-33.7); MCHC 32.5 g/dl (32.0-35.9); MEAN CELL VOLUME 92.8 fl (80-96); MEAN PLT VOLUME 8.7 fl (7.5-11.1); MONO % 13.9 % (3.8-10.2); NEUT % 77.2 % (42.8-82.8); PLATELET COUNT 168 10^3/uL (134-434); RBC 3.76 M/mm3 (4.00-5.60); RDW 21.8 % (11.9-15.9)
[2021-02-24 08:56] LABS: ALBUMIN 2.9 g/dl (3.4-5.0); BLOOD UREA NITROGEN 50.5 mg/dL (7-18); CALCIUM 7.7 mg/dL (8.5-10.1); MAGNESIUM 2.6 mg/dL (1.8-2.4)
[2021-02-24 08:59] LABS: CREATININE 2.3 mg/dL (0.55-1.3); PHOSPHOROUS 4.2 mg/dL (2.5-4.9)
[2021-02-24 09:01] LABS: TOT PROT 5.1 g/dl (6.4-8.2)
[2021-02-24] MEDS: FUROSEMIDE 40 MG/4 ML INJECTABLE VIAL IVPB SCH (09:43)
[2021-02-24] MEDS: predniSONE 5 MG TABLET (UD) PO SCH (09:46)
[2021-02-24] MEDS: POTASSIUM CHLORIDE TABS 20 MEQ TABLET.ER (FP) PO SCH (09:46)
[2021-02-24] MEDS: ASPIRIN 81 MG CHEWABLE TABLETS PO SCH (09:46)
[2021-02-24] MEDS: hydrALAZINE HCL 25 MG TABLET (FP) PO SCH (09:46)
[2021-02-24] MEDS: ISOSORBIDE MONONITRATE 30 MG TAB.SR.24H (FP) PO SCH (09:46)
[2021-02-24] MEDS: APIXABAN 2.5 MG TABLET PO SCH (09:46)
[2021-02-24] MEDS ORDERED: PT OWN MED DRAWER 7, Y5N ONE ×2 (09:49→11:26)
[2021-02-24] MEDS: URSODIOL 300 MG CAPSULE PO SCH (09:50)
[2021-02-24] MEDS ORDERED: TAMSULOSIN HCL 0.4 MG CAP PO SCH (11:15)
[2021-02-24 11:33] LABS: ANISOCYTOSIS 1+; MACROCYTOSIS 0; OVALOCYTE 1+; PLATELET ESTIMATE DECREASED; TEAR DROP CELLS 1+
[2021-02-24 13:44] VITALS: BP 102/58; PULSE 92; TEMP 97.5
[2021-02-25] MEDS ORDERED: TAMSULOSIN HCL 0.4 MG CAP PO SCH (08:30)
[2021-02-25] MEDS ORDERED: TORSEMIDE 20 MG TABLET (FP) PO SCH (10:00)
== END 2021-02-24 17:00 | disposition home health service (06) | DRG 291 ==
LOC: JER 01:10 → JERBED 05:32 → J4W 12:30
PROVIDERS: ADMIT Internal Medicine
DX: I13.0 Hypertensive heart and chronic kidney disease with heart failure and stage 1 through stage 4 chronic kidney disease, or unspecified chronic kidney disease (principal); I50.43 Acute on chronic combined systolic (congestive) and diastolic (congestive) heart failure; I48.92 Unspecified atrial flutter; I25.10 Atherosclerotic heart disease of native coronary artery without angina pectoris; I48.91 Unspecified atrial fibrillation; Z79.01 Long term (current) use of anticoagulants; Z95.0 Presence of cardiac pacemaker; E78.5 Hyperlipidemia, unspecified; I27.20 Pulmonary hypertension, unspecified; J44.9 Chronic obstructive pulmonary disease, unspecified; Z86.16 Personal history of COVID-19; I71.9 Aortic aneurysm of unspecified site, without rupture; N18.9 Chronic kidney disease, unspecified; I34.0 Nonrheumatic mitral (valve) insufficiency; I35.1 Nonrheumatic aortic (valve) insufficiency; D64.9 Anemia, unspecified
CPT/HCPCS: 36415; 36600; 71045-TC-FY; 80053; 82550; 82803; 82962; 83735; 83880; 84100; 84484; 85025; 93005; 93010; 93306-TC; 94640; 94660; 97116-GP; 97162-GP; 99285-25; C9803; U0003; U0005

== ENCOUNTER 2021-03-10 16:17 | Emergency (ER) | payer BC ==
[2021-03-10 16:38] VITALS: BP 110/66; PULSE 86; TEMP 97.8; BMI 21.9
== END 2021-03-10 19:06 | disposition left against medical advice (07) ==
LOC: JER 16:17
DX: R10.84 Generalized abdominal pain (principal)
CPT/HCPCS: 99282-25

== ENCOUNTER 2021-03-12 03:24 | Inpatient (IN) | payer BC ==
[2021-03-12 03:46] VITALS: BMI 21.9
[2021-03-12] MEDS ORDERED: ALBUTEROL SO4 2.5/IPRATROPIUM 0.5 INH SOL 3 ML VIAL.NEB. NEB ONE ×4 (04:46→06:31)
[2021-03-12 04:47] LABS: BASO % 0.7 % (0-2.0); EOS % 1.3 % (0-4.5); HEMATOCRIT 31.7 % (35.4-49); HEMOGLOBIN 10.2 GM/dL (11.7-16.9); LYMPH % 11.7 % (8-40); MCH 30.1 pg (25.7-33.7); MCHC 32.2 g/dl (32.0-35.9); MEAN CELL VOLUME 93.5 fl (80-96); MEAN PLT VOLUME 9.3 fl (7.5-11.1); MONO % 8.9 % (3.8-10.2); NEUT % 77.4 % (42.8-82.8); PLATELET COUNT 118 10^3/uL (134-434); RBC 3.39 M/mm3 (4.00-5.60); RDW 22.2 % (11.9-15.9); WHITE BLOOD COUNT 7.8 K/mm3 (4.0-10.0)
[2021-03-12 04:57] LABS: INR 2.2 (0.83-1.09); PROTHROMBIN TIME (PATIENT) 26.5 SEC (9.7-13.0)
[2021-03-12 05:00] LABS: ACTIVATED PTT 32.4 SECONDS (25.2-36.5)
[2021-03-12 05:07] LABS: CHLORIDE 104 mmol/L (98-107); SODIUM 141 mmol/L (136-145)
[2021-03-12 05:09] LABS: CALCIUM 8.4 mg/dL (8.5-10.1)
[2021-03-12 05:10] LABS: ANION GAP 7 MMOL/L (8-16); BLOOD UREA NITROGEN 82.4 mg/dL (7-18); CO2 30 mmol/L (21-32); GLUCOSE,RANDOM 107 mg/dL (74-106); MAGNESIUM 2.6 mg/dL (1.8-2.4)
[2021-03-12 05:13] LABS: CREATININE 3.4 mg/dL (0.55-1.3); SGOT/AST 14 U/L (15-37); SGPT/ALT 21 U/L (13-61)
[2021-03-12 05:14] LABS: BILIRUBIN,TOTAL 0.8 mg/dL (0.2-1)
[2021-03-12 05:15] LABS: TOT PROT 5.4 g/dl (6.4-8.2)
[2021-03-12 05:16] LABS: ALK PHOS 69 U/L (45-117)
[2021-03-12 05:47] LABS: N-TERMINAL BNP 46971.2 pg/ml (5-125)
[2021-03-12 06:55] LABS: ANISOCYTOSIS 1+; MACROCYTOSIS 0; OVALOCYTE 1+; PLATELET ESTIMATE DECREASED; TEAR DROP CELLS 1+
[2021-03-12] MEDS ORDERED: methylPREDNISolone NA SUCC 125 MG/2 ML VIAL IVPUSH ONE (07:05)
[2021-03-12] MEDS ORDERED: methylPREDNISolone NA SUCC 125 MG/2 ML VIAL ONE (07:16)
[2021-03-12] MEDS ORDERED: FUROSEMIDE 40 MG/4 ML INJECTABLE VIAL IVPUSH ONE (09:40)
[2021-03-12] MEDS ORDERED: FUROSEMIDE 40 MG/4 ML INJECTABLE VIAL ONE (09:53)
[2021-03-12] MEDS ORDERED: PATIENT'S OWN MEDICATION (NON-FORMULARY) (Alprazolam [Alprazolam Xr] 0.5 MG Tab.Er.24h) PO PRN (10:28)
[2021-03-12] MEDS: hydrALAZINE HCL 25 MG TABLET (FP) PO SCH (21:32)
[2021-03-12] MEDS: APIXABAN 2.5 MG TABLET PO SCH (21:32)
[2021-03-12] MEDS: valACYclovir HCL 500 MG TABLET (FP) PO SCH (21:32)
[2021-03-12] MEDS: ATORVASTATIN CA 40 MG TABLET (FP) PO SCH (21:32)
[2021-03-12] MEDS: MONTELUKAST NA 10 MG TABLET PO SCH (21:32)
[2021-03-12] MEDS: ALBUTEROL SO4 HFA INHALER IH PRN (21:33)
[2021-03-12] MEDS ORDERED: ISOSORBIDE MONONITRATE 30 MG TAB.SR.24H (FP) PO SCH (22:00)
[2021-03-12] MEDS: buPROPion HCL 75 MG TABLET PO SCH (22:02)
[2021-03-12] MEDS: URSODIOL 300 MG CAPSULE PO SCH (22:02)
[2021-03-12] MEDS: ALPRAZolam 0.25 MG TABLET PO PRN (23:24)
[2021-03-13 07:25] LABS: BASO % 0.2 % (0-2.0); HEMATOCRIT 28.3 % (35.4-49); LYMPH % 9.2 % (8-40); MCH 29.6 pg (25.7-33.7); MEAN CELL VOLUME 92.5 fl (80-96); MEAN PLT VOLUME 9.1 fl (7.5-11.1); MONO % 12.4 % (3.8-10.2); NEUT % 78.2 % (42.8-82.8); PLATELET COUNT 106 10^3/uL (134-434); RBC 3.06 M/mm3 (4.00-5.60); WHITE BLOOD COUNT 3.2 K/mm3 (4.0-10.0)
[2021-03-13 07:48] LABS: BLOOD UREA NITROGEN 81.2 mg/dL (7-18)
[2021-03-13 07:49] LABS: ALBUMIN 2.8 g/dl (3.4-5.0); CALCIUM 7.7 mg/dL (8.5-10.1)
[2021-03-13 07:50] LABS: MAGNESIUM 2.7 mg/dL (1.8-2.4)
[2021-03-13 07:52] LABS: PHOSPHOROUS 4.6 mg/dL (2.5-4.9)
[2021-03-13 07:53] LABS: CREATININE 3.2 mg/dL (0.55-1.3)
[2021-03-13 07:54] LABS: BILIRUBIN,TOTAL 0.7 mg/dL (0.2-1)
[2021-03-13] MEDS ORDERED: PT OWN MED DRAWER 7, Y5N ONE ×2 (09:13→10:18)
[2021-03-13] MEDS ORDERED: PATIENT'S OWN MEDICATION (NON-FORMULARY) (Albuterol Sulfate [Proair Respiclick] 90 MCG Aer IH SCH (10:00)
[2021-03-13] MEDS ORDERED: RANOLAZINE E.R. 500 MG TABLET (FP) PO SCH (10:00)
[2021-03-13] MEDS: FUROSEMIDE 100 MG/10 ML INJECTABLE VIAL IVPB SCH (10:05)
[2021-03-13] MEDS: PANTOPRAZOLE 40 MG TABLET PO SCH (10:05)
[2021-03-13] MEDS: hydrALAZINE HCL 25 MG TABLET (FP) PO SCH ×2 (10:05→21:31)
[2021-03-13] MEDS: APIXABAN 2.5 MG TABLET PO SCH ×2 (10:05→21:32)
[2021-03-13] MEDS: ISOSORBIDE MONONITRATE 30 MG TAB.SR.24H (FP) PO SCH (10:05)
[2021-03-13] MEDS: TAMSULOSIN HCL 0.4 MG CAP PO SCH (10:05)
[2021-03-13] MEDS: URSODIOL 300 MG CAPSULE PO SCH ×2 (10:06→21:31)
[2021-03-13] MEDS: COLCHICINE 0.6 MG TAB PO SCH (10:06)
[2021-03-13] MEDS: TERAZOSIN HCL 5 MG CAPSULE PO SCH (10:06)
[2021-03-13] MEDS: buPROPion HCL 75 MG TABLET PO SCH ×2 (10:07→21:32)
[2021-03-13] MEDS: TIOTROPIUM BROMIDE 2.5 MCG (SPIRIVA) RESPIMAT INHALER IH SCH (10:10)
[2021-03-13] MEDS: ATORVASTATIN CA 40 MG TABLET (FP) PO SCH (21:31)
[2021-03-13] MEDS: valACYclovir HCL 500 MG TABLET (FP) PO SCH (21:31)
[2021-03-13] MEDS: MONTELUKAST NA 10 MG TABLET PO SCH (21:31)
[2021-03-13] MEDS: ALPRAZolam 0.25 MG TABLET PO PRN (23:03)
[2021-03-13] MEDS: ALBUTEROL SO4 HFA INHALER IH PRN (23:03)
[2021-03-14 08:18] LABS: BASO % 0.5 % (0-2.0); EOS % 2.8 % (0-4.5); HEMATOCRIT 26.6 % (35.4-49); HEMOGLOBIN 8.6 GM/dL (11.7-16.9); MCH 30.2 pg (25.7-33.7); MCHC 32.3 g/dl (32.0-35.9); MEAN CELL VOLUME 93.4 fl (80-96); MEAN PLT VOLUME 8.8 fl (7.5-11.1); MONO % 10.2 % (3.8-10.2); NEUT % 68.5 % (42.8-82.8); PLATELET COUNT 118 10^3/uL (134-434); RBC 2.85 M/mm3 (4.00-5.60); RDW 21.6 % (11.9-15.9); WHITE BLOOD COUNT 3.4 K/mm3 (4.0-10.0)
[2021-03-14 08:43] LABS: ALBUMIN 2.5 g/dl (3.4-5.0); BLOOD UREA NITROGEN 76.3 mg/dL (7-18); CALCIUM 7.3 mg/dL (8.5-10.1)
[2021-03-14 08:44] LABS: CREATININE 3.2 mg/dL (0.55-1.3)
[2021-03-14 08:46] LABS: BILIRUBIN,TOTAL 0.6 mg/dL (0.2-1); TOT PROT 4.5 g/dl (6.4-8.2)
[2021-03-14] MEDS ORDERED: PT OWN MED DRAWER 7, Y5N ONE ×3 (09:51→22:12)
[2021-03-14] MEDS: TAMSULOSIN HCL 0.4 MG CAP PO SCH (10:08)
[2021-03-14] MEDS: APIXABAN 2.5 MG TABLET PO SCH ×2 (10:08→22:27)
[2021-03-14] MEDS: hydrALAZINE HCL 25 MG TABLET (FP) PO SCH ×2 (10:09→22:27)
[2021-03-14] MEDS: PANTOPRAZOLE 40 MG TABLET PO SCH (10:09)
[2021-03-14] MEDS: URSODIOL 300 MG CAPSULE PO SCH ×2 (10:09→22:27)
[2021-03-14] MEDS: ISOSORBIDE MONONITRATE 30 MG TAB.SR.24H (FP) PO SCH (10:09)
[2021-03-14] MEDS: COLCHICINE 0.6 MG TAB PO SCH (10:10)
[2021-03-14] MEDS: buPROPion HCL 75 MG TABLET PO SCH ×2 (10:11→22:28)
[2021-03-14] MEDS: FUROSEMIDE 100 MG/10 ML INJECTABLE VIAL IVPB SCH (10:11)
[2021-03-14] MEDS: TERAZOSIN HCL 5 MG CAPSULE PO SCH (10:11)
[2021-03-14] MEDS: TIOTROPIUM BROMIDE 2.5 MCG (SPIRIVA) RESPIMAT INHALER IH SCH (10:14)
[2021-03-14] MEDS: ATORVASTATIN CA 40 MG TABLET (FP) PO SCH (22:27)
[2021-03-14] MEDS: MONTELUKAST NA 10 MG TABLET PO SCH (22:27)
[2021-03-14] MEDS: valACYclovir HCL 500 MG TABLET (FP) PO SCH (22:28)
[2021-03-14] MEDS: ALPRAZolam 0.25 MG TABLET PO PRN (23:04)
[2021-03-15] MEDS ORDERED: PT OWN MED DRAWER 7, Y5N ONE ×2 (09:37→10:31)
[2021-03-15] MEDS: TAMSULOSIN HCL 0.4 MG CAP PO SCH (10:04)
[2021-03-15] MEDS: PANTOPRAZOLE 40 MG TABLET PO SCH (10:04)
[2021-03-15] MEDS: APIXABAN 2.5 MG TABLET PO SCH ×2 (10:04→21:54)
[2021-03-15] MEDS: FUROSEMIDE 100 MG/10 ML INJECTABLE VIAL IVPB SCH (10:04)
[2021-03-15] MEDS: hydrALAZINE HCL 25 MG TABLET (FP) PO SCH ×2 (10:05→21:53)
[2021-03-15] MEDS: URSODIOL 300 MG CAPSULE PO SCH ×2 (10:05→21:53)
[2021-03-15] MEDS: ISOSORBIDE MONONITRATE 30 MG TAB.SR.24H (FP) PO SCH (10:05)
[2021-03-15] MEDS: COLCHICINE 0.6 MG TAB PO SCH (10:06)
[2021-03-15] MEDS: TERAZOSIN HCL 5 MG CAPSULE PO SCH (10:06)
[2021-03-15] MEDS: TIOTROPIUM BROMIDE 2.5 MCG (SPIRIVA) RESPIMAT INHALER IH SCH (10:07)
[2021-03-15] MEDS: buPROPion HCL 75 MG TABLET PO SCH ×2 (10:07→21:49)
[2021-03-15] MEDS: valACYclovir HCL 500 MG TABLET (FP) PO SCH (21:48)
[2021-03-15] MEDS: ATORVASTATIN CA 40 MG TABLET (FP) PO SCH (21:48)
[2021-03-15] MEDS: MONTELUKAST NA 10 MG TABLET PO SCH (21:49)
[2021-03-16] MEDS: ALPRAZolam 0.25 MG TABLET PO PRN ×2 (00:04→23:03)
[2021-03-16 07:42] LABS: BASO % 0.5 % (0-2.0); HEMATOCRIT 30.2 % (35.4-49); HEMOGLOBIN 9.6 GM/dL (11.7-16.9); LYMPH % 19.4 % (8-40); MCH 29.6 pg (25.7-33.7); MCHC 31.9 g/dl (32.0-35.9); MEAN CELL VOLUME 92.9 fl (80-96); MEAN PLT VOLUME 8.4 fl (7.5-11.1); MONO % 12.5 % (3.8-10.2); NEUT % 65.6 % (42.8-82.8); PLATELET COUNT 140 10^3/uL (134-434); RBC 3.25 M/mm3 (4.00-5.60); RDW 21.1 % (11.9-15.9); WHITE BLOOD COUNT 3.6 K/mm3 (4.0-10.0)
[2021-03-16 08:08] LABS: CHLORIDE 106 mmol/L (98-107); SODIUM 145 mmol/L (136-145)
[2021-03-16 08:15] LABS: BLOOD UREA NITROGEN 52.5 mg/dL (7-18); CALCIUM 7.1 mg/dL (8.5-10.1)
[2021-03-16 08:16] LABS: ALBUMIN 2.7 g/dl (3.4-5.0); CO2 32 mmol/L (21-32); GLUCOSE,RANDOM 76 mg/dL (74-106); MAGNESIUM 2.4 mg/dL (1.8-2.4)
[2021-03-16 08:19] LABS: SGOT/AST 7 U/L (15-37); SGPT/ALT 15 U/L (13-61)
[2021-03-16 08:20] LABS: BILIRUBIN,TOTAL 0.8 mg/dL (0.2-1); TOT PROT 4.8 g/dl (6.4-8.2)
[2021-03-16 08:21] LABS: ALK PHOS 57 U/L (45-117)
[2021-03-16 08:43] LABS: ANION GAP 6 MMOL/L (8-16)
[2021-03-16 09:07] LABS: ANISOCYTOSIS 1+; MACROCYTOSIS 1+; OVALOCYTE 1+; PLATELET ESTIMATE DECREASED; TARGET CELLS 1+; TEAR DROP CELLS 1+
[2021-03-16] MEDS ORDERED: POTASSIUM CHLORIDE 20 MEQ PREMIX IVPB 100 ML IVPB ONE (09:16)
[2021-03-16] MEDS ORDERED: POTASSIUM CHLORIDE TABS 20 MEQ TABLET.ER (FP) PO ONE ×2 (09:17→16:03)
[2021-03-16] MEDS: ISOSORBIDE MONONITRATE 30 MG TAB.SR.24H (FP) PO SCH ×2 (09:26→09:35)
[2021-03-16] MEDS: PANTOPRAZOLE 40 MG TABLET PO SCH (09:26)
[2021-03-16] MEDS: hydrALAZINE HCL 25 MG TABLET (FP) PO SCH ×3 (09:27→23:22)
[2021-03-16] MEDS: TAMSULOSIN HCL 0.4 MG CAP PO SCH (09:27)
[2021-03-16] MEDS: APIXABAN 2.5 MG TABLET PO SCH ×2 (09:27→21:43)
[2021-03-16] MEDS: COLCHICINE 0.6 MG TAB PO SCH (09:28)
[2021-03-16] MEDS: TERAZOSIN HCL 5 MG CAPSULE PO SCH (09:29)
[2021-03-16] MEDS: FUROSEMIDE 100 MG/10 ML INJECTABLE VIAL IVPB SCH (09:29)
[2021-03-16] MEDS: URSODIOL 300 MG CAPSULE PO SCH ×2 (09:29→21:43)
[2021-03-16] MEDS: TIOTROPIUM BROMIDE 2.5 MCG (SPIRIVA) RESPIMAT INHALER IH SCH (09:30)
[2021-03-16] MEDS: buPROPion HCL 75 MG TABLET PO SCH ×2 (09:30→21:43)
[2021-03-16] MEDS: KCL 10 MEQ IVPB 10 MEQ/100 ML INFUS.BAG IVPB SCH ×2 (10:26→11:27)
[2021-03-16] MEDS ORDERED: PT OWN MED DRAWER 7, Y5N ONE ×2 (13:47→18:05)
[2021-03-16 15:34] LABS: BASO % 0.6 % (0-2.0); EOS % 0.9 % (0-4.5); HEMATOCRIT 31.4 % (35.4-49); LYMPH % 12.7 % (8-40); MCH 29.7 pg (25.7-33.7); MCHC 31.9 g/dl (32.0-35.9); MEAN CELL VOLUME 93.1 fl (80-96); MEAN PLT VOLUME 7.8 fl (7.5-11.1); MONO % 9.7 % (3.8-10.2); NEUT % 76.1 % (42.8-82.8); PLATELET COUNT 143 10^3/uL (134-434); RBC 3.37 M/mm3 (4.00-5.60); RDW 21.7 % (11.9-15.9); WHITE BLOOD COUNT 4.8 K/mm3 (4.0-10.0)
[2021-03-16 15:48] LABS: CALCIUM 7.2 mg/dL (8.5-10.1)
[2021-03-16 15:49] LABS: ALBUMIN 2.9 g/dl (3.4-5.0); BLOOD UREA NITROGEN 49.3 mg/dL (7-18)
[2021-03-16 15:52] LABS: CREATININE 2.1 mg/dL (0.55-1.3)
[2021-03-16 15:54] LABS: BILIRUBIN,TOTAL 0.7 mg/dL (0.2-1); TOT PROT 5.1 g/dl (6.4-8.2)
[2021-03-16] MEDS: MAGNESIUM HYDROX 2400MG/30ML ORAL SUSPENSION 30 ML CUP PO PRN (17:24)
[2021-03-16] MEDS: POTASSIUM CHLORIDE ORAL LIQUID 20 MEQ/15 ML PO SCH (19:57)
[2021-03-16] MEDS: valACYclovir HCL 500 MG TABLET (FP) PO SCH (21:43)
[2021-03-16] MEDS: MONTELUKAST NA 10 MG TABLET PO SCH (21:43)
[2021-03-16] MEDS: ATORVASTATIN CA 40 MG TABLET (FP) PO SCH (21:43)
[2021-03-16] MEDS: ALBUTEROL SO4 HFA INHALER IH PRN (21:44)
[2021-03-17] MEDS ORDERED: BISACODYL 10 MG SUPP.RECT PR PRN (01:16)
[2021-03-17] MEDS ORDERED: MINERAL OIL ENEMA 133 ML ENEMA RC ONE (03:24)
[2021-03-17 07:05] LABS: BASO % 0.2 % (0-2.0); EOS % 0.2 % (0-4.5); HEMATOCRIT 32.1 % (35.4-49); HEMOGLOBIN 10.3 GM/dL (11.7-16.9); LYMPH % 6.3 % (8-40); MCH 29.9 pg (25.7-33.7); MCHC 32.2 g/dl (32.0-35.9); MEAN CELL VOLUME 92.8 fl (80-96); MEAN PLT VOLUME 8.5 fl (7.5-11.1); MONO % 8.6 % (3.8-10.2); NEUT % 84.7 % (42.8-82.8); PLATELET COUNT 150 10^3/uL (134-434); RBC 3.45 M/mm3 (4.00-5.60); RDW 21.5 % (11.9-15.9); WHITE BLOOD COUNT 6.7 K/mm3 (4.0-10.0)
[2021-03-17 07:17] LABS: CALCIUM 7.3 mg/dL (8.5-10.1)
[2021-03-17 07:18] LABS: ALBUMIN 2.9 g/dl (3.4-5.0); MAGNESIUM 2.6 mg/dL (1.8-2.4)
[2021-03-17 07:21] LABS: CREATININE 2.3 mg/dL (0.55-1.3)
[2021-03-17 07:22] LABS: BILIRUBIN,TOTAL 0.7 mg/dL (0.2-1)
[2021-03-17 07:23] LABS: TOT PROT 5.2 g/dl (6.4-8.2)
[2021-03-17] MEDS: COLCHICINE 0.6 MG TAB PO SCH (09:41)
[2021-03-17] MEDS: POTASSIUM CHLORIDE ORAL LIQUID 20 MEQ/15 ML PO SCH ×2 (09:41→21:48)
[2021-03-17] MEDS: TIOTROPIUM BROMIDE 2.5 MCG (SPIRIVA) RESPIMAT INHALER IH SCH (09:42)
[2021-03-17] MEDS: TERAZOSIN HCL 5 MG CAPSULE PO SCH (09:43)
[2021-03-17] MEDS: URSODIOL 300 MG CAPSULE PO SCH ×2 (09:43→21:48)
[2021-03-17] MEDS: buPROPion HCL 75 MG TABLET PO SCH ×2 (09:43→21:49)
[2021-03-17] MEDS: PANTOPRAZOLE 40 MG TABLET PO SCH (09:45)
[2021-03-17] MEDS: APIXABAN 2.5 MG TABLET PO SCH ×2 (09:45→21:48)
[2021-03-17] MEDS: hydrALAZINE HCL 25 MG TABLET (FP) PO SCH ×2 (09:45→21:48)
[2021-03-17] MEDS: ISOSORBIDE MONONITRATE 30 MG TAB.SR.24H (FP) PO SCH (09:45)
[2021-03-17] MEDS: TAMSULOSIN HCL 0.4 MG CAP PO SCH (09:46)
[2021-03-17] MEDS: FUROSEMIDE 100 MG/10 ML INJECTABLE VIAL IVPB SCH (09:46)
[2021-03-17] MEDS ORDERED: ALBUTEROL SO4 HFA INHALER IH PRN (15:01)
[2021-03-17] MEDS: LEVALBUTEROL HCL 0.31 MG/3 ML VIAL.NEB IH PRN (15:38)
[2021-03-17] MEDS ORDERED: PT OWN MED DRAWER 7, Y5N ONE (21:09)
[2021-03-17] MEDS: MONTELUKAST NA 10 MG TABLET PO SCH (21:48)
[2021-03-17] MEDS: ATORVASTATIN CA 40 MG TABLET (FP) PO SCH (21:48)
[2021-03-17] MEDS: valACYclovir HCL 500 MG TABLET (FP) PO SCH (21:48)
[2021-03-17] MEDS: ALPRAZolam 0.25 MG TABLET PO PRN (23:02)
[2021-03-18] MEDS ORDERED: PT OWN MED DRAWER 7, Y5N ONE ×3 (09:05→20:54)
[2021-03-18] MEDS: FUROSEMIDE 100 MG/10 ML INJECTABLE VIAL IVPB SCH (09:29)
[2021-03-18] MEDS: APIXABAN 2.5 MG TABLET PO SCH ×2 (09:33→21:26)
[2021-03-18] MEDS: TAMSULOSIN HCL 0.4 MG CAP PO SCH (09:33)
[2021-03-18] MEDS: POTASSIUM CHLORIDE ORAL LIQUID 20 MEQ/15 ML PO SCH (09:34)
[2021-03-18] MEDS: buPROPion HCL 75 MG TABLET PO SCH ×2 (09:34→21:27)
[2021-03-18] MEDS: URSODIOL 300 MG CAPSULE PO SCH ×2 (09:34→21:26)
[2021-03-18] MEDS: ISOSORBIDE MONONITRATE 30 MG TAB.SR.24H (FP) PO SCH (09:34)
[2021-03-18] MEDS: hydrALAZINE HCL 25 MG TABLET (FP) PO SCH ×2 (09:34→21:24)
[2021-03-18] MEDS: PANTOPRAZOLE 40 MG TABLET PO SCH (09:34)
[2021-03-18] MEDS: COLCHICINE 0.6 MG TAB PO SCH (09:35)
[2021-03-18] MEDS: TERAZOSIN HCL 5 MG CAPSULE PO SCH (09:35)
[2021-03-18] MEDS: TIOTROPIUM BROMIDE 2.5 MCG (SPIRIVA) RESPIMAT INHALER IH SCH (09:36)
[2021-03-18] MEDS: DOCUSATE SODIUM 100 MG CAPSULE (FP) PO SCH (10:43)
[2021-03-18 15:28] LABS: BASO % 0.3 % (0-2.0); EOS % 0.6 % (0-4.5); HEMATOCRIT 29.9 % (35.4-49); HEMOGLOBIN 9.5 GM/dL (11.7-16.9); LYMPH % 7.5 % (8-40); MCH 29.3 pg (25.7-33.7); MCHC 31.8 g/dl (32.0-35.9); MEAN CELL VOLUME 92.2 fl (80-96); MEAN PLT VOLUME 8.3 fl (7.5-11.1); MONO % 10.7 % (3.8-10.2); NEUT % 80.9 % (42.8-82.8); PLATELET COUNT 158 10^3/uL (134-434); RBC 3.24 M/mm3 (4.00-5.60); RDW 21.7 % (11.9-15.9); WHITE BLOOD COUNT 5.1 K/mm3 (4.0-10.0)
[2021-03-18 15:48] LABS: ALBUMIN 2.8 g/dl (3.4-5.0); BLOOD UREA NITROGEN 45.8 mg/dL (7-18); CALCIUM 7.7 mg/dL (8.5-10.1); MAGNESIUM 2.8 mg/dL (1.8-2.4)
[2021-03-18 15:52] LABS: CREATININE 2.4 mg/dL (0.55-1.3)
[2021-03-18 15:53] LABS: BILIRUBIN,TOTAL 0.6 mg/dL (0.2-1)
[2021-03-18] MEDS: MONTELUKAST NA 10 MG TABLET PO SCH (21:26)
[2021-03-18] MEDS: ATORVASTATIN CA 40 MG TABLET (FP) PO SCH (21:26)
[2021-03-18] MEDS: valACYclovir HCL 500 MG TABLET (FP) PO SCH (21:27)
[2021-03-18] MEDS: ALPRAZolam 0.25 MG TABLET PO PRN (23:05)
[2021-03-19] MEDS: LEVALBUTEROL HCL 0.31 MG/3 ML VIAL.NEB IH PRN ×2 (04:58→17:13)
[2021-03-19 07:57] LABS: HEMATOCRIT 28.4 % (35.4-49); HEMOGLOBIN 9.1 GM/dL (11.7-16.9); MCH 29.3 pg (25.7-33.7); MCHC 31.8 g/dl (32.0-35.9); MEAN PLT VOLUME 8.3 fl (7.5-11.1); PLATELET COUNT 135 10^3/uL (134-434); RBC 3.09 M/mm3 (4.00-5.60); RDW 21.3 % (11.9-15.9); WHITE BLOOD COUNT 3.8 K/mm3 (4.0-10.0)
[2021-03-19 08:26] LABS: ALBUMIN 2.8 g/dl (3.4-5.0); BLOOD UREA NITROGEN 44.6 mg/dL (7-18); CALCIUM 7.4 mg/dL (8.5-10.1); MAGNESIUM 2.6 mg/dL (1.8-2.4)
[2021-03-19 08:28] LABS: CREATININE 2.3 mg/dL (0.55-1.3); PHOSPHOROUS 2.4 mg/dL (2.5-4.9)
[2021-03-19 08:29] LABS: BILIRUBIN,TOTAL 0.7 mg/dL (0.2-1); TOT PROT 4.9 g/dl (6.4-8.2)
[2021-03-19] MEDS ORDERED: PT OWN MED DRAWER 7, Y5N ONE ×2 (08:48→21:21)
[2021-03-19] MEDS: TIOTROPIUM BROMIDE 2.5 MCG (SPIRIVA) RESPIMAT INHALER IH SCH (09:39)
[2021-03-19] MEDS: COLCHICINE 0.6 MG TAB PO SCH (09:42)
[2021-03-19] MEDS: hydrALAZINE HCL 25 MG TABLET (FP) PO SCH ×2 (09:43→21:36)
[2021-03-19] MEDS: POTASSIUM CHLORIDE ORAL LIQUID 20 MEQ/15 ML PO SCH (09:43)
[2021-03-19] MEDS: PANTOPRAZOLE 40 MG TABLET PO SCH (09:43)
[2021-03-19] MEDS: DOCUSATE SODIUM 100 MG CAPSULE (FP) PO SCH (09:43)
[2021-03-19] MEDS: APIXABAN 2.5 MG TABLET PO SCH ×2 (09:44→21:36)
[2021-03-19] MEDS: URSODIOL 300 MG CAPSULE PO SCH ×2 (09:44→21:36)
[2021-03-19] MEDS: TAMSULOSIN HCL 0.4 MG CAP PO SCH (09:44)
[2021-03-19] MEDS: ISOSORBIDE MONONITRATE 30 MG TAB.SR.24H (FP) PO SCH (09:45)
[2021-03-19] MEDS: buPROPion HCL 75 MG TABLET PO SCH ×2 (09:46→21:36)
[2021-03-19] MEDS: TERAZOSIN HCL 5 MG CAPSULE PO SCH (09:49)
[2021-03-19] MEDS: FUROSEMIDE 100 MG/10 ML INJECTABLE VIAL IVPB SCH (10:09)
[2021-03-19] MEDS ORDERED: NAPH,MB-DB/K PH,MBDB POWDER PACKET PO ONE (15:23)
[2021-03-19] MEDS: MONTELUKAST NA 10 MG TABLET PO SCH (21:36)
[2021-03-19] MEDS: valACYclovir HCL 500 MG TABLET (FP) PO SCH (21:36)
[2021-03-19] MEDS: ATORVASTATIN CA 40 MG TABLET (FP) PO SCH (21:36)
[2021-03-19] MEDS: ALPRAZolam 0.25 MG TABLET PO PRN (22:20)
[2021-03-20] MEDS ORDERED: SIMETHICONE 80 MG TAB.CHEW (FP) PO ONE (00:36)
[2021-03-20 07:52] LABS: HEMATOCRIT 31.5 % (35.4-49); HEMOGLOBIN 10.1 GM/dL (11.7-16.9); MCH 29.7 pg (25.7-33.7); MCHC 32.1 g/dl (32.0-35.9); MEAN CELL VOLUME 92.5 fl (80-96); MEAN PLT VOLUME 8.7 fl (7.5-11.1); PLATELET COUNT 139 10^3/uL (134-434); RDW 21.2 % (11.9-15.9); WHITE BLOOD COUNT 4.6 K/mm3 (4.0-10.0)
[2021-03-20 08:13] LABS: CALCIUM 8.1 mg/dL (8.5-10.1)
[2021-03-20 08:14] LABS: ALBUMIN 2.9 g/dl (3.4-5.0); BLOOD UREA NITROGEN 48.4 mg/dL (7-18); MAGNESIUM 2.5 mg/dL (1.8-2.4)
[2021-03-20 08:17] LABS: CREATININE 2.5 mg/dL (0.55-1.3); PHOSPHOROUS 3.4 mg/dL (2.5-4.9)
[2021-03-20 08:18] LABS: BILIRUBIN,TOTAL 0.9 mg/dL (0.2-1)
[2021-03-20] MEDS ORDERED: PT OWN MED DRAWER 7, Y5N ONE ×3 (09:00→20:06)
[2021-03-20] MEDS: DOCUSATE SODIUM 100 MG CAPSULE (FP) PO SCH (09:50)
[2021-03-20] MEDS: PANTOPRAZOLE 40 MG TABLET PO SCH (09:50)
[2021-03-20] MEDS: COLCHICINE 0.6 MG TAB PO SCH (09:50)
[2021-03-20] MEDS: APIXABAN 2.5 MG TABLET PO SCH ×2 (09:50→21:40)
[2021-03-20] MEDS: TAMSULOSIN HCL 0.4 MG CAP PO SCH (09:50)
[2021-03-20] MEDS: URSODIOL 300 MG CAPSULE PO SCH ×2 (09:52→21:40)
[2021-03-20] MEDS: TERAZOSIN HCL 5 MG CAPSULE PO SCH (09:52)
[2021-03-20] MEDS: POTASSIUM CHLORIDE ORAL LIQUID 20 MEQ/15 ML PO SCH (09:53)
[2021-03-20] MEDS: FUROSEMIDE 100 MG/10 ML INJECTABLE VIAL IVPB SCH (09:53)
[2021-03-20] MEDS: TIOTROPIUM BROMIDE 2.5 MCG (SPIRIVA) RESPIMAT INHALER IH SCH (09:53)
[2021-03-20] MEDS: buPROPion HCL 75 MG TABLET PO SCH ×2 (09:54→21:42)
[2021-03-20] MEDS: ISOSORBIDE MONONITRATE 30 MG TAB.SR.24H (FP) PO SCH (09:55)
[2021-03-20] MEDS: hydrALAZINE HCL 25 MG TABLET (FP) PO SCH ×2 (09:55→21:40)
[2021-03-20] MEDS: LEVALBUTEROL HCL 0.31 MG/3 ML VIAL.NEB IH PRN (14:35)
[2021-03-20] MEDS: ATORVASTATIN CA 40 MG TABLET (FP) PO SCH (21:40)
[2021-03-20] MEDS: MONTELUKAST NA 10 MG TABLET PO SCH (21:40)
[2021-03-20] MEDS: valACYclovir HCL 500 MG TABLET (FP) PO SCH (21:41)
[2021-03-20] MEDS: ALPRAZolam 0.25 MG TABLET PO PRN (22:57)
[2021-03-20] MEDS: MAGNESIUM HYDROX 2400MG/30ML ORAL SUSPENSION 30 ML CUP PO PRN (23:55)
[2021-03-21] MEDS ORDERED: PT OWN MED DRAWER 7, Y5N ONE ×3 (09:24→21:47)
[2021-03-21] MEDS: APIXABAN 2.5 MG TABLET PO SCH ×2 (10:14→21:48)
[2021-03-21] MEDS: TAMSULOSIN HCL 0.4 MG CAP PO SCH (10:14)
[2021-03-21] MEDS: PANTOPRAZOLE 40 MG TABLET PO SCH (10:14)
[2021-03-21] MEDS: DOCUSATE SODIUM 100 MG CAPSULE (FP) PO SCH (10:14)
[2021-03-21] MEDS: TERAZOSIN HCL 5 MG CAPSULE PO SCH (10:15)
[2021-03-21] MEDS: hydrALAZINE HCL 25 MG TABLET (FP) PO SCH ×2 (10:15→21:48)
[2021-03-21] MEDS: COLCHICINE 0.6 MG TAB PO SCH (10:15)
[2021-03-21] MEDS: URSODIOL 300 MG CAPSULE PO SCH ×2 (10:17→21:48)
[2021-03-21] MEDS: buPROPion HCL 75 MG TABLET PO SCH ×2 (10:17→21:48)
[2021-03-21] MEDS: TIOTROPIUM BROMIDE 2.5 MCG (SPIRIVA) RESPIMAT INHALER IH SCH (10:18)
[2021-03-21] MEDS: POTASSIUM CHLORIDE ORAL LIQUID 20 MEQ/15 ML PO SCH (10:18)
[2021-03-21] MEDS: FUROSEMIDE 100 MG/10 ML INJECTABLE VIAL IVPB SCH (10:18)
[2021-03-21] MEDS: ISOSORBIDE MONONITRATE 30 MG TAB.SR.24H (FP) PO SCH (10:18)
[2021-03-21] MEDS: LEVALBUTEROL HCL 0.31 MG/3 ML VIAL.NEB IH PRN (12:03)
[2021-03-21 13:22] LABS: HEMOGLOBIN 10.9 GM/dL (11.7-16.9); MCH 29.5 pg (25.7-33.7); MCHC 32.1 g/dl (32.0-35.9); MEAN PLT VOLUME 9.1 fl (7.5-11.1); PLATELET COUNT 147 10^3/uL (134-434); RDW 20.8 % (11.9-15.9); WHITE BLOOD COUNT 6.2 K/mm3 (4.0-10.0)
[2021-03-21 13:45] LABS: ALBUMIN 2.9 g/dl (3.4-5.0); CALCIUM 8.1 mg/dL (8.5-10.1); MAGNESIUM 2.7 mg/dL (1.8-2.4)
[2021-03-21 13:46] LABS: BLOOD UREA NITROGEN 48.1 mg/dL (7-18)
[2021-03-21 13:49] LABS: CREATININE 2.6 mg/dL (0.55-1.3); PHOSPHOROUS 3.6 mg/dL (2.5-4.9)
[2021-03-21 13:50] LABS: BILIRUBIN,TOTAL 1.2 mg/dL (0.2-1); TOT PROT 5.7 g/dl (6.4-8.2)
[2021-03-21] MEDS: MONTELUKAST NA 10 MG TABLET PO SCH (21:48)
[2021-03-21] MEDS: ATORVASTATIN CA 40 MG TABLET (FP) PO SCH (21:48)
[2021-03-21] MEDS: valACYclovir HCL 500 MG TABLET (FP) PO SCH (21:48)
[2021-03-22] MEDS: ALPRAZolam 0.25 MG TABLET PO PRN ×2 (00:03→23:14)
[2021-03-22] MEDS: LEVALBUTEROL HCL 0.31 MG/3 ML VIAL.NEB IH PRN ×2 (05:41→14:00)
[2021-03-22 08:14] LABS: BASO % 0.9 % (0-2.0); HEMATOCRIT 30.3 % (35.4-49); HEMOGLOBIN 9.8 GM/dL (11.7-16.9); LYMPH % 18.7 % (8-40); MCH 29.7 pg (25.7-33.7); MCHC 32.4 g/dl (32.0-35.9); MEAN CELL VOLUME 91.8 fl (80-96); MEAN PLT VOLUME 9.2 fl (7.5-11.1); MONO % 14.9 % (3.8-10.2); NEUT % 64.5 % (42.8-82.8); PLATELET COUNT 126 10^3/uL (134-434); RDW 21.2 % (11.9-15.9); WHITE BLOOD COUNT 4.9 K/mm3 (4.0-10.0)
[2021-03-22 08:25] LABS: ALBUMIN 2.8 g/dl (3.4-5.0); MAGNESIUM 2.7 mg/dL (1.8-2.4)
[2021-03-22 08:29] LABS: BILIRUBIN,TOTAL 1.3 mg/dL (0.2-1); CREATININE 2.7 mg/dL (0.55-1.3); PHOSPHOROUS 3.7 mg/dL (2.5-4.9); TOT PROT 5.5 g/dl (6.4-8.2)
[2021-03-22] MEDS ORDERED: PT OWN MED DRAWER 7, Y5N ONE ×3 (09:09→19:55)
[2021-03-22] MEDS: POTASSIUM CHLORIDE ORAL LIQUID 20 MEQ/15 ML PO SCH (09:10)
[2021-03-22] MEDS: DOCUSATE SODIUM 100 MG CAPSULE (FP) PO SCH (09:11)
[2021-03-22] MEDS: PANTOPRAZOLE 40 MG TABLET PO SCH (09:11)
[2021-03-22] MEDS: hydrALAZINE HCL 25 MG TABLET (FP) PO SCH ×2 (09:11→21:00)
[2021-03-22] MEDS: TAMSULOSIN HCL 0.4 MG CAP PO SCH (09:11)
[2021-03-22] MEDS: ISOSORBIDE MONONITRATE 30 MG TAB.SR.24H (FP) PO SCH (09:11)
[2021-03-22] MEDS: APIXABAN 2.5 MG TABLET PO SCH ×2 (09:11→21:00)
[2021-03-22] MEDS: buPROPion HCL 75 MG TABLET PO SCH ×2 (09:12→21:00)
[2021-03-22] MEDS: TIOTROPIUM BROMIDE 2.5 MCG (SPIRIVA) RESPIMAT INHALER IH SCH (09:12)
[2021-03-22] MEDS: FUROSEMIDE 100 MG/10 ML INJECTABLE VIAL IVPB SCH (09:12)
[2021-03-22] MEDS: COLCHICINE 0.6 MG TAB PO SCH (09:13)
[2021-03-22] MEDS: TERAZOSIN HCL 5 MG CAPSULE PO SCH (09:13)
[2021-03-22] MEDS: URSODIOL 300 MG CAPSULE PO SCH ×2 (09:14→21:00)
[2021-03-22 09:32] LABS: ANISOCYTOSIS 2+; MACROCYTOSIS 0; PLATELET ESTIMATE DECREASED
[2021-03-22] MEDS ORDERED: FUROSEMIDE 40 MG/4 ML INJECTABLE VIAL IVPUSH ONE (15:00)
[2021-03-22] MEDS: ATORVASTATIN CA 40 MG TABLET (FP) PO SCH (21:00)
[2021-03-22] MEDS: MONTELUKAST NA 10 MG TABLET PO SCH (21:00)
[2021-03-22] MEDS: valACYclovir HCL 500 MG TABLET (FP) PO SCH (21:00)
[2021-03-23 07:50] LABS: BASO % 0.9 % (0-2.0); EOS % 1.1 % (0-4.5); LYMPH % 17.8 % (8-40); MCH 29.4 pg (25.7-33.7); MCHC 32.2 g/dl (32.0-35.9); MEAN CELL VOLUME 91.4 fl (80-96); MEAN PLT VOLUME 9.5 fl (7.5-11.1); MONO % 16.4 % (3.8-10.2); NEUT % 63.8 % (42.8-82.8); PLATELET COUNT 114 10^3/uL (134-434); RBC 3.39 M/mm3 (4.00-5.60); RDW 20.6 % (11.9-15.9); WHITE BLOOD COUNT 5.2 K/mm3 (4.0-10.0)
[2021-03-23 08:25] LABS: ALBUMIN 2.8 g/dl (3.4-5.0); BLOOD UREA NITROGEN 53.4 mg/dL (7-18); CALCIUM 8.3 mg/dL (8.5-10.1)
[2021-03-23 08:29] LABS: CREATININE 2.9 mg/dL (0.55-1.3)
[2021-03-23 08:30] LABS: TOT PROT 4.8 g/dl (6.4-8.2)
[2021-03-23] MEDS: POTASSIUM CHLORIDE ORAL LIQUID 20 MEQ/15 ML PO SCH (10:07)
[2021-03-23] MEDS: TAMSULOSIN HCL 0.4 MG CAP PO SCH (10:07)
[2021-03-23] MEDS: APIXABAN 2.5 MG TABLET PO SCH ×2 (10:08→22:14)
[2021-03-23] MEDS: PANTOPRAZOLE 40 MG TABLET PO SCH (10:08)
[2021-03-23] MEDS: URSODIOL 300 MG CAPSULE PO SCH ×2 (10:08→22:14)
[2021-03-23] MEDS: FUROSEMIDE 100 MG/10 ML INJECTABLE VIAL IVPB SCH (10:08)
[2021-03-23] MEDS: COLCHICINE 0.6 MG TAB PO SCH (10:08)
[2021-03-23] MEDS: TERAZOSIN HCL 5 MG CAPSULE PO SCH (10:08)
[2021-03-23] MEDS: ISOSORBIDE MONONITRATE 30 MG TAB.SR.24H (FP) PO SCH (10:08)
[2021-03-23] MEDS: hydrALAZINE HCL 25 MG TABLET (FP) PO SCH ×2 (10:08→22:14)
[2021-03-23] MEDS: DOCUSATE SODIUM 100 MG CAPSULE (FP) PO SCH ×2 (10:08→10:19)
[2021-03-23] MEDS: buPROPion HCL 75 MG TABLET PO SCH ×2 (10:09→22:14)
[2021-03-23] MEDS: TIOTROPIUM BROMIDE 2.5 MCG (SPIRIVA) RESPIMAT INHALER IH SCH (10:09)
[2021-03-23] MEDS: ATORVASTATIN CA 40 MG TABLET (FP) PO SCH (22:14)
[2021-03-23] MEDS: MONTELUKAST NA 10 MG TABLET PO SCH (22:14)
[2021-03-23] MEDS: valACYclovir HCL 500 MG TABLET (FP) PO SCH (22:14)
[2021-03-23] MEDS ORDERED: ALPRAZolam 0.25 MG TABLET PO PRN (22:45)
[2021-03-24 08:39] LABS: HEMATOCRIT 28.8 % (35.4-49); HEMOGLOBIN 9.3 GM/dL (11.7-16.9); MCH 29.3 pg (25.7-33.7); MCHC 32.1 g/dl (32.0-35.9); MEAN CELL VOLUME 91.2 fl (80-96); MEAN PLT VOLUME 9.4 fl (7.5-11.1); PLATELET COUNT 106 10^3/uL (134-434); RBC 3.16 M/mm3 (4.00-5.60); RDW 20.6 % (11.9-15.9); WHITE BLOOD COUNT 4.3 K/mm3 (4.0-10.0)
[2021-03-24 08:54] LABS: CALCIUM 8.2 mg/dL (8.5-10.1)
[2021-03-24 08:55] LABS: BLOOD UREA NITROGEN 48.2 mg/dL (7-18); MAGNESIUM 2.4 mg/dL (1.8-2.4)
[2021-03-24 08:58] LABS: CREATININE 2.8 mg/dL (0.55-1.3); PHOSPHOROUS 4.1 mg/dL (2.5-4.9)
[2021-03-24 08:59] LABS: BILIRUBIN,TOTAL 0.9 mg/dL (0.2-1); TOT PROT 4.6 g/dl (6.4-8.2)
[2021-03-24 09:23] LABS: ALBUMIN 2.5 g/dl (3.4-5.0)
[2021-03-24] MEDS ORDERED: PT OWN MED DRAWER 7, Y5N ONE (10:22)
[2021-03-24] MEDS: TERAZOSIN HCL 5 MG CAPSULE PO SCH (10:39)
[2021-03-24] MEDS: URSODIOL 300 MG CAPSULE PO SCH (10:40)
[2021-03-24] MEDS: PANTOPRAZOLE 40 MG TABLET PO SCH (10:40)
[2021-03-24] MEDS: hydrALAZINE HCL 25 MG TABLET (FP) PO SCH (10:40)
[2021-03-24] MEDS: TAMSULOSIN HCL 0.4 MG CAP PO SCH (10:40)
[2021-03-24] MEDS: POTASSIUM CHLORIDE ORAL LIQUID 20 MEQ/15 ML PO SCH (10:41)
[2021-03-24] MEDS: buPROPion HCL 75 MG TABLET PO SCH (10:41)
[2021-03-24] MEDS: APIXABAN 2.5 MG TABLET PO SCH (10:41)
[2021-03-24] MEDS: TIOTROPIUM BROMIDE 2.5 MCG (SPIRIVA) RESPIMAT INHALER IH SCH (10:42)
[2021-03-24] MEDS: DOCUSATE SODIUM 100 MG CAPSULE (FP) PO SCH (10:48)
[2021-03-24] MEDS: ISOSORBIDE MONONITRATE 30 MG TAB.SR.24H (FP) PO SCH (11:34)
[2021-03-24] MEDS: FUROSEMIDE 100 MG/10 ML INJECTABLE VIAL IVPB SCH (11:34)
[2021-03-24] MEDS: COLCHICINE 0.6 MG TAB PO SCH (12:00)
[2021-03-24] MEDS ORDERED: TORSEMIDE 100 MG TABLET PO SCH (13:45)
[2021-03-24 14:07] VITALS: BP 100/56; PULSE 87; TEMP 98.3
[2021-03-24] MEDS ORDERED: TORSEMIDE 20 MG TABLET (FP) PO SCH (22:00)
[2021-03-25] MEDS ORDERED: TORSEMIDE 100 MG TABLET PO SCH (10:00)
== END 2021-03-24 16:46 | disposition home or self-care (01) | DRG 291 ==
LOC: JER 03:24 → JERBED 06:32 → OBSVTOIN 10:32 → J4W 15:29
PROVIDERS: ADMIT Family Medicine; ATTEND Internal Medicine
DX: I13.0 Hypertensive heart and chronic kidney disease with heart failure and stage 1 through stage 4 chronic kidney disease, or unspecified chronic kidney disease (principal); I50.43 Acute on chronic combined systolic (congestive) and diastolic (congestive) heart failure; N18.4 Chronic kidney disease, stage 4 (severe); I31.3 Pericardial effusion (noninflammatory); N17.9 Acute kidney failure, unspecified; E46 Unspecified protein-calorie malnutrition; I25.10 Atherosclerotic heart disease of native coronary artery without angina pectoris; I48.91 Unspecified atrial fibrillation; Z79.01 Long term (current) use of anticoagulants; Z95.0 Presence of cardiac pacemaker; I34.0 Nonrheumatic mitral (valve) insufficiency; I35.1 Nonrheumatic aortic (valve) insufficiency; I27.20 Pulmonary hypertension, unspecified; I71.9 Aortic aneurysm of unspecified site, without rupture; E87.6 Hypokalemia; Z86.16 Personal history of COVID-19; D64.9 Anemia, unspecified; N40.0 Benign prostatic hyperplasia without lower urinary tract symptoms; D69.6 Thrombocytopenia, unspecified; E88.09 Other disorders of plasma-protein metabolism, not elsewhere classified; J84.10 Pulmonary fibrosis, unspecified; F32.9 Major depressive disorder, single episode, unspecified; K59.00 Constipation, unspecified
CPT/HCPCS: 36415; 71045-TC-FY; 76775-TC; 80053; 82550; 82962; 83036; 83735; 83880; 84100; 84484; 85025; 85027; 85610; 85730; 93005; 93010; 97116-GP; 97161-GP; 99285-25; C9803; G0378; U0003; U0005

== ENCOUNTER 2021-03-31 05:05 | Inpatient (IN) | payer BC, OTHER ==
[2021-03-31] MEDS ORDERED: ALBUTEROL SO4 2.5/IPRATROPIUM 0.5 INH SOL 3 ML VIAL.NEB. NEB ONE ×3 (06:07→06:40)
[2021-03-31 07:06] LABS: BASO % 0.3 % (0-2.0); EOS % 0.1 % (0-4.5); HEMATOCRIT 33.7 % (35.4-49); HEMOGLOBIN 11.1 GM/dL (11.7-16.9); LYMPH % 7.3 % (8-40); MCH 29.7 pg (25.7-33.7); MEAN CELL VOLUME 90.2 fl (80-96); MEAN PLT VOLUME 9.9 fl (7.5-11.1); NEUT % 78.3 % (42.8-82.8); PLATELET COUNT 116 10^3/uL (134-434); RBC 3.74 M/mm3 (4.00-5.60); RDW 21.6 % (11.9-15.9); WHITE BLOOD COUNT 7.5 K/mm3 (4.0-10.0)
[2021-03-31 07:07] LABS: VENOUS BASE EXCESS 0.3 mmol/L (-2-2); VENOUS O2 SATURATION 37.3 % (70-80); VENOUS PCO2 47.3 mmHg (38-52); VENOUS PH 7.36 (7.310-7.410)
[2021-03-31 07:16] LABS: INR 3.34 (0.83-1.09)
[2021-03-31 07:19] LABS: ACTIVATED PTT 36.1 SECONDS (25.2-36.5)
[2021-03-31 07:21] LABS: BLOOD UREA NITROGEN 70.9 mg/dL (7-18)
[2021-03-31 07:26] LABS: BILIRUBIN,TOTAL 1.8 mg/dL (0.2-1); TOT PROT 5.5 g/dl (6.4-8.2)
[2021-03-31 07:27] LABS: LACTIC ACID 2.9 mmol/L (0.4-2.0)
[2021-03-31 07:42] LABS: ALBUMIN 3.1 g/dl (3.4-5.0); CALCIUM 9.5 mg/dL (8.5-10.1)
[2021-03-31 08:35] LABS: EPI CELLS 1 /uL (0-25.1); HYALINE CASTS 1 /uL (0-3.1); URINE APPEARANCE CLEAR; URINE BACTERIA 706 /uL (0-1359); URINE BILIRUBIN NEGATIVE (NEGATIVE); URINE COLOR YELLOW; URINE GLUCOSE (UA) NEGATIVE (NEGATIVE); URINE KETONE NEGATIVE (NEGATIVE); URINE LEUK ESTERASE 1+ (NEGATIVE); URINE NITRITE NEGATIVE (NEGATIVE); URINE PROTEIN NEGATIVE (NEGATIVE); URINE RBC 5 /uL (0-23.9); URINE UROBILINOGEN 0.2 mg/dL (0.2-1.0); URINE WBC 168 /uL (0-25.8)
[2021-03-31 09:01] LABS: ANISOCYTOSIS 1+; MACROCYTOSIS 0; OVALOCYTE 1+; PLATELET ESTIMATE DECREASED
[2021-03-31] MEDS ORDERED: FUROSEMIDE 100 MG/10 ML INJECTABLE VIAL IVPB ONE (13:18)
[2021-03-31] MEDS ORDERED: FUROSEMIDE 40 MG/4 ML INJECTABLE VIAL ONE (13:42)
[2021-03-31 14:56] LABS: CALCIUM 9.4 mg/dL (8.5-10.1)
[2021-03-31 14:57] LABS: ALBUMIN 2.6 g/dl (3.4-5.0); BLOOD UREA NITROGEN 79.3 mg/dL (7-18)
[2021-03-31 15:00] LABS: CREATININE 3.6 mg/dL (0.55-1.3)
[2021-03-31 15:01] LABS: BILIRUBIN,TOTAL 1.2 mg/dL (0.2-1); TOT PROT 4.8 g/dl (6.4-8.2)
[2021-03-31] MEDS ORDERED: ALPRAZolam 0.25 MG TABLET PO PRN (15:36)
[2021-03-31 16:25] LABS: N-TERMINAL BNP 61601.9 pg/ml (5-125)
[2021-03-31 19:00] VITALS: BMI 22.3
[2021-03-31] MEDS: APIXABAN 2.5 MG TABLET PO SCH (21:52)
[2021-03-31] MEDS: hydrALAZINE HCL 25 MG TABLET (FP) PO SCH (21:52)
[2021-03-31] MEDS: PANTOPRAZOLE 40 MG TABLET PO SCH (21:52)
[2021-03-31] MEDS: MAG HYDROX/AL HYDROX/SIMETH -MYLANTA- ORAL SUSPENSION PO SCH ×2 (21:53→21:55)
[2021-04-01] MEDS ORDERED: ALBUTEROL SO4 HFA INHALER IH ONE (02:24)
[2021-04-01] MEDS: ALBUTEROL SO4 HFA INHALER IH PRN ×2 (02:26→11:00)
[2021-04-01] MEDS: MAG HYDROX/AL HYDROX/SIMETH 30 ML UNIT-DOSE CUP PO SCH ×3 (05:32→21:24)
[2021-04-01 09:09] LABS: HEMATOCRIT 34.4 % (35.4-49); HEMOGLOBIN 11.1 GM/dL (11.7-16.9); MCH 28.9 pg (25.7-33.7); MCHC 32.2 g/dl (32.0-35.9); MEAN CELL VOLUME 89.6 fl (80-96); MEAN PLT VOLUME 9.3 fl (7.5-11.1); PLATELET COUNT 117 10^3/uL (134-434); RBC 3.83 M/mm3 (4.00-5.60); RDW 21.7 % (11.9-15.9); WHITE BLOOD COUNT 4.8 K/mm3 (4.0-10.0)
[2021-04-01] MEDS: TAMSULOSIN HCL 0.4 MG CAP PO SCH (09:09)
[2021-04-01] MEDS: APIXABAN 2.5 MG TABLET PO SCH ×2 (09:09→21:23)
[2021-04-01] MEDS: PANTOPRAZOLE 40 MG TABLET PO SCH (09:09)
[2021-04-01] MEDS: RANOLAZINE E.R. 500 MG TABLET (FP) PO SCH ×2 (09:09→09:12)
[2021-04-01 09:31] LABS: CHLORIDE 98 mmol/L (98-107); SODIUM 142 mmol/L (136-145)
[2021-04-01 09:38] LABS: SGOT/AST 70 U/L (15-37); SGPT/ALT 174 U/L (13-61)
[2021-04-01 09:39] LABS: BLOOD UREA NITROGEN 71.5 mg/dL (7-18)
[2021-04-01 09:40] LABS: BILIRUBIN,TOTAL 1.3 mg/dL (0.2-1); TOT PROT 4.8 g/dl (6.4-8.2)
[2021-04-01 09:41] LABS: ALK PHOS 65 U/L (45-117); CALCIUM 9.1 mg/dL (8.5-10.1)
[2021-04-01 09:42] LABS: ALBUMIN 2.6 g/dl (3.4-5.0); CO2 36 mmol/L (21-32); CREATININE 3.4 mg/dL (0.55-1.3); GLUCOSE,RANDOM 91 mg/dL (74-106); MAGNESIUM 2.3 mg/dL (1.8-2.4)
[2021-04-01 09:43] LABS: PHOSPHOROUS 5.5 mg/dL (2.5-4.9)
[2021-04-01 10:00] LABS: ANION GAP 7 MMOL/L (8-16)
[2021-04-01] MEDS: hydrALAZINE HCL 25 MG TABLET (FP) PO SCH ×2 (10:54→21:32)
[2021-04-01] MEDS ORDERED: POTASSIUM CHLORIDE TABS 20 MEQ TABLET.ER (FP) PO ONE ×3 (10:59→14:00)
[2021-04-01] MEDS: KCL 10 MEQ IVPB 10 MEQ/100 ML INFUS.BAG IVPB SCH ×3 (12:01→16:47)
[2021-04-01] MEDS: TIOTROPIUM BROMIDE 2.5 MCG (SPIRIVA) RESPIMAT INHALER IH SCH (14:49)
[2021-04-01 20:10] LABS: CALCIUM 8.8 mg/dL (8.5-10.1)
[2021-04-01 20:11] LABS: BLOOD UREA NITROGEN 72.8 mg/dL (7-18)
[2021-04-01 20:14] LABS: CREATININE 3.3 mg/dL (0.55-1.3)
[2021-04-01] MEDS: FUROSEMIDE 40 MG/4 ML INJECTABLE VIAL IVPUSH SCH (21:22)
[2021-04-01] MEDS: MONTELUKAST NA 10 MG TABLET PO SCH (21:23)
[2021-04-01] MEDS: URSODIOL 300 MG CAPSULE PO SCH (21:23)
[2021-04-01] MEDS: valACYclovir HCL 500 MG TABLET (FP) PO SCH (21:24)
[2021-04-01] MEDS: ATORVASTATIN CA 40 MG TABLET (FP) PO SCH (21:24)
[2021-04-01] MEDS ORDERED: ALBUTEROL SO4 2.5/IPRATROPIUM 0.5 INH SOL 3 ML VIAL.NEB. NEB ONE (21:51)
[2021-04-01] MEDS ORDERED: ALBUTEROL SO4 0.083% IH SOL 2.5 MG/3 ML VIAL.NEB. NEB ONE (21:52)
[2021-04-01] MEDS ORDERED: BUPROPION HCL 150 MG PO SCH (22:00)
[2021-04-02] MEDS: ALBUTEROL SO4 HFA INHALER IH PRN (01:33)
[2021-04-02] MEDS: MAG HYDROX/AL HYDROX/SIMETH 30 ML UNIT-DOSE CUP PO SCH ×3 (05:10→21:25)
[2021-04-02 08:32] LABS: HEMATOCRIT 31.8 % (35.4-49); HEMOGLOBIN 10.4 GM/dL (11.7-16.9); MCH 29.4 pg (25.7-33.7); MCHC 32.8 g/dl (32.0-35.9); MEAN CELL VOLUME 89.5 fl (80-96); MEAN PLT VOLUME 10.2 fl (7.5-11.1); PLATELET COUNT 118 10^3/uL (134-434); RBC 3.56 M/mm3 (4.00-5.60); RDW 21.9 % (11.9-15.9); WHITE BLOOD COUNT 4.8 K/mm3 (4.0-10.0)
[2021-04-02 08:54] LABS: CALCIUM 8.6 mg/dL (8.5-10.1)
[2021-04-02 08:55] LABS: ALBUMIN 2.4 g/dl (3.4-5.0); BLOOD UREA NITROGEN 70.3 mg/dL (7-18); MAGNESIUM 2.1 mg/dL (1.8-2.4)
[2021-04-02 08:58] LABS: PHOSPHOROUS 4.7 mg/dL (2.5-4.9)
[2021-04-02 08:59] LABS: BILIRUBIN,TOTAL 1.6 mg/dL (0.2-1); TOT PROT 4.7 g/dl (6.4-8.2)
[2021-04-02] MEDS ORDERED: PATIENT'S OWN MEDICATION (NON-FORMULARY) (Potassium Chloride [Potassium Chloride] 20 MEQ T PO SCH (10:00)
[2021-04-02] MEDS ORDERED: PATIENT'S OWN MEDICATION (NON-FORMULARY) (Albuterol Sulfate [Proair Respiclick] 90 MCG Aer IH SCH (10:00)
[2021-04-02] MEDS: POTASSIUM CHLORIDE TABS 20 MEQ TABLET.ER (FP) PO SCH ×3 (10:34→21:25)
[2021-04-02] MEDS: TAMSULOSIN HCL 0.4 MG CAP PO SCH (10:34)
[2021-04-02] MEDS: PANTOPRAZOLE 40 MG TABLET PO SCH (10:34)
[2021-04-02] MEDS: URSODIOL 300 MG CAPSULE PO SCH ×2 (10:34→21:46)
[2021-04-02] MEDS: RANOLAZINE E.R. 500 MG TABLET (FP) PO SCH (10:34)
[2021-04-02] MEDS: TIOTROPIUM BROMIDE 2.5 MCG (SPIRIVA) RESPIMAT INHALER IH SCH (10:35)
[2021-04-02] MEDS: FUROSEMIDE 40 MG/4 ML INJECTABLE VIAL IVPUSH SCH (10:35)
[2021-04-02] MEDS: APIXABAN 2.5 MG TABLET PO SCH ×2 (10:35→21:26)
[2021-04-02] MEDS: hydrALAZINE HCL 25 MG TABLET (FP) PO SCH ×2 (10:35→21:26)
[2021-04-02] MEDS: ALBUTEROL SO4 2.5/IPRATROPIUM 0.5 INH SOL 3 ML VIAL.NEB. NEB SCH ×3 (15:37→20:10)
[2021-04-02] MEDS: valACYclovir HCL 500 MG TABLET (FP) PO SCH (21:26)
[2021-04-02] MEDS: MONTELUKAST NA 10 MG TABLET PO SCH (21:26)
[2021-04-02] MEDS: ATORVASTATIN CA 40 MG TABLET (FP) PO SCH (21:26)
[2021-04-03] MEDS: MAG HYDROX/AL HYDROX/SIMETH 30 ML UNIT-DOSE CUP PO SCH ×3 (05:22→21:02)
[2021-04-03] MEDS: ALBUTEROL SO4 2.5/IPRATROPIUM 0.5 INH SOL 3 ML VIAL.NEB. NEB SCH ×4 (07:35→19:59)
[2021-04-03] MEDS: TAMSULOSIN HCL 0.4 MG CAP PO SCH (09:24)
[2021-04-03] MEDS: PANTOPRAZOLE 40 MG TABLET PO SCH (09:24)
[2021-04-03] MEDS: APIXABAN 2.5 MG TABLET PO SCH ×2 (09:25→21:01)
[2021-04-03] MEDS: hydrALAZINE HCL 25 MG TABLET (FP) PO SCH ×3 (09:25→21:02)
[2021-04-03] MEDS: URSODIOL 300 MG CAPSULE PO SCH ×2 (09:25→21:00)
[2021-04-03] MEDS: TIOTROPIUM BROMIDE 2.5 MCG (SPIRIVA) RESPIMAT INHALER IH SCH (09:26)
[2021-04-03] MEDS: RANOLAZINE E.R. 500 MG TABLET (FP) PO SCH (09:26)
[2021-04-03] MEDS: POTASSIUM CHLORIDE TABS 20 MEQ TABLET.ER (FP) PO SCH (09:27)
[2021-04-03] MEDS: FUROSEMIDE 40 MG/4 ML INJECTABLE VIAL IVPUSH SCH (09:28)
[2021-04-03 10:12] LABS: CHLORIDE 96 mmol/L (98-107); SODIUM 141 mmol/L (136-145)
[2021-04-03 10:14] LABS: CALCIUM 8.7 mg/dL (8.5-10.1)
[2021-04-03 10:15] LABS: CO2 38 mmol/L (21-32); GLUCOSE,RANDOM 80 mg/dL (74-106)
[2021-04-03 10:18] LABS: ANION GAP 7 MMOL/L (8-16); CREATININE 2.5 mg/dL (0.55-1.3); PHOSPHOROUS 3.7 mg/dL (2.5-4.9)
[2021-04-03] MEDS: FUROSEMIDE 40 MG/4 ML INJECTABLE VIAL IVPB SCH (10:50)
[2021-04-03] MEDS: KCL 10 MEQ IVPB 10 MEQ/100 ML INFUS.BAG IVPB SCH ×3 (11:00→16:06)
[2021-04-03] MEDS ORDERED: POTASSIUM CHLORIDE TABS 20 MEQ TABLET.ER (FP) PO SCH (13:41)
[2021-04-03 16:33] LABS: HEMATOCRIT 33.5 % (35.4-49); HEMOGLOBIN 10.9 GM/dL (11.7-16.9); MCHC 32.6 g/dl (32.0-35.9); MEAN CELL VOLUME 89.1 fl (80-96); MEAN PLT VOLUME 9.3 fl (7.5-11.1); PLATELET COUNT 135 10^3/uL (134-434); RBC 3.76 M/mm3 (4.00-5.60); RDW 21.7 % (11.9-15.9); WHITE BLOOD COUNT 5.3 K/mm3 (4.0-10.0)
[2021-04-03 16:52] LABS: CALCIUM 8.7 mg/dL (8.5-10.1)
[2021-04-03 16:53] LABS: BLOOD UREA NITROGEN 61.8 mg/dL (7-18)
[2021-04-03 16:56] LABS: CREATININE 2.7 mg/dL (0.55-1.3)
[2021-04-03] MEDS ORDERED: ALBUTEROL SO4 0.083% IH SOL 2.5 MG/3 ML VIAL.NEB. NEB PRN (18:53)
[2021-04-03] MEDS ORDERED: PT OWN MED DRAWER 7, Y5N ONE (20:45)
[2021-04-03] MEDS: valACYclovir HCL 500 MG TABLET (FP) PO SCH (21:01)
[2021-04-03] MEDS: ATORVASTATIN CA 40 MG TABLET (FP) PO SCH (21:02)
[2021-04-03] MEDS: MONTELUKAST NA 10 MG TABLET PO SCH (21:02)
[2021-04-03] MEDS: ALPRAZolam 1 MG TABLET PO PRN (23:46)
[2021-04-04] MEDS: MAG HYDROX/AL HYDROX/SIMETH 30 ML UNIT-DOSE CUP PO SCH ×4 (06:18→21:41)
[2021-04-04] MEDS: ALBUTEROL SO4 2.5/IPRATROPIUM 0.5 INH SOL 3 ML VIAL.NEB. NEB SCH ×4 (07:30→20:37)
[2021-04-04] MEDS: FUROSEMIDE 40 MG/4 ML INJECTABLE VIAL IVPB SCH (09:16)
[2021-04-04] MEDS: hydrALAZINE HCL 25 MG TABLET (FP) PO SCH ×3 (09:17→21:35)
[2021-04-04] MEDS: APIXABAN 2.5 MG TABLET PO SCH ×2 (09:17→21:34)
[2021-04-04] MEDS: PANTOPRAZOLE 40 MG TABLET PO SCH (09:17)
[2021-04-04] MEDS: TAMSULOSIN HCL 0.4 MG CAP PO SCH (09:17)
[2021-04-04 09:18] LABS: HEMOGLOBIN 10.2 GM/dL (11.7-16.9); MCH 29.4 pg (25.7-33.7); MCHC 32.8 g/dl (32.0-35.9); MEAN CELL VOLUME 89.8 fl (80-96); PLATELET COUNT 109 10^3/uL (134-434); RBC 3.45 M/mm3 (4.00-5.60); RDW 21.5 % (11.9-15.9); WHITE BLOOD COUNT 4.5 K/mm3 (4.0-10.0)
[2021-04-04] MEDS: TIOTROPIUM BROMIDE 2.5 MCG (SPIRIVA) RESPIMAT INHALER IH SCH (09:18)
[2021-04-04] MEDS: RANOLAZINE E.R. 500 MG TABLET (FP) PO SCH (09:18)
[2021-04-04] MEDS: URSODIOL 300 MG CAPSULE PO SCH ×2 (09:18→21:35)
[2021-04-04 09:49] LABS: BLOOD UREA NITROGEN 57.3 mg/dL (7-18); CALCIUM 8.2 mg/dL (8.5-10.1)
[2021-04-04 09:50] LABS: MAGNESIUM 2.1 mg/dL (1.8-2.4)
[2021-04-04 09:52] LABS: CREATININE 2.5 mg/dL (0.55-1.3)
[2021-04-04 09:53] LABS: PHOSPHOROUS 2.8 mg/dL (2.5-4.9)
[2021-04-04 16:55] LABS: HEMATOCRIT 31.4 % (35.4-49); HEMOGLOBIN 10.2 GM/dL (11.7-16.9); MCH 29.3 pg (25.7-33.7); MCHC 32.4 g/dl (32.0-35.9); MEAN CELL VOLUME 90.4 fl (80-96); MEAN PLT VOLUME 9.3 fl (7.5-11.1); PLATELET COUNT 114 10^3/uL (134-434); RBC 3.47 M/mm3 (4.00-5.60); RDW 22.1 % (11.9-15.9); WHITE BLOOD COUNT 4.6 K/mm3 (4.0-10.0)
[2021-04-04] MEDS ORDERED: PT OWN MED DRAWER 7, Y5N ONE ×2 (21:32→21:43)
[2021-04-04] MEDS: ATORVASTATIN CA 40 MG TABLET (FP) PO SCH (21:34)
[2021-04-04] MEDS: MONTELUKAST NA 10 MG TABLET PO SCH (21:34)
[2021-04-04] MEDS: valACYclovir HCL 500 MG TABLET (FP) PO SCH (21:34)
[2021-04-04] MEDS: ALPRAZolam 1 MG TABLET PO PRN (23:08)
[2021-04-05] MEDS: MAG HYDROX/AL HYDROX/SIMETH 30 ML UNIT-DOSE CUP PO SCH ×2 (05:50→14:10)
[2021-04-05] MEDS: ALBUTEROL SO4 2.5/IPRATROPIUM 0.5 INH SOL 3 ML VIAL.NEB. NEB SCH ×4 (07:25→17:05)
[2021-04-05 10:08] LABS: HEMATOCRIT 31.8 % (35.4-49); HEMOGLOBIN 10.2 GM/dL (11.7-16.9); MCH 28.9 pg (25.7-33.7); MEAN CELL VOLUME 90.4 fl (80-96); MEAN PLT VOLUME 9.5 fl (7.5-11.1); PLATELET COUNT 128 10^3/uL (134-434); RBC 3.52 M/mm3 (4.00-5.60); RDW 22.2 % (11.9-15.9); WHITE BLOOD COUNT 4.4 K/mm3 (4.0-10.0)
[2021-04-05] MEDS: URSODIOL 300 MG CAPSULE PO SCH (10:11)
[2021-04-05] MEDS: RANOLAZINE E.R. 500 MG TABLET (FP) PO SCH (10:11)
[2021-04-05] MEDS: hydrALAZINE HCL 25 MG TABLET (FP) PO SCH (10:12)
[2021-04-05] MEDS: POTASSIUM CHLORIDE TABS 20 MEQ TABLET.ER (FP) PO SCH (10:12)
[2021-04-05] MEDS: TAMSULOSIN HCL 0.4 MG CAP PO SCH (10:12)
[2021-04-05] MEDS: APIXABAN 2.5 MG TABLET PO SCH (10:12)
[2021-04-05] MEDS: TIOTROPIUM BROMIDE 2.5 MCG (SPIRIVA) RESPIMAT INHALER IH SCH (10:13)
[2021-04-05] MEDS: FUROSEMIDE 40 MG/4 ML INJECTABLE VIAL IVPB SCH (10:13)
[2021-04-05] MEDS: PANTOPRAZOLE 40 MG TABLET PO SCH (10:13)
[2021-04-05 10:36] LABS: CHLORIDE 96 mmol/L (98-107); SODIUM 141 mmol/L (136-145)
[2021-04-05 10:38] LABS: CALCIUM 8.2 mg/dL (8.5-10.1)
[2021-04-05 10:39] LABS: BLOOD UREA NITROGEN 51.6 mg/dL (7-18); CO2 39 mmol/L (21-32); GLUCOSE,RANDOM 102 mg/dL (74-106)
[2021-04-05 10:40] LABS: MAGNESIUM 2.1 mg/dL (1.8-2.4)
[2021-04-05 10:42] LABS: CREATININE 2.4 mg/dL (0.55-1.3); PHOSPHOROUS 2.6 mg/dL (2.5-4.9)
[2021-04-05 11:08] LABS: ANION GAP 6 MMOL/L (8-16)
[2021-04-05] MEDS ORDERED: POTASSIUM CHLORIDE TABS 20 MEQ TABLET.ER (FP) PO ONE ×3 (11:32→16:00)
[2021-04-05] MEDS: TORSEMIDE 100 MG TABLET PO SCH ×2 (12:24→14:24)
[2021-04-05] MEDS: KCL 10 MEQ IVPB 10 MEQ/100 ML INFUS.BAG IVPB SCH ×2 (12:45→12:51)
[2021-04-05] MEDS: POTASSIUM CHLORIDE ORAL LIQUID 20 MEQ/15 ML PO SCH ×2 (14:23→16:48)
[2021-04-05 17:55] LABS: CALCIUM 8.3 mg/dL (8.5-10.1)
[2021-04-05 17:56] LABS: BLOOD UREA NITROGEN 49.5 mg/dL (7-18)
[2021-04-05 17:59] LABS: CREATININE 2.6 mg/dL (0.55-1.3)
[2021-04-05 18:09] VITALS: BP 97/63; PULSE 87; TEMP 98
== END 2021-04-05 19:10 | disposition home or self-care (01) | DRG 291 ==
LOC: JER 05:05 → JERBED 13:45 → J5S 18:06 → J8W 04-02 15:55
PROVIDERS: ADMIT Internal Medicine; ATTEND Internal Medicine
DX: I13.0 Hypertensive heart and chronic kidney disease with heart failure and stage 1 through stage 4 chronic kidney disease, or unspecified chronic kidney disease (principal); I50.43 Acute on chronic combined systolic (congestive) and diastolic (congestive) heart failure; I50.42 Chronic combined systolic (congestive) and diastolic (congestive) heart failure; N18.4 Chronic kidney disease, stage 4 (severe); N17.9 Acute kidney failure, unspecified; J98.11 Atelectasis; I31.3 Pericardial effusion (noninflammatory); I25.10 Atherosclerotic heart disease of native coronary artery without angina pectoris; E11.22 Type 2 diabetes mellitus with diabetic chronic kidney disease; I48.91 Unspecified atrial fibrillation; Z79.01 Long term (current) use of anticoagulants; Z95.0 Presence of cardiac pacemaker; I34.0 Nonrheumatic mitral (valve) insufficiency; F41.9 Anxiety disorder, unspecified; I27.20 Pulmonary hypertension, unspecified; F32.9 Major depressive disorder, single episode, unspecified; M10.9 Gout, unspecified; D64.9 Anemia, unspecified; R10.9 Unspecified abdominal pain; T50.2X5A Adverse effect of carbonic-anhydrase inhibitors, benzothiadiazides and other diuretics, initial encounter; E87.6 Hypokalemia; N28.1 Cyst of kidney, acquired
CPT/HCPCS: 36415; 71045-TC-FY; 74176-TC; 76705-TC; 76775-TC; 76856-TC; 80048; 80053; 81003; 82550; 82803; 83605; 83690; 83735; 83880; 84100; 84443; 84484; 85025; 85027; 85610; 85730; 87086; 87186; 93005; 93010; 93970-TC; 94640; 97116-GP; 97161-GP; 99285-25; C9803; U0003; U0005

== ENCOUNTER 2021-04-15 23:20 | Inpatient (IN) | payer BC ==
[2021-04-16 00:29] LABS: BASO % 0.6 % (0-2.0); EOS % 0.6 % (0-4.5); HEMATOCRIT 31.9 % (35.4-49); HEMOGLOBIN 10.1 GM/dL (11.7-16.9); LYMPH % 7.5 % (8-40); MCH 28.5 pg (25.7-33.7); MCHC 31.6 g/dl (32.0-35.9); MEAN CELL VOLUME 90.1 fl (80-96); MONO % 9.5 % (3.8-10.2); NEUT % 81.8 % (42.8-82.8); PLATELET COUNT 133 10^3/uL (134-434); RBC 3.54 M/mm3 (4.00-5.60); RDW 21.3 % (11.9-15.9); WHITE BLOOD COUNT 7.8 K/mm3 (4.0-10.0)
[2021-04-16 00:47] LABS: CHLORIDE 94 mmol/L (98-107); SODIUM 140 mmol/L (136-145)
[2021-04-16 00:49] LABS: CALCIUM 8.8 mg/dL (8.5-10.1)
[2021-04-16 00:50] LABS: CO2 37 mmol/L (21-32); GLUCOSE,RANDOM 177 mg/dL (74-106); MAGNESIUM 2.4 mg/dL (1.8-2.4)
[2021-04-16 00:53] LABS: CREATININE 2.1 mg/dL (0.55-1.3); SGOT/AST 30 U/L (15-37); SGPT/ALT 31 U/L (13-61)
[2021-04-16 00:55] LABS: TOT PROT 5.9 g/dl (6.4-8.2)
[2021-04-16 00:56] LABS: ALK PHOS 85 U/L (45-117)
[2021-04-16 01:05] LABS: ANION GAP 9 MMOL/L (8-16)
[2021-04-16] MEDS ORDERED: POTASSIUM CHLORIDE TABS 20 MEQ TABLET.ER (FP) PO ONE ×4 (01:37→10:42)
[2021-04-16] MEDS ORDERED: TORSEMIDE 100 MG TABLET PO ONE (01:55)
[2021-04-16 02:26] LABS: ANISOCYTOSIS 2+; MACROCYTOSIS 0; OVALOCYTE 1+; PLATELET ESTIMATE DECREASED; TARGET CELLS 0; TEAR DROP CELLS 2+
[2021-04-16] MEDS ORDERED: PYRIDOXINE HCL 100 MG/1 ML VIAL IM ONE (05:00)
[2021-04-16] MEDS ORDERED: TRIMETHOBENZAMIDE HCL 200MG/2ML INJ IM ONE (07:00)
[2021-04-16 10:06] LABS: HEMATOCRIT 32.6 % (35.4-49); HEMOGLOBIN 10.3 GM/dL (11.7-16.9); MCH 28.3 pg (25.7-33.7); MCHC 31.5 g/dl (32.0-35.9); MEAN CELL VOLUME 89.6 fl (80-96); MEAN PLT VOLUME 8.2 fl (7.5-11.1); PLATELET COUNT 116 10^3/uL (134-434); RBC 3.64 M/mm3 (4.00-5.60); RDW 21.9 % (11.9-15.9); WHITE BLOOD COUNT 10.9 K/mm3 (4.0-10.0)
[2021-04-16] MEDS ORDERED: metoPROLOL SUCCINATE 25 MG TAB.SR.24H (FP) ONE (10:18)
[2021-04-16] MEDS: APIXABAN 2.5 MG TABLET PO SCH ×2 (10:18→21:21)
[2021-04-16] MEDS ORDERED: APIXABAN 2.5 MG TABLET ONE (10:18)
[2021-04-16] MEDS: TAMSULOSIN HCL 0.4 MG CAP PO SCH (10:18)
[2021-04-16] MEDS: metoPROLOL SUCCINATE 25 MG TAB.SR.24H (FP) PO SCH ×2 (10:18→21:21)
[2021-04-16] MEDS ORDERED: TAMSULOSIN HCL 0.4 MG CAP ONE (10:18)
[2021-04-16 10:21] LABS: CALCIUM 9.1 mg/dL (8.5-10.1)
[2021-04-16 10:22] LABS: ALBUMIN 3.2 g/dl (3.4-5.0); BLOOD UREA NITROGEN 75.8 mg/dL (7-18); MAGNESIUM 2.3 mg/dL (1.8-2.4)
[2021-04-16 10:25] LABS: CREATININE 2.8 mg/dL (0.55-1.3); PHOSPHOROUS 2.7 mg/dL (2.5-4.9)
[2021-04-16 10:26] LABS: BILIRUBIN,TOTAL 2.4 mg/dL (0.2-1)
[2021-04-16] MEDS ORDERED: guaiFENesin 200 MG/10 ML 10 ML UNIT-DOSE CUPS ONE (10:27)
[2021-04-16] MEDS ORDERED: PT OWN MED DRAWER 7, Y5N ONE (10:28)
[2021-04-16] MEDS: hydrALAZINE HCL 10 MG TABLET PO SCH ×2 (10:29→21:22)
[2021-04-16] MEDS: guaiFENesin 200 MG/10 ML 10 ML UNIT-DOSE CUPS PO PRN (10:29)
[2021-04-16] MEDS ORDERED: KCL 10 MEQ IVPB 10 MEQ/100 ML INFUS.BAG IVPB ONE ×2 (10:42→12:14)
[2021-04-16] MEDS: KCL 10 MEQ IVPB 10 MEQ/100 ML INFUS.BAG IVPB SCH ×2 (11:07→12:19)
[2021-04-16] MEDS: TORSEMIDE 20 MG TABLET (FP) PO SCH (13:01)
[2021-04-16 17:12] LABS: MAGNESIUM 2.3 mg/dL (1.8-2.4)
[2021-04-16 17:15] LABS: BILIRUBIN,DIRECT 1.1 mg/dL (0.0-0.2)
[2021-04-16] MEDS ORDERED: PROMETHAZINE HCL 25 MG/1 ML VIAL IVPUSH ONE (20:16)
[2021-04-16] MEDS: MONTELUKAST NA 10 MG TABLET PO SCH (21:21)
[2021-04-16] MEDS: ATORVASTATIN CA 10 MG TABLET (FP) PO SCH (21:22)
[2021-04-16] MEDS: valACYclovir HCL 500 MG TABLET (FP) PO SCH (22:21)
[2021-04-17] MEDS ORDERED: PT OWN MED DRAWER 7, Y5N ONE ×3 (06:41→22:15)
[2021-04-17] MEDS: TORSEMIDE 20 MG TABLET (FP) PO SCH ×2 (06:47→13:25)
[2021-04-17] MEDS: LEVALBUTEROL HCL 0.31 MG/3 ML VIAL.NEB IH PRN ×2 (09:15→20:22)
[2021-04-17 09:30] LABS: HEMOGLOBIN 9.7 GM/dL (11.7-16.9); MCH 29.2 pg (25.7-33.7); MCHC 32.4 g/dl (32.0-35.9); MEAN CELL VOLUME 90.3 fl (80-96); MEAN PLT VOLUME 9.9 fl (7.5-11.1); PLATELET COUNT 88 10^3/uL (134-434); RBC 3.32 M/mm3 (4.00-5.60); RDW 21.5 % (11.9-15.9); WHITE BLOOD COUNT 7.5 K/mm3 (4.0-10.0)
[2021-04-17] MEDS: guaiFENesin 200 MG/10 ML 10 ML UNIT-DOSE CUPS PO PRN (09:50)
[2021-04-17] MEDS: hydrALAZINE HCL 10 MG TABLET PO SCH ×2 (09:50→22:27)
[2021-04-17] MEDS: APIXABAN 2.5 MG TABLET PO SCH ×2 (09:50→22:26)
[2021-04-17] MEDS: metoPROLOL SUCCINATE 25 MG TAB.SR.24H (FP) PO SCH ×2 (09:50→22:27)
[2021-04-17] MEDS: TAMSULOSIN HCL 0.4 MG CAP PO SCH (09:50)
[2021-04-17 10:01] LABS: BLOOD UREA NITROGEN 84.2 mg/dL (7-18); CALCIUM 8.2 mg/dL (8.5-10.1); MAGNESIUM 2.4 mg/dL (1.8-2.4)
[2021-04-17 10:02] LABS: ALBUMIN 2.7 g/dl (3.4-5.0)
[2021-04-17 10:05] LABS: PHOSPHOROUS 3.1 mg/dL (2.5-4.9)
[2021-04-17 10:06] LABS: BILIRUBIN,TOTAL 2.4 mg/dL (0.2-1); TOT PROT 5.3 g/dl (6.4-8.2)
[2021-04-17] MEDS ORDERED: ALBUTEROL SO4 HFA INHALER IH PRN (10:29)
[2021-04-17] MEDS: TIOTROPIUM BROMIDE 2.5 MCG (SPIRIVA) RESPIMAT INHALER IH SCH ×2 (11:33→11:42)
[2021-04-17] MEDS: POTASSIUM CHLORIDE TABS 20 MEQ TABLET.ER (FP) PO SCH (13:25)
[2021-04-17] MEDS ORDERED: ALPRAZolam 0.25 MG TABLET PO ONE (22:03)
[2021-04-17] MEDS: ATORVASTATIN CA 10 MG TABLET (FP) PO SCH (22:26)
[2021-04-17] MEDS: MONTELUKAST NA 10 MG TABLET PO SCH (22:26)
[2021-04-17] MEDS: valACYclovir HCL 500 MG TABLET (FP) PO SCH (22:26)
[2021-04-18] MEDS: TORSEMIDE 20 MG TABLET (FP) PO SCH (06:13)
[2021-04-18] MEDS: LEVALBUTEROL HCL 0.31 MG/3 ML VIAL.NEB IH PRN ×2 (07:58→13:51)
[2021-04-18 08:57] LABS: HEMATOCRIT 28.4 % (35.4-49); HEMOGLOBIN 9.1 GM/dL (11.7-16.9); MCH 28.9 pg (25.7-33.7); MCHC 32.1 g/dl (32.0-35.9); MEAN PLT VOLUME 10.4 fl (7.5-11.1); PLATELET COUNT 104 10^3/uL (134-434); RBC 3.16 M/mm3 (4.00-5.60); RDW 21.6 % (11.9-15.9)
[2021-04-18 09:28] LABS: CALCIUM 8.1 mg/dL (8.5-10.1)
[2021-04-18 09:29] LABS: ALBUMIN 2.4 g/dl (3.4-5.0); BLOOD UREA NITROGEN 98.7 mg/dL (7-18); MAGNESIUM 2.7 mg/dL (1.8-2.4)
[2021-04-18 09:31] LABS: CREATININE 3.3 mg/dL (0.55-1.3)
[2021-04-18 09:32] LABS: PHOSPHOROUS 3.5 mg/dL (2.5-4.9)
[2021-04-18 09:33] LABS: BILIRUBIN,TOTAL 2.1 mg/dL (0.2-1); TOT PROT 4.8 g/dl (6.4-8.2)
[2021-04-18] MEDS: APIXABAN 2.5 MG TABLET PO SCH ×2 (10:22→22:39)
[2021-04-18] MEDS: POTASSIUM CHLORIDE TABS 20 MEQ TABLET.ER (FP) PO SCH (10:23)
[2021-04-18] MEDS: TAMSULOSIN HCL 0.4 MG CAP PO SCH (10:23)
[2021-04-18] MEDS: TIOTROPIUM BROMIDE 2.5 MCG (SPIRIVA) RESPIMAT INHALER IH SCH (10:24)
[2021-04-18] MEDS: metoPROLOL SUCCINATE 25 MG TAB.SR.24H (FP) PO SCH ×2 (11:01→22:39)
[2021-04-18] MEDS: hydrALAZINE HCL 10 MG TABLET PO SCH ×2 (11:01→22:39)
[2021-04-18 13:23] VITALS: BMI 17.4
[2021-04-18] MEDS: FUROSEMIDE 40 MG/4 ML INJECTABLE VIAL IVPB SCH (13:39)
[2021-04-18] MEDS ORDERED: PT OWN MED DRAWER 7, Y5N ONE (22:29)
[2021-04-18] MEDS: MONTELUKAST NA 10 MG TABLET PO SCH (22:39)
[2021-04-18] MEDS: valACYclovir HCL 500 MG TABLET (FP) PO SCH (22:39)
[2021-04-18] MEDS: ATORVASTATIN CA 10 MG TABLET (FP) PO SCH (22:39)
[2021-04-18] MEDS: guaiFENesin 200 MG/10 ML 10 ML UNIT-DOSE CUPS PO PRN (22:39)
[2021-04-19] MEDS: ALPRAZolam 0.25 MG TABLET PO SCH ×2 (00:12→23:02)
[2021-04-19 10:23] LABS: HEMATOCRIT 31.3 % (35.4-49); HEMOGLOBIN 9.9 GM/dL (11.7-16.9); MCH 28.8 pg (25.7-33.7); MCHC 31.7 g/dl (32.0-35.9); MEAN CELL VOLUME 90.9 fl (80-96); MEAN PLT VOLUME 9.5 fl (7.5-11.1); PLATELET COUNT 79 10^3/uL (134-434); RBC 3.44 M/mm3 (4.00-5.60); RDW 22.2 % (11.9-15.9); WHITE BLOOD COUNT 5.2 K/mm3 (4.0-10.0)
[2021-04-19] MEDS: FUROSEMIDE 40 MG/4 ML INJECTABLE VIAL IVPB SCH (10:25)
[2021-04-19] MEDS: TIOTROPIUM BROMIDE 2.5 MCG (SPIRIVA) RESPIMAT INHALER IH SCH (10:25)
[2021-04-19] MEDS: POTASSIUM CHLORIDE TABS 20 MEQ TABLET.ER (FP) PO SCH (10:25)
[2021-04-19] MEDS: metoPROLOL SUCCINATE 25 MG TAB.SR.24H (FP) PO SCH ×2 (10:25→22:16)
[2021-04-19] MEDS: hydrALAZINE HCL 10 MG TABLET PO SCH ×2 (10:25→22:16)
[2021-04-19] MEDS: APIXABAN 2.5 MG TABLET PO SCH ×2 (10:25→22:15)
[2021-04-19] MEDS: TAMSULOSIN HCL 0.4 MG CAP PO SCH (10:25)
[2021-04-19 10:44] LABS: CHLORIDE 98 mmol/L (98-107); SODIUM 140 mmol/L (136-145)
[2021-04-19 11:19] LABS: CALCIUM 8.1 mg/dL (8.5-10.1); SGPT/ALT 176 U/L (13-61)
[2021-04-19 11:20] LABS: ALBUMIN 2.7 g/dl (3.4-5.0); ANION GAP 9 MMOL/L (8-16); CO2 33 mmol/L (21-32); GLUCOSE,RANDOM 72 mg/dL (74-106); MAGNESIUM 2.7 mg/dL (1.8-2.4)
[2021-04-19 11:23] LABS: CREATININE 3.1 mg/dL (0.55-1.3); PHOSPHOROUS 3.1 mg/dL (2.5-4.9); SGOT/AST 102 U/L (15-37)
[2021-04-19 11:25] LABS: TOT PROT 5.2 g/dl (6.4-8.2)
[2021-04-19 11:28] LABS: ALK PHOS 121 U/L (45-117); BLOOD UREA NITROGEN 108.2 mg/dL (7-18)
[2021-04-19] MEDS ORDERED: PT OWN MED DRAWER 7, Y5N ONE ×3 (15:28→22:14)
[2021-04-19] MEDS: guaiFENesin/D-M SUGAR-FREE/ACLHOL-FREE 5 ML UNIT DOSE PO PRN (15:33)
[2021-04-19] MEDS: FLUTICASONE/UMECLIDIN/VILANTER(200-62.5-25 TRELEGY ELLIPTA) INAHLER IH SCH (15:34)
[2021-04-19] MEDS: LEVALBUTEROL HCL 0.31 MG/3 ML VIAL.NEB IH PRN (20:23)
[2021-04-19] MEDS: MONTELUKAST NA 10 MG TABLET PO SCH (22:15)
[2021-04-19] MEDS: valACYclovir HCL 500 MG TABLET (FP) PO SCH (22:16)
[2021-04-19] MEDS: ATORVASTATIN CA 10 MG TABLET (FP) PO SCH (22:16)
[2021-04-20] MEDS: APIXABAN 2.5 MG TABLET PO SCH ×2 (09:56→21:31)
[2021-04-20] MEDS: TAMSULOSIN HCL 0.4 MG CAP PO SCH (09:56)
[2021-04-20] MEDS: metoPROLOL SUCCINATE 25 MG TAB.SR.24H (FP) PO SCH ×2 (09:56→21:31)
[2021-04-20] MEDS: POTASSIUM CHLORIDE TABS 20 MEQ TABLET.ER (FP) PO SCH (09:57)
[2021-04-20 09:58] LABS: HEMATOCRIT 26.4 % (35.4-49); HEMOGLOBIN 8.4 GM/dL (11.7-16.9); MCH 29.2 pg (25.7-33.7); MCHC 31.8 g/dl (32.0-35.9); MEAN CELL VOLUME 91.7 fl (80-96); MEAN PLT VOLUME 10.1 fl (7.5-11.1); PLATELET COUNT 110 10^3/uL (134-434); RBC 2.88 M/mm3 (4.00-5.60); RDW 22.1 % (11.9-15.9); WHITE BLOOD COUNT 3.9 K/mm3 (4.0-10.0)
[2021-04-20] MEDS: FLUTICASONE/UMECLIDIN/VILANTER(200-62.5-25 TRELEGY ELLIPTA) INAHLER IH SCH (09:58)
[2021-04-20] MEDS: hydrALAZINE HCL 10 MG TABLET PO SCH ×2 (09:58→21:31)
[2021-04-20] MEDS: FUROSEMIDE 40 MG/4 ML INJECTABLE VIAL IVPB SCH (09:58)
[2021-04-20 10:31] LABS: ALBUMIN 2.4 g/dl (3.4-5.0); BLOOD UREA NITROGEN 92.2 mg/dL (7-18); CALCIUM 7.9 mg/dL (8.5-10.1); MAGNESIUM 2.3 mg/dL (1.8-2.4)
[2021-04-20 10:34] LABS: CREATININE 2.7 mg/dL (0.55-1.3)
[2021-04-20 10:35] LABS: PHOSPHOROUS 3.4 mg/dL (2.5-4.9)
[2021-04-20 10:36] LABS: BILIRUBIN,TOTAL 1.1 mg/dL (0.2-1); TOT PROT 4.8 g/dl (6.4-8.2)
[2021-04-20] MEDS ORDERED: FUROSEMIDE 40 MG/4 ML INJECTABLE VIAL IVPB SCH (12:10)
[2021-04-20] MEDS ORDERED: ALBUTEROL SO4 0.083% IH SOL 2.5 MG/3 ML VIAL.NEB. NEB PRN (15:54)
[2021-04-20] MEDS ORDERED: PT OWN MED DRAWER 7, Y5N ONE (21:09)
[2021-04-20] MEDS: MONTELUKAST NA 10 MG TABLET PO SCH (21:32)
[2021-04-20] MEDS: ATORVASTATIN CA 10 MG TABLET (FP) PO SCH (21:32)
[2021-04-20] MEDS: valACYclovir HCL 500 MG TABLET (FP) PO SCH (21:32)
[2021-04-20] MEDS: guaiFENesin/D-M SUGAR-FREE/ACLHOL-FREE 5 ML UNIT DOSE PO PRN (21:32)
[2021-04-20] MEDS: LEVALBUTEROL HCL 0.31 MG/3 ML VIAL.NEB IH SCH (21:42)
[2021-04-20] MEDS: ALPRAZolam 0.25 MG TABLET PO SCH (22:32)
[2021-04-21] MEDS: LEVALBUTEROL HCL 0.31 MG/3 ML VIAL.NEB IH SCH ×2 (08:12→14:10)
[2021-04-21] MEDS: TAMSULOSIN HCL 0.4 MG CAP PO SCH (08:32)
[2021-04-21] MEDS ORDERED: PT OWN MED DRAWER 7, Y5N ONE (09:41)
[2021-04-21] MEDS: hydrALAZINE HCL 10 MG TABLET PO SCH (09:53)
[2021-04-21 09:56] LABS: HEMATOCRIT 27.9 % (35.4-49); HEMOGLOBIN 8.9 GM/dL (11.7-16.9); MCH 28.9 pg (25.7-33.7); MEAN CELL VOLUME 90.4 fl (80-96); MEAN PLT VOLUME 9.4 fl (7.5-11.1); PLATELET COUNT 97 10^3/uL (134-434); RBC 3.09 M/mm3 (4.00-5.60); WHITE BLOOD COUNT 4.8 K/mm3 (4.0-10.0)
[2021-04-21 10:37] LABS: CALCIUM 7.6 mg/dL (8.5-10.1)
[2021-04-21 10:38] LABS: ALBUMIN 2.6 g/dl (3.4-5.0); BLOOD UREA NITROGEN 77.9 mg/dL (7-18); MAGNESIUM 2.3 mg/dL (1.8-2.4)
[2021-04-21 10:40] LABS: PHOSPHOROUS 3.5 mg/dL (2.5-4.9)
[2021-04-21 10:41] LABS: CREATININE 2.3 mg/dL (0.55-1.3)
[2021-04-21 10:42] LABS: BILIRUBIN,TOTAL 1.3 mg/dL (0.2-1); TOT PROT 5.2 g/dl (6.4-8.2)
[2021-04-21] MEDS ORDERED: KCL 10 MEQ IVPB 10 MEQ/100 ML INFUS.BAG IVPB SCH (11:00)
[2021-04-21] MEDS: APIXABAN 2.5 MG TABLET PO SCH (11:01)
[2021-04-21] MEDS: metoPROLOL SUCCINATE 25 MG TAB.SR.24H (FP) PO SCH (11:01)
[2021-04-21] MEDS: POTASSIUM CHLORIDE TABS 20 MEQ TABLET.ER (FP) PO SCH (11:01)
[2021-04-21] MEDS: FLUTICASONE/UMECLIDIN/VILANTER(200-62.5-25 TRELEGY ELLIPTA) INAHLER IH SCH (11:25)
[2021-04-21 14:12] VITALS: BP 141/68; PULSE 84; TEMP 97.8
== END 2021-04-21 17:11 | disposition home or self-care (01) | DRG 291 ==
LOC: JER 23:20 → JERBED 04-16 01:38 → J5S 04-16 15:15
PROVIDERS: ADMIT Internal Medicine; ATTEND Internal Medicine
DX: I13.0 Hypertensive heart and chronic kidney disease with heart failure and stage 1 through stage 4 chronic kidney disease, or unspecified chronic kidney disease (principal); I50.43 Acute on chronic combined systolic (congestive) and diastolic (congestive) heart failure; J45.909 Unspecified asthma, uncomplicated; I48.91 Unspecified atrial fibrillation; Z99.81 Dependence on supplemental oxygen; Z95.0 Presence of cardiac pacemaker; E87.6 Hypokalemia; Z79.01 Long term (current) use of anticoagulants; I25.10 Atherosclerotic heart disease of native coronary artery without angina pectoris; I27.20 Pulmonary hypertension, unspecified; N18.9 Chronic kidney disease, unspecified; I34.0 Nonrheumatic mitral (valve) insufficiency; D64.9 Anemia, unspecified; I35.1 Nonrheumatic aortic (valve) insufficiency; F41.9 Anxiety disorder, unspecified; Z86.16 Personal history of COVID-19; F32.9 Major depressive disorder, single episode, unspecified; D69.6 Thrombocytopenia, unspecified; I71.9 Aortic aneurysm of unspecified site, without rupture
CPT/HCPCS: 36415; 71045-TC-FY; 80053; 82248; 82550; 83735; 83880; 84100; 84132; 84484; 85025; 85027; 93005; 93010; 94640; 97116-GP; 97161-GP; 99285-25; C9803; U0003; U0005

== ENCOUNTER 2021-04-24 20:59 | Inpatient (IN) | payer BC, OTHER ==
[2021-04-24 22:14] LABS: HEMATOCRIT 34.5 % (35.4-49); HEMOGLOBIN 10.8 GM/dL (11.7-16.9); RBC 3.79 M/mm3 (4.00-5.60); VENOUS O2 SATURATION 17.6 % (70-80); VENOUS PCO2 53.2 mmHg (38-52); VENOUS PH 7.361 (7.310-7.410)
[2021-04-24 22:15] LABS: BASO % 0.8 % (0-2.0); EOS % 0.6 % (0-4.5); LYMPH % 25.5 % (8-40); MCH 28.5 pg (25.7-33.7); MCHC 31.4 g/dl (32.0-35.9); MEAN CELL VOLUME 90.9 fl (80-96); MONO % 13.8 % (3.8-10.2); NEUT % 59.3 % (42.8-82.8); PLATELET COUNT 158 10^3/uL (134-434); RDW 22.3 % (11.9-15.9); VENOUS BASE EXCESS 3.1 mmol/L (-2-2)
[2021-04-24 22:26] LABS: ACTIVATED PTT 35.7 SECONDS (25.2-36.5); INR 2.8 (0.83-1.09); PROTHROMBIN TIME (PATIENT) 34.8 SEC (9.7-13.0)
[2021-04-24 22:30] LABS: LACTIC ACID 2.7 mmol/L (0.4-2.0)
[2021-04-24 23:07] LABS: ARTERIAL BLD GAS O2 SATURATION 99.3 % (95-98); ARTERIAL BLOOD GAS BASE EXCESS 1.9 mmol/L (-2-2); ARTERIAL BLOOD GAS PO2 168.1 mmHg (80-100); ARTERIAL BLOOD GAS pH 7.496 (7.350-7.450)
[2021-04-25 00:06] LABS: BLOOD UREA NITROGEN 92.1 mg/dL (7-18)
[2021-04-25 00:11] LABS: ALBUMIN 2.9 g/dl (3.4-5.0); BILIRUBIN,TOTAL 1.5 mg/dL (0.2-1); CALCIUM 9.3 mg/dL (8.5-10.1); MAGNESIUM 2.6 mg/dL (1.8-2.4)
[2021-04-25 00:12] LABS: N-TERMINAL BNP 54233.88 pg/ml (5-125)
[2021-04-25] MEDS ORDERED: VANCOMYCIN 1 GM in D5W (PRE-DOCKED) 1,000 MG/250 ML IVPB ONE (01:24)
[2021-04-25] MEDS ORDERED: PIPERACILLIN/TAZOB 4.5 GM 4.5 GM in DEXTROSE 5%-WATER 100 ML IVPB ONE (01:24)
[2021-04-25] MEDS ORDERED: PIPERACILLIN/TAZOB 4.5 GM 4.5 GM/100 ML BAG IVPB ONE (01:37)
[2021-04-25] MEDS ORDERED: VANCOMYCIN 1 GRAM (PRE-DOCKED) 1,000 MG/250 ML BAG IVPB ONE ×2 (01:38→02:14)
[2021-04-25] MEDS ORDERED: ACETAMINOPHEN 325 MG TABLET (FP) PO PRN (04:39)
[2021-04-25] MEDS ORDERED: methylPREDNISolone NA SUCC 40 MG/1 ML VIAL IVPUSH ONE (04:44)
[2021-04-25] MEDS ORDERED: FUROSEMIDE 40 MG/4 ML INJECTABLE VIAL IVPUSH ONE ×2 (04:44→13:15)
[2021-04-25] MEDS ORDERED: LINEZOLID 600 MG PREMIX BAG 600 MG in PREMIX 300 IVPB SCH (04:45)
[2021-04-25] MEDS ORDERED: LINEZOLID 600 MG PREMIX BAG 600 MG/300 ML BAG IVPB SCH (05:15)
[2021-04-25] MEDS ORDERED: ALBUTEROL SO4 0.083% IH SOL 2.5 MG/3 ML VIAL.NEB. NEB PRN (05:16)
[2021-04-25] MEDS ORDERED: FUROSEMIDE 40 MG/4 ML INJECTABLE VIAL ONE (06:58)
[2021-04-25] MEDS ORDERED: PIPERACILLIN/TAZOB 2.25 GM 2.25 GM/50 ML BAG IVPB ONE ×2 (06:58→10:23)
[2021-04-25] MEDS: PIPERACILLIN/TAZOB 2.25 GM 2.25 GM in DEXTROSE 5%-WATER - 50 ML IVPB SCH ×2 (07:02→11:15)
[2021-04-25 08:20] LABS: BLOOD UREA NITROGEN 92.4 mg/dL (7-18); CALCIUM 9.1 mg/dL (8.5-10.1); CHLORIDE 103 mmol/L (98-107); CO2 30 mmol/L (21-32); GLUCOSE,RANDOM 98 mg/dL (74-106); MAGNESIUM 2.3 mg/dL (1.8-2.4); SODIUM 140 mmol/L (136-145); TOT PROT 5.2 g/dl (6.4-8.2)
[2021-04-25 08:21] LABS: ALBUMIN 2.6 g/dl (3.4-5.0); ALK PHOS 122 U/L (45-117); BILIRUBIN,TOTAL 1.4 mg/dL (0.2-1); SGOT/AST 13 U/L (15-37); SGPT/ALT 55 U/L (13-61)
[2021-04-25] MEDS ORDERED: ALBUTEROL SO4 0.083% IH SOL 2.5 MG/3 ML VIAL.NEB. NEB ONE (08:28)
[2021-04-25 09:11] LABS: HEMOGLOBIN 9.4 GM/dL (11.7-16.9); RBC 3.24 M/mm3 (4.00-5.60); WHITE BLOOD COUNT 6.7 K/mm3 (4.0-10.0)
[2021-04-25 09:12] LABS: HEMATOCRIT 29.5 % (35.4-49); MCHC 31.8 g/dl (32.0-35.9); MEAN CELL VOLUME 91.1 fl (80-96); MEAN PLT VOLUME 9.4 fl (7.5-11.1); PLATELET COUNT 143 10^3/uL (134-434); RDW 22.6 % (11.9-15.9)
[2021-04-25] MEDS ORDERED: BUDESONIDE/FORMETEROL FUMARATE 160/4.5 mcg INHALER IH SCH (10:00)
[2021-04-25] MEDS ORDERED: APIXABAN 2.5 MG TABLET PO SCH (10:00)
[2021-04-25] MEDS ORDERED: methylPREDNISolone NA SUCC 40 MG/1 ML VIAL IVPUSH SCH (10:00)
[2021-04-25] MEDS ORDERED: APIXABAN 2.5 MG TABLET ONE (10:22)
[2021-04-25] MEDS ORDERED: methylPREDNISolone NA SUCC 40 MG/1 ML VIAL ONE (10:23)
[2021-04-25 11:34] LABS: ANISOCYTOSIS 1+; MACROCYTOSIS 1+; PLATELET ESTIMATE DECREASED
[2021-04-25] MEDS ORDERED: LEVALBUTEROL HCL 0.31 MG/3 ML VIAL.NEB IH PRN (14:32)
[2021-04-25] MEDS ORDERED: guaiFENesin/D-M SUGAR-FREE/ACLHOL-FREE 118 ML BOTTLE PO PRN (14:39)
[2021-04-25 16:09] VITALS: BMI 21.3
[2021-04-25] MEDS ORDERED: PT OWN MED DRAWER 7, Y5N ONE (17:49)
[2021-04-25] MEDS: FLUTICASONE/UMECLIDIN/VILANTER(200-62.5-25 TRELEGY ELLIPTA) INAHLER IH SCH (17:51)
[2021-04-25] MEDS: TAMSULOSIN HCL 0.4 MG CAP PO SCH (21:33)
[2021-04-25] MEDS: guaiFENesin 600 MG TABLET.ER (FP) PO SCH (21:33)
[2021-04-25] MEDS: ALPRAZolam 0.25 MG TABLET PO SCH (21:33)
[2021-04-25] MEDS: ATORVASTATIN CA 10 MG TABLET (FP) PO SCH (21:33)
[2021-04-25] MEDS: valACYclovir HCL 500 MG TABLET (FP) PO SCH (21:34)
[2021-04-25] MEDS: APIXABAN 2.5 MG TABLET PO SCH (21:34)
[2021-04-25] MEDS: metoPROLOL SUCCINATE 25 MG TAB.SR.24H (FP) PO SCH (21:47)
[2021-04-25] MEDS: MONTELUKAST NA 10 MG TABLET PO SCH (21:53)
[2021-04-25] MEDS ORDERED: TIOTROPIUM BROMIDE 2.5 MCG (SPIRIVA) RESPIMAT INHALER IH SCH (22:00)
[2021-04-26] MEDS ORDERED: PIPERACILLIN/TAZOB 2.25 GM 2.25 GM in DEXTROSE 5%-WATER - 50 ML IVPB SCH (02:00)
[2021-04-26 09:04] LABS: BASO % 0.1 % (0-2.0); HEMATOCRIT 29.8 % (35.4-49); HEMOGLOBIN 9.6 GM/dL (11.7-16.9); MCH 28.9 pg (25.7-33.7); MCHC 32.1 g/dl (32.0-35.9); MEAN CELL VOLUME 89.9 fl (80-96); MEAN PLT VOLUME 8.3 fl (7.5-11.1); MONO % 14.4 % (3.8-10.2); NEUT % 70.5 % (42.8-82.8); PLATELET COUNT 139 10^3/uL (134-434); RBC 3.32 M/mm3 (4.00-5.60); RDW 22.4 % (11.9-15.9); WHITE BLOOD COUNT 3.6 K/mm3 (4.0-10.0)
[2021-04-26] MEDS ORDERED: ALBUTEROL SO4 HFA INHALER IH PRN (09:24)
[2021-04-26 09:30] LABS: ALBUMIN 2.4 g/dl (3.4-5.0)
[2021-04-26 09:31] LABS: BLOOD UREA NITROGEN 85.9 mg/dL (7-18); CALCIUM 8.5 mg/dL (8.5-10.1); MAGNESIUM 2.3 mg/dL (1.8-2.4)
[2021-04-26 09:34] LABS: BILIRUBIN,TOTAL 1.4 mg/dL (0.2-1); CREATININE 2.9 mg/dL (0.55-1.3)
[2021-04-26] MEDS: FUROSEMIDE 40 MG/4 ML INJECTABLE VIAL IVPB SCH ×2 (09:53→11:05)
[2021-04-26] MEDS: metoPROLOL SUCCINATE 25 MG TAB.SR.24H (FP) PO SCH ×2 (09:53→21:48)
[2021-04-26] MEDS: guaiFENesin 600 MG TABLET.ER (FP) PO SCH ×3 (09:55→23:15)
[2021-04-26] MEDS: FLUTICASONE/UMECLIDIN/VILANTER(200-62.5-25 TRELEGY ELLIPTA) INAHLER IH SCH (09:55)
[2021-04-26] MEDS: APIXABAN 2.5 MG TABLET PO SCH ×2 (09:55→21:47)
[2021-04-26] MEDS ORDERED: FLUTICASONE/UMECLIDIN/VILANTER(200-62.5-25 TRELEGY ELLIPTA) INAHLER IH SCH (10:00)
[2021-04-26] MEDS ORDERED: FUROSEMIDE 40 MG/4 ML INJECTABLE VIAL IVPUSH SCH (10:00)
[2021-04-26] MEDS ORDERED: LINEZOLID 600 MG PREMIX BAG 600 MG/300 ML BAG IVPB SCH (10:00)
[2021-04-26 11:27] LABS: PHOSPHOROUS 5.3 mg/dL (2.5-4.9)
[2021-04-26] MEDS: LEVALBUTEROL HCL 0.31 MG/3 ML VIAL.NEB IH SCH ×2 (14:48→21:20)
[2021-04-26] MEDS: valACYclovir HCL 500 MG TABLET (FP) PO SCH (21:47)
[2021-04-26] MEDS: ATORVASTATIN CA 10 MG TABLET (FP) PO SCH (21:48)
[2021-04-26] MEDS: TAMSULOSIN HCL 0.4 MG CAP PO SCH (21:49)
[2021-04-26] MEDS: MONTELUKAST NA 10 MG TABLET PO SCH (22:09)
[2021-04-26] MEDS: ALPRAZolam 0.25 MG TABLET PO SCH (23:15)
[2021-04-27] MEDS: LEVALBUTEROL HCL 0.31 MG/3 ML VIAL.NEB IH SCH ×3 (07:43→20:36)
[2021-04-27 09:46] LABS: HEMATOCRIT 27.3 % (35.4-49); HEMOGLOBIN 8.8 GM/dL (11.7-16.9); MCHC 32.3 g/dl (32.0-35.9); MEAN CELL VOLUME 89.8 fl (80-96); MEAN PLT VOLUME 8.2 fl (7.5-11.1); PLATELET COUNT 131 10^3/uL (134-434); RBC 3.03 M/mm3 (4.00-5.60); RDW 21.7 % (11.9-15.9); WHITE BLOOD COUNT 4.6 K/mm3 (4.0-10.0)
[2021-04-27 10:19] LABS: CALCIUM 7.9 mg/dL (8.5-10.1)
[2021-04-27 10:20] LABS: ALBUMIN 2.4 g/dl (3.4-5.0); BLOOD UREA NITROGEN 75.2 mg/dL (7-18); MAGNESIUM 2.5 mg/dL (1.8-2.4)
[2021-04-27 10:22] LABS: CREATININE 2.7 mg/dL (0.55-1.3)
[2021-04-27 10:23] LABS: PHOSPHOROUS 4.6 mg/dL (2.5-4.9)
[2021-04-27 10:29] LABS: BILIRUBIN,TOTAL 1.4 mg/dL (0.2-1)
[2021-04-27] MEDS ORDERED: POTASSIUM CHLORIDE TABS 20 MEQ TABLET.ER (FP) PO ONE ×2 (10:48→22:00)
[2021-04-27] MEDS ORDERED: KCL 10 MEQ IVPB 10 MEQ/100 ML INFUS.BAG IVPB SCH (11:00)
[2021-04-27] MEDS: APIXABAN 2.5 MG TABLET PO SCH ×2 (11:55→22:31)
[2021-04-27] MEDS: guaiFENesin 600 MG TABLET.ER (FP) PO SCH ×2 (11:55→22:31)
[2021-04-27] MEDS: metoPROLOL SUCCINATE 25 MG TAB.SR.24H (FP) PO SCH ×2 (11:55→22:31)
[2021-04-27] MEDS: FLUTICASONE/UMECLIDIN/VILANTER(200-62.5-25 TRELEGY ELLIPTA) INAHLER IH SCH (11:56)
[2021-04-27] MEDS: POTASSIUM CHLORIDE TABS 20 MEQ TABLET.ER (FP) PO SCH (11:57)
[2021-04-27] MEDS: FUROSEMIDE 40 MG/4 ML INJECTABLE VIAL IVPB SCH (11:58)
[2021-04-27] MEDS: TAMSULOSIN HCL 0.4 MG CAP PO SCH (22:31)
[2021-04-27] MEDS: valACYclovir HCL 500 MG TABLET (FP) PO SCH (22:31)
[2021-04-27] MEDS: MONTELUKAST NA 10 MG TABLET PO SCH (22:32)
[2021-04-27] MEDS: ATORVASTATIN CA 10 MG TABLET (FP) PO SCH (22:32)
[2021-04-27] MEDS: ALPRAZolam 0.25 MG TABLET PO SCH (22:32)
[2021-04-28] MEDS: LEVALBUTEROL HCL 0.31 MG/3 ML VIAL.NEB IH SCH ×2 (07:54→14:43)
[2021-04-28 09:15] LABS: HEMATOCRIT 26.6 % (35.4-49); HEMOGLOBIN 8.5 GM/dL (11.7-16.9); MCH 28.9 pg (25.7-33.7); MCHC 31.9 g/dl (32.0-35.9); MEAN CELL VOLUME 90.4 fl (80-96); MEAN PLT VOLUME 7.9 fl (7.5-11.1); PLATELET COUNT 129 10^3/uL (134-434); RBC 2.95 M/mm3 (4.00-5.60); RDW 21.4 % (11.9-15.9); WHITE BLOOD COUNT 4.1 K/mm3 (4.0-10.0)
[2021-04-28 09:17] LABS: INR 1.77 (0.83-1.09); PROTHROMBIN TIME (PATIENT) 21.9 SEC (9.7-13.0)
[2021-04-28 09:40] LABS: ALBUMIN 2.4 g/dl (3.4-5.0); BLOOD UREA NITROGEN 73.1 mg/dL (7-18)
[2021-04-28 09:41] LABS: MAGNESIUM 2.2 mg/dL (1.8-2.4)
[2021-04-28 09:44] LABS: CREATININE 2.5 mg/dL (0.55-1.3)
[2021-04-28 09:45] LABS: BILIRUBIN,TOTAL 1.2 mg/dL (0.2-1); TOT PROT 4.9 g/dl (6.4-8.2)
[2021-04-28] MEDS: POTASSIUM CHLORIDE TABS 20 MEQ TABLET.ER (FP) PO SCH (10:11)
[2021-04-28] MEDS: FUROSEMIDE 40 MG/4 ML INJECTABLE VIAL IVPB SCH (10:12)
[2021-04-28] MEDS: guaiFENesin 600 MG TABLET.ER (FP) PO SCH (10:12)
[2021-04-28] MEDS: metoPROLOL SUCCINATE 25 MG TAB.SR.24H (FP) PO SCH (10:12)
[2021-04-28] MEDS: APIXABAN 2.5 MG TABLET PO SCH (10:12)
[2021-04-28] MEDS: FLUTICASONE/UMECLIDIN/VILANTER(200-62.5-25 TRELEGY ELLIPTA) INAHLER IH SCH (10:13)
[2021-04-28 14:27] VITALS: BP 114/57; PULSE 81; TEMP 97.5
== END 2021-04-28 18:28 | disposition short-term general hospital (02) | DRG 291 ==
LOC: JER 20:59 → JERBED 04-25 01:33 → J8W 04-25 12:55
PROVIDERS: ADMIT Internal Medicine; ATTEND Internal Medicine
DX: I13.0 Hypertensive heart and chronic kidney disease with heart failure and stage 1 through stage 4 chronic kidney disease, or unspecified chronic kidney disease (principal); I50.43 Acute on chronic combined systolic (congestive) and diastolic (congestive) heart failure; N18.4 Chronic kidney disease, stage 4 (severe); J44.1 Chronic obstructive pulmonary disease with (acute) exacerbation; I48.21 Permanent atrial fibrillation; N17.9 Acute kidney failure, unspecified; I25.10 Atherosclerotic heart disease of native coronary artery without angina pectoris; Z79.01 Long term (current) use of anticoagulants; I27.20 Pulmonary hypertension, unspecified; J44.9 Chronic obstructive pulmonary disease, unspecified; E78.5 Hyperlipidemia, unspecified; F32.A Depression, unspecified; M10.9 Gout, unspecified; I35.1 Nonrheumatic aortic (valve) insufficiency; Z86.16 Personal history of COVID-19; J84.10 Pulmonary fibrosis, unspecified; Z95.0 Presence of cardiac pacemaker; D63.1 Anemia in chronic kidney disease; F41.9 Anxiety disorder, unspecified; N40.0 Benign prostatic hyperplasia without lower urinary tract symptoms; I34.0 Nonrheumatic mitral (valve) insufficiency; E87.6 Hypokalemia; I71.9 Aortic aneurysm of unspecified site, without rupture
CPT/HCPCS: 36415; 36600; 71045-TC-FY; 71250-TC; 74176-TC; 80053; 82550; 82728; 82803; 83540; 83550; 83605; 83690; 83735; 83880; 84100; 84484; 85025; 85027; 85610; 85730; 93005; 93010; 93306-TC; 99285-25; C9803; U0003; U0005

== ENCOUNTER 2021-05-12 00:57 | Inpatient (IN) | payer BC ==
[2021-05-12] MEDS ORDERED: LIDOCAINE HCL 2% JELLY 10 ML CARTRIDGE ONE (01:13)
[2021-05-12] MEDS ORDERED: LIDOCAINE HCL 2% JELLY 10 ML CARTRIDGE UR ONE (01:31)
[2021-05-12 02:14] LABS: BASO % 0.3 % (0-2.0); EOS % 0.6 % (0-4.5); HEMATOCRIT 31.1 % (35.4-49); HEMOGLOBIN 9.9 GM/dL (11.7-16.9); MCH 27.8 pg (25.7-33.7); MCHC 31.7 g/dl (32.0-35.9); MEAN CELL VOLUME 87.5 fl (80-96); MONO % 13.5 % (3.8-10.2); NEUT % 73.6 % (42.8-82.8); PLATELET COUNT 98 10^3/uL (134-434); RBC 3.55 M/mm3 (4.00-5.60); RDW 21.2 % (11.9-15.9); WHITE BLOOD COUNT 6.9 K/mm3 (4.0-10.0)
[2021-05-12 02:18] LABS: URINE APPEARANCE CLEAR; URINE BILIRUBIN NEGATIVE (NEGATIVE); URINE COLOR YELLOW; URINE GLUCOSE (UA) NEGATIVE (NEGATIVE); URINE KETONE NEGATIVE (NEGATIVE); URINE LEUK ESTERASE NEGATIVE (NEGATIVE); URINE NITRITE NEGATIVE (NEGATIVE); URINE PROTEIN NEGATIVE (NEGATIVE); URINE UROBILINOGEN 0.2 mg/dL (0.2-1.0)
[2021-05-12 02:34] LABS: INR 2.05 (0.83-1.09); PROTHROMBIN TIME (PATIENT) 23.1 SEC (9.7-13.0)
[2021-05-12 02:38] LABS: ACTIVATED PTT 35.3 SECONDS (25.2-36.5)
[2021-05-12 02:42] LABS: CHLORIDE 88 mmol/L (98-107); SODIUM 137 mmol/L (136-145)
[2021-05-12 02:47] LABS: CO2 37 mmol/L (21-32)
[2021-05-12 02:48] LABS: GLUCOSE,RANDOM 119 mg/dL (74-106)
[2021-05-12 02:51] LABS: CREATININE 3.2 mg/dL (0.55-1.3); SGOT/AST 21 U/L (15-37); SGPT/ALT 28 U/L (13-61)
[2021-05-12 02:52] LABS: BILIRUBIN,TOTAL 1.9 mg/dL (0.2-1)
[2021-05-12 03:15] LABS: ALBUMIN 2.9 g/dl (3.4-5.0); ALK PHOS 124 U/L (45-117); ANION GAP 13 MMOL/L (8-16); CALCIUM 9.7 mg/dL (8.5-10.1)
[2021-05-12] MEDS ORDERED: POTASSIUM CHLORIDE TABS 20 MEQ TABLET.ER (FP) PO ONE (03:22)
[2021-05-12] MEDS ORDERED: POTASSIUM CHLORIDE ORAL LIQUID 20 MEQ/15 ML ONE ×2 (03:46→09:31)
[2021-05-12] MEDS ORDERED: KCL 10 MEQ IVPB 30 MEQ/300 ML INFUS.BAG IVPB ONE (03:47)
[2021-05-12] MEDS: KCL 10 MEQ IVPB 10 MEQ/100 ML INFUS.BAG IVPB SCH ×3 (04:01→07:40)
[2021-05-12] MEDS ORDERED: TAMSULOSIN HCL 0.4 MG CAP PO SCH ×2 (04:15→04:29)
[2021-05-12 08:14] LABS: HEMATOCRIT 29.3 % (35.4-49); HEMOGLOBIN 9.2 GM/dL (11.7-16.9); MCH 27.8 pg (25.7-33.7); MCHC 31.6 g/dl (32.0-35.9); MEAN CELL VOLUME 88.2 fl (80-96); MEAN PLT VOLUME 8.8 fl (7.5-11.1); PLATELET COUNT 82 10^3/uL (134-434); RBC 3.32 M/mm3 (4.00-5.60); WHITE BLOOD COUNT 6.3 K/mm3 (4.0-10.0)
[2021-05-12 08:24] LABS: ALBUMIN 2.7 g/dl (3.4-5.0); CALCIUM 8.8 mg/dL (8.5-10.1)
[2021-05-12 08:25] LABS: BLOOD UREA NITROGEN 67.4 mg/dL (7-18); MAGNESIUM 2.3 mg/dL (1.8-2.4)
[2021-05-12 08:28] LABS: PHOSPHOROUS 4.1 mg/dL (2.5-4.9)
[2021-05-12 08:29] LABS: BILIRUBIN,TOTAL 1.6 mg/dL (0.2-1); TOT PROT 5.2 g/dl (6.4-8.2)
[2021-05-12] MEDS ORDERED: APIXABAN 2.5 MG TABLET ONE ×2 (09:30→20:31)
[2021-05-12] MEDS ORDERED: metoPROLOL SUCCINATE 25 MG TAB.SR.24H (FP) ONE ×2 (09:31→20:32)
[2021-05-12] MEDS ORDERED: TAMSULOSIN HCL 0.4 MG CAP ONE (09:31)
[2021-05-12] MEDS: TORSEMIDE 100 MG TABLET PO SCH (09:49)
[2021-05-12] MEDS ORDERED: FLUTICASONE/UMECLIDIN/VILANTER(200-62.5-25 TRELEGY ELLIPTA) INAHLER IH SCH (10:00)
[2021-05-12] MEDS ORDERED: POTASSIUM CHLORIDE ORAL LIQUID 20 MEQ/15 ML PO SCH (10:00)
[2021-05-12] MEDS: APIXABAN 2.5 MG TABLET PO SCH ×2 (10:01→21:03)
[2021-05-12] MEDS: metoPROLOL SUCCINATE 25 MG TAB.SR.24H (FP) PO SCH ×2 (10:01→21:03)
[2021-05-12] MEDS ORDERED: ACETAMINOPHEN 1000 MG/100 ML VIAL IVPB ONE (16:36)
[2021-05-12] MEDS ORDERED: ACETAMINOPHEN 325 MG TABLET (FP) ONE (17:04)
[2021-05-12] MEDS ORDERED: ACETAMINOPHEN INJECTION 100 ML IVPB ONE (17:05)
[2021-05-12] MEDS ORDERED: valACYclovir HCL 500 MG TABLET (FP) ONE (20:31)
[2021-05-12] MEDS ORDERED: buPROPion HCL 100 MG TABLET ONE (20:32)
[2021-05-12] MEDS ORDERED: ATORVASTATIN CA 10 MG TABLET (FP) ONE (20:32)
[2021-05-12] MEDS ORDERED: MONTELUKAST NA 10 MG TABLET ONE (20:32)
[2021-05-12] MEDS ORDERED: MONTELUKAST NA 10 MG TABLET PO SCH (22:00)
[2021-05-12] MEDS ORDERED: valACYclovir HCL 500 MG TABLET (FP) PO SCH (22:00)
[2021-05-12] MEDS ORDERED: ATORVASTATIN CA 10 MG TABLET (FP) PO SCH (22:00)
[2021-05-13] MEDS ORDERED: LORazepam 0.5 MG TABLET PO ONE (02:49)
[2021-05-13] MEDS ORDERED: ALBUTEROL SO4 2.5/IPRATROPIUM 0.5 INH SOL 3 ML VIAL.NEB. NEB ONE (02:53)
[2021-05-13] MEDS ORDERED: ALPRAZolam 1 MG TABLET PO ONE (03:24)
[2021-05-13] MEDS: TORSEMIDE 100 MG TABLET PO SCH (06:24)
[2021-05-13 08:05] LABS: HEMATOCRIT 28.3 % (35.4-49); HEMOGLOBIN 8.9 GM/dL (11.7-16.9); MCH 27.8 pg (25.7-33.7); MCHC 31.6 g/dl (32.0-35.9); MEAN CELL VOLUME 88.2 fl (80-96); MEAN PLT VOLUME 8.9 fl (7.5-11.1); PLATELET COUNT 82 10^3/uL (134-434); RDW 20.7 % (11.9-15.9); WHITE BLOOD COUNT 6.1 K/mm3 (4.0-10.0)
[2021-05-13 08:18] LABS: CHLORIDE 92 mmol/L (98-107); SODIUM 137 mmol/L (136-145)
[2021-05-13 08:32] LABS: ALBUMIN 2.7 g/dl (3.4-5.0); BLOOD UREA NITROGEN 68.9 mg/dL (7-18); CALCIUM 8.8 mg/dL (8.5-10.1); CO2 38 mmol/L (21-32)
[2021-05-13 08:35] LABS: BILIRUBIN,TOTAL 1.9 mg/dL (0.2-1); CREATININE 3.1 mg/dL (0.55-1.3); GLUCOSE,RANDOM 115 mg/dL (74-106)
[2021-05-13 08:36] LABS: SGPT/ALT 22 U/L (13-61)
[2021-05-13 08:37] LABS: ALK PHOS 94 U/L (45-117)
[2021-05-13 08:40] LABS: SGOT/AST 18 U/L (15-37)
[2021-05-13 08:41] LABS: TOT PROT 5.4 g/dl (6.4-8.2)
[2021-05-13 08:42] LABS: ANION GAP 8 MMOL/L (8-16)
[2021-05-13] MEDS ORDERED: TAMSULOSIN HCL 0.4 MG CAP PO SCH (09:00)
[2021-05-13] MEDS ORDERED: FLU VACC QS2021-22(6MOS UP)/PF 60 MCG/0.5 ML SYRINGE IM ONE (10:00)
[2021-05-13] MEDS ORDERED: POTASSIUM CHLORIDE ORAL LIQUID 20 MEQ/15 ML PO SCH (10:00)
[2021-05-13] MEDS ORDERED: APIXABAN 2.5 MG TABLET PO SCH (10:00)
[2021-05-13] MEDS ORDERED: KCL 10 MEQ IVPB 10 MEQ/100 ML INFUS.BAG IVPB SCH (10:00)
[2021-05-13] MEDS: metoPROLOL SUCCINATE 25 MG TAB.SR.24H (FP) PO SCH ×2 (10:24→21:47)
[2021-05-13] MEDS: KCL 10 MEQ IVPB 10 MEQ/100 ML INFUS.BAG IVPB SCH ×4 (10:25→17:32)
[2021-05-13] MEDS: FLUTICASONE/UMECLIDIN/VILANTER(200-62.5-25 TRELEGY ELLIPTA) INAHLER IH SCH (10:37)
[2021-05-13 10:41] LABS: MAGNESIUM 2.1 mg/dL (1.8-2.4)
[2021-05-13 10:45] LABS: PHOSPHOROUS 3.9 mg/dL (2.5-4.9)
[2021-05-13 14:35] LABS: CALCIUM 9.1 mg/dL (8.5-10.1)
[2021-05-13 14:38] LABS: BLOOD UREA NITROGEN 72.4 mg/dL (7-18)
[2021-05-13 14:39] LABS: CREATININE 3.1 mg/dL (0.55-1.3)
[2021-05-13] MEDS: BISACODYL 10 MG SUPP.RECT PR PRN (15:42)
[2021-05-13] MEDS: OXYBUTYNIN CHLORIDE 5 MG TABLET PO SCH ×2 (15:42→21:39)
[2021-05-13] MEDS ORDERED: FINASTERIDE 5 MG TABLET (FP) PO ONE (16:44)
[2021-05-13] MEDS ORDERED: TAMSULOSIN HCL 0.4 MG CAP PO ONE (17:00)
[2021-05-13] MEDS: MONTELUKAST NA 10 MG TABLET PO SCH (21:40)
[2021-05-13] MEDS: ATORVASTATIN CA 10 MG TABLET (FP) PO SCH (21:40)
[2021-05-13] MEDS: POTASSIUM CHLORIDE ORAL LIQUID 20 MEQ/15 ML PO SCH (21:40)
[2021-05-13] MEDS: ALPRAZolam 0.25 MG TABLET PO SCH (21:43)
[2021-05-13] MEDS ORDERED: valACYclovir HCL 500 MG TABLET (FP) PO SCH (22:00)
[2021-05-14] MEDS ORDERED: HALOPERIDOL LACTATE 5 MG/ML IM ONE (01:45)
[2021-05-14] MEDS ORDERED: POLYETHYLENE GLYCOL 3350 119 GM BTL PO PRN (06:34)
[2021-05-14] MEDS: TORSEMIDE 100 MG TABLET PO SCH (06:56)
[2021-05-14] MEDS: OXYBUTYNIN CHLORIDE 5 MG TABLET PO SCH ×3 (06:57→21:30)
[2021-05-14 07:46] LABS: HEMOGLOBIN 9.1 GM/dL (11.7-16.9); MCH 28.1 pg (25.7-33.7); MCHC 31.4 g/dl (32.0-35.9); MEAN CELL VOLUME 89.2 fl (80-96); PLATELET COUNT 62 10^3/uL (134-434); RBC 3.25 M/mm3 (4.00-5.60); RDW 21.2 % (11.9-15.9); WHITE BLOOD COUNT 6.2 K/mm3 (4.0-10.0)
[2021-05-14 08:07] LABS: CALCIUM 8.6 mg/dL (8.5-10.1)
[2021-05-14 08:08] LABS: ALBUMIN 2.7 g/dl (3.4-5.0); BLOOD UREA NITROGEN 76.1 mg/dL (7-18); MAGNESIUM 2.5 mg/dL (1.8-2.4)
[2021-05-14 08:10] LABS: TOT PROT 5.3 g/dl (6.4-8.2)
[2021-05-14 08:11] LABS: CREATININE 3.3 mg/dL (0.55-1.3)
[2021-05-14] MEDS: TAMSULOSIN HCL 0.4 MG CAP PO SCH (10:23)
[2021-05-14] MEDS: POTASSIUM CHLORIDE ORAL LIQUID 20 MEQ/15 ML PO SCH ×2 (10:23→21:29)
[2021-05-14] MEDS: DOCUSATE SODIUM 100 MG CAPSULE (FP) PO PRN (10:24)
[2021-05-14] MEDS: FINASTERIDE 5 MG TABLET (FP) PO SCH (10:24)
[2021-05-14] MEDS: FLUTICASONE/UMECLIDIN/VILANTER(200-62.5-25 TRELEGY ELLIPTA) INAHLER IH SCH (10:24)
[2021-05-14] MEDS: metoPROLOL SUCCINATE 25 MG TAB.SR.24H (FP) PO SCH ×2 (10:24→23:08)
[2021-05-14] MEDS: BISACODYL 10 MG SUPP.RECT PR PRN (17:14)
[2021-05-14] MEDS: ATORVASTATIN CA 10 MG TABLET (FP) PO SCH (21:30)
[2021-05-14] MEDS: MONTELUKAST NA 10 MG TABLET PO SCH (21:30)
[2021-05-14] MEDS ORDERED: ALBUTEROL SO4 2.5/IPRATROPIUM 0.5 INH SOL 3 ML VIAL.NEB. NEB ONE (21:30)
[2021-05-14] MEDS: ALPRAZolam 0.25 MG TABLET PO SCH (23:05)
[2021-05-15] MEDS: OXYBUTYNIN CHLORIDE 5 MG TABLET PO SCH ×2 (05:38→14:31)
[2021-05-15] MEDS: TORSEMIDE 100 MG TABLET PO SCH (06:04)
[2021-05-15 09:24] LABS: HEMATOCRIT 28.1 % (35.4-49); HEMOGLOBIN 8.9 GM/dL (11.7-16.9); MCH 28.3 pg (25.7-33.7); MCHC 31.5 g/dl (32.0-35.9); MEAN CELL VOLUME 89.9 fl (80-96); MEAN PLT VOLUME 9.4 fl (7.5-11.1); PLATELET COUNT 75 10^3/uL (134-434); RBC 3.12 M/mm3 (4.00-5.60)
[2021-05-15] MEDS: FLUTICASONE/UMECLIDIN/VILANTER(200-62.5-25 TRELEGY ELLIPTA) INAHLER IH SCH (10:31)
[2021-05-15] MEDS: POTASSIUM CHLORIDE ORAL LIQUID 20 MEQ/15 ML PO SCH ×2 (10:32→21:49)
[2021-05-15] MEDS: metoPROLOL SUCCINATE 25 MG TAB.SR.24H (FP) PO SCH ×2 (10:32→21:49)
[2021-05-15] MEDS: TAMSULOSIN HCL 0.4 MG CAP PO SCH (10:32)
[2021-05-15] MEDS: FINASTERIDE 5 MG TABLET (FP) PO SCH (10:33)
[2021-05-15 10:38] LABS: CALCIUM 8.4 mg/dL (8.5-10.1)
[2021-05-15 10:39] LABS: ALBUMIN 2.5 g/dl (3.4-5.0); BLOOD UREA NITROGEN 83.7 mg/dL (7-18); MAGNESIUM 2.2 mg/dL (1.8-2.4)
[2021-05-15 10:42] LABS: CREATININE 3.3 mg/dL (0.55-1.3)
[2021-05-15 10:43] LABS: PHOSPHOROUS 4.6 mg/dL (2.5-4.9)
[2021-05-15 10:44] LABS: BILIRUBIN,TOTAL 1.7 mg/dL (0.2-1); TOT PROT 5.3 g/dl (6.4-8.2)
[2021-05-15] MEDS ORDERED: ALBUTEROL SO4 2.5/IPRATROPIUM 0.5 INH SOL 3 ML VIAL.NEB. NEB ONE (21:22)
[2021-05-15] MEDS: APIXABAN 2.5 MG TABLET PO SCH (21:49)
[2021-05-15] MEDS: MONTELUKAST NA 10 MG TABLET PO SCH (21:49)
[2021-05-15] MEDS: ATORVASTATIN CA 10 MG TABLET (FP) PO SCH (21:49)
[2021-05-15] MEDS: ALPRAZolam 0.25 MG TABLET PO SCH (23:01)
[2021-05-16] MEDS ORDERED: ACETAMINOPHEN 1000 MG/100 ML VIAL IVPB ONE (00:23)
[2021-05-16] MEDS: TORSEMIDE 100 MG TABLET PO SCH (06:28)
[2021-05-16 07:40] LABS: HEMATOCRIT 27.7 % (35.4-49); MCH 28.9 pg (25.7-33.7); MCHC 32.4 g/dl (32.0-35.9); MEAN CELL VOLUME 89.3 fl (80-96); MEAN PLT VOLUME 9.6 fl (7.5-11.1); PLATELET COUNT 61 10^3/uL (134-434); RDW 20.7 % (11.9-15.9); WHITE BLOOD COUNT 4.6 K/mm3 (4.0-10.0)
[2021-05-16 07:47] LABS: BLOOD UREA NITROGEN 88.3 mg/dL (7-18); CALCIUM 8.6 mg/dL (8.5-10.1)
[2021-05-16 07:48] LABS: ALBUMIN 2.8 g/dl (3.4-5.0); MAGNESIUM 2.4 mg/dL (1.8-2.4)
[2021-05-16 07:51] LABS: CREATININE 3.4 mg/dL (0.55-1.3); PHOSPHOROUS 4.6 mg/dL (2.5-4.9)
[2021-05-16 07:52] LABS: BILIRUBIN,TOTAL 1.8 mg/dL (0.2-1); TOT PROT 5.5 g/dl (6.4-8.2)
[2021-05-16] MEDS: FLUTICASONE/UMECLIDIN/VILANTER(200-62.5-25 TRELEGY ELLIPTA) INAHLER IH SCH (09:09)
[2021-05-16] MEDS: TAMSULOSIN HCL 0.4 MG CAP PO SCH (09:10)
[2021-05-16] MEDS: metoPROLOL SUCCINATE 25 MG TAB.SR.24H (FP) PO SCH ×2 (09:10→21:26)
[2021-05-16] MEDS: APIXABAN 2.5 MG TABLET PO SCH ×2 (09:10→21:26)
[2021-05-16] MEDS: FINASTERIDE 5 MG TABLET (FP) PO SCH (09:11)
[2021-05-16] MEDS: POTASSIUM CHLORIDE ORAL LIQUID 20 MEQ/15 ML PO SCH ×2 (09:11→21:26)
[2021-05-16 14:59] LABS: ANISOCYTOSIS 1+; MACROCYTOSIS 0; OVALOCYTE 2+; PLATELET ESTIMATE DECREASED; TARGET CELLS 1+
[2021-05-16] MEDS: ALBUTEROL SO4 2.5/IPRATROPIUM 0.5 INH SOL 3 ML VIAL.NEB. NEB PRN ×2 (15:03→23:26)
[2021-05-16] MEDS: ATORVASTATIN CA 10 MG TABLET (FP) PO SCH (21:26)
[2021-05-16] MEDS: MONTELUKAST NA 10 MG TABLET PO SCH (21:26)
[2021-05-16] MEDS: ALPRAZolam 0.25 MG TABLET PO SCH (22:59)
[2021-05-16] MEDS: ACETAMINOPHEN 325 MG TABLET (FP) PO PRN (23:00)
[2021-05-17] MEDS ORDERED: ALPRAZolam 0.25 MG TABLET PO ONE (00:02)
[2021-05-17] MEDS ORDERED: ONDANSETRON 4 MG/2 ML VIAL IVPB ONE (00:22)
[2021-05-17] MEDS ORDERED: BENZOCAINE/MENTH/CETYLPYRD CL 1 EACH LOZENGE MM PRN (03:24)
[2021-05-17] MEDS ORDERED: PT OWN MED DRAWER 7, Y5N ONE (03:39)
[2021-05-17] MEDS ORDERED: MAG HYDROX/AL HYDROX/SIMETH 30 ML UNIT-DOSE CUP PO ONE (05:20)
[2021-05-17 07:12] LABS: ALBUMIN 2.9 g/dl (3.4-5.0); CALCIUM 8.4 mg/dL (8.5-10.1)
[2021-05-17 07:13] LABS: MAGNESIUM 2.5 mg/dL (1.8-2.4)
[2021-05-17 07:16] LABS: BILIRUBIN,TOTAL 3.9 mg/dL (0.2-1); CREATININE 3.8 mg/dL (0.55-1.3); PHOSPHOROUS 5.1 mg/dL (2.5-4.9); TOT PROT 5.5 g/dl (6.4-8.2)
[2021-05-17 07:20] LABS: HEMATOCRIT 28.6 % (35.4-49); HEMOGLOBIN 9.1 GM/dL (11.7-16.9); MCH 28.3 pg (25.7-33.7); MCHC 31.7 g/dl (32.0-35.9); MEAN CELL VOLUME 89.3 fl (80-96); MEAN PLT VOLUME 9.8 fl (7.5-11.1); PLATELET COUNT 71 10^3/uL (134-434); WHITE BLOOD COUNT 7.9 K/mm3 (4.0-10.0)
[2021-05-17] MEDS: TORSEMIDE 100 MG TABLET PO SCH (07:26)
[2021-05-17 09:30] LABS: BILIRUBIN,DIRECT 2.9 mg/dL (0.0-0.2)
[2021-05-17] MEDS: TAMSULOSIN HCL 0.4 MG CAP PO SCH (09:55)
[2021-05-17] MEDS: APIXABAN 2.5 MG TABLET PO SCH ×2 (09:55→22:33)
[2021-05-17] MEDS: metoPROLOL SUCCINATE 25 MG TAB.SR.24H (FP) PO SCH ×2 (09:56→22:33)
[2021-05-17] MEDS: FINASTERIDE 5 MG TABLET (FP) PO SCH (09:56)
[2021-05-17] MEDS: FLUTICASONE/UMECLIDIN/VILANTER(200-62.5-25 TRELEGY ELLIPTA) INAHLER IH SCH (10:00)
[2021-05-17] MEDS ORDERED: MUPIROCIN 2% TOPICAL OINTMENT FOR DECOLONIZATION NS SCH (10:00)
[2021-05-17] MEDS ORDERED: FUROSEMIDE 40 MG/4 ML INJECTABLE VIAL IVPB ONE (11:05)
[2021-05-17] MEDS ORDERED: FUROSEMIDE 40 MG/4 ML INJECTABLE VIAL IVPUSH ONE (11:05)
[2021-05-17 11:43] LABS: EPI CELLS 8 /uL (0-25.1); HYALINE CASTS 2 /uL (0-3.1); PH,URINE 6.5 (5.0-8.0); URINE APPEARANCE TURBID; URINE BACTERIA 262 /uL (0-1359); URINE BILIRUBIN NEGATIVE (NEGATIVE); URINE COLOR DK YELLOW; URINE GLUCOSE (UA) NEGATIVE (NEGATIVE); URINE KETONE NEGATIVE (NEGATIVE); URINE LEUK ESTERASE 3+ (NEGATIVE); URINE NITRITE NEGATIVE (NEGATIVE); URINE PROTEIN 2+ (NEGATIVE); URINE RBC 1171 /uL (0-23.9); URINE WBC 8814 /uL (0-25.8)
[2021-05-17 12:11] LABS: CALCIUM 8.4 mg/dL (8.5-10.1)
[2021-05-17 12:12] LABS: ALBUMIN 2.5 g/dl (3.4-5.0); BLOOD UREA NITROGEN 100.7 mg/dL (7-18)
[2021-05-17 12:15] LABS: CREATININE 3.8 mg/dL (0.55-1.3)
[2021-05-17 12:16] LABS: TOT PROT 5.4 g/dl (6.4-8.2)
[2021-05-17] MEDS: MAG HYDROX/AL HYDROX/SIMETH 30 ML UNIT-DOSE CUP PO PRN (14:16)
[2021-05-17] MEDS ORDERED: PHENAZOPYRIDINE HCL 100 MG TABLET (FP) PO ONE (15:26)
[2021-05-17] MEDS ORDERED: CHLORHEXIDINE GLUCONATE 4% CLEANSER FOR DECOLONIZATION TP SCH (22:00)
[2021-05-17] MEDS: MONTELUKAST NA 10 MG TABLET PO SCH (22:33)
[2021-05-17] MEDS: ALPRAZolam 0.25 MG TABLET PO SCH (23:00)
[2021-05-18 08:38] LABS: BASO % 0.5 % (0-2.0); EOS % 0.7 % (0-4.5); HEMATOCRIT 27.8 % (35.4-49); HEMOGLOBIN 8.8 GM/dL (11.7-16.9); MCH 28.6 pg (25.7-33.7); MCHC 31.5 g/dl (32.0-35.9); MEAN CELL VOLUME 90.8 fl (80-96); MEAN PLT VOLUME 9.3 fl (7.5-11.1); MONO % 12.2 % (3.8-10.2); NEUT % 76.6 % (42.8-82.8); PLATELET COUNT 75 10^3/uL (134-434); RBC 3.06 M/mm3 (4.00-5.60); RDW 21.2 % (11.9-15.9); WHITE BLOOD COUNT 5.6 K/mm3 (4.0-10.0)
[2021-05-18 09:00] LABS: CALCIUM 8.2 mg/dL (8.5-10.1)
[2021-05-18 09:01] LABS: ALBUMIN 2.5 g/dl (3.4-5.0); MAGNESIUM 2.7 mg/dL (1.8-2.4)
[2021-05-18 09:02] LABS: CREATININE 3.9 mg/dL (0.55-1.3); PHOSPHOROUS 3.8 mg/dL (2.5-4.9)
[2021-05-18 09:03] LABS: BILIRUBIN,TOTAL 1.9 mg/dL (0.2-1); TOT PROT 5.1 g/dl (6.4-8.2)
[2021-05-18] MEDS ORDERED: CEFEPIME 1 GM in DEXTROSE 5%-WATER 100 ML IVPB ONE (11:00)
[2021-05-18] MEDS: TAMSULOSIN HCL 0.4 MG CAP PO SCH (11:12)
[2021-05-18] MEDS: APIXABAN 2.5 MG TABLET PO SCH ×2 (11:12→21:18)
[2021-05-18] MEDS: metoPROLOL SUCCINATE 25 MG TAB.SR.24H (FP) PO SCH ×2 (11:13→21:17)
[2021-05-18] MEDS: FUROSEMIDE 40 MG/4 ML INJECTABLE VIAL IVPB SCH (11:13)
[2021-05-18] MEDS: FINASTERIDE 5 MG TABLET (FP) PO SCH (11:13)
[2021-05-18] MEDS ORDERED: DEXTROSE 5%-WATER 100 ML IVPB ONE (11:15)
[2021-05-18] MEDS ORDERED: CEFEPIME HCL 1 GM VIAL (RESTRICTED TO ID) ONE (11:15)
[2021-05-18] MEDS: FLUTICASONE/UMECLIDIN/VILANTER(200-62.5-25 TRELEGY ELLIPTA) INAHLER IH SCH (11:16)
[2021-05-18] MEDS: MONTELUKAST NA 10 MG TABLET PO SCH (21:17)
[2021-05-18] MEDS: ALPRAZolam 0.25 MG TABLET PO SCH (22:53)
[2021-05-19 08:42] LABS: HEMOGLOBIN 8.5 GM/dL (11.7-16.9); MCH 28.5 pg (25.7-33.7); MCHC 31.6 g/dl (32.0-35.9); MEAN CELL VOLUME 90.1 fl (80-96); MEAN PLT VOLUME 9.2 fl (7.5-11.1); PLATELET COUNT 91 10^3/uL (134-434); RDW 20.9 % (11.9-15.9); WHITE BLOOD COUNT 4.9 K/mm3 (4.0-10.0)
[2021-05-19 08:54] LABS: CHLORIDE 96 mmol/L (98-107); SODIUM 141 mmol/L (136-145)
[2021-05-19 08:56] LABS: CALCIUM 8.1 mg/dL (8.5-10.1)
[2021-05-19 08:57] LABS: ALBUMIN 2.5 g/dl (3.4-5.0); BLOOD UREA NITROGEN 97.5 mg/dL (7-18); CO2 39 mmol/L (21-32); GLUCOSE,RANDOM 96 mg/dL (74-106); MAGNESIUM 2.8 mg/dL (1.8-2.4)
[2021-05-19 08:59] LABS: CREATININE 3.6 mg/dL (0.55-1.3); SGPT/ALT 299 U/L (13-61)
[2021-05-19 09:00] LABS: PHOSPHOROUS 3.5 mg/dL (2.5-4.9); SGOT/AST 130 U/L (15-37)
[2021-05-19 09:01] LABS: BILIRUBIN,TOTAL 1.5 mg/dL (0.2-1); TOT PROT 5.1 g/dl (6.4-8.2)
[2021-05-19 09:02] LABS: ALK PHOS 200 U/L (45-117)
[2021-05-19 09:26] LABS: ANION GAP 6 MMOL/L (8-16)
[2021-05-19] MEDS ORDERED: CEFEPIME HCL/D5W 1 GM/50 ML BAG IVPB SCH (10:00)
[2021-05-19] MEDS ORDERED: DEXTROSE 5%-WATER 100 ML IVPB ONE (10:09)
[2021-05-19] MEDS ORDERED: CEFEPIME HCL 1 GM VIAL (RESTRICTED TO ID) ONE (10:09)
[2021-05-19] MEDS: metoPROLOL SUCCINATE 25 MG TAB.SR.24H (FP) PO SCH ×2 (10:15→21:27)
[2021-05-19] MEDS: FUROSEMIDE 40 MG/4 ML INJECTABLE VIAL IVPB SCH (10:15)
[2021-05-19] MEDS: POTASSIUM CHLORIDE TABS 20 MEQ TABLET.ER (FP) PO SCH ×3 (11:01→23:08)
[2021-05-19] MEDS: APIXABAN 2.5 MG TABLET PO SCH ×2 (11:01→21:27)
[2021-05-19] MEDS: FINASTERIDE 5 MG TABLET (FP) PO SCH (11:01)
[2021-05-19] MEDS: TAMSULOSIN HCL 0.4 MG CAP PO SCH (11:01)
[2021-05-19] MEDS: CEFEPIME 1 GM in DEXTROSE 5%-WATER 100 ML IVPB SCH (11:01)
[2021-05-19] MEDS: FLUTICASONE/UMECLIDIN/VILANTER(200-62.5-25 TRELEGY ELLIPTA) INAHLER IH SCH (11:01)
[2021-05-19] MEDS ORDERED: FUROSEMIDE 100 MG/10 ML INJECTABLE VIAL IVPB ONE (12:33)
[2021-05-19] MEDS ORDERED: FUROSEMIDE 40 MG/4 ML INJECTABLE VIAL IVPB ONE (12:45)
[2021-05-19] MEDS ORDERED: POTASSIUM CHLORIDE TABS 20 MEQ TABLET.ER (FP) PO ONE ×2 (18:12→18:15)
[2021-05-19] MEDS ORDERED: PHENAZOPYRIDINE HCL 100 MG TABLET (FP) PO ONE (20:24)
[2021-05-19] MEDS ORDERED: ACETAMINOPHEN 1000 MG/100 ML VIAL IVPB ONE (20:27)
[2021-05-19] MEDS: MONTELUKAST NA 10 MG TABLET PO SCH (21:27)
[2021-05-19] MEDS: ALPRAZolam 0.25 MG TABLET PO SCH (23:08)
[2021-05-20 05:57] LABS: HEMATOCRIT 27.2 % (35.4-49); HEMOGLOBIN 8.7 GM/dL (11.7-16.9); MCH 28.6 pg (25.7-33.7); MCHC 31.8 g/dl (32.0-35.9); MEAN CELL VOLUME 89.8 fl (80-96); MEAN PLT VOLUME 8.7 fl (7.5-11.1); PLATELET COUNT 85 10^3/uL (134-434); RBC 3.03 M/mm3 (4.00-5.60); WHITE BLOOD COUNT 4.2 K/mm3 (4.0-10.0)
[2021-05-20 06:18] LABS: CALCIUM 7.9 mg/dL (8.5-10.1)
[2021-05-20 06:19] LABS: ALBUMIN 2.5 g/dl (3.4-5.0); BLOOD UREA NITROGEN 85.9 mg/dL (7-18); MAGNESIUM 2.4 mg/dL (1.8-2.4)
[2021-05-20 06:22] LABS: CREATININE 3.1 mg/dL (0.55-1.3); PHOSPHOROUS 3.3 mg/dL (2.5-4.9)
[2021-05-20 06:23] LABS: BILIRUBIN,TOTAL 1.3 mg/dL (0.2-1); TOT PROT 5.2 g/dl (6.4-8.2)
[2021-05-20] MEDS ORDERED: CEFEPIME HCL 1 GM VIAL (RESTRICTED TO ID) ONE (09:59)
[2021-05-20] MEDS ORDERED: DEXTROSE 5%-WATER 100 ML IVPB ONE (09:59)
[2021-05-20] MEDS: CEFEPIME 1 GM in DEXTROSE 5%-WATER 100 ML IVPB SCH (10:21)
[2021-05-20] MEDS: POTASSIUM CHLORIDE TABS 20 MEQ TABLET.ER (FP) PO SCH ×4 (10:21→21:57)
[2021-05-20] MEDS: APIXABAN 2.5 MG TABLET PO SCH ×2 (10:21→21:56)
[2021-05-20] MEDS: FINASTERIDE 5 MG TABLET (FP) PO SCH (10:22)
[2021-05-20] MEDS: FLUTICASONE/UMECLIDIN/VILANTER(200-62.5-25 TRELEGY ELLIPTA) INAHLER IH SCH (10:22)
[2021-05-20] MEDS: TAMSULOSIN HCL 0.4 MG CAP PO SCH (10:22)
[2021-05-20] MEDS: metoPROLOL SUCCINATE 25 MG TAB.SR.24H (FP) PO SCH ×2 (10:22→21:57)
[2021-05-20] MEDS: FUROSEMIDE 40 MG/4 ML INJECTABLE VIAL IVPB SCH (10:22)
[2021-05-20] MEDS: DOCUSATE SODIUM 100 MG CAPSULE (FP) PO PRN (10:22)
[2021-05-20] MEDS: ALBUTEROL SO4 2.5/IPRATROPIUM 0.5 INH SOL 3 ML VIAL.NEB. NEB PRN (16:54)
[2021-05-20] MEDS: MONTELUKAST NA 10 MG TABLET PO SCH (21:56)
[2021-05-20] MEDS: ALPRAZolam 0.25 MG TABLET PO SCH (23:04)
[2021-05-21 07:37] LABS: HEMOGLOBIN 8.8 GM/dL (11.7-16.9); MCH 28.5 pg (25.7-33.7); MCHC 31.5 g/dl (32.0-35.9); MEAN CELL VOLUME 90.6 fl (80-96); MEAN PLT VOLUME 9.3 fl (7.5-11.1); PLATELET COUNT 83 10^3/uL (134-434); RBC 3.09 M/mm3 (4.00-5.60); RDW 20.6 % (11.9-15.9); WHITE BLOOD COUNT 4.8 K/mm3 (4.0-10.0)
[2021-05-21] MEDS ORDERED: CEFEPIME HCL 1 GM VIAL (RESTRICTED TO ID) ONE (08:22)
[2021-05-21] MEDS ORDERED: DEXTROSE 5%-WATER 100 ML IVPB ONE (08:22)
[2021-05-21 08:50] LABS: ALBUMIN 2.6 g/dl (3.4-5.0); BILIRUBIN,TOTAL 1.1 mg/dL (0.2-1); BLOOD UREA NITROGEN 80.5 mg/dL (7-18); CALCIUM 8.3 mg/dL (8.5-10.1); CREATININE 2.6 mg/dL (0.55-1.3); MAGNESIUM 2.5 mg/dL (1.8-2.4); PHOSPHOROUS 2.8 mg/dL (2.5-4.9); TOT PROT 5.4 g/dl (6.4-8.2)
[2021-05-21] MEDS: CEFEPIME 1 GM in DEXTROSE 5%-WATER 100 ML IVPB SCH (08:59)
[2021-05-21] MEDS: FLUTICASONE/UMECLIDIN/VILANTER(200-62.5-25 TRELEGY ELLIPTA) INAHLER IH SCH (08:59)
[2021-05-21] MEDS: FINASTERIDE 5 MG TABLET (FP) PO SCH (09:00)
[2021-05-21] MEDS: TAMSULOSIN HCL 0.4 MG CAP PO SCH (09:00)
[2021-05-21] MEDS: APIXABAN 2.5 MG TABLET PO SCH ×2 (09:01→21:23)
[2021-05-21] MEDS: FUROSEMIDE 40 MG/4 ML INJECTABLE VIAL IVPB SCH (09:01)
[2021-05-21] MEDS: POTASSIUM CHLORIDE TABS 20 MEQ TABLET.ER (FP) PO SCH ×4 (09:01→21:23)
[2021-05-21] MEDS: metoPROLOL SUCCINATE 25 MG TAB.SR.24H (FP) PO SCH ×3 (09:02→21:24)
[2021-05-21] MEDS ORDERED: TORSEMIDE 100 MG TABLET PO SCH (10:00)
[2021-05-21] MEDS ORDERED: POTASSIUM PHOSPHATE 30 MM in SODIUM CHLORIDE 500 ML IVPB ONE (11:00)
[2021-05-21] MEDS: ALBUTEROL SO4 2.5/IPRATROPIUM 0.5 INH SOL 3 ML VIAL.NEB. NEB PRN (20:10)
[2021-05-21] MEDS: MONTELUKAST NA 10 MG TABLET PO SCH (21:23)
[2021-05-21] MEDS: ALPRAZolam 0.25 MG TABLET PO SCH (21:23)
[2021-05-22] MEDS: TORSEMIDE 100 MG TABLET PO SCH ×2 (05:38→14:12)
[2021-05-22 07:52] LABS: HEMATOCRIT 27.9 % (35.4-49); HEMOGLOBIN 8.6 GM/dL (11.7-16.9); MCH 28.1 pg (25.7-33.7); MCHC 30.9 g/dl (32.0-35.9); MEAN PLT VOLUME 8.8 fl (7.5-11.1); PLATELET COUNT 92 10^3/uL (134-434); RBC 3.07 M/mm3 (4.00-5.60); RDW 21.5 % (11.9-15.9); WHITE BLOOD COUNT 4.9 K/mm3 (4.0-10.0)
[2021-05-22 08:10] LABS: BLOOD UREA NITROGEN 72.6 mg/dL (7-18); CALCIUM 8.4 mg/dL (8.5-10.1)
[2021-05-22 08:11] LABS: ALBUMIN 2.4 g/dl (3.4-5.0); MAGNESIUM 2.1 mg/dL (1.8-2.4)
[2021-05-22 08:13] LABS: CREATININE 2.2 mg/dL (0.55-1.3)
[2021-05-22 08:15] LABS: BILIRUBIN,TOTAL 1.2 mg/dL (0.2-1); TOT PROT 5.4 g/dl (6.4-8.2)
[2021-05-22] MEDS ORDERED: DEXTROSE 5%-WATER 100 ML IVPB ONE (08:29)
[2021-05-22] MEDS ORDERED: CEFEPIME HCL 1 GM VIAL (RESTRICTED TO ID) ONE (08:29)
[2021-05-22] MEDS: CEFEPIME 1 GM in DEXTROSE 5%-WATER 100 ML IVPB SCH (09:30)
[2021-05-22] MEDS: TAMSULOSIN HCL 0.4 MG CAP PO SCH (09:30)
[2021-05-22] MEDS: APIXABAN 2.5 MG TABLET PO SCH ×2 (09:35→21:07)
[2021-05-22] MEDS: metoPROLOL SUCCINATE 25 MG TAB.SR.24H (FP) PO SCH ×2 (09:35→21:07)
[2021-05-22] MEDS: FINASTERIDE 5 MG TABLET (FP) PO SCH (09:35)
[2021-05-22] MEDS: ALBUTEROL SO4 2.5/IPRATROPIUM 0.5 INH SOL 3 ML VIAL.NEB. NEB PRN ×3 (11:01→20:29)
[2021-05-22] MEDS: POTASSIUM CHLORIDE TABS 20 MEQ TABLET.ER (FP) PO SCH ×2 (13:21→21:06)
[2021-05-22] MEDS: FLUTICASONE/UMECLIDIN/VILANTER(200-62.5-25 TRELEGY ELLIPTA) INAHLER IH SCH (13:22)
[2021-05-22] MEDS: methylPREDNISolone NA SUCC 40 MG/1 ML VIAL IVPUSH SCH ×2 (13:24→17:44)
[2021-05-22] MEDS ORDERED: METOLAZONE 5 MG TABLET PO ONE (13:30)
[2021-05-22] MEDS: MONTELUKAST NA 10 MG TABLET PO SCH (21:06)
[2021-05-22] MEDS: ALPRAZolam 0.25 MG TABLET PO SCH (21:07)
[2021-05-23] MEDS ORDERED: PROCHLORPERAZINE MALEATE 5 MG TABLET PO ONE (00:15)
[2021-05-23] MEDS ORDERED: TRIMETHOBENZAMIDE HCL 300 MG CAPSULE PO ONE (00:16)
[2021-05-23] MEDS: ALBUTEROL SO4 2.5/IPRATROPIUM 0.5 INH SOL 3 ML VIAL.NEB. NEB PRN ×4 (00:50→20:10)
[2021-05-23] MEDS: methylPREDNISolone NA SUCC 40 MG/1 ML VIAL IVPUSH SCH ×3 (01:30→18:06)
[2021-05-23] MEDS: MAG HYDROX/AL HYDROX/SIMETH 30 ML UNIT-DOSE CUP PO PRN (02:10)
[2021-05-23] MEDS: ACETAMINOPHEN 325 MG TABLET (FP) PO PRN (04:30)
[2021-05-23] MEDS: METOLAZONE 5 MG TABLET PO SCH ×2 (05:30→14:16)
[2021-05-23] MEDS: TORSEMIDE 100 MG TABLET PO SCH ×2 (06:01→14:55)
[2021-05-23] MEDS ORDERED: cefTRIAXone SODIUM 1 GM VIAL ONE (09:05)
[2021-05-23] MEDS ORDERED: DEXTROSE 5%-WATER - 50 ML IVPB ONE (09:05)
[2021-05-23] MEDS: CEFTRIAXONE 1 GM in DEXTROSE 5%-WATER - 50 ML IVPB SCH (09:19)
[2021-05-23] MEDS: FLUTICASONE/UMECLIDIN/VILANTER(200-62.5-25 TRELEGY ELLIPTA) INAHLER IH SCH (09:20)
[2021-05-23] MEDS: FINASTERIDE 5 MG TABLET (FP) PO SCH (09:20)
[2021-05-23] MEDS: metoPROLOL SUCCINATE 25 MG TAB.SR.24H (FP) PO SCH ×2 (09:20→21:00)
[2021-05-23] MEDS: APIXABAN 2.5 MG TABLET PO SCH ×2 (09:20→21:00)
[2021-05-23] MEDS: TAMSULOSIN HCL 0.4 MG CAP PO SCH (09:20)
[2021-05-23 10:20] LABS: HEMATOCRIT 27.3 % (35.4-49); HEMOGLOBIN 8.5 GM/dL (11.7-16.9); MCH 27.8 pg (25.7-33.7); MCHC 30.9 g/dl (32.0-35.9); MEAN CELL VOLUME 89.8 fl (80-96); MEAN PLT VOLUME 9.3 fl (7.5-11.1); PLATELET COUNT 92 10^3/uL (134-434); RBC 3.04 M/mm3 (4.00-5.60); RDW 21.3 % (11.9-15.9); WHITE BLOOD COUNT 2.7 K/mm3 (4.0-10.0)
[2021-05-23 10:49] LABS: CALCIUM 8.8 mg/dL (8.5-10.1)
[2021-05-23 10:50] LABS: ALBUMIN 2.8 g/dl (3.4-5.0); BLOOD UREA NITROGEN 78.5 mg/dL (7-18); MAGNESIUM 2.9 mg/dL (1.8-2.4)
[2021-05-23 10:53] LABS: CREATININE 2.9 mg/dL (0.55-1.3); PHOSPHOROUS 3.2 mg/dL (2.5-4.9)
[2021-05-23 10:55] LABS: BILIRUBIN,TOTAL 1.4 mg/dL (0.2-1); TOT PROT 5.8 g/dl (6.4-8.2)
[2021-05-23 11:28] LABS: ANISOCYTOSIS 2+; MACROCYTOSIS 0; OVALOCYTE 1+; PLATELET ESTIMATE DECREASED
[2021-05-23] MEDS ORDERED: PT OWN MED DRAWER 7, Y5N ONE ×2 (14:15→20:22)
[2021-05-23] MEDS: POTASSIUM CHLORIDE TABS 20 MEQ TABLET.ER (FP) PO SCH ×3 (14:16→21:00)
[2021-05-23] MEDS: MONTELUKAST NA 10 MG TABLET PO SCH (21:00)
[2021-05-23] MEDS: ALPRAZolam 0.25 MG TABLET PO SCH (23:05)
[2021-05-24] MEDS: methylPREDNISolone NA SUCC 40 MG/1 ML VIAL IVPUSH SCH ×3 (01:03→17:35)
[2021-05-24] MEDS ORDERED: PT OWN MED DRAWER 7, Y5N ONE (05:51)
[2021-05-24] MEDS: METOLAZONE 5 MG TABLET PO SCH (05:53)
[2021-05-24] MEDS: TORSEMIDE 100 MG TABLET PO SCH ×2 (06:24→15:11)
[2021-05-24] MEDS: POTASSIUM CHLORIDE TABS 20 MEQ TABLET.ER (FP) PO SCH (06:25)
[2021-05-24 08:35] LABS: MCH 27.9 pg (25.7-33.7); MCHC 31.1 g/dl (32.0-35.9); MEAN PLT VOLUME 9.1 fl (7.5-11.1); PLATELET COUNT 77 10^3/uL (134-434); RBC 3.23 M/mm3 (4.00-5.60); RDW 20.7 % (11.9-15.9); WHITE BLOOD COUNT 4.9 K/mm3 (4.0-10.0)
[2021-05-24 08:58] LABS: CHLORIDE 98 mmol/L (98-107); SODIUM 135 mmol/L (136-145)
[2021-05-24 09:02] LABS: BLOOD UREA NITROGEN 92.6 mg/dL (7-18); CO2 27 mmol/L (21-32); GLUCOSE,RANDOM 214 mg/dL (74-106)
[2021-05-24 09:05] LABS: CREATININE 3.2 mg/dL (0.55-1.3); PHOSPHOROUS 3.6 mg/dL (2.5-4.9)
[2021-05-24 09:21] LABS: ANION GAP 10 MMOL/L (8-16)
[2021-05-24] MEDS ORDERED: CALCIUM GLUCONATE 10% - 1,000 MG/10 ML VIAL IVPB ONE (09:39)
[2021-05-24] MEDS ORDERED: INSULIN REGULAR HUMAN 100 UNITS/ML *VIAL IVPUSH ONE ×2 (09:43→13:15)
[2021-05-24] MEDS ORDERED: DEXTROSE 50%-WATER - 25 GM/50 ML VIAL IVPUSH ONE ×2 (09:44→13:15)
[2021-05-24] MEDS ORDERED: SODIUM BICARBONATE 8.4% 50 MEQ/50 ML VIAL IVPUSH ONE ×2 (09:48→13:15)
[2021-05-24] MEDS: ALBUTEROL SO4 2.5/IPRATROPIUM 0.5 INH SOL 3 ML VIAL.NEB. NEB PRN ×2 (10:02→20:56)
[2021-05-24] MEDS ORDERED: cefTRIAXone SODIUM 1 GM VIAL ONE (10:15)
[2021-05-24] MEDS ORDERED: DEXTROSE 5%-WATER - 50 ML IVPB ONE (10:16)
[2021-05-24] MEDS: FLUTICASONE/UMECLIDIN/VILANTER(200-62.5-25 TRELEGY ELLIPTA) INAHLER IH SCH (10:32)
[2021-05-24] MEDS: TAMSULOSIN HCL 0.4 MG CAP PO SCH (10:33)
[2021-05-24] MEDS: metoPROLOL SUCCINATE 25 MG TAB.SR.24H (FP) PO SCH ×2 (10:33→21:32)
[2021-05-24] MEDS: FINASTERIDE 5 MG TABLET (FP) PO SCH (10:34)
[2021-05-24] MEDS: APIXABAN 2.5 MG TABLET PO SCH ×2 (10:34→21:32)
[2021-05-24] MEDS: CEFTRIAXONE 1 GM in DEXTROSE 5%-WATER - 50 ML IVPB SCH (12:31)
[2021-05-24] MEDS: SODIUM ZIRCONIUM CYCLOSILICATE (LOKELMA) 5 GM PACKET PO SCH (12:32)
[2021-05-24] MEDS ORDERED: SODIUM ZIRCONIUM CYCLOSILICATE (LOKELMA) 5 GM PACKET PO ONE (12:37)
[2021-05-24] MEDS ORDERED: DEXTROSE 50%-WATER - 25 GM/50 ML VIAL ONE (13:37)
[2021-05-24] MEDS: AMINO ACIDS/PROTEIN HYDROLYS 30 ML LIQUID.PKT PO SCH (17:35)
[2021-05-24] MEDS: MONTELUKAST NA 10 MG TABLET PO SCH (21:32)
[2021-05-24] MEDS: ALPRAZolam 0.25 MG TABLET PO SCH (23:05)
[2021-05-25] MEDS: methylPREDNISolone NA SUCC 40 MG/1 ML VIAL IVPUSH SCH ×3 (01:19→17:30)
[2021-05-25] MEDS: TORSEMIDE 100 MG TABLET PO SCH ×2 (05:52→13:13)
[2021-05-25] MEDS: ALBUTEROL SO4 2.5/IPRATROPIUM 0.5 INH SOL 3 ML VIAL.NEB. NEB PRN (06:33)
[2021-05-25 07:35] LABS: HEMATOCRIT 25.1 % (35.4-49); MCH 27.8 pg (25.7-33.7); MCHC 31.9 g/dl (32.0-35.9); MEAN CELL VOLUME 87.1 fl (80-96); MEAN PLT VOLUME 9.1 fl (7.5-11.1); PLATELET COUNT 64 10^3/uL (134-434); RBC 2.87 M/mm3 (4.00-5.60); RDW 20.2 % (11.9-15.9); WHITE BLOOD COUNT 3.4 K/mm3 (4.0-10.0)
[2021-05-25 07:57] LABS: ALBUMIN 2.6 g/dl (3.4-5.0); BLOOD UREA NITROGEN 97.3 mg/dL (7-18); CALCIUM 8.6 mg/dL (8.5-10.1)
[2021-05-25 08:00] LABS: BILIRUBIN,TOTAL 1.5 mg/dL (0.2-1)
[2021-05-25 08:01] LABS: CREATININE 3.4 mg/dL (0.55-1.3); TOT PROT 5.3 g/dl (6.4-8.2)
[2021-05-25] MEDS ORDERED: DEXTROSE 5%-WATER - 50 ML IVPB ONE (09:57)
[2021-05-25] MEDS ORDERED: cefTRIAXone SODIUM 1 GM VIAL ONE (09:57)
[2021-05-25] MEDS: TAMSULOSIN HCL 0.4 MG CAP PO SCH (10:00)
[2021-05-25] MEDS: AMINO ACIDS/PROTEIN HYDROLYS 30 ML LIQUID.PKT PO SCH ×3 (10:00→17:30)
[2021-05-25] MEDS: FINASTERIDE 5 MG TABLET (FP) PO SCH (10:00)
[2021-05-25] MEDS: DOCUSATE SODIUM 100 MG CAPSULE (FP) PO PRN (10:00)
[2021-05-25] MEDS: CEFTRIAXONE 1 GM in DEXTROSE 5%-WATER - 50 ML IVPB SCH (10:00)
[2021-05-25] MEDS: VITAMIN B COMP W-C 1 EA TABLET (NEPHRO-VITE) PO SCH (10:00)
[2021-05-25] MEDS: APIXABAN 2.5 MG TABLET PO SCH ×2 (10:00→21:25)
[2021-05-25] MEDS: metoPROLOL SUCCINATE 25 MG TAB.SR.24H (FP) PO SCH ×2 (10:00→21:26)
[2021-05-25] MEDS: FLUTICASONE/UMECLIDIN/VILANTER(200-62.5-25 TRELEGY ELLIPTA) INAHLER IH SCH (10:01)
[2021-05-25] MEDS: SODIUM ZIRCONIUM CYCLOSILICATE (LOKELMA) 5 GM PACKET PO SCH (11:08)
[2021-05-25] MEDS: MONTELUKAST NA 10 MG TABLET PO SCH (21:26)
[2021-05-26] MEDS ORDERED: ALPRAZolam 1 MG TABLET PO ONE (00:46)
[2021-05-26] MEDS ORDERED: guaiFENesin 200 MG/10 ML 10 ML UNIT-DOSE CUPS PO ONE (00:47)
[2021-05-26] MEDS: methylPREDNISolone NA SUCC 40 MG/1 ML VIAL IVPUSH SCH ×2 (01:06→09:06)
[2021-05-26] MEDS: TORSEMIDE 100 MG TABLET PO SCH ×2 (05:50→15:35)
[2021-05-26 06:33] LABS: HEMATOCRIT 26.1 % (35.4-49); HEMOGLOBIN 8.4 GM/dL (11.7-16.9); MCHC 32.3 g/dl (32.0-35.9); MEAN CELL VOLUME 86.7 fl (80-96); MEAN PLT VOLUME 9.3 fl (7.5-11.1); PLATELET COUNT 63 10^3/uL (134-434); RBC 3.01 M/mm3 (4.00-5.60); RDW 20.3 % (11.9-15.9)
[2021-05-26 06:50] LABS: CHLORIDE 93 mmol/L (98-107); SODIUM 136 mmol/L (136-145)
[2021-05-26 06:53] LABS: CALCIUM 8.7 mg/dL (8.5-10.1)
[2021-05-26 06:54] LABS: ALBUMIN 2.6 g/dl (3.4-5.0); ANION GAP 9 MMOL/L (8-16); CO2 34 mmol/L (21-32); GLUCOSE,RANDOM 200 mg/dL (74-106)
[2021-05-26 06:57] LABS: CREATININE 3.3 mg/dL (0.55-1.3); SGOT/AST 19 U/L (15-37); SGPT/ALT 84 U/L (13-61)
[2021-05-26 06:58] LABS: BILIRUBIN,TOTAL 1.2 mg/dL (0.2-1); TOT PROT 5.6 g/dl (6.4-8.2)
[2021-05-26 07:00] LABS: ALK PHOS 150 U/L (45-117)
[2021-05-26 07:09] LABS: BLOOD UREA NITROGEN 107.9 mg/dL (7-18)
[2021-05-26] MEDS ORDERED: INSULIN (LEVEMIR) 100 UNITS/ML UNITS SQ ONE (07:44)
[2021-05-26] MEDS ORDERED: DEXTROSE 5%-WATER - 50 ML IVPB ONE (08:32)
[2021-05-26] MEDS ORDERED: cefTRIAXone SODIUM 1 GM VIAL ONE (08:32)
[2021-05-26] MEDS: AMINO ACIDS/PROTEIN HYDROLYS 30 ML LIQUID.PKT PO SCH ×2 (09:05→17:02)
[2021-05-26] MEDS: CEFTRIAXONE 1 GM in DEXTROSE 5%-WATER - 50 ML IVPB SCH (09:06)
[2021-05-26] MEDS: APIXABAN 2.5 MG TABLET PO SCH ×2 (09:07→22:23)
[2021-05-26] MEDS: TAMSULOSIN HCL 0.4 MG CAP PO SCH (09:07)
[2021-05-26] MEDS: VITAMIN B COMP W-C 1 EA TABLET (NEPHRO-VITE) PO SCH (09:08)
[2021-05-26] MEDS: FINASTERIDE 5 MG TABLET (FP) PO SCH (09:08)
[2021-05-26] MEDS: metoPROLOL SUCCINATE 25 MG TAB.SR.24H (FP) PO SCH ×2 (09:08→22:23)
[2021-05-26] MEDS: FLUTICASONE/UMECLIDIN/VILANTER(200-62.5-25 TRELEGY ELLIPTA) INAHLER IH SCH (09:09)
[2021-05-26] MEDS ORDERED: POTASSIUM CHLORIDE TABS 20 MEQ TABLET.ER (FP) PO SCH (11:15)
[2021-05-26] MEDS: METOLAZONE 5 MG TABLET PO SCH (14:14)
[2021-05-26] MEDS ORDERED: POTASSIUM CHLORIDE TABS 20 MEQ TABLET.ER (FP) PO ONE (22:04)
[2021-05-26] MEDS: MONTELUKAST NA 10 MG TABLET PO SCH (22:23)
[2021-05-26] MEDS: KCL 10 MEQ IVPB 10 MEQ/100 ML INFUS.BAG IVPB SCH (22:25)
[2021-05-26] MEDS: ALPRAZolam 0.25 MG TABLET PO SCH (22:25)
[2021-05-27] MEDS: KCL 10 MEQ IVPB 10 MEQ/100 ML INFUS.BAG IVPB SCH ×5 (00:10→15:59)
[2021-05-27] MEDS ORDERED: PT OWN MED DRAWER 7, Y5N ONE ×2 (05:32→06:54)
[2021-05-27] MEDS: METOLAZONE 5 MG TABLET PO SCH ×2 (06:56→14:49)
[2021-05-27 07:00] LABS: CALCIUM 8.3 mg/dL (8.5-10.1)
[2021-05-27 07:01] LABS: ALBUMIN 2.5 g/dl (3.4-5.0); CO2 39 mmol/L (21-32); GLUCOSE,RANDOM 197 mg/dL (74-106)
[2021-05-27 07:03] LABS: SGOT/AST 15 U/L (15-37); SGPT/ALT 67 U/L (13-61)
[2021-05-27 07:04] LABS: HEMATOCRIT 23.1 % (35.4-49); HEMOGLOBIN 7.5 GM/dL (11.7-16.9); MCH 27.7 pg (25.7-33.7); MCHC 32.3 g/dl (32.0-35.9); MEAN CELL VOLUME 85.6 fl (80-96); MEAN PLT VOLUME 9.4 fl (7.5-11.1); PLATELET COUNT 80 10^3/uL (134-434); RDW 19.8 % (11.9-15.9); WHITE BLOOD COUNT 5.2 K/mm3 (4.0-10.0)
[2021-05-27 07:05] LABS: TOT PROT 5.3 g/dl (6.4-8.2)
[2021-05-27 07:06] LABS: ALK PHOS 144 U/L (45-117)
[2021-05-27] MEDS: TORSEMIDE 100 MG TABLET PO SCH ×2 (07:36→15:54)
[2021-05-27 07:42] LABS: CHLORIDE 90 mmol/L (98-107); SODIUM 136 mmol/L (136-145)
[2021-05-27 07:43] LABS: ANION GAP 8 MMOL/L (8-16); BLOOD UREA NITROGEN 110.6 mg/dL (7-18)
[2021-05-27] MEDS ORDERED: POTASSIUM CHLORIDE TABS 20 MEQ TABLET.ER (FP) PO ONE ×2 (07:44→11:30)
[2021-05-27] MEDS: ALBUTEROL SO4 2.5/IPRATROPIUM 0.5 INH SOL 3 ML VIAL.NEB. NEB PRN ×2 (07:51→20:10)
[2021-05-27] MEDS ORDERED: POTASSIUM CHLORIDE TABS 20 MEQ TABLET.ER (FP) PO SCH (10:00)
[2021-05-27] MEDS ORDERED: cefTRIAXone SODIUM 1 GM VIAL ONE (10:47)
[2021-05-27] MEDS ORDERED: DEXTROSE 5%-WATER - 50 ML IVPB ONE (10:48)
[2021-05-27] MEDS: AMINO ACIDS/PROTEIN HYDROLYS 30 ML LIQUID.PKT PO SCH ×3 (11:09→16:31)
[2021-05-27] MEDS: methylPREDNISolone NA SUCC 40 MG/1 ML VIAL IVPUSH SCH (11:13)
[2021-05-27] MEDS: VITAMIN B COMP W-C 1 EA TABLET (NEPHRO-VITE) PO SCH (11:14)
[2021-05-27] MEDS: FINASTERIDE 5 MG TABLET (FP) PO SCH (11:14)
[2021-05-27] MEDS: TAMSULOSIN HCL 0.4 MG CAP PO SCH (11:14)
[2021-05-27] MEDS: metoPROLOL SUCCINATE 25 MG TAB.SR.24H (FP) PO SCH ×2 (11:15→21:59)
[2021-05-27] MEDS: FLUTICASONE/UMECLIDIN/VILANTER(200-62.5-25 TRELEGY ELLIPTA) INAHLER IH SCH (11:16)
[2021-05-27] MEDS: APIXABAN 2.5 MG TABLET PO SCH ×2 (11:16→21:59)
[2021-05-27] MEDS: CEFTRIAXONE 1 GM in DEXTROSE 5%-WATER - 50 ML IVPB SCH (13:16)
[2021-05-27] MEDS: POTASSIUM CHLORIDE TABS 20 MEQ TABLET.ER (FP) PO SCH ×3 (14:50→22:00)
[2021-05-27 21:29] LABS: HEMATOCRIT 27.4 % (35.4-49); HEMOGLOBIN 8.7 GM/dL (11.7-16.9); LYMPH % 3.8 % (8-40); MCH 27.2 pg (25.7-33.7); MCHC 31.9 g/dl (32.0-35.9); MEAN CELL VOLUME 85.4 fl (80-96); MEAN PLT VOLUME 9.1 fl (7.5-11.1); MONO % 6.5 % (3.8-10.2); NEUT % 89.7 % (42.8-82.8); PLATELET COUNT 67 10^3/uL (134-434); RBC 3.21 M/mm3 (4.00-5.60); WHITE BLOOD COUNT 5.5 K/mm3 (4.0-10.0)
[2021-05-27] MEDS: MONTELUKAST NA 10 MG TABLET PO SCH (21:59)
[2021-05-27] MEDS: ALPRAZolam 0.25 MG TABLET PO SCH (23:00)
[2021-05-28] MEDS ORDERED: PT OWN MED DRAWER 7, Y5N ONE ×6 (06:12→14:06)
[2021-05-28] MEDS: METOLAZONE 5 MG TABLET PO SCH ×2 (06:12→14:08)
[2021-05-28] MEDS: TORSEMIDE 100 MG TABLET PO SCH ×2 (06:41→14:48)
[2021-05-28 07:48] LABS: HEMATOCRIT 26.1 % (35.4-49); HEMOGLOBIN 8.5 GM/dL (11.7-16.9); MCH 27.7 pg (25.7-33.7); MCHC 32.5 g/dl (32.0-35.9); MEAN CELL VOLUME 85.2 fl (80-96); PLATELET COUNT 72 10^3/uL (134-434); RBC 3.07 M/mm3 (4.00-5.60)
[2021-05-28 07:57] LABS: CHLORIDE 91 mmol/L (98-107); SODIUM 138 mmol/L (136-145)
[2021-05-28 08:08] LABS: ALBUMIN 2.8 g/dl (3.4-5.0); ANION GAP 7 MMOL/L (8-16); CO2 41 mmol/L (21-32); GLUCOSE,RANDOM 204 mg/dL (74-106); SGOT/AST 22 U/L (15-37); SGPT/ALT 75 U/L (13-61)
[2021-05-28 08:09] LABS: CALCIUM 8.2 mg/dL (8.5-10.1)
[2021-05-28 08:10] LABS: TOT PROT 5.7 g/dl (6.4-8.2)
[2021-05-28 08:12] LABS: ALK PHOS 142 U/L (45-117); CREATININE 2.8 mg/dL (0.55-1.3)
[2021-05-28 08:16] LABS: BILIRUBIN,TOTAL 1.5 mg/dL (0.2-1)
[2021-05-28] MEDS ORDERED: cefTRIAXone SODIUM 1 GM VIAL ONE (09:10)
[2021-05-28] MEDS ORDERED: DEXTROSE 5%-WATER - 50 ML IVPB ONE (09:10)
[2021-05-28] MEDS: AMINO ACIDS/PROTEIN HYDROLYS 30 ML LIQUID.PKT PO SCH ×2 (09:24→17:41)
[2021-05-28] MEDS: TAMSULOSIN HCL 0.4 MG CAP PO SCH (09:27)
[2021-05-28] MEDS: POTASSIUM CHLORIDE TABS 20 MEQ TABLET.ER (FP) PO SCH ×3 (09:27→21:37)
[2021-05-28] MEDS: VITAMIN B COMP W-C 1 EA TABLET (NEPHRO-VITE) PO SCH (09:28)
[2021-05-28] MEDS: metoPROLOL SUCCINATE 25 MG TAB.SR.24H (FP) PO SCH ×2 (09:28→21:37)
[2021-05-28] MEDS: APIXABAN 2.5 MG TABLET PO SCH ×2 (09:28→21:37)
[2021-05-28] MEDS: FINASTERIDE 5 MG TABLET (FP) PO SCH (09:28)
[2021-05-28] MEDS: methylPREDNISolone NA SUCC 40 MG/1 ML VIAL IVPUSH SCH (09:28)
[2021-05-28] MEDS: CEFTRIAXONE 1 GM in DEXTROSE 5%-WATER - 50 ML IVPB SCH (09:30)
[2021-05-28] MEDS ORDERED: POTASSIUM CHLORIDE TABS 20 MEQ TABLET.ER (FP) PO SCH (13:39)
[2021-05-28] MEDS: FLUTICASONE/UMECLIDIN/VILANTER(200-62.5-25 TRELEGY ELLIPTA) INAHLER IH SCH (14:08)
[2021-05-28] MEDS: MONTELUKAST NA 10 MG TABLET PO SCH (21:37)
[2021-05-28] MEDS: ALPRAZolam 0.25 MG TABLET PO SCH (23:10)
[2021-05-28] MEDS: ALBUTEROL SO4 2.5/IPRATROPIUM 0.5 INH SOL 3 ML VIAL.NEB. NEB PRN (23:36)
[2021-05-29] MEDS ORDERED: traMADol HCL 50 MG TABLET PO ONE ×2 (06:17→22:04)
[2021-05-29] MEDS: METOLAZONE 5 MG TABLET PO SCH ×2 (06:45→13:39)
[2021-05-29] MEDS: POTASSIUM CHLORIDE TABS 20 MEQ TABLET.ER (FP) PO SCH ×3 (06:45→22:09)
[2021-05-29] MEDS: TORSEMIDE 100 MG TABLET PO SCH ×2 (07:24→14:41)
[2021-05-29] MEDS ORDERED: cefTRIAXone SODIUM 1 GM VIAL ONE (08:42)
[2021-05-29] MEDS ORDERED: DEXTROSE 5%-WATER - 50 ML IVPB ONE (08:42)
[2021-05-29] MEDS: TAMSULOSIN HCL 0.4 MG CAP PO SCH (08:55)
[2021-05-29] MEDS: AMINO ACIDS/PROTEIN HYDROLYS 30 ML LIQUID.PKT PO SCH ×2 (08:55→18:25)
[2021-05-29] MEDS: APIXABAN 2.5 MG TABLET PO SCH ×2 (09:02→22:09)
[2021-05-29] MEDS: CEFTRIAXONE 1 GM in DEXTROSE 5%-WATER - 50 ML IVPB SCH (09:03)
[2021-05-29 09:04] LABS: HEMATOCRIT 32.8 % (35.4-49); HEMOGLOBIN 10.2 GM/dL (11.7-16.9); MCH 27.5 pg (25.7-33.7); MCHC 31.2 g/dl (32.0-35.9); MEAN CELL VOLUME 88.2 fl (80-96); MEAN PLT VOLUME 9.5 fl (7.5-11.1); PLATELET COUNT 80 10^3/uL (134-434); RBC 3.72 M/mm3 (4.00-5.60); RDW 20.8 % (11.9-15.9); WHITE BLOOD COUNT 8.1 K/mm3 (4.0-10.0)
[2021-05-29] MEDS: metoPROLOL SUCCINATE 25 MG TAB.SR.24H (FP) PO SCH ×2 (09:04→22:09)
[2021-05-29] MEDS: FLUTICASONE/UMECLIDIN/VILANTER(200-62.5-25 TRELEGY ELLIPTA) INAHLER IH SCH (09:05)
[2021-05-29] MEDS: FINASTERIDE 5 MG TABLET (FP) PO SCH (09:05)
[2021-05-29] MEDS: VITAMIN B COMP W-C 1 EA TABLET (NEPHRO-VITE) PO SCH (09:05)
[2021-05-29] MEDS: methylPREDNISolone NA SUCC 40 MG/1 ML VIAL IVPUSH SCH (09:05)
[2021-05-29 09:25] LABS: CHLORIDE 88 mmol/L (98-107); SODIUM 138 mmol/L (136-145)
[2021-05-29 09:32] LABS: CALCIUM 8.6 mg/dL (8.5-10.1)
[2021-05-29 09:33] LABS: ALBUMIN 3.1 g/dl (3.4-5.0)
[2021-05-29 09:34] LABS: ANION GAP 9 MMOL/L (8-16); CO2 41 mmol/L (21-32); GLUCOSE,RANDOM 159 mg/dL (74-106)
[2021-05-29 09:36] LABS: SGOT/AST 18 U/L (15-37); SGPT/ALT 74 U/L (13-61)
[2021-05-29 09:37] LABS: BILIRUBIN,TOTAL 1.4 mg/dL (0.2-1); CREATININE 2.6 mg/dL (0.55-1.3)
[2021-05-29 09:38] LABS: TOT PROT 6.1 g/dl (6.4-8.2)
[2021-05-29 09:39] LABS: ALK PHOS 152 U/L (45-117)
[2021-05-29 09:40] LABS: BLOOD UREA NITROGEN 115.2 mg/dL (7-18)
[2021-05-29] MEDS: ACETAMINOPHEN 325 MG TABLET (FP) PO PRN ×2 (11:45→18:49)
[2021-05-29] MEDS: KCL 10 MEQ IVPB 10 MEQ/100 ML INFUS.BAG IVPB SCH ×2 (18:39→22:08)
[2021-05-29 19:24] LABS: PH,URINE 7.5 (5.0-8.0); URINE APPEARANCE CLEAR; URINE BILIRUBIN NEGATIVE (NEGATIVE); URINE COLOR YELLOW; URINE GLUCOSE (UA) 1+ (NEGATIVE); URINE KETONE NEGATIVE (NEGATIVE); URINE LEUK ESTERASE NEGATIVE (NEGATIVE); URINE NITRITE NEGATIVE (NEGATIVE); URINE PROTEIN NEGATIVE (NEGATIVE); URINE UROBILINOGEN 0.2 mg/dL (0.2-1.0)
[2021-05-29] MEDS: MONTELUKAST NA 10 MG TABLET PO SCH (22:08)
[2021-05-29] MEDS: ALPRAZolam 0.25 MG TABLET PO SCH (23:02)
[2021-05-30] MEDS: ACETAMINOPHEN 325 MG TABLET (FP) PO PRN ×2 (02:40→09:45)
[2021-05-30] MEDS: POTASSIUM CHLORIDE TABS 20 MEQ TABLET.ER (FP) PO SCH ×3 (06:28→23:10)
[2021-05-30] MEDS: METOLAZONE 5 MG TABLET PO SCH ×2 (06:29→13:46)
[2021-05-30] MEDS: TORSEMIDE 100 MG TABLET PO SCH ×2 (07:18→13:46)
[2021-05-30] MEDS ORDERED: DEXTROSE 5%-WATER - 50 ML IVPB ONE (08:27)
[2021-05-30] MEDS ORDERED: cefTRIAXone SODIUM 1 GM VIAL ONE (08:27)
[2021-05-30 08:59] LABS: BASO % 0.2 % (0-2.0); EOS % 0.1 % (0-4.5); HEMATOCRIT 30.5 % (35.4-49); HEMOGLOBIN 9.6 GM/dL (11.7-16.9); LYMPH % 8.1 % (8-40); MCH 27.6 pg (25.7-33.7); MCHC 31.5 g/dl (32.0-35.9); MEAN CELL VOLUME 87.6 fl (80-96); MEAN PLT VOLUME 9.7 fl (7.5-11.1); MONO % 12.1 % (3.8-10.2); NEUT % 79.5 % (42.8-82.8); PLATELET COUNT 41 10^3/uL (134-434); RBC 3.48 M/mm3 (4.00-5.60); RDW 20.2 % (11.9-15.9); WHITE BLOOD COUNT 7.6 K/mm3 (4.0-10.0)
[2021-05-30] MEDS: AMINO ACIDS/PROTEIN HYDROLYS 30 ML LIQUID.PKT PO SCH ×2 (09:25→16:41)
[2021-05-30 09:27] LABS: CHLORIDE 87 mmol/L (98-107); SODIUM 136 mmol/L (136-145)
[2021-05-30 09:31] LABS: ALBUMIN 2.8 g/dl (3.4-5.0); ANION GAP 6 MMOL/L (8-16); CALCIUM 8.2 mg/dL (8.5-10.1); CO2 43 mmol/L (21-32); GLUCOSE,RANDOM 153 mg/dL (74-106)
[2021-05-30 09:32] LABS: MAGNESIUM 2.3 mg/dL (1.8-2.4)
[2021-05-30 09:33] LABS: SGOT/AST 14 U/L (15-37); SGPT/ALT 61 U/L (13-61)
[2021-05-30 09:34] LABS: BILIRUBIN,TOTAL 1.3 mg/dL (0.2-1); CREATININE 2.4 mg/dL (0.55-1.3); PHOSPHOROUS 3.3 mg/dL (2.5-4.9)
[2021-05-30 09:35] LABS: ALK PHOS 128 U/L (45-117); TOT PROT 5.8 g/dl (6.4-8.2)
[2021-05-30 09:39] LABS: BLOOD UREA NITROGEN 114.7 mg/dL (7-18)
[2021-05-30] MEDS: MAG HYDROX/AL HYDROX/SIMETH 30 ML UNIT-DOSE CUP PO PRN (09:44)
[2021-05-30] MEDS: CEFTRIAXONE 1 GM in DEXTROSE 5%-WATER - 50 ML IVPB SCH (09:44)
[2021-05-30] MEDS: methylPREDNISolone NA SUCC 40 MG/1 ML VIAL IVPUSH SCH (09:44)
[2021-05-30] MEDS: metoPROLOL SUCCINATE 25 MG TAB.SR.24H (FP) PO SCH ×2 (09:45→23:10)
[2021-05-30] MEDS: APIXABAN 2.5 MG TABLET PO SCH ×2 (09:45→23:10)
[2021-05-30] MEDS: VITAMIN B COMP W-C 1 EA TABLET (NEPHRO-VITE) PO SCH (09:45)
[2021-05-30] MEDS: DOCUSATE SODIUM 100 MG CAPSULE (FP) PO PRN (09:45)
[2021-05-30] MEDS: FINASTERIDE 5 MG TABLET (FP) PO SCH (09:45)
[2021-05-30] MEDS: FLUTICASONE/UMECLIDIN/VILANTER(200-62.5-25 TRELEGY ELLIPTA) INAHLER IH SCH (09:46)
[2021-05-30] MEDS: TAMSULOSIN HCL 0.4 MG CAP PO SCH (09:46)
[2021-05-30] MEDS ORDERED: PHENAZOPYRIDINE HCL 100 MG TABLET (FP) PO ONE (17:26)
[2021-05-30] MEDS: KCL 10 MEQ IVPB 10 MEQ/100 ML INFUS.BAG IVPB SCH (18:12)
[2021-05-30] MEDS: ALPRAZolam 0.25 MG TABLET PO SCH (23:10)
[2021-05-30] MEDS: MONTELUKAST NA 10 MG TABLET PO SCH (23:11)
[2021-05-31] MEDS ORDERED: ALBUTEROL SO4 2.5/IPRATROPIUM 0.5 INH SOL 3 ML VIAL.NEB. NEB ONE (00:21)
[2021-05-31] MEDS: METOLAZONE 5 MG TABLET PO SCH ×2 (05:44→13:39)
[2021-05-31] MEDS: POTASSIUM CHLORIDE TABS 20 MEQ TABLET.ER (FP) PO SCH ×3 (06:30→22:01)
[2021-05-31] MEDS: TORSEMIDE 100 MG TABLET PO SCH ×2 (06:30→14:53)
[2021-05-31] MEDS: ACETAMINOPHEN 325 MG TABLET (FP) PO PRN ×2 (06:44→23:48)
[2021-05-31] MEDS ORDERED: cefTRIAXone SODIUM 1 GM VIAL ONE (09:08)
[2021-05-31] MEDS ORDERED: DEXTROSE 5%-WATER - 50 ML IVPB ONE (09:08)
[2021-05-31] MEDS: metoPROLOL SUCCINATE 25 MG TAB.SR.24H (FP) PO SCH ×2 (09:21→23:14)
[2021-05-31] MEDS: APIXABAN 2.5 MG TABLET PO SCH (09:21)
[2021-05-31] MEDS: FINASTERIDE 5 MG TABLET (FP) PO SCH (09:21)
[2021-05-31 09:22] LABS: BASO % 0.4 % (0-2.0); EOS % 0.3 % (0-4.5); HEMATOCRIT 31.3 % (35.4-49); HEMOGLOBIN 10.1 GM/dL (11.7-16.9); LYMPH % 8.4 % (8-40); MCH 27.6 pg (25.7-33.7); MCHC 32.3 g/dl (32.0-35.9); MEAN CELL VOLUME 85.4 fl (80-96); MEAN PLT VOLUME 8.4 fl (7.5-11.1); MONO % 10.5 % (3.8-10.2); NEUT % 80.4 % (42.8-82.8); RBC 3.67 M/mm3 (4.00-5.60); RDW 19.9 % (11.9-15.9)
[2021-05-31] MEDS: VITAMIN B COMP W-C 1 EA TABLET (NEPHRO-VITE) PO SCH (09:22)
[2021-05-31] MEDS: CEFTRIAXONE 1 GM in DEXTROSE 5%-WATER - 50 ML IVPB SCH (09:22)
[2021-05-31] MEDS: AMINO ACIDS/PROTEIN HYDROLYS 30 ML LIQUID.PKT PO SCH ×2 (09:22→18:01)
[2021-05-31] MEDS: TAMSULOSIN HCL 0.4 MG CAP PO SCH (09:23)
[2021-05-31 09:34] LABS: CALCIUM 8.3 mg/dL (8.5-10.1); CHLORIDE 87 mmol/L (98-107); SODIUM 137 mmol/L (136-145)
[2021-05-31 09:35] LABS: ANION GAP 9 MMOL/L (8-16); CO2 41 mmol/L (21-32); GLUCOSE,RANDOM 134 mg/dL (74-106)
[2021-05-31 09:38] LABS: CREATININE 2.7 mg/dL (0.55-1.3); SGOT/AST 16 U/L (15-37); SGPT/ALT 61 U/L (13-61)
[2021-05-31 09:40] LABS: BILIRUBIN,TOTAL 1.2 mg/dL (0.2-1); BLOOD UREA NITROGEN 118.5 mg/dL (7-18)
[2021-05-31 09:41] LABS: ALK PHOS 148 U/L (45-117)
[2021-05-31 11:19] LABS: PLATELET COUNT 18 10^3/uL (134-434)
[2021-05-31] MEDS ORDERED: PT OWN MED DRAWER 7, Y5N ONE (13:34)
[2021-05-31] MEDS: FLUTICASONE/UMECLIDIN/VILANTER(200-62.5-25 TRELEGY ELLIPTA) INAHLER IH SCH (13:40)
[2021-05-31] MEDS ORDERED: PHENAZOPYRIDINE HCL 100 MG TABLET (FP) PO STA (17:39)
[2021-05-31] MEDS: DOCUSATE SODIUM 100 MG CAPSULE (FP) PO PRN (22:01)
[2021-05-31] MEDS: MONTELUKAST NA 10 MG TABLET PO SCH (22:01)
[2021-05-31] MEDS: ALPRAZolam 0.25 MG TABLET PO SCH (23:13)
[2021-06-01] MEDS ORDERED: ALBUTEROL SO4 2.5/IPRATROPIUM 0.5 INH SOL 3 ML VIAL.NEB. NEB PRN (02:44)
[2021-06-01] MEDS ORDERED: PT OWN MED DRAWER 7, Y5N ONE ×3 (05:26→18:17)
[2021-06-01] MEDS: METOLAZONE 5 MG TABLET PO SCH ×2 (06:11→13:10)
[2021-06-01] MEDS: POTASSIUM CHLORIDE TABS 20 MEQ TABLET.ER (FP) PO SCH ×3 (06:42→22:14)
[2021-06-01] MEDS: TORSEMIDE 100 MG TABLET PO SCH ×2 (06:43→13:47)
[2021-06-01 08:54] LABS: INR 1.81 (0.83-1.09); PROTHROMBIN TIME (PATIENT) 21.3 SEC (9.7-13.0)
[2021-06-01 08:55] LABS: BASO % 0.1 % (0-2.0); EOS % 0.4 % (0-4.5); HEMOGLOBIN 9.2 GM/dL (11.7-16.9); LYMPH % 9.5 % (8-40); MCH 27.8 pg (25.7-33.7); MCHC 31.8 g/dl (32.0-35.9); MEAN CELL VOLUME 87.2 fl (80-96); MONO % 10.8 % (3.8-10.2); NEUT % 79.2 % (42.8-82.8); RBC 3.33 M/mm3 (4.00-5.60); WHITE BLOOD COUNT 7.8 K/mm3 (4.0-10.0)
[2021-06-01 08:57] LABS: ACTIVATED PTT 31.8 SECONDS (25.2-36.5)
[2021-06-01] MEDS ORDERED: DEXTROSE 5%-WATER - 50 ML IVPB ONE (09:02)
[2021-06-01] MEDS ORDERED: cefTRIAXone SODIUM 1 GM VIAL ONE (09:02)
[2021-06-01 09:06] LABS: CHLORIDE 87 mmol/L (98-107); SODIUM 135 mmol/L (136-145)
[2021-06-01 09:14] LABS: ALBUMIN 2.9 g/dl (3.4-5.0); ANION GAP 8 MMOL/L (8-16); CALCIUM 8.6 mg/dL (8.5-10.1); CO2 41 mmol/L (21-32); CREATININE 2.6 mg/dL (0.55-1.3); GLUCOSE,RANDOM 165 mg/dL (74-106); SGPT/ALT 50 U/L (13-61)
[2021-06-01 09:15] LABS: BILIRUBIN,TOTAL 1.2 mg/dL (0.2-1); TOT PROT 5.8 g/dl (6.4-8.2)
[2021-06-01 09:17] LABS: ALK PHOS 139 U/L (45-117); SGOT/AST 13 U/L (15-37)
[2021-06-01 09:19] LABS: LDH 245 U/L (87-246)
[2021-06-01 09:23] LABS: BLOOD UREA NITROGEN 118.7 mg/dL (7-18)
[2021-06-01] MEDS: TAMSULOSIN HCL 0.4 MG CAP PO SCH (09:49)
[2021-06-01] MEDS: FINASTERIDE 5 MG TABLET (FP) PO SCH (09:49)
[2021-06-01] MEDS: metoPROLOL SUCCINATE 25 MG TAB.SR.24H (FP) PO SCH ×2 (09:49→22:15)
[2021-06-01] MEDS: VITAMIN B COMP W-C 1 EA TABLET (NEPHRO-VITE) PO SCH (09:49)
[2021-06-01] MEDS: CEFTRIAXONE 1 GM in DEXTROSE 5%-WATER - 50 ML IVPB SCH (09:50)
[2021-06-01] MEDS: FLUTICASONE/UMECLIDIN/VILANTER(200-62.5-25 TRELEGY ELLIPTA) INAHLER IH SCH (09:50)
[2021-06-01] MEDS: AMINO ACIDS/PROTEIN HYDROLYS 30 ML LIQUID.PKT PO SCH ×2 (09:51→17:30)
[2021-06-01 12:02] LABS: MEAN PLT VOLUME 9.7 fl (7.5-11.1); PLATELET COUNT 48 10^3/uL (134-434)
[2021-06-01] MEDS: PHENAZOPYRIDINE HCL 100 MG TABLET (FP) PO SCH ×2 (13:47→22:15)
[2021-06-01] MEDS: MONTELUKAST NA 10 MG TABLET PO SCH (22:15)
[2021-06-01] MEDS: LIDOCAINE HCL 2% JELLY 10 ML CARTRIDGE TP SCH (22:18)
[2021-06-01] MEDS: ALPRAZolam 0.25 MG TABLET PO SCH (22:57)
[2021-06-02] MEDS ORDERED: ALBUTEROL SO4 2.5/IPRATROPIUM 0.5 INH SOL 3 ML VIAL.NEB. NEB ONE (05:30)
[2021-06-02] MEDS ORDERED: PT OWN MED DRAWER 7, Y5N ONE ×3 (05:34→17:38)
[2021-06-02] MEDS: METOLAZONE 5 MG TABLET PO SCH ×2 (05:37→13:34)
[2021-06-02] MEDS: POTASSIUM CHLORIDE TABS 20 MEQ TABLET.ER (FP) PO SCH ×3 (06:11→22:00)
[2021-06-02] MEDS: PHENAZOPYRIDINE HCL 100 MG TABLET (FP) PO SCH ×3 (06:12→23:30)
[2021-06-02] MEDS: TORSEMIDE 100 MG TABLET PO SCH ×2 (06:12→14:33)
[2021-06-02 09:16] LABS: CHLORIDE 89 mmol/L (98-107); SODIUM 140 mmol/L (136-145)
[2021-06-02 09:18] LABS: HEMOGLOBIN 9.9 GM/dL (11.7-16.9); MCH 26.9 pg (25.7-33.7); MCHC 31.1 g/dl (32.0-35.9); MEAN CELL VOLUME 86.6 fl (80-96); PLATELET COUNT 49 10^3/uL (134-434); RDW 19.9 % (11.9-15.9); WHITE BLOOD COUNT 7.4 K/mm3 (4.0-10.0)
[2021-06-02 09:22] LABS: CALCIUM 9.6 mg/dL (8.5-10.1)
[2021-06-02 09:23] LABS: ANION GAP 8 MMOL/L (8-16); CO2 43 mmol/L (21-32); GLUCOSE,RANDOM 112 mg/dL (74-106); MAGNESIUM 2.5 mg/dL (1.8-2.4)
[2021-06-02 09:26] LABS: CREATININE 2.9 mg/dL (0.55-1.3); SGOT/AST 14 U/L (15-37); SGPT/ALT 46 U/L (13-61)
[2021-06-02 09:27] LABS: BILIRUBIN,TOTAL 1.3 mg/dL (0.2-1); TOT PROT 6.1 g/dl (6.4-8.2)
[2021-06-02 09:28] LABS: ALK PHOS 145 U/L (45-117)
[2021-06-02] MEDS ORDERED: cefTRIAXone SODIUM 1 GM VIAL ONE (09:28)
[2021-06-02] MEDS ORDERED: DEXTROSE 5%-WATER - 50 ML IVPB ONE (09:28)
[2021-06-02 09:41] LABS: BLOOD UREA NITROGEN 115.7 mg/dL (7-18)
[2021-06-02] MEDS: CEFTRIAXONE 1 GM in DEXTROSE 5%-WATER - 50 ML IVPB SCH (10:46)
[2021-06-02] MEDS: TAMSULOSIN HCL 0.4 MG CAP PO SCH (10:46)
[2021-06-02] MEDS: VITAMIN B COMP W-C 1 EA TABLET (NEPHRO-VITE) PO SCH (10:46)
[2021-06-02] MEDS: FINASTERIDE 5 MG TABLET (FP) PO SCH (10:46)
[2021-06-02] MEDS: AMINO ACIDS/PROTEIN HYDROLYS 30 ML LIQUID.PKT PO SCH ×2 (10:46→18:06)
[2021-06-02] MEDS: metoPROLOL SUCCINATE 25 MG TAB.SR.24H (FP) PO SCH ×2 (10:47→22:00)
[2021-06-02] MEDS: FLUTICASONE/UMECLIDIN/VILANTER(200-62.5-25 TRELEGY ELLIPTA) INAHLER IH SCH (10:47)
[2021-06-02] MEDS: LIDOCAINE HCL 2% JELLY 10 ML CARTRIDGE TP SCH ×4 (10:48→22:01)
[2021-06-02] MEDS: MILRINONE 20MG/100ML IVPB - 20,000 MCG/100 ML ML IVPB SCH (18:05)
[2021-06-02] MEDS: MONTELUKAST NA 10 MG TABLET PO SCH (22:00)
[2021-06-02] MEDS: APIXABAN 2.5 MG TABLET PO SCH (22:00)
[2021-06-02] MEDS: ALPRAZolam 0.25 MG TABLET PO SCH (23:30)
[2021-06-03] MEDS: ACETAMINOPHEN 325 MG TABLET (FP) PO PRN ×2 (01:09→09:29)
[2021-06-03] MEDS ORDERED: PT OWN MED DRAWER 7, Y5N ONE ×4 (06:48→22:18)
[2021-06-03] MEDS: POTASSIUM CHLORIDE TABS 20 MEQ TABLET.ER (FP) PO SCH ×3 (07:06→22:22)
[2021-06-03] MEDS: TORSEMIDE 100 MG TABLET PO SCH ×2 (07:06→14:41)
[2021-06-03] MEDS: PHENAZOPYRIDINE HCL 100 MG TABLET (FP) PO SCH ×3 (07:06→22:23)
[2021-06-03] MEDS ORDERED: cefTRIAXone SODIUM 1 GM VIAL ONE (08:29)
[2021-06-03] MEDS ORDERED: DEXTROSE 5%-WATER - 50 ML IVPB ONE (08:29)
[2021-06-03] MEDS: METOLAZONE 5 MG TABLET PO SCH ×2 (08:30→13:48)
[2021-06-03] MEDS: LIDOCAINE HCL 2% JELLY 10 ML CARTRIDGE TP SCH ×4 (09:00→22:35)
[2021-06-03] MEDS: FLUTICASONE/UMECLIDIN/VILANTER(200-62.5-25 TRELEGY ELLIPTA) INAHLER IH SCH (09:00)
[2021-06-03] MEDS: metoPROLOL SUCCINATE 25 MG TAB.SR.24H (FP) PO SCH ×2 (09:00→22:33)
[2021-06-03] MEDS: TAMSULOSIN HCL 0.4 MG CAP PO SCH (09:00)
[2021-06-03] MEDS: CEFTRIAXONE 1 GM in DEXTROSE 5%-WATER - 50 ML IVPB SCH (09:00)
[2021-06-03] MEDS: VITAMIN B COMP W-C 1 EA TABLET (NEPHRO-VITE) PO SCH (09:00)
[2021-06-03] MEDS: FINASTERIDE 5 MG TABLET (FP) PO SCH (09:00)
[2021-06-03] MEDS: AMINO ACIDS/PROTEIN HYDROLYS 30 ML LIQUID.PKT PO SCH ×2 (09:00→16:57)
[2021-06-03] MEDS: APIXABAN 2.5 MG TABLET PO SCH ×2 (09:00→22:33)
[2021-06-03 09:59] LABS: HEMATOCRIT 33.2 % (35.4-49); HEMOGLOBIN 10.2 GM/dL (11.7-16.9); MCH 26.7 pg (25.7-33.7); MCHC 30.7 g/dl (32.0-35.9); MEAN PLT VOLUME 10.9 fl (7.5-11.1); RBC 3.82 M/mm3 (4.00-5.60); RDW 20.5 % (11.9-15.9); WHITE BLOOD COUNT 6.5 K/mm3 (4.0-10.0)
[2021-06-03 10:18] LABS: CHLORIDE 89 mmol/L (98-107); SODIUM 137 mmol/L (136-145)
[2021-06-03 10:28] LABS: CALCIUM 9.3 mg/dL (8.5-10.1)
[2021-06-03 10:29] LABS: ALBUMIN 2.9 g/dl (3.4-5.0); ANION GAP 9 MMOL/L (8-16); CO2 39 mmol/L (21-32); GLUCOSE,RANDOM 167 mg/dL (74-106)
[2021-06-03 10:32] LABS: SGOT/AST 16 U/L (15-37); SGPT/ALT 40 U/L (13-61)
[2021-06-03 10:34] LABS: TOT PROT 6.1 g/dl (6.4-8.2)
[2021-06-03 10:35] LABS: ALK PHOS 147 U/L (45-117)
[2021-06-03 10:44] LABS: BLOOD UREA NITROGEN 117.4 mg/dL (7-18)
[2021-06-03 12:34] LABS: PLATELET COUNT 57 10^3/uL (134-434)
[2021-06-03] MEDS: MILRINONE 20MG/100ML IVPB - 20,000 MCG/100 ML ML IVPB SCH (17:38)
[2021-06-03 21:49] VITALS: BMI 17.7
[2021-06-03] MEDS: MONTELUKAST NA 10 MG TABLET PO SCH (22:20)
[2021-06-03] MEDS: ALPRAZolam 0.25 MG TABLET PO SCH (22:28)
[2021-06-04] MEDS: ACETAMINOPHEN 325 MG TABLET (FP) PO PRN ×2 (01:04→11:14)
[2021-06-04] MEDS ORDERED: PT OWN MED DRAWER 7, Y5N ONE ×3 (06:08→10:55)
[2021-06-04] MEDS: POTASSIUM CHLORIDE TABS 20 MEQ TABLET.ER (FP) PO SCH ×3 (06:47→21:41)
[2021-06-04] MEDS: TORSEMIDE 100 MG TABLET PO SCH ×2 (06:48→14:07)
[2021-06-04] MEDS: METOLAZONE 5 MG TABLET PO SCH ×2 (06:52→16:28)
[2021-06-04 07:45] LABS: CHLORIDE 87 mmol/L (98-107); SODIUM 137 mmol/L (136-145)
[2021-06-04 07:46] LABS: HEMATOCRIT 31.4 % (35.4-49); MCHC 31.9 g/dl (32.0-35.9); MEAN CELL VOLUME 84.7 fl (80-96); MEAN PLT VOLUME 10.6 fl (7.5-11.1); RBC 3.71 M/mm3 (4.00-5.60); RDW 20.7 % (11.9-15.9); WHITE BLOOD COUNT 5.9 K/mm3 (4.0-10.0)
[2021-06-04 07:47] LABS: ALBUMIN 2.9 g/dl (3.4-5.0)
[2021-06-04 07:48] LABS: ANION GAP 6 MMOL/L (8-16); CO2 44 mmol/L (21-32); GLUCOSE,RANDOM 138 mg/dL (74-106)
[2021-06-04 07:50] LABS: SGPT/ALT 38 U/L (13-61)
[2021-06-04 07:51] LABS: CREATININE 3.1 mg/dL (0.55-1.3); SGOT/AST 17 U/L (15-37)
[2021-06-04 07:52] LABS: BILIRUBIN,TOTAL 1.2 mg/dL (0.2-1); TOT PROT 5.9 g/dl (6.4-8.2)
[2021-06-04 07:53] LABS: ALK PHOS 140 U/L (45-117)
[2021-06-04 08:33] LABS: BLOOD UREA NITROGEN 119.4 mg/dL (7-18)
[2021-06-04] MEDS ORDERED: POTASSIUM CHLORIDE TABS 20 MEQ TABLET.ER (FP) PO ONE (08:40)
[2021-06-04] MEDS ORDERED: DEXTROSE 5%-WATER - 50 ML IVPB ONE (09:28)
[2021-06-04] MEDS ORDERED: cefTRIAXone SODIUM 1 GM VIAL ONE (09:28)
[2021-06-04 09:34] LABS: PLATELET COUNT 34 10^3/uL (134-434)
[2021-06-04] MEDS: AMINO ACIDS/PROTEIN HYDROLYS 30 ML LIQUID.PKT PO SCH ×3 (10:00→17:30)
[2021-06-04] MEDS: TAMSULOSIN HCL 0.4 MG CAP PO SCH (10:14)
[2021-06-04] MEDS: FINASTERIDE 5 MG TABLET (FP) PO SCH (10:14)
[2021-06-04] MEDS: metoPROLOL SUCCINATE 25 MG TAB.SR.24H (FP) PO SCH ×2 (10:14→21:41)
[2021-06-04] MEDS: VITAMIN B COMP W-C 1 EA TABLET (NEPHRO-VITE) PO SCH (10:14)
[2021-06-04] MEDS: CEFTRIAXONE 1 GM in DEXTROSE 5%-WATER - 50 ML IVPB SCH (10:14)
[2021-06-04] MEDS: LIDOCAINE HCL 2% JELLY 10 ML CARTRIDGE TP SCH ×4 (11:20→21:42)
[2021-06-04] MEDS: PHENAZOPYRIDINE HCL 100 MG TABLET (FP) PO SCH (12:07)
[2021-06-04] MEDS: FLUTICASONE/UMECLIDIN/VILANTER(200-62.5-25 TRELEGY ELLIPTA) INAHLER IH SCH (12:51)
[2021-06-04] MEDS: MILRINONE 20MG/100ML IVPB - 20,000 MCG/100 ML ML IVPB SCH (18:04)
[2021-06-04] MEDS: MONTELUKAST NA 10 MG TABLET PO SCH (21:41)
[2021-06-04] MEDS: ALPRAZolam 0.25 MG TABLET PO SCH (21:41)
[2021-06-04] MEDS: CLOTRIMAZOLE 1%TOPICAL SOLUTION 30 ML BOTTLE TP SCH (21:41)
[2021-06-05] MEDS: ACETAMINOPHEN 325 MG TABLET (FP) PO PRN (02:32)
[2021-06-05] MEDS: METOLAZONE 5 MG TABLET PO SCH ×2 (05:27→16:22)
[2021-06-05] MEDS: TORSEMIDE 100 MG TABLET PO SCH ×3 (05:27→16:56)
[2021-06-05] MEDS: POTASSIUM CHLORIDE TABS 20 MEQ TABLET.ER (FP) PO SCH ×3 (05:27→21:36)
[2021-06-05 07:49] LABS: CHLORIDE 90 mmol/L (98-107); SODIUM 137 mmol/L (136-145)
[2021-06-05 07:51] LABS: ALBUMIN 2.8 g/dl (3.4-5.0); ANION GAP 5 MMOL/L (8-16); CALCIUM 8.9 mg/dL (8.5-10.1); CO2 42 mmol/L (21-32)
[2021-06-05 07:52] LABS: GLUCOSE,RANDOM 179 mg/dL (74-106)
[2021-06-05 07:54] LABS: SGPT/ALT 33 U/L (13-61)
[2021-06-05 07:55] LABS: CREATININE 2.9 mg/dL (0.55-1.3); SGOT/AST 16 U/L (15-37)
[2021-06-05 07:56] LABS: BILIRUBIN,TOTAL 0.8 mg/dL (0.2-1); TOT PROT 5.7 g/dl (6.4-8.2)
[2021-06-05 07:58] LABS: ALK PHOS 135 U/L (45-117)
[2021-06-05 08:07] LABS: HEMATOCRIT 29.6 % (35.4-49); HEMOGLOBIN 9.3 GM/dL (11.7-16.9); MCH 27.5 pg (25.7-33.7); MCHC 31.5 g/dl (32.0-35.9); MEAN CELL VOLUME 87.2 fl (80-96); MEAN PLT VOLUME 10.2 fl (7.5-11.1); RDW 20.8 % (11.9-15.9); WHITE BLOOD COUNT 5.9 K/mm3 (4.0-10.0)
[2021-06-05 08:17] LABS: BLOOD UREA NITROGEN 116.1 mg/dL (7-18)
[2021-06-05 08:42] LABS: PLATELET COUNT 33 10^3/uL (134-434)
[2021-06-05] MEDS: AMINO ACIDS/PROTEIN HYDROLYS 30 ML LIQUID.PKT PO SCH ×2 (10:24→17:07)
[2021-06-05] MEDS: metoPROLOL SUCCINATE 25 MG TAB.SR.24H (FP) PO SCH ×2 (10:26→21:38)
[2021-06-05] MEDS: VITAMIN B COMP W-C 1 EA TABLET (NEPHRO-VITE) PO SCH (10:26)
[2021-06-05] MEDS: TAMSULOSIN HCL 0.4 MG CAP PO SCH (10:26)
[2021-06-05] MEDS: FLUTICASONE/UMECLIDIN/VILANTER(200-62.5-25 TRELEGY ELLIPTA) INAHLER IH SCH (10:29)
[2021-06-05] MEDS: FINASTERIDE 5 MG TABLET (FP) PO SCH (10:29)
[2021-06-05] MEDS: CLOTRIMAZOLE 1%TOPICAL SOLUTION 30 ML BOTTLE TP SCH ×2 (10:30→21:37)
[2021-06-05] MEDS: LIDOCAINE HCL 2% JELLY 10 ML CARTRIDGE TP SCH ×4 (10:35→21:38)
[2021-06-05] MEDS: MILRINONE 20MG/100ML IVPB - 20,000 MCG/100 ML ML IVPB SCH ×2 (13:58→18:25)
[2021-06-05] MEDS ORDERED: PT OWN MED DRAWER 7, Y5N ONE ×2 (15:05→21:15)
[2021-06-05] MEDS: MINERAL OIL/PET HY-PHL TOPICAL OINTMENT 454 GM JAR TP SCH (17:07)
[2021-06-05] MEDS: DOCUSATE SODIUM 100 MG CAPSULE (FP) PO SCH ×2 (17:08→21:36)
[2021-06-05] MEDS: MONTELUKAST NA 10 MG TABLET PO SCH (21:38)
[2021-06-05] MEDS: ALPRAZolam 0.25 MG TABLET PO SCH (22:51)
[2021-06-06] MEDS: MINERAL OIL/PET HY-PHL TOPICAL OINTMENT 454 GM JAR TP SCH ×4 (02:07→22:00)
[2021-06-06] MEDS ORDERED: SODIUM CHLORIDE 250 ML IV STA (06:08)
[2021-06-06] MEDS: METOLAZONE 5 MG TABLET PO SCH ×2 (06:11→13:15)
[2021-06-06] MEDS: TORSEMIDE 100 MG TABLET PO SCH ×2 (06:11→13:44)
[2021-06-06] MEDS: DOCUSATE SODIUM 100 MG CAPSULE (FP) PO SCH ×3 (06:32→21:58)
[2021-06-06] MEDS: POTASSIUM CHLORIDE TABS 20 MEQ TABLET.ER (FP) PO SCH ×3 (06:33→21:58)
[2021-06-06] MEDS: AMINO ACIDS/PROTEIN HYDROLYS 30 ML LIQUID.PKT PO SCH ×3 (10:49→18:00)
[2021-06-06] MEDS: VITAMIN B COMP W-C 1 EA TABLET (NEPHRO-VITE) PO SCH (10:49)
[2021-06-06] MEDS: TAMSULOSIN HCL 0.4 MG CAP PO SCH (10:49)
[2021-06-06] MEDS: APIXABAN 2.5 MG TABLET PO SCH (10:50)
[2021-06-06] MEDS: FINASTERIDE 5 MG TABLET (FP) PO SCH (10:50)
[2021-06-06] MEDS: metoPROLOL SUCCINATE 25 MG TAB.SR.24H (FP) PO SCH ×2 (10:50→21:58)
[2021-06-06] MEDS: FLUTICASONE/UMECLIDIN/VILANTER(200-62.5-25 TRELEGY ELLIPTA) INAHLER IH SCH (10:52)
[2021-06-06] MEDS: CLOTRIMAZOLE 1%TOPICAL SOLUTION 30 ML BOTTLE TP SCH ×2 (10:53→22:00)
[2021-06-06] MEDS: LIDOCAINE HCL 2% JELLY 10 ML CARTRIDGE TP SCH ×4 (10:59→21:54)
[2021-06-06 12:31] LABS: BASO % 0.2 % (0-2.0); EOS % 1.1 % (0-4.5); HEMOGLOBIN 9.2 GM/dL (11.7-16.9); LYMPH % 13.2 % (8-40); MCH 26.9 pg (25.7-33.7); MCHC 30.8 g/dl (32.0-35.9); MEAN CELL VOLUME 87.2 fl (80-96); MEAN PLT VOLUME 10.9 fl (7.5-11.1); MONO % 13.4 % (3.8-10.2); NEUT % 72.1 % (42.8-82.8); RBC 3.44 M/mm3 (4.00-5.60); RDW 21.1 % (11.9-15.9)
[2021-06-06 12:45] LABS: CHLORIDE 89 mmol/L (98-107); SODIUM 136 mmol/L (136-145)
[2021-06-06 12:47] LABS: CALCIUM 8.7 mg/dL (8.5-10.1)
[2021-06-06 12:48] LABS: ALBUMIN 2.8 g/dl (3.4-5.0); ANION GAP 5 MMOL/L (8-16); CO2 42 mmol/L (21-32); GLUCOSE,RANDOM 176 mg/dL (74-106); MAGNESIUM 2.2 mg/dL (1.8-2.4)
[2021-06-06 12:51] LABS: CREATININE 2.9 mg/dL (0.55-1.3); PHOSPHOROUS 3.4 mg/dL (2.5-4.9); SGOT/AST 17 U/L (15-37); SGPT/ALT 35 U/L (13-61)
[2021-06-06 12:52] LABS: BILIRUBIN,TOTAL 0.9 mg/dL (0.2-1); TOT PROT 5.6 g/dl (6.4-8.2)
[2021-06-06 12:54] LABS: ALK PHOS 126 U/L (45-117)
[2021-06-06 12:57] LABS: BLOOD UREA NITROGEN 124.6 mg/dL (7-18)
[2021-06-06 12:59] LABS: PLATELET COUNT 32 10^3/uL (134-434)
[2021-06-06] MEDS: MONTELUKAST NA 10 MG TABLET PO SCH (21:58)
[2021-06-06] MEDS: ALPRAZolam 0.25 MG TABLET PO SCH (23:30)
[2021-06-07] MEDS ORDERED: PT OWN MED DRAWER 7, Y5N ONE ×4 (05:58→14:24)
[2021-06-07] MEDS: METOLAZONE 5 MG TABLET PO SCH ×2 (06:00→16:09)
[2021-06-07] MEDS: DOCUSATE SODIUM 100 MG CAPSULE (FP) PO SCH ×3 (06:04→22:30)
[2021-06-07] MEDS: TORSEMIDE 100 MG TABLET PO SCH ×2 (06:28→15:07)
[2021-06-07] MEDS: POTASSIUM CHLORIDE TABS 20 MEQ TABLET.ER (FP) PO SCH ×3 (06:28→22:31)
[2021-06-07 07:39] LABS: CHLORIDE 94 mmol/L (98-107); SODIUM 141 mmol/L (136-145)
[2021-06-07 07:41] LABS: CALCIUM 8.6 mg/dL (8.5-10.1)
[2021-06-07 07:42] LABS: ALBUMIN 2.9 g/dl (3.4-5.0); ANION GAP 6 MMOL/L (8-16); CO2 41 mmol/L (21-32); GLUCOSE,RANDOM 100 mg/dL (74-106); MAGNESIUM 2.2 mg/dL (1.8-2.4)
[2021-06-07 07:45] LABS: CREATININE 2.8 mg/dL (0.55-1.3); PHOSPHOROUS 3.5 mg/dL (2.5-4.9); SGOT/AST 19 U/L (15-37); SGPT/ALT 33 U/L (13-61)
[2021-06-07 07:46] LABS: TOT PROT 5.8 g/dl (6.4-8.2)
[2021-06-07 07:47] LABS: ALK PHOS 123 U/L (45-117)
[2021-06-07 07:53] LABS: BLOOD UREA NITROGEN 122.8 mg/dL (7-18)
[2021-06-07] MEDS: TAMSULOSIN HCL 0.4 MG CAP PO SCH (10:37)
[2021-06-07] MEDS: FINASTERIDE 5 MG TABLET (FP) PO SCH (10:37)
[2021-06-07] MEDS: VITAMIN B COMP W-C 1 EA TABLET (NEPHRO-VITE) PO SCH (10:37)
[2021-06-07] MEDS: AMINO ACIDS/PROTEIN HYDROLYS 30 ML LIQUID.PKT PO SCH ×3 (10:37→18:05)
[2021-06-07] MEDS: metoPROLOL SUCCINATE 25 MG TAB.SR.24H (FP) PO SCH ×2 (10:38→22:31)
[2021-06-07] MEDS: CLOTRIMAZOLE 1%TOPICAL SOLUTION 30 ML BOTTLE TP SCH ×2 (10:40→22:31)
[2021-06-07] MEDS: FLUTICASONE/UMECLIDIN/VILANTER(200-62.5-25 TRELEGY ELLIPTA) INAHLER IH SCH (10:40)
[2021-06-07] MEDS: MINERAL OIL/PET HY-PHL TOPICAL OINTMENT 454 GM JAR TP SCH ×2 (10:40→22:30)
[2021-06-07] MEDS: LIDOCAINE HCL 2% JELLY 10 ML CARTRIDGE TP SCH ×4 (10:41→22:30)
[2021-06-07] MEDS: MONTELUKAST NA 10 MG TABLET PO SCH (22:31)
[2021-06-07] MEDS: ALPRAZolam 0.25 MG TABLET PO SCH (23:04)
[2021-06-08] MEDS: TORSEMIDE 100 MG TABLET PO SCH ×2 (06:28→14:48)
[2021-06-08] MEDS: DOCUSATE SODIUM 100 MG CAPSULE (FP) PO SCH ×3 (06:28→21:53)
[2021-06-08] MEDS: POTASSIUM CHLORIDE TABS 20 MEQ TABLET.ER (FP) PO SCH ×3 (06:28→21:53)
[2021-06-08] MEDS: metoPROLOL SUCCINATE 25 MG TAB.SR.24H (FP) PO SCH ×2 (09:41→21:54)
[2021-06-08] MEDS ORDERED: PT OWN MED DRAWER 7, Y5N ONE (09:46)
[2021-06-08] MEDS: AMINO ACIDS/PROTEIN HYDROLYS 30 ML LIQUID.PKT PO SCH ×2 (10:48→17:24)
[2021-06-08] MEDS: FINASTERIDE 5 MG TABLET (FP) PO SCH (10:49)
[2021-06-08] MEDS: VITAMIN B COMP W-C 1 EA TABLET (NEPHRO-VITE) PO SCH (10:49)
[2021-06-08] MEDS: TAMSULOSIN HCL 0.4 MG CAP PO SCH (10:49)
[2021-06-08] MEDS: LIDOCAINE HCL 2% JELLY 10 ML CARTRIDGE TP SCH ×4 (10:50→21:55)
[2021-06-08] MEDS: FLUTICASONE/UMECLIDIN/VILANTER(200-62.5-25 TRELEGY ELLIPTA) INAHLER IH SCH (10:51)
[2021-06-08] MEDS: CLOTRIMAZOLE 1%TOPICAL SOLUTION 30 ML BOTTLE TP SCH ×2 (10:52→21:54)
[2021-06-08] MEDS: MINERAL OIL/PET HY-PHL TOPICAL OINTMENT 454 GM JAR TP SCH ×2 (10:53→21:53)
[2021-06-08] MEDS ORDERED: LEVALBUTEROL HCL 0.31 MG/3 ML VIAL.NEB IH PRN (13:11)
[2021-06-08 14:51] LABS: CHLORIDE 91 mmol/L (98-107); SODIUM 140 mmol/L (136-145)
[2021-06-08 14:56] LABS: ALBUMIN 2.8 g/dl (3.4-5.0); CALCIUM 8.7 mg/dL (8.5-10.1); GLUCOSE,RANDOM 183 mg/dL (74-106)
[2021-06-08 14:57] LABS: CO2 40 mmol/L (21-32); MAGNESIUM 2.2 mg/dL (1.8-2.4)
[2021-06-08 14:59] LABS: CREATININE 2.5 mg/dL (0.55-1.3); PHOSPHOROUS 2.8 mg/dL (2.5-4.9); SGOT/AST 18 U/L (15-37); SGPT/ALT 32 U/L (13-61)
[2021-06-08 15:01] LABS: TOT PROT 5.5 g/dl (6.4-8.2)
[2021-06-08 15:02] LABS: ALK PHOS 106 U/L (45-117)
[2021-06-08 15:06] LABS: ANION GAP 9 MMOL/L (8-16); BLOOD UREA NITROGEN 117.9 mg/dL (7-18)
[2021-06-08] MEDS ORDERED: POTASSIUM CHLORIDE TABS 20 MEQ TABLET.ER (FP) PO ONE (17:50)
[2021-06-08] MEDS: ACETAMINOPHEN 325 MG TABLET (FP) PO PRN (21:57)
[2021-06-08] MEDS: MONTELUKAST NA 10 MG TABLET PO SCH (22:00)
[2021-06-08] MEDS: ALPRAZolam 0.25 MG TABLET PO SCH (23:09)
[2021-06-09] MEDS: POTASSIUM CHLORIDE TABS 20 MEQ TABLET.ER (FP) PO SCH ×2 (06:18→13:19)
[2021-06-09] MEDS: TORSEMIDE 100 MG TABLET PO SCH ×2 (06:18→13:19)
[2021-06-09] MEDS: DOCUSATE SODIUM 100 MG CAPSULE (FP) PO SCH ×2 (06:29→13:19)
[2021-06-09 07:49] LABS: CHLORIDE 97 mmol/L (98-107); SODIUM 140 mmol/L (136-145)
[2021-06-09 07:51] LABS: CALCIUM 8.4 mg/dL (8.5-10.1)
[2021-06-09 07:52] LABS: ANION GAP 6 MMOL/L (8-16); CO2 37 mmol/L (21-32); GLUCOSE,RANDOM 107 mg/dL (74-106)
[2021-06-09 07:55] LABS: CREATININE 2.4 mg/dL (0.55-1.3)
[2021-06-09 07:56] LABS: LDH 219 U/L (87-246)
[2021-06-09 08:03] LABS: BLOOD UREA NITROGEN 113.8 mg/dL (7-18)
[2021-06-09] MEDS: metoPROLOL SUCCINATE 25 MG TAB.SR.24H (FP) PO SCH (09:50)
[2021-06-09] MEDS: AMINO ACIDS/PROTEIN HYDROLYS 30 ML LIQUID.PKT PO SCH (10:11)
[2021-06-09] MEDS: TAMSULOSIN HCL 0.4 MG CAP PO SCH (10:11)
[2021-06-09] MEDS: FINASTERIDE 5 MG TABLET (FP) PO SCH (10:11)
[2021-06-09] MEDS: VITAMIN B COMP W-C 1 EA TABLET (NEPHRO-VITE) PO SCH (10:11)
[2021-06-09] MEDS: FLUTICASONE/UMECLIDIN/VILANTER(200-62.5-25 TRELEGY ELLIPTA) INAHLER IH SCH (10:13)
[2021-06-09] MEDS: MINERAL OIL/PET HY-PHL TOPICAL OINTMENT 454 GM JAR TP SCH (10:14)
[2021-06-09] MEDS: CLOTRIMAZOLE 1%TOPICAL SOLUTION 30 ML BOTTLE TP SCH (10:14)
[2021-06-09] MEDS: LIDOCAINE HCL 2% JELLY 10 ML CARTRIDGE TP SCH ×2 (10:15→13:19)
[2021-06-09 13:27] VITALS: BP 96/50; PULSE 80; TEMP 98
[2021-06-10 17:09] LABS: FREE KAPPA,SERUM 95.3 mg/L (3.3-19.4)
== END 2021-06-09 15:09 | disposition home or self-care (01) | DRG 291 ==
LOC: JER 00:57 → JERBED 03:25 → J7W 05-13 01:07 → OBSVTOIN 05-14 09:56 → J4W 06-02 17:15
PROVIDERS: ADMIT Internal Medicine; ATTEND Internal Medicine
DX: I13.0 Hypertensive heart and chronic kidney disease with heart failure and stage 1 through stage 4 chronic kidney disease, or unspecified chronic kidney disease (principal); I50.43 Acute on chronic combined systolic (congestive) and diastolic (congestive) heart failure; I31.3 Pericardial effusion (noninflammatory); N17.9 Acute kidney failure, unspecified; E87.3 Alkalosis; R33.9 Retention of urine, unspecified; I25.10 Atherosclerotic heart disease of native coronary artery without angina pectoris; I48.91 Unspecified atrial fibrillation; Z79.01 Long term (current) use of anticoagulants; N18.9 Chronic kidney disease, unspecified; I27.20 Pulmonary hypertension, unspecified; J44.9 Chronic obstructive pulmonary disease, unspecified; Z95.0 Presence of cardiac pacemaker; F32.A Depression, unspecified; M10.9 Gout, unspecified; E87.6 Hypokalemia; I34.0 Nonrheumatic mitral (valve) insufficiency; E87.5 Hyperkalemia; N40.1 Benign prostatic hyperplasia with lower urinary tract symptoms; N28.1 Cyst of kidney, acquired; J84.10 Pulmonary fibrosis, unspecified; U09.9 Post COVID-19 condition, unspecified; J84.178 Other interstitial pulmonary diseases with fibrosis in diseases classified elsewhere; D69.6 Thrombocytopenia, unspecified; F41.9 Anxiety disorder, unspecified; N48.89 Other specified disorders of penis
CPT/HCPCS: 36415; 71045-TC-FY; 76705-TC; 76775-TC; 76856-TC; 80048; 80053; 81003; 82248; 82607; 82746; 82784; 83010; 83615; 83735; 83883; 84100; 84132; 84155; 84165; 84439; 84443; 85025; 85027; 85384; 85610; 85730; 86038; 86334; 86704; 87040; 87086; 87186; 87340; 88300-TC; 93005; 93010; 94640; 97116-GP; 97161-GP; 99285-25; C9803; G0378; J0131; U0003; U0005

== ENCOUNTER 2021-06-22 07:02 | Inpatient (IN) | payer BC, OTHER ==
[2021-06-22 07:59] VITALS: BMI 20.4
[2021-06-22] MEDS ORDERED: CALCIUM GLUCONATE 10% - 1,000 MG/10 ML VIAL IVPUSH ONE ×3 (08:00→15:51)
[2021-06-22] MEDS ORDERED: ASPIRIN 81 MG CHEWABLE TABLETS PO ONE (08:01)
[2021-06-22] MEDS ORDERED: HEPARIN NA (PORCINE) 5,000 UNITS/ML 1ML VIAL IVPUSH ONE ×2 (08:02→08:16)
[2021-06-22] MEDS ORDERED: SODIUM BICARBONATE 8.4% 50 MEQ/50 ML DISP.SYRIN IVPUSH ONE ×2 (08:03→09:19)
[2021-06-22] MEDS ORDERED: HEPARIN NA (PORCINE) 5,000 UNITS/ML 1ML VIAL IVPUSH PRN (08:05)
[2021-06-22] MEDS ORDERED: SODIUM BICARBONATE 8.4% - 50 ML ONE ×2 (08:10→09:22)
[2021-06-22] MEDS ORDERED: ASPIRIN 81 MG CHEWABLE TABLETS ONE (08:10)
[2021-06-22] MEDS ORDERED: CALCIUM GLUCONATE 10% - 1,000 MG/10 ML VIAL ONE ×2 (08:10→09:21)
[2021-06-22] MEDS ORDERED: ACETAMINOPHEN 1000 MG/100 ML VIAL IVPB ONE (08:11)
[2021-06-22] MEDS ORDERED: RAPID SEQUENCE INTUBATION KIT NR ONE (08:27)
[2021-06-22 08:44] LABS: RBC 3.86 M/mm3 (4.00-5.60); VENOUS BASE EXCESS -8.6 mmol/L (-2-2); VENOUS O2 SATURATION 25.4 % (70-80); VENOUS PCO2 43.9 mmHg (38-52); VENOUS PH 7.241 (7.310-7.410); WHITE BLOOD COUNT 5.7 K/mm3 (4.0-10.0)
[2021-06-22 08:45] LABS: HEMATOCRIT 34.1 % (35.4-49); HEMOGLOBIN 10.5 GM/dL (11.7-16.9); MCH 27.2 pg (25.7-33.7); MCHC 30.8 g/dl (32.0-35.9); MEAN CELL VOLUME 88.2 fl (80-96); MEAN PLT VOLUME 9.6 fl (7.5-11.1); RDW 21.8 % (11.9-15.9)
[2021-06-22] MEDS ORDERED: HEPARIN NA (PORCINE) 5,000 UNITS/ML 1ML VIAL ONE (08:51)
[2021-06-22 08:55] LABS: INR 1.81 (0.83-1.09); PROTHROMBIN TIME (PATIENT) 21.3 SEC (9.7-13.0)
[2021-06-22 08:57] LABS: CHLORIDE 105 mmol/L (98-107); SODIUM 137 mmol/L (136-145)
[2021-06-22 08:58] LABS: ACTIVATED PTT 31.8 SECONDS (25.2-36.5)
[2021-06-22 09:00] LABS: CALCIUM 9.3 mg/dL (8.5-10.1)
[2021-06-22 09:01] LABS: BLOOD UREA NITROGEN 93.5 mg/dL (7-18); CO2 17 mmol/L (21-32); GLUCOSE,RANDOM 87 mg/dL (74-106)
[2021-06-22 09:03] LABS: BILIRUBIN,DIRECT 1.4 mg/dL (0.0-0.2)
[2021-06-22 09:04] LABS: CREATININE 3.4 mg/dL (0.55-1.3); SGOT/AST 28 U/L (15-37); SGPT/ALT 75 U/L (13-61)
[2021-06-22 09:05] LABS: BILIRUBIN,TOTAL 2.4 mg/dL (0.2-1)
[2021-06-22 09:06] LABS: ADD RBC MORPHOLOGY YES; TOT PROT 6.5 g/dl (6.4-8.2)
[2021-06-22 09:07] LABS: ALK PHOS 169 U/L (45-117); LACTIC ACID 7.5 mmol/L (0.4-2.0)
[2021-06-22 09:21] LABS: ANION GAP 14 MMOL/L (8-16); N-TERMINAL BNP > 35000.0 pg/ml (5-125)
[2021-06-22] MEDS ORDERED: DEXTROSE 50%-WATER - 25 GM/50 ML VIAL ONE (09:21)
[2021-06-22] MEDS ORDERED: INSULIN REGULAR HUMAN 100 UNITS/ML *VIAL IVPUSH ONE ×4 (09:21→19:30)
[2021-06-22] MEDS ORDERED: DEXTROSE 50%-WATER - 25 GM/50 ML VIAL IVPUSH ONE ×4 (09:21→19:30)
[2021-06-22] MEDS ORDERED: SODIUM BICARBONATE 8.4% - 150 MEQ in DEXTROSE 5%-WATER - 950 ML IVPB ONE (09:22)
[2021-06-22] MEDS ORDERED: SODIUM CHLORIDE 500 ML IV ONE (10:16)
[2021-06-22] MEDS ORDERED: FUROSEMIDE 40 MG/4 ML INJECTABLE VIAL IVPUSH ONE (10:16)
[2021-06-22] MEDS ORDERED: SODIUM ZIRCONIUM CYCLOSILICATE (LOKELMA) 5 GM PACKET PO SCH ×2 (10:30→22:00)
[2021-06-22 10:36] LABS: ANISOCYTOSIS 1+; MACROCYTOSIS 1+; OVALOCYTE 1+; PLATELET ESTIMATE DECREASED
[2021-06-22] MEDS ORDERED: FUROSEMIDE 40 MG/4 ML INJECTABLE VIAL ONE ×2 (10:36→16:51)
[2021-06-22 10:43] LABS: PLATELET COUNT 12 10^3/uL (134-434)
[2021-06-22] MEDS: SODIUM ZIRCONIUM CYCLOSILICATE (LOKELMA) 5 GM PACKET PO SCH ×3 (10:47→13:58)
[2021-06-22 12:00] LABS: LACTIC ACID 5.4 mmol/L (0.4-2.0)
[2021-06-22 12:01] LABS: CHLORIDE 104 mmol/L (98-107); SODIUM 140 mmol/L (136-145)
[2021-06-22 12:02] LABS: CALCIUM 9.8 mg/dL (8.5-10.1)
[2021-06-22 12:03] LABS: CO2 24 mmol/L (21-32); GLUCOSE,RANDOM 103 mg/dL (74-106)
[2021-06-22 12:06] LABS: CREATININE 3.3 mg/dL (0.55-1.3)
[2021-06-22 12:09] LABS: ANION GAP 12 MMOL/L (8-16)
[2021-06-22] MEDS ORDERED: SODIUM CHLORIDE 500 ML IV STA (13:45)
[2021-06-22] MEDS ORDERED: CALCIUM GLUCONATE 10% - 1,000 MG/10 ML VIAL IVPB ONE (13:45)
[2021-06-22] MEDS ORDERED: DEXTROSE 50%-WATER 25 GM/50 ML DISP.SYRIN ONE ×3 (13:48→22:10)
[2021-06-22 15:11] LABS: INR 2.13 (0.83-1.09); PROTHROMBIN TIME (PATIENT) 25.1 SEC (9.7-13.0)
[2021-06-22 15:14] LABS: ACTIVATED PTT 38.6 SECONDS (25.2-36.5)
[2021-06-22 15:24] LABS: CHLORIDE 101 mmol/L (98-107); SODIUM 137 mmol/L (136-145)
[2021-06-22 15:28] LABS: CALCIUM 9.2 mg/dL (8.5-10.1); CO2 25 mmol/L (21-32)
[2021-06-22 15:29] LABS: BLOOD UREA NITROGEN 90.1 mg/dL (7-18)
[2021-06-22 15:31] LABS: GLUCOSE,RANDOM 214 mg/dL (74-106)
[2021-06-22 15:32] LABS: CREATININE 3.4 mg/dL (0.55-1.3)
[2021-06-22 15:43] LABS: ANION GAP 11 MMOL/L (8-16); LACTIC ACID 5.8 mmol/L (0.4-2.0)
[2021-06-22] MEDS ORDERED: SODIUM CHLORIDE 250 ML IV STA (16:37)
[2021-06-22] MEDS ORDERED: SODIUM ZIRCONIUM CYCLOSILICATE (LOKELMA) 5 GM PACKET PO ONE (16:41)
[2021-06-22] MEDS: SODIUM BICARBONATE 8.4% 50 MEQ/50 ML DISP.SYRIN IVPUSH SCH ×2 (16:59→18:26)
[2021-06-22] MEDS ORDERED: FUROSEMIDE 100 MG/10 ML INJECTABLE VIAL IVPB ONE (17:00)
[2021-06-22] MEDS ORDERED: SODIUM BICARBONATE 8.4% 50 MEQ/50 ML VIAL ONE (18:16)
[2021-06-22 19:47] LABS: CALCIUM 9.5 mg/dL (8.5-10.1)
[2021-06-22 19:48] LABS: BLOOD UREA NITROGEN 94.6 mg/dL (7-18)
[2021-06-22 19:51] LABS: CREATININE 3.3 mg/dL (0.55-1.3)
[2021-06-22] MEDS ORDERED: TORSEMIDE 100 MG TABLET PO SCH (22:00)
[2021-06-22] MEDS: MUPIROCIN 2% TOPICAL OINTMENT FOR DECOLONIZATION NS SCH (22:17)
[2021-06-22] MEDS: MONTELUKAST NA 10 MG TABLET PO SCH (22:17)
[2021-06-22] MEDS: metoPROLOL SUCCINATE 25 MG TAB.SR.24H (FP) PO SCH (22:17)
[2021-06-22] MEDS: TAMSULOSIN HCL 0.4 MG CAP PO SCH (22:17)
[2021-06-22] MEDS: CHLORHEXIDINE GLUCONATE 4% CLEANSER FOR DECOLONIZATION TP SCH (22:18)
[2021-06-23] MEDS: ALPRAZolam 0.25 MG TABLET PO SCH ×2 (00:38→23:03)
[2021-06-23 07:10] LABS: INR 1.93 (0.83-1.09); PROTHROMBIN TIME (PATIENT) 22.7 SEC (9.7-13.0)
[2021-06-23 07:10] LABS: BASO % 0.3 % (0-2.0); EOS % 0.1 % (0-4.5); HEMATOCRIT 23.1 % (35.4-49); HEMOGLOBIN 7.4 GM/dL (11.7-16.9); MCH 27.5 pg (25.7-33.7); MEAN PLT VOLUME 10.9 fl (7.5-11.1); MONO % 16.5 % (3.8-10.2); NEUT % 73.1 % (42.8-82.8); PLATELET COUNT 55 10^3/uL (134-434); RBC 2.69 M/mm3 (4.00-5.60); RDW 20.8 % (11.9-15.9); WHITE BLOOD COUNT 5.2 K/mm3 (4.0-10.0)
[2021-06-23 07:13] LABS: ACTIVATED PTT 31.2 SECONDS (25.2-36.5)
[2021-06-23 07:24] LABS: CALCIUM 8.6 mg/dL (8.5-10.1); MAGNESIUM 2.2 mg/dL (1.8-2.4)
[2021-06-23 07:26] LABS: CREATININE 3.4 mg/dL (0.55-1.3); PHOSPHOROUS 4.8 mg/dL (2.5-4.9)
[2021-06-23 07:28] LABS: BILIRUBIN,TOTAL 1.4 mg/dL (0.2-1); TOT PROT 4.9 g/dl (6.4-8.2)
[2021-06-23 07:30] LABS: ALBUMIN 2.2 g/dl (3.4-5.0)
[2021-06-23] MEDS: TORSEMIDE 100 MG TABLET PO SCH ×2 (07:50→15:30)
[2021-06-23] MEDS: metoPROLOL SUCCINATE 25 MG TAB.SR.24H (FP) PO SCH ×2 (09:15→21:26)
[2021-06-23] MEDS: SODIUM ZIRCONIUM CYCLOSILICATE (LOKELMA) 5 GM PACKET PO SCH (09:18)
[2021-06-23] MEDS ORDERED: FLUTICASONE/UMECLIDIN/VILANTER(200-62.5-25 TRELEGY ELLIPTA) INAHLER IH SCH (10:00)
[2021-06-23] MEDS: MUPIROCIN 2% TOPICAL OINTMENT FOR DECOLONIZATION NS SCH ×2 (15:30→21:26)
[2021-06-23] MEDS: TAMSULOSIN HCL 0.4 MG CAP PO SCH (21:26)
[2021-06-23] MEDS: CHLORHEXIDINE GLUCONATE 4% CLEANSER FOR DECOLONIZATION TP SCH (21:26)
[2021-06-23] MEDS: MONTELUKAST NA 10 MG TABLET PO SCH (21:26)
[2021-06-23 21:35] LABS: HEMOGLOBIN 7.8 GM/dL (11.7-16.9); MCH 26.6 pg (25.7-33.7); MCHC 31.2 g/dl (32.0-35.9); MEAN CELL VOLUME 85.3 fl (80-96); MEAN PLT VOLUME 9.7 fl (7.5-11.1); PLATELET COUNT 58 10^3/uL (134-434); RBC 2.93 M/mm3 (4.00-5.60); WHITE BLOOD COUNT 5.2 K/mm3 (4.0-10.0)
[2021-06-23] MEDS ORDERED: ATORVASTATIN CA 10 MG TABLET (FP) PO SCH (22:00)
[2021-06-23] MEDS: TIOTROPIUM BROMIDE 2.5 MCG (SPIRIVA) RESPIMAT INHALER IH SCH ×2 (22:54→22:55)
[2021-06-23 23:23] LABS: URINE APPEARANCE CLEAR; URINE BILIRUBIN NEGATIVE (NEGATIVE); URINE COLOR YELLOW; URINE GLUCOSE (UA) NEGATIVE (NEGATIVE); URINE KETONE NEGATIVE (NEGATIVE); URINE LEUK ESTERASE NEGATIVE (NEGATIVE); URINE NITRITE NEGATIVE (NEGATIVE); URINE PROTEIN NEGATIVE (NEGATIVE)
[2021-06-24] MEDS: TORSEMIDE 100 MG TABLET PO SCH ×2 (06:58→14:57)
[2021-06-24 07:55] LABS: HEMOGLOBIN 7.3 GM/dL (11.7-16.9); MCH 27.1 pg (25.7-33.7); MCHC 31.5 g/dl (32.0-35.9); MEAN CELL VOLUME 86.1 fl (80-96); MEAN PLT VOLUME 10.3 fl (7.5-11.1); PLATELET COUNT 44 10^3/uL (134-434); RBC 2.68 M/mm3 (4.00-5.60); RDW 21.2 % (11.9-15.9); WHITE BLOOD COUNT 4.2 K/mm3 (4.0-10.0)
[2021-06-24 08:19] LABS: CHLORIDE 98 mmol/L (98-107); SODIUM 139 mmol/L (136-145)
[2021-06-24 08:25] LABS: BLOOD UREA NITROGEN 87.6 mg/dL (7-18); CO2 30 mmol/L (21-32); GLUCOSE,RANDOM 102 mg/dL (74-106)
[2021-06-24 08:28] LABS: CREATININE 3.1 mg/dL (0.55-1.3)
[2021-06-24 09:30] LABS: ANION GAP 12 MMOL/L (8-16)
[2021-06-24] MEDS: TAMSULOSIN HCL 0.4 MG CAP PO SCH (09:53)
[2021-06-24] MEDS ORDERED: PT OWN MED DRAWER 7, Y5N ONE ×3 (09:57→14:54)
[2021-06-24] MEDS ORDERED: MUPIROCIN 2% TOPICAL OINTMENT FOR DECOLONIZATION NS SCH (10:00)
[2021-06-24] MEDS ORDERED: SODIUM ZIRCONIUM CYCLOSILICATE (LOKELMA) 5 GM PACKET PO SCH (10:00)
[2021-06-24] MEDS ORDERED: POTASSIUM CHLORIDE ORAL LIQUID 20 MEQ/15 ML PO ONE (10:45)
[2021-06-24] MEDS: metoPROLOL SUCCINATE 25 MG TAB.SR.24H (FP) PO SCH ×2 (12:00→21:46)
[2021-06-24] MEDS: FLUTICASONE/UMECLIDIN/VILANTER(200-62.5-25 TRELEGY ELLIPTA) INAHLER IH SCH (14:57)
[2021-06-24] MEDS ORDERED: POTASSIUM CHLORIDE TABS 20 MEQ TABLET.ER (FP) PO ONE (16:20)
[2021-06-24 18:58] LABS: CALCIUM 8.2 mg/dL (8.5-10.1); MAGNESIUM 2.2 mg/dL (1.8-2.4)
[2021-06-24 18:59] LABS: BLOOD UREA NITROGEN 82.9 mg/dL (7-18)
[2021-06-24 19:02] LABS: CREATININE 3.1 mg/dL (0.55-1.3); PHOSPHOROUS 4.6 mg/dL (2.5-4.9)
[2021-06-24] MEDS: ATORVASTATIN CA 10 MG TABLET (FP) PO SCH (21:46)
[2021-06-24] MEDS: MONTELUKAST NA 10 MG TABLET PO SCH (21:46)
[2021-06-24] MEDS: ALPRAZolam 0.25 MG TABLET PO SCH (21:47)
[2021-06-24] MEDS ORDERED: CHLORHEXIDINE GLUCONATE 4% CLEANSER FOR DECOLONIZATION TP SCH (22:00)
[2021-06-25] MEDS: TORSEMIDE 100 MG TABLET PO SCH ×2 (06:30→13:08)
[2021-06-25 07:42] LABS: HEMATOCRIT 24.5 % (35.4-49); HEMOGLOBIN 7.6 GM/dL (11.7-16.9); MCH 26.8 pg (25.7-33.7); MCHC 31.1 g/dl (32.0-35.9); MEAN PLT VOLUME 9.9 fl (7.5-11.1); RBC 2.85 M/mm3 (4.00-5.60); RDW 21.3 % (11.9-15.9)
[2021-06-25 08:12] LABS: ALBUMIN 2.3 g/dl (3.4-5.0); BLOOD UREA NITROGEN 81.4 mg/dL (7-18); CALCIUM 7.6 mg/dL (8.5-10.1)
[2021-06-25 08:14] LABS: CREATININE 2.5 mg/dL (0.55-1.3)
[2021-06-25 08:16] LABS: BILIRUBIN,TOTAL 0.9 mg/dL (0.2-1)
[2021-06-25] MEDS: metoPROLOL SUCCINATE 25 MG TAB.SR.24H (FP) PO SCH ×2 (09:18→22:58)
[2021-06-25] MEDS: FLUTICASONE/UMECLIDIN/VILANTER(200-62.5-25 TRELEGY ELLIPTA) INAHLER IH SCH (09:18)
[2021-06-25] MEDS: TAMSULOSIN HCL 0.4 MG CAP PO SCH (09:18)
[2021-06-25] MEDS ORDERED: POTASSIUM CHLORIDE ORAL LIQUID 20 MEQ/15 ML PO ONE ×2 (09:19→15:46)
[2021-06-25] MEDS: POTASSIUM CHLORIDE TABS 20 MEQ TABLET.ER (FP) PO SCH ×2 (09:55→22:58)
[2021-06-25 10:29] LABS: PLATELET COUNT 35 10^3/uL (134-434)
[2021-06-25 10:42] LABS: MAGNESIUM 2.1 mg/dL (1.8-2.4)
[2021-06-25] MEDS: ALBUTEROL SO4 HFA INHALER IH PRN (18:49)
[2021-06-25 21:20] LABS: CALCIUM 7.4 mg/dL (8.5-10.1)
[2021-06-25 21:21] LABS: BLOOD UREA NITROGEN 81.1 mg/dL (7-18)
[2021-06-25 21:24] LABS: CREATININE 2.9 mg/dL (0.55-1.3)
[2021-06-25] MEDS: MONTELUKAST NA 10 MG TABLET PO SCH (22:56)
[2021-06-25] MEDS: ATORVASTATIN CA 10 MG TABLET (FP) PO SCH (22:56)
[2021-06-25] MEDS: ALPRAZolam 0.25 MG TABLET PO SCH (22:58)
[2021-06-26] MEDS: TORSEMIDE 100 MG TABLET PO SCH ×2 (05:45→13:42)
[2021-06-26] MEDS: ALBUTEROL SO4 HFA INHALER IH PRN (05:46)
[2021-06-26 08:18] LABS: HEMATOCRIT 25.7 % (35.4-49); HEMOGLOBIN 8.1 GM/dL (11.7-16.9); MCHC 31.4 g/dl (32.0-35.9); MEAN PLT VOLUME 8.4 fl (7.5-11.1); RBC 2.98 M/mm3 (4.00-5.60); WHITE BLOOD COUNT 4.8 K/mm3 (4.0-10.0)
[2021-06-26 08:44] LABS: CALCIUM 7.4 mg/dL (8.5-10.1)
[2021-06-26 08:45] LABS: ALBUMIN 2.4 g/dl (3.4-5.0); BLOOD UREA NITROGEN 82.1 mg/dL (7-18); CREATININE 2.6 mg/dL (0.55-1.3)
[2021-06-26 08:47] LABS: BILIRUBIN,TOTAL 0.9 mg/dL (0.2-1); TOT PROT 5.5 g/dl (6.4-8.2)
[2021-06-26 08:59] LABS: PLATELET COUNT 17 10^3/uL (134-434)
[2021-06-26] MEDS ORDERED: PT OWN MED DRAWER 7, Y5N ONE (09:14)
[2021-06-26] MEDS: FLUTICASONE/UMECLIDIN/VILANTER(200-62.5-25 TRELEGY ELLIPTA) INAHLER IH SCH (09:19)
[2021-06-26] MEDS: TAMSULOSIN HCL 0.4 MG CAP PO SCH (09:19)
[2021-06-26] MEDS: metoPROLOL SUCCINATE 25 MG TAB.SR.24H (FP) PO SCH ×2 (09:19→22:59)
[2021-06-26] MEDS: POTASSIUM CHLORIDE TABS 20 MEQ TABLET.ER (FP) PO SCH ×2 (09:19→22:59)
[2021-06-26] MEDS ORDERED: DOCUSATE SODIUM 100 MG CAPSULE (FP) PO ONE (11:00)
[2021-06-26] MEDS ORDERED: ACETAMINOPHEN 1000 MG/100 ML VIAL IVPB ONE (16:43)
[2021-06-26] MEDS: MONTELUKAST NA 10 MG TABLET PO SCH (22:59)
[2021-06-26] MEDS: ATORVASTATIN CA 10 MG TABLET (FP) PO SCH (22:59)
[2021-06-26] MEDS: ALPRAZolam 0.25 MG TABLET PO SCH (23:00)
[2021-06-27] MEDS ORDERED: ACETAMINOPHEN 1000 MG/100 ML VIAL IVPB ONE (04:00)
[2021-06-27] MEDS: TORSEMIDE 100 MG TABLET PO SCH ×2 (06:42→14:38)
[2021-06-27 07:47] LABS: HEMATOCRIT 27.7 % (35.4-49); HEMOGLOBIN 8.7 GM/dL (11.7-16.9); MCHC 31.3 g/dl (32.0-35.9); MEAN CELL VOLUME 86.4 fl (80-96); MEAN PLT VOLUME 6.5 fl (7.5-11.1); WHITE BLOOD COUNT 6.8 K/mm3 (4.0-10.0)
[2021-06-27 07:54] LABS: PLATELET COUNT 15 10^3/uL (134-434)
[2021-06-27 08:37] LABS: CALCIUM 8.3 mg/dL (8.5-10.1)
[2021-06-27 08:38] LABS: ALBUMIN 2.8 g/dl (3.4-5.0)
[2021-06-27 08:41] LABS: CREATININE 2.7 mg/dL (0.55-1.3)
[2021-06-27 08:43] LABS: BILIRUBIN,TOTAL 2.1 mg/dL (0.2-1); TOT PROT 5.9 g/dl (6.4-8.2)
[2021-06-27] MEDS: TAMSULOSIN HCL 0.4 MG CAP PO SCH (08:46)
[2021-06-27] MEDS: FLUTICASONE/UMECLIDIN/VILANTER(200-62.5-25 TRELEGY ELLIPTA) INAHLER IH SCH (09:46)
[2021-06-27] MEDS: metoPROLOL SUCCINATE 25 MG TAB.SR.24H (FP) PO SCH ×2 (09:46→21:35)
[2021-06-27] MEDS: POTASSIUM CHLORIDE TABS 20 MEQ TABLET.ER (FP) PO SCH ×2 (09:46→21:36)
[2021-06-27] MEDS: LEVALBUTEROL HCL 0.31 MG/3 ML VIAL.NEB IH PRN (20:33)
[2021-06-27] MEDS: MONTELUKAST NA 10 MG TABLET PO SCH (21:35)
[2021-06-27] MEDS: ATORVASTATIN CA 10 MG TABLET (FP) PO SCH (21:36)
[2021-06-27] MEDS: ALPRAZolam 0.25 MG TABLET PO SCH (23:00)
[2021-06-27] MEDS ORDERED: PROCHLORPERAZINE INJECTION 10 MG/2 ML VIAL IVPB ONE (23:20)
[2021-06-27] MEDS ORDERED: ONDANSETRON *ODT* 4 MG TABLET SL ONE (23:21)
[2021-06-28] MEDS: LEVALBUTEROL HCL 0.31 MG/3 ML VIAL.NEB IH PRN ×2 (04:06→20:42)
[2021-06-28] MEDS: TORSEMIDE 100 MG TABLET PO SCH ×2 (06:28→13:34)
[2021-06-28 08:00] LABS: HEMATOCRIT 27.7 % (35.4-49); HEMOGLOBIN 8.5 GM/dL (11.7-16.9); MCH 26.1 pg (25.7-33.7); MCHC 30.7 g/dl (32.0-35.9); MEAN CELL VOLUME 85.1 fl (80-96); RBC 3.26 M/mm3 (4.00-5.60)
[2021-06-28 08:13] LABS: PLATELET COUNT 15 10^3/uL (134-434)
[2021-06-28 08:33] LABS: CHLORIDE 103 mmol/L (98-107); SODIUM 136 mmol/L (136-145)
[2021-06-28 08:38] LABS: URIC ACID 12.1 mg/dL (2.6-7.2)
[2021-06-28 08:39] LABS: BLOOD UREA NITROGEN 93.7 mg/dL (7-18); CALCIUM 8.2 mg/dL (8.5-10.1); CO2 22 mmol/L (21-32); GLUCOSE,RANDOM 65 mg/dL (74-106); MAGNESIUM 2.4 mg/dL (1.8-2.4)
[2021-06-28 08:40] LABS: ALBUMIN 2.5 g/dl (3.4-5.0)
[2021-06-28 08:42] LABS: PHOSPHOROUS 4.3 mg/dL (2.5-4.9); SGPT/ALT 76 U/L (13-61)
[2021-06-28 08:43] LABS: SGOT/AST 54 U/L (15-37)
[2021-06-28 08:44] LABS: BILIRUBIN,TOTAL 3.6 mg/dL (0.2-1); TOT PROT 5.6 g/dl (6.4-8.2)
[2021-06-28 08:53] LABS: ALK PHOS 251 U/L (45-117); ANION GAP 12 MMOL/L (8-16); URIC ACID 13.2 mg/dL (2.6-7.2)
[2021-06-28] MEDS ORDERED: PT OWN MED DRAWER 7, Y5N ONE (10:28)
[2021-06-28] MEDS: FLUTICASONE/UMECLIDIN/VILANTER(200-62.5-25 TRELEGY ELLIPTA) INAHLER IH SCH (10:30)
[2021-06-28] MEDS: metoPROLOL SUCCINATE 25 MG TAB.SR.24H (FP) PO SCH ×2 (10:31→21:48)
[2021-06-28] MEDS: TAMSULOSIN HCL 0.4 MG CAP PO SCH (10:31)
[2021-06-28 10:49] LABS: INR 1.87 (0.83-1.09)
[2021-06-28] MEDS ORDERED: SODIUM ZIRCONIUM CYCLOSILICATE (LOKELMA) 10 GM PACKET PO SCH (12:00)
[2021-06-28 13:52] LABS: BLOOD UREA NITROGEN 92.5 mg/dL (7-18); CALCIUM 8.2 mg/dL (8.5-10.1); CREATININE 3.2 mg/dL (0.55-1.3)
[2021-06-28] MEDS ORDERED: ALLOPURINOL 100 MG TABLET (FP) PO SCH (14:00)
[2021-06-28] MEDS ORDERED: CALCIUM GLUCONATE IN NACL 1 GM/50 ML BAG IVPB ONE (14:15)
[2021-06-28] MEDS ORDERED: ALBUTEROL SO4 0.083% IH SOL 2.5 MG/3 ML VIAL.NEB. NEB ONE ×2 (14:15→15:15)
[2021-06-28] MEDS ORDERED: DEXTROSE 50%-WATER 25 GM/50 ML DISP.SYRIN IVPUSH ONE ×2 (14:30→15:15)
[2021-06-28] MEDS ORDERED: INSULIN REGULAR HUMAN 100 UNITS/ML *VIAL IVPUSH ONE (14:30)
[2021-06-28] MEDS ORDERED: DEXTROSE 50%-WATER 25 GM/50 ML DISP.SYRIN ONE (15:10)
[2021-06-28] MEDS: predniSONE 20 MG TABLET (UD) PO SCH (15:15)
[2021-06-28 21:18] LABS: CALCIUM 8.5 mg/dL (8.5-10.1)
[2021-06-28 21:19] LABS: BLOOD UREA NITROGEN 98.4 mg/dL (7-18)
[2021-06-28 21:22] LABS: CREATININE 3.3 mg/dL (0.55-1.3)
[2021-06-28] MEDS: MONTELUKAST NA 10 MG TABLET PO SCH (21:48)
[2021-06-28] MEDS: DOCUSATE SODIUM 100 MG CAPSULE (FP) PO SCH (21:48)
[2021-06-28] MEDS: ATORVASTATIN CA 10 MG TABLET (FP) PO SCH (21:48)
[2021-06-28] MEDS: ALPRAZolam 0.25 MG TABLET PO SCH (22:58)
[2021-06-29] MEDS: DOCUSATE SODIUM 100 MG CAPSULE (FP) PO SCH ×3 (06:32→21:27)
[2021-06-29] MEDS: TORSEMIDE 100 MG TABLET PO SCH ×2 (06:32→13:41)
[2021-06-29 08:51] LABS: HEMATOCRIT 26.9 % (35.4-49); HEMOGLOBIN 8.3 GM/dL (11.7-16.9); MCH 26.3 pg (25.7-33.7); MEAN CELL VOLUME 84.7 fl (80-96); MEAN PLT VOLUME 10.4 fl (7.5-11.1); RBC 3.17 M/mm3 (4.00-5.60); RDW 20.7 % (11.9-15.9); WHITE BLOOD COUNT 3.3 K/mm3 (4.0-10.0)
[2021-06-29 08:58] LABS: PLATELET COUNT 19 10^3/uL (134-434)
[2021-06-29 09:06] LABS: ALBUMIN 2.5 g/dl (3.4-5.0); BLOOD UREA NITROGEN 101.1 mg/dL (7-18); CALCIUM 8.1 mg/dL (8.5-10.1); MAGNESIUM 2.6 mg/dL (1.8-2.4)
[2021-06-29 09:09] LABS: CREATININE 3.5 mg/dL (0.55-1.3); PHOSPHOROUS 5.3 mg/dL (2.5-4.9)
[2021-06-29 09:11] LABS: BILIRUBIN,TOTAL 2.2 mg/dL (0.2-1); TOT PROT 5.3 g/dl (6.4-8.2)
[2021-06-29] MEDS: predniSONE 20 MG TABLET (UD) PO SCH (10:11)
[2021-06-29] MEDS: TAMSULOSIN HCL 0.4 MG CAP PO SCH (10:11)
[2021-06-29] MEDS: metoPROLOL SUCCINATE 25 MG TAB.SR.24H (FP) PO SCH ×2 (10:11→21:27)
[2021-06-29] MEDS: FLUTICASONE/UMECLIDIN/VILANTER(200-62.5-25 TRELEGY ELLIPTA) INAHLER IH SCH (10:14)
[2021-06-29] MEDS ORDERED: SODIUM ZIRCONIUM CYCLOSILICATE (LOKELMA) 10 GM PACKET PO ONE (14:00)
[2021-06-29] MEDS: ATORVASTATIN CA 10 MG TABLET (FP) PO SCH (21:27)
[2021-06-29] MEDS: MONTELUKAST NA 10 MG TABLET PO SCH (21:27)
[2021-06-29] MEDS ORDERED: SODIUM ZIRCONIUM CYCLOSILICATE (LOKELMA) 5 GM PACKET PO ONE (22:26)
[2021-06-29] MEDS: ALPRAZolam 0.25 MG TABLET PO SCH (23:03)
[2021-06-30] MEDS: DOCUSATE SODIUM 100 MG CAPSULE (FP) PO SCH ×3 (06:31→21:30)
[2021-06-30] MEDS: TORSEMIDE 100 MG TABLET PO SCH ×2 (06:31→13:50)
[2021-06-30 08:34] LABS: HEMATOCRIT 29.2 % (35.4-49); MCH 26.6 pg (25.7-33.7); MEAN CELL VOLUME 85.9 fl (80-96); MEAN PLT VOLUME 7.8 fl (7.5-11.1); RBC 3.39 M/mm3 (4.00-5.60); RDW 21.5 % (11.9-15.9); WHITE BLOOD COUNT 5.1 K/mm3 (4.0-10.0)
[2021-06-30 08:42] LABS: PLATELET COUNT 9 10^3/uL (134-434)
[2021-06-30] MEDS ORDERED: GLYCERIN 1 RECTAL SUPPOSITORY, ADULT RC ONE (08:45)
[2021-06-30 09:20] LABS: CALCIUM 8.3 mg/dL (8.5-10.1)
[2021-06-30 09:21] LABS: BLOOD UREA NITROGEN 103.6 mg/dL (7-18); MAGNESIUM 2.7 mg/dL (1.8-2.4)
[2021-06-30 09:24] LABS: PHOSPHOROUS 5.8 mg/dL (2.5-4.9)
[2021-06-30] MEDS: predniSONE 20 MG TABLET (UD) PO SCH (09:47)
[2021-06-30] MEDS: TAMSULOSIN HCL 0.4 MG CAP PO SCH (09:47)
[2021-06-30] MEDS: metoPROLOL SUCCINATE 25 MG TAB.SR.24H (FP) PO SCH ×2 (09:48→21:29)
[2021-06-30] MEDS: FLUTICASONE/UMECLIDIN/VILANTER(200-62.5-25 TRELEGY ELLIPTA) INAHLER IH SCH (09:48)
[2021-06-30 10:56] LABS: ANISOCYTOSIS 0; HELMET CELLS 0; HOWELL-JOLLY BODIES 0; MACROCYTOSIS 0; OVALOCYTE 0; PLATELET ESTIMATE DECREASED; ROULEAU 0; SICKELED CELLS 0; TARGET CELLS 0; TEAR DROP CELLS 0; TOXIC GRANULATION 0
[2021-06-30] MEDS ORDERED: SODIUM ZIRCONIUM CYCLOSILICATE (LOKELMA) 5 GM PACKET PO ONE (11:35)
[2021-06-30] MEDS ORDERED: PT OWN MED DRAWER 7, Y5N ONE ×3 (11:51→13:48)
[2021-06-30] MEDS: MILRINONE 20MG/100ML IVPB - 20,000 MCG/100 ML ML IVPB SCH (19:42)
[2021-06-30 21:24] LABS: INR 1.47 (0.83-1.09); PROTHROMBIN TIME (PATIENT) 17.3 SEC (9.7-13.0)
[2021-06-30 21:26] LABS: ACTIVATED PTT 27.5 SECONDS (25.2-36.5)
[2021-06-30] MEDS: ATORVASTATIN CA 10 MG TABLET (FP) PO SCH (21:29)
[2021-06-30] MEDS: MONTELUKAST NA 10 MG TABLET PO SCH (21:29)
[2021-06-30] MEDS ORDERED: ACETAMINOPHEN 325 MG TABLET (FP) PO ONE (21:38)
[2021-06-30] MEDS: ALPRAZolam 0.25 MG TABLET PO SCH (23:15)
[2021-06-30] MEDS ORDERED: HYDROCORTISONE 0.5% TOPICAL CREAM 30 GM TUBE TP ONE (23:28)
[2021-07-01] MEDS: TORSEMIDE 100 MG TABLET PO SCH ×2 (05:23→16:25)
[2021-07-01] MEDS: DOCUSATE SODIUM 100 MG CAPSULE (FP) PO SCH ×3 (05:23→23:02)
[2021-07-01 07:14] LABS: BASO % 0.1 % (0-2.0); HEMATOCRIT 24.5 % (35.4-49); HEMOGLOBIN 7.6 GM/dL (11.7-16.9); LYMPH % 6.3 % (8-40); MCH 25.7 pg (25.7-33.7); MCHC 30.9 g/dl (32.0-35.9); MEAN CELL VOLUME 83.4 fl (80-96); MONO % 19.3 % (3.8-10.2); NEUT % 74.3 % (42.8-82.8); RBC 2.94 M/mm3 (4.00-5.60); RDW 21.3 % (11.9-15.9)
[2021-07-01 07:26] LABS: CHLORIDE 100 mmol/L (98-107); PLATELET COUNT 17 10^3/uL (134-434); SODIUM 137 mmol/L (136-145)
[2021-07-01 07:28] LABS: MEAN PLT VOLUME 8.4 fl (7.5-11.1)
[2021-07-01 07:31] LABS: ANION GAP 11 MMOL/L (8-16); CALCIUM 7.6 mg/dL (8.5-10.1); CO2 26 mmol/L (21-32); GLUCOSE,RANDOM 184 mg/dL (74-106)
[2021-07-01 07:33] LABS: MAGNESIUM 2.4 mg/dL (1.8-2.4)
[2021-07-01 07:34] LABS: CREATININE 4.1 mg/dL (0.55-1.3); PHOSPHOROUS 5.7 mg/dL (2.5-4.9)
[2021-07-01 07:46] LABS: BLOOD UREA NITROGEN 114.8 mg/dL (7-18)
[2021-07-01 09:11] LABS: ALBUMIN 2.4 g/dl (3.4-5.0)
[2021-07-01 09:14] LABS: BILIRUBIN,DIRECT 1.3 mg/dL (0.0-0.2); SGOT/AST 27 U/L (15-37); SGPT/ALT 64 U/L (13-61)
[2021-07-01 09:16] LABS: BILIRUBIN,TOTAL 1.7 mg/dL (0.2-1); TOT PROT 5.2 g/dl (6.4-8.2)
[2021-07-01 09:17] LABS: ALK PHOS 239 U/L (45-117)
[2021-07-01] MEDS: predniSONE 20 MG TABLET (UD) PO SCH (09:59)
[2021-07-01] MEDS: metoPROLOL SUCCINATE 25 MG TAB.SR.24H (FP) PO SCH ×2 (10:01→21:20)
[2021-07-01] MEDS: TAMSULOSIN HCL 0.4 MG CAP PO SCH (10:02)
[2021-07-01] MEDS: FLUTICASONE/UMECLIDIN/VILANTER(200-62.5-25 TRELEGY ELLIPTA) INAHLER IH SCH (10:02)
[2021-07-01] MEDS ORDERED: FUROSEMIDE 40 MG/4 ML INJECTABLE VIAL IVPUSH ONE (15:42)
[2021-07-01 16:42] LABS: HEMATOCRIT 25.3 % (35.4-49); HEMOGLOBIN 7.8 GM/dL (11.7-16.9); MCH 25.8 pg (25.7-33.7); MCHC 30.8 g/dl (32.0-35.9); MEAN CELL VOLUME 83.7 fl (80-96); MEAN PLT VOLUME 9.9 fl (7.5-11.1); RBC 3.02 M/mm3 (4.00-5.60); RDW 20.9 % (11.9-15.9); WHITE BLOOD COUNT 5.1 K/mm3 (4.0-10.0)
[2021-07-01 16:53] LABS: PLATELET COUNT 34 10^3/uL (134-434)
[2021-07-01] MEDS: MONTELUKAST NA 10 MG TABLET PO SCH (21:20)
[2021-07-01] MEDS: ATORVASTATIN CA 10 MG TABLET (FP) PO SCH (21:25)
[2021-07-02] MEDS: PANTOPRAZOLE 20 MG TABLET PO SCH ×2 (01:31→10:43)
[2021-07-02] MEDS: TORSEMIDE 100 MG TABLET PO SCH ×2 (05:42→13:07)
[2021-07-02] MEDS: DOCUSATE SODIUM 100 MG CAPSULE (FP) PO SCH ×3 (05:42→21:50)
[2021-07-02 08:23] LABS: BASO % 0.2 % (0-2.0); HEMATOCRIT 26.4 % (35.4-49); HEMOGLOBIN 8.5 GM/dL (11.7-16.9); LYMPH % 5.1 % (8-40); MCH 26.9 pg (25.7-33.7); MCHC 32.1 g/dl (32.0-35.9); MEAN PLT VOLUME 9.4 fl (7.5-11.1); MONO % 17.5 % (3.8-10.2); NEUT % 77.2 % (42.8-82.8); RBC 3.14 M/mm3 (4.00-5.60); RDW 20.3 % (11.9-15.9)
[2021-07-02 08:38] LABS: CHLORIDE 98 mmol/L (98-107); SODIUM 136 mmol/L (136-145)
[2021-07-02 08:43] LABS: ALBUMIN 2.4 g/dl (3.4-5.0); ANION GAP 13 MMOL/L (8-16); CALCIUM 7.6 mg/dL (8.5-10.1); CO2 25 mmol/L (21-32); GLUCOSE,RANDOM 181 mg/dL (74-106); MAGNESIUM 2.6 mg/dL (1.8-2.4)
[2021-07-02] MEDS: TAMSULOSIN HCL 0.4 MG CAP PO SCH (08:44)
[2021-07-02 08:45] LABS: CREATININE 4.1 mg/dL (0.55-1.3); SGOT/AST 26 U/L (15-37); SGPT/ALT 60 U/L (13-61)
[2021-07-02 08:47] LABS: BILIRUBIN,TOTAL 1.6 mg/dL (0.2-1); PHOSPHOROUS 5.3 mg/dL (2.5-4.9)
[2021-07-02 08:48] LABS: TOT PROT 5.4 g/dl (6.4-8.2)
[2021-07-02 08:49] LABS: ALK PHOS 248 U/L (45-117)
[2021-07-02 09:04] LABS: PLATELET COUNT 19 10^3/uL (134-434)
[2021-07-02 09:10] LABS: BLOOD UREA NITROGEN 113.8 mg/dL (7-18)
[2021-07-02] MEDS: predniSONE 20 MG TABLET (UD) PO SCH (10:43)
[2021-07-02] MEDS: metoPROLOL SUCCINATE 25 MG TAB.SR.24H (FP) PO SCH ×2 (10:43→21:50)
[2021-07-02] MEDS: FLUTICASONE/UMECLIDIN/VILANTER(200-62.5-25 TRELEGY ELLIPTA) INAHLER IH SCH (13:09)
[2021-07-02] MEDS: ACETAMINOPHEN 325 MG TABLET (FP) PO PRN (17:18)
[2021-07-02] MEDS: ATORVASTATIN CA 10 MG TABLET (FP) PO SCH (21:50)
[2021-07-02] MEDS: MONTELUKAST NA 10 MG TABLET PO SCH (21:50)
[2021-07-03] MEDS: ALPRAZolam 0.25 MG TABLET PO SCH ×3 (00:11→23:12)
[2021-07-03] MEDS: ACETAMINOPHEN 325 MG TABLET (FP) PO PRN ×2 (01:46→21:35)
[2021-07-03] MEDS: DOCUSATE SODIUM 100 MG CAPSULE (FP) PO SCH ×3 (06:39→21:38)
[2021-07-03] MEDS: TORSEMIDE 100 MG TABLET PO SCH ×2 (06:40→14:19)
[2021-07-03 07:15] LABS: CHLORIDE 98 mmol/L (98-107); HEMATOCRIT 25.4 % (35.4-49); HEMOGLOBIN 7.9 GM/dL (11.7-16.9); MCH 26.2 pg (25.7-33.7); MCHC 31.2 g/dl (32.0-35.9); MEAN CELL VOLUME 84.1 fl (80-96); MEAN PLT VOLUME 9.8 fl (7.5-11.1); RBC 3.02 M/mm3 (4.00-5.60); RDW 19.9 % (11.9-15.9); SODIUM 138 mmol/L (136-145); WHITE BLOOD COUNT 4.8 K/mm3 (4.0-10.0)
[2021-07-03 07:17] LABS: CALCIUM 7.1 mg/dL (8.5-10.1)
[2021-07-03 07:18] LABS: ALBUMIN 2.5 g/dl (3.4-5.0); ANION GAP 12 MMOL/L (8-16); CO2 28 mmol/L (21-32); GLUCOSE,RANDOM 253 mg/dL (74-106)
[2021-07-03 07:21] LABS: CREATININE 3.6 mg/dL (0.55-1.3); SGOT/AST 19 U/L (15-37); SGPT/ALT 55 U/L (13-61)
[2021-07-03 07:23] LABS: BILIRUBIN,TOTAL 1.3 mg/dL (0.2-1); TOT PROT 5.2 g/dl (6.4-8.2)
[2021-07-03 07:24] LABS: ALK PHOS 246 U/L (45-117)
[2021-07-03 07:25] LABS: BLOOD UREA NITROGEN 121.6 mg/dL (7-18)
[2021-07-03] MEDS ORDERED: POTASSIUM CHLORIDE TABS 20 MEQ TABLET.ER (FP) PO ONE ×2 (08:03→15:00)
[2021-07-03] MEDS ORDERED: FUROSEMIDE 40 MG/4 ML INJECTABLE VIAL IVPUSH ONE (08:07)
[2021-07-03] MEDS: TAMSULOSIN HCL 0.4 MG CAP PO SCH (09:35)
[2021-07-03] MEDS: FLUTICASONE/UMECLIDIN/VILANTER(200-62.5-25 TRELEGY ELLIPTA) INAHLER IH SCH (09:35)
[2021-07-03] MEDS: PANTOPRAZOLE 20 MG TABLET PO SCH (09:35)
[2021-07-03] MEDS: metoPROLOL SUCCINATE 25 MG TAB.SR.24H (FP) PO SCH ×2 (09:35→21:37)
[2021-07-03 12:37] LABS: PLATELET COUNT 20 10^3/uL (134-434)
[2021-07-03] MEDS ORDERED: SIMETHICONE 80 MG TAB.CHEW (FP) PO ONE (18:00)
[2021-07-03] MEDS: ATORVASTATIN CA 10 MG TABLET (FP) PO SCH (21:37)
[2021-07-03] MEDS: MONTELUKAST NA 10 MG TABLET PO SCH (21:37)
[2021-07-04] MEDS: MILRINONE 20MG/100ML IVPB - 20,000 MCG/100 ML ML IVPB SCH (05:25)
[2021-07-04] MEDS: DOCUSATE SODIUM 100 MG CAPSULE (FP) PO SCH ×3 (05:27→21:54)
[2021-07-04] MEDS: TORSEMIDE 100 MG TABLET PO SCH ×2 (05:27→13:17)
[2021-07-04 08:19] LABS: HEMATOCRIT 30.4 % (35.4-49); HEMOGLOBIN 9.7 GM/dL (11.7-16.9); MCH 26.8 pg (25.7-33.7); MCHC 31.9 g/dl (32.0-35.9); MEAN PLT VOLUME 9.5 fl (7.5-11.1); RBC 3.61 M/mm3 (4.00-5.60); RDW 19.1 % (11.9-15.9); WHITE BLOOD COUNT 8.6 K/mm3 (4.0-10.0)
[2021-07-04 08:36] LABS: CHLORIDE 104 mmol/L (98-107); SODIUM 143 mmol/L (136-145)
[2021-07-04 08:40] LABS: ALBUMIN 2.6 g/dl (3.4-5.0); CALCIUM 7.2 mg/dL (8.5-10.1)
[2021-07-04 08:41] LABS: ANION GAP 11 MMOL/L (8-16); CO2 28 mmol/L (21-32); GLUCOSE,RANDOM 96 mg/dL (74-106)
[2021-07-04 08:43] LABS: CREATININE 3.4 mg/dL (0.55-1.3); SGOT/AST 38 U/L (15-37); SGPT/ALT 67 U/L (13-61)
[2021-07-04 08:46] LABS: BILIRUBIN,TOTAL 1.7 mg/dL (0.2-1); TOT PROT 5.6 g/dl (6.4-8.2)
[2021-07-04 08:47] LABS: ALK PHOS 228 U/L (45-117)
[2021-07-04 08:49] LABS: BLOOD UREA NITROGEN 107.2 mg/dL (7-18)
[2021-07-04] MEDS: metoPROLOL SUCCINATE 25 MG TAB.SR.24H (FP) PO SCH ×2 (09:34→21:55)
[2021-07-04] MEDS: PANTOPRAZOLE 20 MG TABLET PO SCH (09:34)
[2021-07-04] MEDS: TAMSULOSIN HCL 0.4 MG CAP PO SCH (09:34)
[2021-07-04] MEDS: FLUTICASONE/UMECLIDIN/VILANTER(200-62.5-25 TRELEGY ELLIPTA) INAHLER IH SCH (09:34)
[2021-07-04 11:25] LABS: PLATELET COUNT 18 10^3/uL (134-434)
[2021-07-04] MEDS ORDERED: POTASSIUM CHLORIDE TABS 20 MEQ TABLET.ER (FP) PO ONE ×2 (14:27→19:00)
[2021-07-04] MEDS ORDERED: MAG HYDROX/AL HYDROX/SIMETH 30 ML UNIT-DOSE CUP PO ONE (17:40)
[2021-07-04] MEDS: MONTELUKAST NA 10 MG TABLET PO SCH (21:54)
[2021-07-04] MEDS: ATORVASTATIN CA 10 MG TABLET (FP) PO SCH (21:55)
[2021-07-04] MEDS: ALPRAZolam 0.25 MG TABLET PO SCH (23:08)
[2021-07-05] MEDS: DOCUSATE SODIUM 100 MG CAPSULE (FP) PO SCH ×3 (06:18→21:35)
[2021-07-05] MEDS: TORSEMIDE 100 MG TABLET PO SCH ×2 (06:18→13:30)
[2021-07-05 07:33] LABS: BASO % 0.1 % (0-2.0); EOS % 0.3 % (0-4.5); HEMATOCRIT 32.4 % (35.4-49); HEMOGLOBIN 10.4 GM/dL (11.7-16.9); LYMPH % 5.7 % (8-40); MCH 27.3 pg (25.7-33.7); MEAN CELL VOLUME 85.3 fl (80-96); MEAN PLT VOLUME 12.3 fl (7.5-11.1); NEUT % 81.9 % (42.8-82.8); RDW 19.3 % (11.9-15.9); WHITE BLOOD COUNT 10.3 K/mm3 (4.0-10.0)
[2021-07-05 07:38] LABS: PLATELET COUNT 15 10^3/uL (134-434)
[2021-07-05 07:45] LABS: CALCIUM 7.3 mg/dL (8.5-10.1)
[2021-07-05 07:47] LABS: ALBUMIN 2.6 g/dl (3.4-5.0); BLOOD UREA NITROGEN 98.3 mg/dL (7-18); MAGNESIUM 2.2 mg/dL (1.8-2.4)
[2021-07-05 07:49] LABS: CREATININE 2.9 mg/dL (0.55-1.3); PHOSPHOROUS 2.8 mg/dL (2.5-4.9)
[2021-07-05 07:50] LABS: BILIRUBIN,TOTAL 1.9 mg/dL (0.2-1); TOT PROT 5.6 g/dl (6.4-8.2)
[2021-07-05] MEDS ORDERED: ALBUTEROL SO4 0.083% IH SOL 2.5 MG/3 ML VIAL.NEB. NEB ONE (09:00)
[2021-07-05] MEDS ORDERED: ALBUTEROL SO4 0.5 % INH SOLN 2.5 MG/0.5 ML VIAL.NEB. NEB PRN (09:26)
[2021-07-05] MEDS: TAMSULOSIN HCL 0.4 MG CAP PO SCH (09:57)
[2021-07-05] MEDS: PANTOPRAZOLE 20 MG TABLET PO SCH (09:57)
[2021-07-05] MEDS: FLUTICASONE/UMECLIDIN/VILANTER(200-62.5-25 TRELEGY ELLIPTA) INAHLER IH SCH (09:57)
[2021-07-05] MEDS: metoPROLOL SUCCINATE 25 MG TAB.SR.24H (FP) PO SCH ×2 (09:57→21:33)
[2021-07-05] MEDS ORDERED: POTASSIUM CHLORIDE TABS 20 MEQ TABLET.ER (FP) PO ONE (14:33)
[2021-07-05] MEDS ORDERED: ALBUTEROL SO4 2.5/IPRATROPIUM 0.5 INH SOL 3 ML VIAL.NEB. NEB PRN (14:59)
[2021-07-05] MEDS ORDERED: FUROSEMIDE 40 MG/4 ML INJECTABLE VIAL IVPUSH ONE (16:00)
[2021-07-05] MEDS: ALPRAZolam 0.25 MG TABLET PO SCH (18:33)
[2021-07-05] MEDS: ALBUTEROL SO4 2.5/IPRATROPIUM 0.5 INH SOL 3 ML VIAL.NEB. NEB SCH ×2 (20:05→20:10)
[2021-07-05] MEDS ORDERED: PT OWN MED DRAWER 7, Y5N ONE (20:06)
[2021-07-05] MEDS: ATORVASTATIN CA 10 MG TABLET (FP) PO SCH (21:33)
[2021-07-05] MEDS: ACETAMINOPHEN 325 MG TABLET (FP) PO PRN (21:33)
[2021-07-05] MEDS: MONTELUKAST NA 10 MG TABLET PO SCH (21:33)
[2021-07-06] MEDS: ALPRAZolam 0.25 MG TABLET PO SCH ×2 (03:03→22:27)
[2021-07-06] MEDS: DOCUSATE SODIUM 100 MG CAPSULE (FP) PO SCH ×3 (05:26→22:27)
[2021-07-06 07:11] LABS: HEMATOCRIT 34.3 % (35.4-49); HEMOGLOBIN 10.7 GM/dL (11.7-16.9); MCH 26.7 pg (25.7-33.7); MCHC 31.4 g/dl (32.0-35.9); MEAN CELL VOLUME 85.2 fl (80-96); MEAN PLT VOLUME 11.8 fl (7.5-11.1); RBC 4.02 M/mm3 (4.00-5.60); RDW 19.7 % (11.9-15.9); WHITE BLOOD COUNT 16.5 K/mm3 (4.0-10.0)
[2021-07-06 07:21] LABS: SODIUM 142 mmol/L (136-145)
[2021-07-06 07:22] LABS: CHLORIDE 105 mmol/L (98-107)
[2021-07-06 07:31] LABS: ALBUMIN 2.8 g/dl (3.4-5.0); ANION GAP 12 MMOL/L (8-16); CALCIUM 7.8 mg/dL (8.5-10.1); CO2 25 mmol/L (21-32); GLUCOSE,RANDOM 98 mg/dL (74-106)
[2021-07-06 07:34] LABS: CREATININE 2.7 mg/dL (0.55-1.3); SGOT/AST 27 U/L (15-37); SGPT/ALT 54 U/L (13-61)
[2021-07-06 07:36] LABS: BILIRUBIN,TOTAL 3.1 mg/dL (0.2-1); TOT PROT 5.7 g/dl (6.4-8.2)
[2021-07-06 07:38] LABS: ALK PHOS 200 U/L (45-117)
[2021-07-06] MEDS: ALBUTEROL SO4 2.5/IPRATROPIUM 0.5 INH SOL 3 ML VIAL.NEB. NEB SCH ×4 (07:45→20:37)
[2021-07-06 07:51] LABS: BLOOD UREA NITROGEN 107.5 mg/dL (7-18)
[2021-07-06 08:10] LABS: PLATELET COUNT 18 10^3/uL (134-434)
[2021-07-06] MEDS: TAMSULOSIN HCL 0.4 MG CAP PO SCH (08:10)
[2021-07-06] MEDS: FUROSEMIDE 40 MG/4 ML INJECTABLE VIAL IVPB SCH ×2 (08:11→11:00)
[2021-07-06] MEDS ORDERED: FUROSEMIDE 40 MG/4 ML INJECTABLE VIAL IVPB SCH (10:00)
[2021-07-06] MEDS: metoPROLOL SUCCINATE 25 MG TAB.SR.24H (FP) PO SCH ×2 (10:41→22:27)
[2021-07-06] MEDS: PANTOPRAZOLE 20 MG TABLET PO SCH (10:41)
[2021-07-06] MEDS: FLUTICASONE/UMECLIDIN/VILANTER(200-62.5-25 TRELEGY ELLIPTA) INAHLER IH SCH (10:43)
[2021-07-06] MEDS: MILRINONE 20MG/100ML IVPB - 20,000 MCG/100 ML ML IVPB SCH ×2 (13:04→13:08)
[2021-07-06] MEDS ORDERED: ALPRAZolam 1 MG TABLET PO PRN (14:19)
[2021-07-06] MEDS: FUROSEMIDE INJECTION 100 MG in SODIUM CHLORIDE 40 ML IVPB SCH (14:47)
[2021-07-06] MEDS ORDERED: BENZOCAINE/MENTH/CETYLPYRD CL 1 EACH LOZENGE MM PRN (16:30)
[2021-07-06] MEDS: ATORVASTATIN CA 10 MG TABLET (FP) PO SCH (22:27)
[2021-07-06] MEDS: MONTELUKAST NA 10 MG TABLET PO SCH (22:27)
[2021-07-07] MEDS: DOCUSATE SODIUM 100 MG CAPSULE (FP) PO SCH ×3 (06:07→22:26)
[2021-07-07 06:45] LABS: URINE APPEARANCE CLEAR; URINE BILIRUBIN NEGATIVE (NEGATIVE); URINE COLOR YELLOW; URINE GLUCOSE (UA) NEGATIVE (NEGATIVE); URINE KETONE NEGATIVE (NEGATIVE); URINE LEUK ESTERASE NEGATIVE (NEGATIVE); URINE NITRITE NEGATIVE (NEGATIVE); URINE PROTEIN TRACE (NEGATIVE); URINE UROBILINOGEN 0.2 mg/dL (0.2-1.0)
[2021-07-07 07:07] LABS: HEMOGLOBIN 9.9 GM/dL (11.7-16.9); MCH 27.2 pg (25.7-33.7); MCHC 32.1 g/dl (32.0-35.9); MEAN CELL VOLUME 84.7 fl (80-96); MEAN PLT VOLUME 12.2 fl (7.5-11.1); RBC 3.65 M/mm3 (4.00-5.60); RDW 19.9 % (11.9-15.9); WHITE BLOOD COUNT 11.4 K/mm3 (4.0-10.0)
[2021-07-07 07:12] LABS: PLATELET COUNT 16 10^3/uL (134-434)
[2021-07-07 07:30] LABS: ALBUMIN 2.4 g/dl (3.4-5.0); CALCIUM 7.4 mg/dL (8.5-10.1)
[2021-07-07 07:31] LABS: BLOOD UREA NITROGEN 97.7 mg/dL (7-18)
[2021-07-07 07:32] LABS: CREATININE 2.7 mg/dL (0.55-1.3)
[2021-07-07 07:34] LABS: BILIRUBIN,TOTAL 2.6 mg/dL (0.2-1); TOT PROT 5.3 g/dl (6.4-8.2)
[2021-07-07] MEDS: ALBUTEROL SO4 2.5/IPRATROPIUM 0.5 INH SOL 3 ML VIAL.NEB. NEB SCH ×4 (07:45→20:12)
[2021-07-07] MEDS ORDERED: POTASSIUM CHLORIDE TABS 20 MEQ TABLET.ER (FP) PO ONE ×3 (07:48→18:37)
[2021-07-07] MEDS: TAMSULOSIN HCL 0.4 MG CAP PO SCH (09:00)
[2021-07-07] MEDS: PANTOPRAZOLE 20 MG TABLET PO SCH (09:58)
[2021-07-07] MEDS: ALPRAZolam 0.25 MG TABLET PO SCH ×2 (09:58→22:25)
[2021-07-07] MEDS: metoPROLOL SUCCINATE 25 MG TAB.SR.24H (FP) PO SCH ×2 (10:00→22:26)
[2021-07-07] MEDS: FLUTICASONE/UMECLIDIN/VILANTER(200-62.5-25 TRELEGY ELLIPTA) INAHLER IH SCH (10:00)
[2021-07-07] MEDS ORDERED: LIDOCAINE VISCOUS 2% ORAL/TOP 100 ML BOTTLE MM PRN (10:39)
[2021-07-07] MEDS: valACYclovir HCL 500 MG TABLET (FP) PO SCH (11:12)
[2021-07-07] MEDS: methylPREDNISolone NA SUCC 40 MG/1 ML VIAL IVPUSH SCH ×2 (13:41→17:52)
[2021-07-07] MEDS: MILRINONE 20MG/100ML IVPB - 20,000 MCG/100 ML ML IVPB SCH (13:44)
[2021-07-07] MEDS: FUROSEMIDE INJECTION 100 MG in SODIUM CHLORIDE 40 ML IVPB SCH (13:45)
[2021-07-07] MEDS ORDERED: PT OWN MED DRAWER 7, Y5N ONE (13:55)
[2021-07-07] MEDS: LIDOCAINE VISCOUS 2% ORAL/TOP 15 ML UNIT-DOSE CUP MM PRN (13:57)
[2021-07-07] MEDS ORDERED: NAPH,MB-DB/K PH,MBDB POWDER PACKET PO ONE (18:30)
[2021-07-07] MEDS: ATORVASTATIN CA 10 MG TABLET (FP) PO SCH (22:26)
[2021-07-07] MEDS: MONTELUKAST NA 10 MG TABLET PO SCH (22:26)
[2021-07-08] MEDS: methylPREDNISolone NA SUCC 40 MG/1 ML VIAL IVPUSH SCH ×3 (03:27→17:22)
[2021-07-08] MEDS: DOCUSATE SODIUM 100 MG CAPSULE (FP) PO SCH ×2 (06:08→17:22)
[2021-07-08] MEDS: ALBUTEROL SO4 2.5/IPRATROPIUM 0.5 INH SOL 3 ML VIAL.NEB. NEB SCH ×4 (08:18→20:10)
[2021-07-08] MEDS: TAMSULOSIN HCL 0.4 MG CAP PO SCH (09:17)
[2021-07-08] MEDS: PANTOPRAZOLE 20 MG TABLET PO SCH (09:18)
[2021-07-08] MEDS: ALPRAZolam 0.25 MG TABLET PO SCH (09:18)
[2021-07-08] MEDS: metoPROLOL SUCCINATE 25 MG TAB.SR.24H (FP) PO SCH (09:18)
[2021-07-08] MEDS: valACYclovir HCL 500 MG TABLET (FP) PO SCH (09:18)
[2021-07-08] MEDS ORDERED: PT OWN MED DRAWER 7, Y5N ONE (09:27)
[2021-07-08] MEDS: LIDOCAINE VISCOUS 2% ORAL/TOP 15 ML UNIT-DOSE CUP MM PRN (09:31)
[2021-07-08] MEDS: FLUTICASONE/UMECLIDIN/VILANTER(200-62.5-25 TRELEGY ELLIPTA) INAHLER IH SCH (12:28)
[2021-07-08] MEDS: MILRINONE 20MG/100ML IVPB - 20,000 MCG/100 ML ML IVPB SCH (12:28)
[2021-07-08] MEDS: FUROSEMIDE INJECTION 100 MG in SODIUM CHLORIDE 40 ML IVPB SCH (15:00)
[2021-07-08 20:39] VITALS: BP 122/77; PULSE 88; TEMP 97.3
== END 2021-07-08 21:11 | disposition short-term general hospital (02) | DRG 682 ==
LOC: JER 07:02 → JERBED 09:46 → JICU 12:02 → J4S 06-23 22:28 → J4W 06-30 18:28
PROVIDERS: ADMIT Internal Medicine Pulmonary Disease; ATTEND Internal Medicine
PROC: 30233R1 Transfusion of Nonautologous Platelets into Peripheral Vein, Percutaneous Approach (ICD-10-PCS; principal; 2021-06-22)
PROC: 30233N1 Transfusion of Nonautologous Red Blood Cells into Peripheral Vein, Percutaneous Approach (ICD-10-PCS; 2021-07-01)
DX: N17.9 Acute kidney failure, unspecified (principal); I50.43 Acute on chronic combined systolic (congestive) and diastolic (congestive) heart failure; I13.0 Hypertensive heart and chronic kidney disease with heart failure and stage 1 through stage 4 chronic kidney disease, or unspecified chronic kidney disease; J96.11 Chronic respiratory failure with hypoxia; I27.20 Pulmonary hypertension, unspecified; J44.9 Chronic obstructive pulmonary disease, unspecified; E78.5 Hyperlipidemia, unspecified; N18.9 Chronic kidney disease, unspecified; J84.10 Pulmonary fibrosis, unspecified; U09.9 Post COVID-19 condition, unspecified; M10.9 Gout, unspecified; A60.00 Herpesviral infection of urogenital system, unspecified; I25.119 Atherosclerotic heart disease of native coronary artery with unspecified angina pectoris; R00.0 Tachycardia, unspecified; I08.0 Rheumatic disorders of both mitral and aortic valves; F41.8 Other specified anxiety disorders; I71.9 Aortic aneurysm of unspecified site, without rupture; M54.50 Low back pain, unspecified; N40.0 Benign prostatic hyperplasia without lower urinary tract symptoms; E87.5 Hyperkalemia; D69.6 Thrombocytopenia, unspecified; R33.9 Retention of urine, unspecified; R94.5 Abnormal results of liver function studies; D64.9 Anemia, unspecified; E87.6 Hypokalemia; Z95.810 Presence of automatic (implantable) cardiac defibrillator; Z95.5 Presence of coronary angioplasty implant and graft
CPT/HCPCS: 36415; 36430; 36511; 71045-TC-FY; 76705-TC; 80048; 80053; 80076; 81003; 82248; 82272; 82550; 82803; 82962; 83605; 83735; 83880; 84100; 84132; 84484; 84550; 85025; 85027; 85032; 85384; 85610; 85730; 86431; 86850; 86900; 86901; 86922; 87040; 87086; 87186; 87536; 93005; 93010; 94640; 97162-GP; 99285-25; C9803; J0131; J1644; P9034; P9038; P9058; Q0162; U0003; U0005